=== PATIENT | female | born 1995 | race Caucasian/White ===

== ENCOUNTER → 2017-10-22 11:33 | Outpatient (CLI) | payer BC, SELFPAY ==
[2017-10-22 12:52] LABS: Absolute Lymphocyte Count 1.21 X10^3/ul (0.83-4.51); Absolute Neutrophil Count 4.8 X10^3/uL (2.0-7.7); Basophil# 0.02 X10^3/uL; Basophil% 0.3 % (0-1); Eosinophil# 0.05 X10^3/uL; Eosinophils% 0.8 % (0-5); Hemoglobin 12.7 g/dl (12.0-15.0); Lymphocyte # 1.21 X10^3/ul (4.0); Lymphocyte % 18.6 % (19-41); Mean Corp Hgb Conc 34.3 g/gl (32-36); Mean Corpuscular Volume 90.2 fL (81-99); Mean Platelet Vol. 11.2 fl (6.2-12.0); Monocyte# 0.43 X10^3/uL; Monocyte% 6.6 % (0-10); Neutrophil # 4.78 X10^3/uL (2.7-7.7); Neutrophil % 73.5 % (47-70); Platelet Count 170 K/mm3 (150-450); RBC Distribution Width CV 12.5 % (11.6-14.6); RBC Distribution Width SD 40.9 fl (35.1-43.9); White Blood Count 6.5 K/mm3 (4.4-11.0)
[2017-10-22 12:57] LABS: POSITIVE COUNT NO; POSITIVE DIFFERENTIAL NO; POSITIVE MORPHOLOGY NO
[2017-10-22 14:11] LABS: HIV - WCH Non-Reactive (Nonreactive)
[2017-10-22 18:45] LABS: Chlamydia Trachomatis by PCR Negative (Negative); Neisserai gonorrhoeae by PCR Negative (Negative); Probe Check PASS; Sample Adequacy Control PASS; Specimen Processing Control PASS
[2017-10-23 09:42] LABS: HEPATITIS B SURFACE AG Negative (Negative)
[2017-10-26 03:47] LABS: Rapid Plasmin Reagin (RPR) NONREACTIVE (NONREACTIVE)
== END ==
PROVIDERS: Visit Provider Obstetrics & Gynecology
DX: Z34.90 Encounter for supervision of normal pregnancy, unspecified, unspecified trimester (principal); Z3A.00 Weeks of gestation of pregnancy not specified
CPT/HCPCS: 85025; 86592; 86703; 86762; 86850; 86900; 87086; 87088; 87340; 87491; 87591

== ENCOUNTER → 2018-01-09 13:55 | Outpatient (CLI) | payer BC, SELFPAY ==
--- NOTE | 2018-01-09 13:57 | US_ITS ---
STUDY: SECOND AND THIRD TRIMESTER OBSTETRICAL ULTRASOUND REASON FOR EXAM: Female, 22 years old. Routine survey. LMP: August 29, 2017 TECHNIQUE: Transabdominal PRIOR ULTRASOUND: None. FINDINGS: There is a single intrauterine fetus. The fetus is in a cephalic presentation. There is demonstrated cardiac activity with a heart rate of 155 bpm. There is a normal amniotic fluid volume. The largest amniotic fluid pocket measures 3.6 cm x 5.5 cm. The amniotic fluid index (BORIS) is within normal limits. The placenta is posterior in location and is not low lying. There are Grade 0 placental changes. The cervix measures 3.2 cm in length. The bilateral adnexal regions are normal. BIOMETRY: BPD: 4.7 cm: 20 weeks, 2 days HC: 17.1 cm: 19 weeks, 6 days AC: 13.6 cm: 19 weeks, 1 days FL: 3.04 cm: 19 weeks, 3 days CI: 79% FL/BPD: 65% FL/HC: FL/AC: 22% HC/AC: 1.26 age by current US: 19 weeks, 5 days. KIRK by current US: May 31, 2018. Estimated weight: 284 grams, +/- 42 grams, 63 %. Age by LMP: 19 weeks, 0 days. KIRK by LMP: June 05, 2018 ANATOMY: Gender: Male Cranium: Normal lateral ventricles. Normal choroid plexus. Normal cerebellum. Normal cisterna magna. Normal face, nose and lips. Chest: Normal 4-chamber heart. Echogenic focus in the left ventricle suggestive of a possible prominent coronary tendon. Abdomen/Pelvis: Normal diaphragm. Normal stomach. Normal abdominal wall. Normal cord insertion. Normal 3 vessel cord. Minimally dilated lateral renal pelvis. Normal bladder. Spine: Normal cervical spine. Normal thoracic spine. Normal lumbar spine. Normal sacrum. Extremities: Normal bilateral upper extremities. There is suggestion of a possible sandal gap of the left foot. US/OB Anatomy Scan IMPRESSION: Single live intrauterine gestation with mean gestational age of 19 weeks and 5 days. Soft findings of the foot and heart as described. Trisomy 21 should be ruled out. Electronically Signed: Yosi Norman MD at 11:24 EDT Tel [phone], Service support ,
== END ==
PROVIDERS: Visit Provider Nurse Practitioner Women's Health
DX: Z34.92 Encounter for supervision of normal pregnancy, unspecified, second trimester (principal)
CPT/HCPCS: 76805

== ENCOUNTER → 2018-02-12 18:19 | Outpatient (CLI) | payer BC, SELFPAY | PROVIDERS: Referring Provider Obstetrics & Gynecology; Visit Provider Obstetrics & Gynecology | DX: R30.0 Dysuria (principal) | CPT/HCPCS: 87086; 87088 ==

== ENCOUNTER → 2018-03-12 12:09 | Outpatient (CLI) | payer BC, SELFPAY ==
[2018-03-12 13:34] LABS: Absolute Lymphocyte Count 1.31 X10^3/ul (0.83-4.51); Absolute Neutrophil Count 6.5 X10^3/uL (2.0-7.7); Basophil# 0.01 X10^3/uL; Basophil% 0.1 % (0-1); Eosinophil# 0.07 X10^3/uL; Eosinophils% 0.8 % (0-5); Hematocrit 29.8 % (37-47); Hemoglobin 9.7 g/dl (12.0-15.0); Lymphocyte # 1.31 X10^3/ul (4.0); Lymphocyte % 15.5 % (19-41); Mean Corp Hgb Conc 32.6 g/gl (32-36); Mean Corpuscular Hgb 29.7 pg (27.0-32.0); Mean Corpuscular Volume 91.1 fL (81-99); Mean Platelet Vol. 10.8 fl (6.2-12.0); Monocyte# 0.53 X10^3/uL; Monocyte% 6.3 % (0-10); Neutrophil # 6.52 X10^3/uL (2.7-7.7); Neutrophil % 77.1 % (47-70); POSITIVE COUNT NO; POSITIVE DIFFERENTIAL NO; POSITIVE MORPHOLOGY NO; Platelet Count 201 K/mm3 (150-450); RBC Distribution Width CV 12.3 % (11.6-14.6); Red Blood Count 3.27 M/mm3 (4.2-5.4); White Blood Count 8.5 K/mm3 (4.4-11.0)
[2018-03-12 13:52] LABS: Glucose Challenge Gest 1H 50g 120 mg/dL (70-140)
== END ==
PROVIDERS: Referring Provider Obstetrics & Gynecology; Visit Provider Obstetrics & Gynecology
DX: Z34.90 Encounter for supervision of normal pregnancy, unspecified, unspecified trimester (principal)
CPT/HCPCS: 36415; 82950; 85025

== ENCOUNTER 2018-04-21 22:50 | Outpatient (CLI) | payer BC, SELFPAY ==
[2018-04-08 10:16] VITALS: BMI 21.4
[2018-04-22] VITALS: BMI 22.4
[2018-04-22 00:28] LABS: Hematocrit 33.9 % (37-47); Hemoglobin 11.6 g/dl (12.0-15.0); Mean Corp Hgb Conc 34.2 g/gl (32-36); Mean Corpuscular Hgb 31.2 pg (27.0-32.0); Mean Corpuscular Volume 91.1 fL (81-99); Mean Platelet Vol. 11.1 fl (6.2-12.0); Platelet Count 188 K/mm3 (150-450); RBC Distribution Width CV 14.3 % (11.6-14.6); RBC Distribution Width SD 46.7 fl (35.1-43.9); Red Blood Count 3.72 M/mm3 (4.2-5.4); White Blood Count 13.6 K/mm3 (4.4-11.0)
[2018-04-22 00:31] LABS: Scan Indicated on CBC? Y/N NO
[2018-04-22] MEDS: Ondansetron 4 MG/2 ML Vial IV ×2 (00:37→04:48)
[2018-04-22 00:59] LABS: Fetal Fibronectin Negative
[2018-04-22] MEDS: Lactated Ringers 1,000 ML 999 ML IV ×2 (01:29)
[2018-04-22] MEDS: Lactated Ringers 1,000 ML 200 ML IV (02:56)
[2018-04-22] MEDS: Betamethasone/Betamethasone 30 MG/5 ML Vial 12 MG IM (02:58)
[2018-04-22 03:20] LABS: Red Blood Cells-Urine 0 SEEN /hpf (0-5); Squamous Epithelial Cells - UA 0 SEEN /hpf (5-10); White Blood Cells 0 SEEN /hpf (0-5)
[2018-04-22 03:21] LABS: Color, Urine Yellow (Yellow); Glucose, Dipstick Normal (Normal); Leukocyte Esterase-Dipstick Negative /ul (Negative); Nitrite-Dipstick Negative (Negative); Occult Blood-Urine Negative /ul (Negative); Protein-Dipstick Negative (Negative); Urine Bilirubin Dipstick Negative (Negative); Urine Clarity Clear (Clear); Urine Urobilinogen Normal (Normal); Urine pH 6.5 (5.0 - 8.0)
[2018-04-22 03:27] LABS: Bacteria RARE /hpf (None Seen); Mucous, Urine RARE /hpf (<or=2+)
[2018-04-22 03:28] LABS: Ketone-Dipstick 150 mg/dl (Negative)
--- NOTE | 2018-04-22 04:17 | OB.TRI.HP_ITS ---
- Problem List (1) Threatened labor Status: Acute History of Present Illness Date of Service: 04/22/18 Was patient seen by the physician?: Yes Reason For Visit: R/O LABOR Date of Service: 04/22/18 History of Present Illness: 23 yo @ 33 weeks presents with ctx every few minutes increasing since 4 pm this afternoon. she denies any vb or lof and admits good fm. she has also had some diarrhea and vomiting. she denies any sick contacts and no fevers. Allergies penicillin G Allergy (Mild, Verified 04/22/18 00:42) Other unknown reaction nitrous oxide Allergy (Verified 04/22/18 00:42) Other Hallucinations and vomiting acetaminophen [From Tylenol] Adverse Reaction (Severe, Verified 04/22/18 00:42) Vomiting - Pertinent Past Medical History Medical History: Past Medical History (Last Reviewed 04/08/18 @ 10:16 by Suni Acevedo) [place] teeth extracted Laboratory Studies: Laboratory Tests 04/22/18 04/21/18 04/21/18 Range/Units 02:35 00:00 00:00 WBC 13.6 H (4.4-11.0) K/mm3 RBC 3.72 L (4.2-5.4) M/mm3 Hgb 11.6 L (12.0-15.0) g/dl Hct 33.9 L (37-47) % MCV 91.1 (81-99) fL MCH 31.2 (27.0-32.0) pg MCHC 34.2 (32-36) g/gl RDW 14.3 (11.6-14.6) % RDW Differential 46.7 H (35.1-43.9) fl Plt Count 188 (150-450) K/mm3 MPV 11.1 (6.2-12.0) fl Urine Color Yellow (Yellow) Urine Clarity Clear (Clear) Urine pH 6.5 (5.0 - 8.0) Ur Specific [place] 1.010 (1.002-1.030) Urine Protein Negative (Negative) mg/dl Urine Glucose (UA) Normal (Normal) mg/dl Urine Ketones 150 H (Negative) mg/dl Urine Occult Blood Negative (Negative) /ul Urine Nitrite Negative (Negative) Urine Bilirubin Negative (Negative) mg/dL Urine Urobilinogen Normal (Normal) mg/dl Ur Leukocyte Esterase Negative (Negative) /ul Urine RBC 0 SEEN (0-5) /hpf Urine WBC 0 SEEN (0-5) /hpf Ur Squamous Epith Cells 0 SEEN (5-10) /hpf Urine Bacteria RARE (None Seen) /hpf Urine Mucus RARE (<or=2+) /hpf Fibronectin Negative Review of Systems Constitutional: Denies: Fever, Malaise Eyes: Denies: Blurred vision, Vision Change HEENT: Denies: Head Aches, Visual Changes Cardiovascular: Denies: Chest Pain, Palpitations Respiratory: Denies: Cough, Shortness of Breath, Wheezing Gastrointestinal: Denies: Abdominal Pain, Diarrhea, Nausea, Vomiting Genitourinary: Denies: Dysuria, Hematuria Gynecological: Denies: Vaginal bleeding, Vaginal discharge Musculoskeletal: Denies: Joint Pain, Muscle pain Skin: Denies: Lesions, Rash Neurological: Denies: Blurred vision, Focal weakness, Headaches Psychiatric: Denies: Anxiety, Depression Endocrine: Denies: Heat/ Cold Intolerance Hematologic/ Lymphatic: Denies: Easy Bruising, Easy Bleeding Physical Exam General: Alert, Cooperative, No apparent distress HEENT: Atraumatic, Normocephalic. Negative for: Thyromegaly, Lymphadenopathy Cardiovascular: Regular rate Lungs: Normal air movement Abdomen: Soft, Non Tender, Gravid Neurological: Deep Tendon Reflexes 2+/4 and Symmetrical, Neuro grossly intact. 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 Negative for: Vulvar lesions Estimated gestational size: Appropriate for gestational size Presentation: Cephalic Cervix Dilation (cm): 1.5 Station: -1 Effacement (%): 70 NST - FHR Rate Baby A Baseline: 130 Variability:: Moderate Accelerations:: 15 x 15 Decelerations:: None NST Reactive:: Yes FHR Category:: Category I Uterine Activity:: q 2-5 Impression/Plan 23 yo @ 33 weeks with threatened PTL FFN negative and no cervical change but regular contractions for several hours- given celestone prophylactically. extended monitoring and IVFs and anti emetics given and ctx decreased. stable for discharge
[2018-04-22] MEDS: proMETHazine 25 MG/ML Syringe 12.5 MG IV (04:49)
[2018-04-22 08:10] VITALS: RESP 18
--- OUTSIDE RECORDS SUMMARY | 2018-07-24 14:12 | XMS RPT_ITS ---
:1995 Author Organization OHIP Support Name Relationship Address Phone DOYHE Unavailable [address] + [place] [address] SHIREEN MANTILLA Unavailable [address] + [place] [address] DOYHE Unavailable [address] + [place] [address] SHIREEN MANTILLA Unavailable [address] + [place] [address] DOYHE Unavailable [address] + [place] [address] SHIREEN MANTILLA Unavailable [address] + [place] [address] DOYHE Unavailable [address] + [place] [address] SHIREEN MANTILLA Unavailable [address] + [place] [address] DOYHE Unavailable [address] + [place] [address] SHIREEN MANTILLA Unavailable [address] + [place] [address] DOYHE Unavailable [address] + [place] [address] SHIREEN MANTILLA Unavailable [address] + [place] [address] FRANCINE MANTILLA Unavailable [address] + [place] [address] DOYHE Unavailable [address] + [place] [address] SHIREEN MANTILLA Unavailable [address] + [place] [address] DOYHE Unavailable [address] + [place] [address] SHIREEN MANTILLA Unavailable [address] + [place] [address] DOYHE Unavailable [address] + [place] [address] SHIREEN MANTILLA Unavailable [address] + [place] [address] DOYHE Unavailable [address] + [place] [address] SHIREEN MANTILLA Unavailable [address] + [place] [address] DOYHE Unavailable [address] + [place] [address] SHIREEN MANTILLA Unavailable [address] + [place] [address] DOYHE Unavailable [address] + [place] [address] SHIREEN MANTILLA Unavailable [address] + [place] [address] FRANCINE MANTILLA Unavailable [address] + [place] [address] DOYHE Unavailable [address] + [place] [address] SHIREEN MANTILLA Unavailable [address] + [place] [address] DOYHE Unavailable [address] + [place] [address] SHIREEN MANTILLA Unavailable [address] + [place] [address] DOYHE Unavailable [address] + [place] [address] SHIREEN MANTILLA Unavailable [address] + [place] [address] DOYHE Unavailable [address] + [place] [address] SHIREEN MANTILLA Unavailable [address] + [place] [address] FRANCINE MANTILLA Unavailable [address] + [place] [address] DOYHE Unavailable [address] + [place] [address] SHIREEN MANTILLA Unavailable [address] + [place] [address] DOYHE Unavailable [address] + [place] [address] SHIREEN MANTILLA Unavailable [address] + [place] [address] FRANCINE MANTILLA Unavailable [address] + [place] [address] DOYHE Unavailable [address] + [place] [address] SHIREEN MANTILLA Unavailable [address] + [place] [address] MAVERICK FISH Unavailable [address] + [place] [address] MAVERICK FISH Unavailable [address] + [place] [address] DOYHE Unavailable [address] + [place] [address] SHIREEN MANTILLA Unavailable [address] + [place] [address] SHIREEN MANTILLA Unavailable [address] + [place] [address] WOOBGYN Unavailable BENEKOS/WEEMAN/CASTELAN + [address] [address] SHIREEN MANTILLA Unavailable [address] + [place] [address] WOOBGYN Unavailable BENEKOS/WEEMAN/CASTELAN + [address] [address] SHIREEN MANTILLA Unavailable [address] + [place] [address] WOOBGYN Unavailable BENEKOS/WEEMAN/CASTELAN + [address] [address] WOOBGYN Unavailable BENEKOS/WEEMAN/CASTELAN + [address] [address] Care Team Providers Name Role Phone JOHNY MCNEAL Attending Unavailable MARCANTHONYTRICIA Referring Unavailable NO PRIMARY CARE, Primary Care Unavailable JENNY PEREZ Attending Unavailable MARCANTHONY, TRICIA E Referring Unavailable NO PRIMARY CARE, Primary Care Unavailable JENNY PEREZ Attending Unavailable MARCANTHONY, TRICIA E Referring Unavailable NO PRIMARY CARE, Primary Care Unavailable NIURKA HUSAIN Attending Unavailable MARCANTHONY, TRICIA E Referring Unavailable NO PRIMARY CARE, Primary Care Unavailable Marcanthony, Tricia Attending Unavailable Primay Care Physicia, No Primary Care Unavailable Marcanthony, Tricia Attending Unavailable Primay Care Physicia, No Primary Care Unavailable Marcanthony, Tricia Consulting Unavailable Marcanthony, Tricia Attending Unavailable Marcanthony, Tricia Referring Unavailable Primay Care Physicia, No Primary Care Unavailable Marcanthony, Tricia Attending Unavailable Primay Care Physicia, No Referring Unavailable Marcanthony, Tricia Attending Unavailable Marcanthony, Tricia Referring Unavailable Primay Care Physicia, No Primary Care Unavailable Marcanthony, Tricia Consulting Unavailable MikelCarmelina Attending Unavailable Primay Care Physicia, No Referring Unavailable Marcanthony, Tricia Attending Unavailable Marcanthony, Tricia Attending Unavailable MarcanthonyTricia Referring Unavailable Primay Care Physicia, No Primary Care Unavailable Marcanthony, Tricia Attending Unavailable Primay Care Physicia, No Referring Unavailable Marcanthony, Tricia Attending Unavailable Marcanthony, Tricia Referring Unavailable Primay Care Physicia, No Primary Care Unavailable Marcanthony, Tricia Attending Unavailable Primay Care Physicia, No Referring Unavailable Marcanthony, Tricia Admitting Unavailable Marcanthony, Tricia Attending Unavailable Marcanthony, Tricia Referring Unavailable Primay Care Physicia, No Primary Care Unavailable Marcanthony, Tricia Admitting Unavailable Marcanthony, Tricia Attending Unavailable Marcanthony, Tricia Referring Unavailable Primay Care Physicia, No Primary Care Unavailable Marcanthony, Tricia Consulting Unavailable Marcanthony, Tricia Admitting Unavailable Gallaway, Carmelina Attending Unavailable Marcanthony, Tricia Referring Unavailable Primay Care Physicia, No Primary Care Unavailable Marcanthony, Tricia Consulting Unavailable Marcanthony, Tricia Attending Unavailable Primay Care Physicia, No Referring Unavailable Mikel, Carmelina Attending Unavailable Primay Care Physicia, No Referring Unavailable Primay Care Physicia, No Primary Care Unavailable Mikel, Carmelina Attending Unavailable Gallaway, Carmelina Referring Unavailable Primay Care Physicia, No Primary Care Unavailable Marcanthony, Tricia Attending Unavailable Marcanthony, Tricia Attending Unavailable Primay Care Physicia, No Referring Unavailable Primay Care Physicia, No Primary Care Unavailable Marcanthony, Tricia Attending Unavailable Marcanthony, Tricia Attending Unavailable Primay Care Physicia, No Referring Unavailable Marcanthony, Tricia Attending Unavailable Marcanthony, Tricia Referring Unavailable Marcanthony, Tricia Attending Unavailable Primay Care Physicia, No Referring Unavailable Marcanthony, Tricia Attending Unavailable Marcanthony, Tricia Referring Unavailable Mikel, Carmelina Attending Unavailable Primay Care Physicia, No Referring Unavailable Marcanthony, Tricia Attending Unavailable Primay Care Physicia, No Referring Unavailable PROBLEMS PROBLEMS DATE TYPE CONDITION / CODE ATTENDING STATUS SOURCE 05/20/2018 Unknown O35.8XX0 - Marcanthony, Active [facility] Maternal care for [facility] other (suspected) Hospital abnormality Repository and damage, not applicable or unspecified / O35.8XX0(ICD-10) 05/20/2018 Unknown O21.9 - Vomiting Marcanthony, Active Florentin of , [facility] unspecified / Hospital O21.9(ICD-10) Repository 05/20/2018 Unknown O28.3 - Abnormal Marcanthony, Active [facility] ultrasonic finding [facility] on Hospital screening of Repository mother / O28.3(ICD-10) 05/20/2018 Unknown Z34.03 - Encounter Marcanthony, Active [facility] for supervision of [facility] normal first Hospital , third Repository trimester / Z34.03(ICD-10) 05/20/2018 Unknown Z3A.37 - 37 weeks Marcanthony, Active [facility] gestation of [facility] / Hospital Z3A.37(ICD-10) Repository 05/14/2018 Unknown Z34.90 - Encounter Marcanthony, Active Florentin for supervision of [facility] normal , Hospital unspecified, Repository unspecified trimester / Z34.90(ICD-10) 04/23/2018 Unknown O47.03 - False Marcmalikony, Active [facility] labor before 37 [facility] completed weeks of Hospital gestation, third Repository trimester / O47.03(ICD-10) 04/23/2018 Unknown O99.013 - Anemia Marcanthony, Active [facility] complicating [facility] , third Hospital trimester / Repository O99.013(ICD-10) 04/23/2018 Unknown Z3A.33 - 33 weeks Marcanthony, Active Florentin gestation of [facility] / Hospital Z3A.33(ICD-10) Repository 04/08/2018 Unknown Z3A.31 - 31 weeks Marcanthony, Active Florentin gestation of [facility] / Hospital Z3A.31(ICD-10) Repository 03/27/2018 Unknown Z34.02 - Encounter Carmelina Morin Active [facility] for supervision of [facility] Hospital , second Repository trimester / Z34.02(ICD-10) 03/27/2018 Unknown Z3A.30 - 30 weeks Carmelina Morin Active [facility] gestation of [facility] / Hospital Z3A.30(ICD-10) Repository 03/12/2018 Unknown Z3A.27 - 27 weeks Marcanthony, Active [facility] gestation of [facility] / Hospital Z3A.27(ICD-10) Repository 02/14/2018 Unknown R30.0 - Dysuria / Marcanthony, Active [facility] R30.0(ICD-10) [facility] Repository 01/28/2018 Unknown Z34.01 - Encounter Marcmaliksamara, Active Florentin for supervision of [facility] normal [facility] , first Repository trimester / Z34.01(ICD-10) 01/28/2018 Unknown Z3A.19 - 19 weeks Marcanthony, Active Florentin gestation of [facility] / Hospital Z3A.19(ICD-10) Repository 12/18/2017 Unknown Z3A.15 - 15 weeks Carmelina Morin Active [facility] gestation of [facility] / Hospital Z3A.15(ICD-10) Repository PROCEDURES PROCEDURES No Procedure Records FoundRESULTS RESULTS DISCHARGE INSTRUCTION Observed: 05/22/2018 Status: F Source: [place] 7:56 AM [facility] [place] [facility] Medical Records Department [address] [place] [address] Instructions for Home/Discharge Instructions 05/22/18 0755 MR#: [id number] Acct: [id number] Name: FRANCINE MANTILLA Rep #: [id number] : 1995 23 From: Carmelina BARKER PCP: Care Physician, No Primary Status: ADM IN Additional Instructions: If you experience any of the following, contact your healthcare provider. * Bleeding that soaks a pad every hour for 2 hours * Fever 100.4 or higher * Unrelieved incision or abdominal pain * Swelling, redness, discharge or bleeding from your incision or episiotomy site * Your incision begins to separate * Problems urinating (including inability to urinate or burning while urinating). * Visual changes * Severe headache * Flu-like symptoms * Pain or redness in one of both of your breasts * Pain, warmth, tenderness or swelling in your legs, especially the calf area * Frequent nausea and vomiting * Symptoms of depression or anxiety If you experience any of the following, call 911 or go to the nearest Emergency Room. * Chest pain * Problems breathing * Seizure activity * Partial or complete paralysis of a body part, slurred speech, weakness or drooping of the face, or a sudden inability to walk or hold your balance Allergies/Adverse Reactions: Allergies penicillin G Allergy (Mild, Verified 05/20/18 08:08) Other unknown reaction nitrous oxide Allergy (Verified 05/20/18 08:08) Other Hallucinations and vomiting acetaminophen [From Tylenol] Adverse Reaction (Severe, Verified 05/20/18 08:08) Vomiting Medications to take at Discharge vitamin,calcium,wbrhljhb-fhqu-vtbpc acid tablet 1 tab PO QDAY 10/22/17 Ascorbic Acid [Vitamin C] 500 mg PO DAILY@0800 04/23/18 Docusate Sodium [Colace] 100 mg PO DAILY 05/20/18 ferrous sulfate 325 mg (65 mg iron) tablet 325 mg PO DAILY tab 05/20/18 Primary Care Physician: Care Physician,No Primary [Primary Care Provider] - Test Results: Test results from this visit will be discussed in further detail at your follow-up appointment, if applicable. 05/22/18 0756 <Electronically signed by Carmelina BARKER> Date Carmelina Morin SCHEDULE ANNOUNCER-C CC: No Primary Care Physician Signed OPERATIVE REPORT Observed: 05/21/2018 Status: F Source: [place] 2:04 AM [facility] [place] [facility] Medical Records Department [address] [place] [address] Operative Report 05/21/18 0140 MR#: [id number] Acct: [id number] Name: FRANCINE MANTILLA Rep #: [id number] : 1995 23 From: Tricia Euceda MD PCP: Care Physician, No Primary Status: ADM IN Y Location: [id number] - Problem List (1) Active labor at term Status: Acute (2) Status: Acute Qualifiers: Comment: genetic, carrier, and ntd screening declined. anatomy scan reviewed. (3) Nausea and vomiting during Status: Acute Comment: phenergan, if needs more recommend reglan (4) Supervision of normal Status: Acute Qualifiers: Comment: PRR KIRK 06/05/18 Boy Shireen (5) Echogenic intracardiac focus of fetus on ultrasound Status: Acute Comment: repeat US with MFM 27-28 wk (6) Pyelectasis of fetus on ultrasound Status: Acute Comment: repeat US with MFM 04/15/ Vaginal Delivery Maternal Presentation: Active Labor 23-year-old at 37 weeks Amniotic Membrane Rupture Type: Artificial Amniotic Fluid Description: Clear Final KIRK: 06/05/18 Gestational age: 37 Weeks and 6 Days Date of Procedure: 05/21/18 Pre-Operative Diagnosis: In active labor Post-Operative Diagnosis: same Surgery/ Procedure Performed: Spontaneous Vaginal Delivery Type of Anesthesia: Epidural Description of Procedure: Patient began pushing and delivered the head in the CHANTEL presentation spontaneously as the physician was coming in the room. The head was delivered atraumatically. The anterior and posterior shoulders delivered without complication delivered by the physician followed by the rest of the infant and the infant was placed on the maternal abdomen. Delayed cord clamping was employed for approximately 60 seconds. Cord was clamped and cut and gentle traction was applied to the cord and the placenta delivered spontaneously immediately following it was noted to be intact with three-vessel cord. The perineum and vagina were inspected and a second-degree perineal laceration was noted and repaired in the usual fashion with 3-0 Vicryl repeat. EBL was 300 cc. Patient and tolerated delivery well. Placental Delivery Description: Spontaneous Placenta Disposition: [facility] Cord Vessel Description: 3 Vessels Cord Entanglement: None Estimated Blood Loss: 300 A gender: Male Episiotomy Description: None Laceration: Perineal Extension/lac, 2nd degree Medications given after delivery: IV Pitocin Complications: None 05/21/18 0204 <Electronically signed by Tricia Euceda MD> Date Tricia Euceda MD CC: No Primary Care Physician; Tricia Euceda MD Signed HISTORY AND PHYSICAL Observed: 05/21/2018 Status: F Source: [place] EXAM 1:40 AM [facility] [place] [facility] Medical Records Department [address] [place] [id number] History and Physical 05/21/18 0137 MR#: [id number] Acct: [id number] Name: FRANCINE MANTILLA Rep #: [id number] : 1995 23 From: Tricia Euceda MD PCP: Care Physician, No Primary Status: ADM IN Location: [id number] - Problem List (1) Active labor at term Status: Acute (2) Status: Acute Qualifiers: Comment: genetic, carrier, and ntd screening declined. anatomy scan reviewed. (3) Nausea and vomiting during Status: Acute Comment: phenergan, if needs more recommend reglan (4) Supervision of normal Status: Acute Qualifiers: Comment: PRR KIRK 06/05/18 Boy Shireen (5) Echogenic intracardiac focus of fetus on ultrasound Status: Acute Comment: repeat US with MFM 27-28 wk (6) Pyelectasis of fetus on ultrasound Status: Acute Comment: repeat US with M History Date of Admission: 05/21/18 Final KIRK: 06/05/18 Gestational age: 37 Weeks and 6 Days History of this : This is a 23 year-old, at 37 weeks gestational age resents in active labor. Patient presented at 5 cm dilation with regular contractions and a small amount of vaginal bleeding. She denies any loss of fluid and admits good movement. Patient has had a comp gated by some soft markers on ultrasound but otherwise normal testing. Surgical History: Surgical History (Last Reviewed 05/20/18 @ 08:09 by Merry Olvera) [place] teeth extracted K08.499 Allergies penicillin G Allergy (Mild, Verified 05/20/18 08:08) Other unknown reaction nitrous oxide Allergy (Verified 05/20/18 08:08) Other Hallucinations and vomiting acetaminophen [From Tylenol] Adverse Reaction (Severe, Verified 05/20/18 08:08) Vomiting Home Medications: Home Medications vitamin,calcium,ivrpakie-elne-trqwg acid tablet 1 tab PO QDAY 10/22/17 Ascorbic Acid [Vitamin C] 500 mg PO DAILY@0800 04/23/18 Docusate Sodium [Colace] 100 mg PO DAILY 05/20/18 ferrous sulfate 325 mg (65 mg iron) tablet 325 mg PO DAILY tab 05/20/18 Smoking Status: Never smoker Alcohol: None Number of Fetus(es): 1 Heart Tracin moderate variability reactive no decelerations category I tracing\ [place]: regular History Past Pregnancies: Past Pregnancies Delivery Name GA/Weeks Outcome Route Audie Salcedo LenAnesthesiDelivery Provider FOB Date t [facility] a Location Labs: Mom's Labs AND Results WBC 9.8 RBC 3.82 L Hgb 11.3 L Course Did the patient receive Yes care? Labs Blood Type: A Current Obstetrical History Gestational Diabetes No Incompetent Cervix No Infertility No IUGR No Macrosomia No Hypertension/Pre-eclampsia No Placenta Previa/Abruption No PTL/PROM Yes: 33.5 Uterine anomaly No Oligohydramnios No Polyhydramnios No Multiple gestation No Past Medical History Asthma No Diabetes No Hypertension No Heart disease No Mitral valve prolapse No Neurologic/Seizure disorder/ No Migraines Kidney disease No Liver disease No Varicosities No Clotting disorders/Hx of DVT No Thyroid Dysfunction No Other medical diseases No Psychiatric disorders No Major trauma No Abnormal PAP smear No Sleep apnea No Mammogram in the last 2 years No Social History Marital Status: Alleged father Shireen Smoking Status Never smoker How long have you used no substances (years)? What date/time did you last no use any of the above? Expected Delivery Method: Spontaneous Vaginal Review of Systems Constitutional: Denies: Fever, Malaise Eyes: Denies: Blurred vision, Vision Change HEENT: Denies: Head Aches, Visual Changes Cardiovascular: Denies: Chest Pain, Palpitations Respiratory: Denies: Cough, Shortness of Breath, Wheezing Gastrointestinal: Denies: Abdominal Pain, Diarrhea, Nausea, Vomiting Genitourinary: Denies: Dysuria, Hematuria Musculoskeletal: Denies: Joint Pain, Muscle pain Skin: Denies: Lesions, Rash Neurological: Denies: Blurred vision, Focal weakness, Headaches Psychiatric: Denies: Anxiety, Depression Endocrine: Denies: Heat/ Cold Intolerance Hematologic/ Lymphatic: Denies: Easy Bruising, Easy Bleeding Physical Exam General: Alert, Cooperative, No apparent distress HEENT: Atraumatic, Normocephalic. Negative for: Thyromegaly, Lymphadenopathy Cardiovascular: Regular rate Lungs: Normal air movement Abdomen: Soft, Non Tender, Gravid Neurological: Deep Tendon Reflexes 2+/4 and Symmetrical, Neuro grossly intact. Negative for: Clonus 911 EMERGENCY SERVICES DISPATCHER: Normal external genitalia. Negative for: Vulvar lesions Estimated gestational size: Appropriate for gestational size Presentation: Cephalic Cervix Dilation (cm): 5 Station: 0 Effacement (%): 80 Assessment/Plan All Active Problems (Last Reviewed 05/20/18 @ 08:09 by Merry Olvera) Active labor at term (Acute) (Acute) Nausea and vomiting during (Acute) Supervision of normal (Acute) Echogenic intracardiac focus of fetus on ultrasound (Acute) Pyelectasis of fetus on ultrasound (Acute) Anemia affecting (Resolved) Threatened labor (Resolved) This is a 23 year-old, at 37 weeks gestational age presents IAL Patient presents IAL, plan expectant management for , pitocin/AROM PRN if needed. Pain management: plans epidural. GBS negative. Management of any complications: none I have reviewed the [facility] and made any clinically relevant updates. 05/21/18 0140 <Electronically signed by Tricia Euceda MD> Date Tricia Euceda MD [facility] Signature: Date (if applicable) CC: No Primary Care Physician; Tricia Euceda MD Signed CBC-COMPLETE BLOOD CNT Collected: 05/20/2018 Status: F Source: [place] NO DIFF 5:55 PM [facility] [place] TYPE CODE TESTS RESULT OUT OF RANGE REFERENCE UNITS LAB L100.1000 4.4-11.0 K/mm3 Normal WBC 9.8 LAB L100.1200 4.2-5.4 M/mm3 Low RBC 3.82 LAB L100.1300 12.0-15.0 g/dl Low HGB 11.3 LAB L100.1400 37-47 % Low HCT 34.2 LAB L100.1500 81-99 fL Normal MCV 89.5 LAB L100.1600 27.0-32.0 pg Normal MCH 29.6 LAB L100.1700 32-36 g/gl Normal MCHC 33.0 LAB L100.1810 11.6-14.6 % High RDW CV 14.7 LAB L100.1820 35.1-43.9 fl High RDW SD 47.8 LAB L100.1900 150-450 K/mm3 Normal PLT 155 LAB L100.2000 6.2-12.0 fl High MPV 12.4 Performed By: #### L100.0500 #### [facility] [address] [place], [address] TYPE AND SCREEN Collected: 05/20/2018 Status: F Source: [place] 5:55 PM [facility] [place] Order Comment: Reason for Type AND Screen/Red Cells: ROUTINE TYPE CODE TESTS RESULT OUT OF RANGE REFERENCE UNITS LAB B10.0800 A Normal BLOOD TYPE GEL POSITIVE LAB B100.4000 Normal Antibody NEGATIVE Screen Performed By: #### B101.7450 #### [facility] [address] [place], [address] TURRET LATHE OPERATOR OFFICE VISIT Observed: 05/20/2018 Status: F Source: [place] REPORT 8:27 [facility] REPOSITORY [facility] 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 Is patient in pain?: No Allergies penicillin G Allergy (Mild, Verified 05/20/18 08:08) Other nitrous oxide Allergy (Verified 05/20/18 08:08) Other acetaminophen [From Tylenol] Adverse Reaction (Severe, Verified 05/20/18 08:08) Vomiting Medications vitamin,calcium,xietejnd-dfmn-dcimm acid tablet 1 tab PO QDAY 10/22/17 [History Confirmed 05/20/18] Ascorbic Acid [Vitamin C] 500 mg PO DAILY@0800 04/23/18 [History Confirmed 05/20/18] ferrous sulfate 325 mg (65 mg iron) tablet 325 mg PO DAILY tab 05/20/18 [History Confirmed 05/20/18] Last Menstral Period: 08/06/17 Zika: Zika virus screening: Negative : No PFSH PFSH Surgical History [place] teeth extracted (Acute) Family History Grandfather Cancer Social History Smoking Status: Never smoker alcohol intake: never substance use type: does not use what type of physical activity do you participate in: running, walking frequency: 3-4 times per week seatbelt use: always do you feel safe at home: Yes additional social history: 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 OB Visit KIRK Calculator Estimated Delivery Date 06/05/18 Based on LMP (certain) 08/29/17 Current WG 37w 5d Number 1 Expected Delivery Route/Plan Specific Issue/Plans flu vaccine: declines tdap vaccine: getting at her office rhogam: na LARC form signed: declined labor support person: shireen pain management: epidural cut cord/dad catch: no : yes PP control planned: OCP progesterone discussed possible routes of delivery and associated risks: [] special requests: [] Initial Weight: Not Recorded Date Weight BP Urine PrFHR FuHt Pres MoCTX DilationFetal StVisit NoProviderComments E ot v te [place] G Effac lucose ed Visit Notes Visit Date: 05/20/18 membranes swept no vb lof good fm n roegualr ctx Tricia Euceda MD on 05/20/18 Visit Date: 05/14/18 no vb lof good fm no regular ctx gbs done. Tricia Euceda MD on 05/14/18 Visit Date: 05/06/18 NO reg CTX, LOF, Vb. Carmelina Morin NP-C on 05/06/18 Visit Date: 04/23/18 no vb lof good fm no regular ctx since bmz- was in for PTL the other day Tricia Euceda MD on 04/23/18 Visit Date: 04/08/18 no vb lof good fm no regular ctx. co pelvic pressure. Tricia Euceda MD on 04/08/18 Visit Date: 03/27/18 No VB, LOF. Doing well Carmelina Morin NP-C on 03/27/18 Visit Date: 03/12/18 no vb lof good fm noregular ctx co pelvic pressure, just had mfm scan last week Tricia Euceda MD on 03/12/18 Visit Date: 02/12/18 no vb co increased discharge yesterday but normal today, some latasha zhao but nothing regular. check ua and culture today. labor precautions reviewed Tricia Euceda MD on 02/12/18 ACOG First Trimester First Trimester: Desire for , Alcohol, Tobacco Cessation, Illicit/Recreational Drug/Substance Use, Intimate Partner Violence, Barriers to care, Unstable Housing, Communication Barriers, Environmental/Work Hazards, Anticipated Course of Care, Toxoplasmosis Precations, Use of Any medications, Sexual activity, Exercise, Dental Care, Sauna/Hot tub use, Seat Belt use, Childbirth classes/Hospital facilities, , Travel, Indications for US and Screening for Aneuploidy Diagnostics Diagnostics Labs Hct 33.9 % (37-47) L 04/21/18 Hgb 11.6 g/dl (12.0-15.0) L 04/21/18 Glucose 1 Hr 50 gm 120 mg/dL (70-140) 03/12/18 Details: HIV: Urine Culture: Sequential Screen: NIPT Screen: Results [email or web address] Office Urine Glucose Negative Last Edit by Merry Olvera on 05/20/18 08:10 Office Urine Protein Negative Last Edit by Merry Olvera on 05/20/18 08:10 Assessment AND Plan Problems 1. Nausea/vomiting in O21.9 phenergan, if needs more recommend reglan 2. 37 weeks gestation of Z3A.37 genetic, carrier, and ntd screening declined. anatomy scan reviewed. 3. Echogenic intracardiac focus of fetus on ultrasound O28.3 repeat US with MFM 27-28 wk 4. Pyelectasis of fetus on ultrasound O35.8XX0 repeat US with MFM 5. Encounter for supervision of normal first in third trimester Z34.03 PRR KIRK 06/05/18 Boy Shireen Jacobsen ACOG trimester education reviewed and updated. see problem list details for updated plan management information and see below for orders placed at this visit. [place] appropriate handout given. movement and labor precautions reviewed. Orders Orders: Coding Level of Care Code OB Routine Diagnoses Nausea/vomiting in O21.9 37 weeks gestation of Z3A.37 Weeks of gestation: 37 weeks Echogenic intracardiac focus of fetus on ultrasound O28.3 Pyelectasis of fetus on ultrasound O35.8XX0 Encounter for supervision of normal first in third trimester Z34.03 Normal : normal first Trimester: third trimester 05/20/18 0827 <Electronically signed by Tricia Euceda MD> Date Tricia Euceda MD [facility] Signature: Date (if applicable) CC: TURRET LATHE OPERATOR OFFICE VISIT Observed: 05/16/2018 Status: F Source: [place]I REPORT 5:01 AM [facility] 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 Allergies penicillin G Allergy (Mild, Verified 05/14/18 12:15) Other nitrous oxide Allergy (Verified 05/14/18 12:15) Other acetaminophen [From Tylenol] Adverse Reaction (Severe, Verified 05/14/18 12:15) Vomiting Medications vitamin,calcium,andndwfh-gibr-tayyq acid tablet 1 tab PO QDAY 10/22/17 [History Confirmed 05/14/18] Ferrous Gluconate 325 mg PO DAILY@0800 04/22/18 [History Confirmed 05/14/18] Ascorbic Acid [Vitamin C] 500 mg PO DAILY@0800 04/23/18 [History Confirmed 05/14/18] Last Menstral Period: 08/06/17 Zika: Zika virus screening: Negative : No PFSH PFSH Medical History [place] teeth extracted (Acute) Family History Grandfather Cancer Social History Smoking Status: Never smoker alcohol intake: never substance use type: does not use what type of physical activity do you participate in: running, walking frequency: 3-4 times per week seatbelt use: always do you feel safe at home: Yes 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 OB Visit KIRK Calculator Estimated Delivery Date 06/05/18 Based on LMP (certain) 08/29/17 Current WG 37w 1d Number 1 Expected Delivery Route/Plan Specific Issue/Plans flu vaccine: declines tdap vaccine: getting at her office rhogam: na LARC form signed: declined labor support person: shireen pain management: epidural cut cord/dad catch: no : yes PP control planned: OCP progesterone discussed possible routes of delivery and associated risks: [] special requests: [] Initial Weight: Not Recorded Date Weight BP Urine PrFHR FuHt Pres MoCTX DilationFetal StVisit NoProviderComments E ot v te [place] G Effac lucose ed Visit Notes Visit Date: 05/14/18 no vb lof good fm no regular ctx gbs done. Tricia Euceda MD on 05/14/18 Visit Date: 05/06/18 NO reg CTX, LOF, Vb. MJ Zelaya on 05/06/18 Visit Date: 04/23/18 no vb lof good fm no regular ctx since bmz- was in for PTL the other day Tricia Euceda MD on 04/23/18 Visit Date: 04/08/18 no vb lof good fm no regular ctx. co pelvic pressure. Tricia Euceda MD on 04/08/18 Visit Date: 03/27/18 No VB, LOF. Doing well MJ Zelaya on 03/27/18 Visit Date: 03/12/18 no vb lof good fm noregular ctx co pelvic pressure, just had mfm scan last week Tricia Euceda MD on 03/12/18 Visit Date: 02/12/18 no vb co increased discharge yesterday but normal today, some latasha zhao but nothing regular. check ua and culture today. labor precautions reviewed Tricia Euceda MD on 02/12/18 ACOG First Trimester First Trimester: Desire for , Alcohol, Tobacco Cessation, Illicit/Recreational Drug/Substance Use, Intimate Partner Violence, Barriers to care, Unstable Housing, Communication Barriers, Environmental/Work Hazards, Anticipated Course of Care, Toxoplasmosis Precations, Use of Any medications, Sexual activity, Exercise, Dental Care, Sauna/Hot tub use, Seat Belt use, Childbirth classes/Hospital facilities, , Travel, Indications for US and Screening for Aneuploidy Diagnostics Diagnostics Labs Hct 33.9 % (37-47) L 04/21/18 Hgb 11.6 g/dl (12.0-15.0) L 04/21/18 Glucose 1 Hr 50 gm 120 mg/dL (70-140) 03/12/18 Details: HIV: Urine Culture: Sequential Screen: NIPT Screen: Results [id number] Office Urine Glucose Negative Last Edit by Radha Espinoza on 05/14/18 12:21 Office Urine Protein Negative Last Edit by Radha Espinoza on 05/14/18 12:21 Assessment AND Plan Problems 1. Anemia affecting in third trimester O99.013 2. Nausea/vomiting in O21.9 phenergan, if needs more recommend reglan 3. 36 weeks gestation of Z3A.36 genetic, carrier, and ntd screening declined. anatomy scan reviewed. 4. Echogenic intracardiac focus of fetus on ultrasound O28.3 repeat US with MFM 27-28 wk 5. Pyelectasis of fetus on ultrasound O35.8XX0 repeat US with MFM 6. Encounter for supervision of normal first in third trimester Z34.03 PRR KIRK 06/05/18 Boy Shireen Plan movement and labor precautions reviewed. ACOG trimester education reviewed and updated. see problem list details for updated plan management information and see below for orders placed at this visit. [place] appropriate handout given. Orders Orders: Coding Level of Care Code OB Routine Diagnoses Anemia affecting in third trimester O99.013 Trimester: third trimester Nausea/vomiting in O21.9 36 weeks gestation of Z3A.36 Weeks of gestation: 36 weeks Echogenic intracardiac focus of fetus on ultrasound O28.3 Pyelectasis of fetus on ultrasound O35.8XX0 Encounter for supervision of normal first in third trimester Z34.03 Normal : normal first Trimester: third trimester 05/16/18 0501 <Electronically signed by Tricia Euceda MD> Date Tricia Euceda MD Cosigner Signature: Date (if applicable) CC: Observed: 05/14/2018 Status: F Source: OKOBOJI CULTURE, GROUP B 2:13 PM [facility] NITIN Culture Group B Beta Streptococcus is not isolated. Performed By: #### M100.1800 #### [facility] [address] [place], [address] TURRET LATHE OPERATOR OFFICE VISIT Observed: 05/06/2018 Status: F Source: OKOBOJI REPORT 8:32 AM [facility] [address] [place] [address] OFFICE VISIT Date of Service: 05/06/18 MR#: [id number] Acct: [id number] Name: FRANCINE MANTILLA Rep #: [id number] : 1995 Provider: IZABEL Morin Age/Sex: 23/F Location: [facility] [place] Status: Signed Intake Vital Signs05/06/18 Body Mass Index (BMI) 22.9 05/06/18 Height 5 ft 6 in 05/06/18 Weight: 135 lb 4 oz 05/06/18 Body Mass Index (BMI) 21.8 05/06/18 Blood Pressure 122/80 H Intake Visit Reasons: est ob 36w Chief Complaint: Est OB Accompanied by: Spouse Is patient in pain?: No Allergies penicillin G Allergy (Mild, Verified 05/06/18 08:15) Other nitrous oxide Allergy (Verified 05/06/18 08:15) Other acetaminophen [From Tylenol] Adverse Reaction (Severe, Verified 05/06/18 08:15) Vomiting Medications vitamin,calcium,iytikuzc-xeiu-ussbv acid tablet 1 tab PO QDAY 10/22/17 [History Confirmed 05/06/18] Ferrous Gluconate 325 mg PO DAILY@0800 04/22/18 [History Confirmed 05/06/18] Ascorbic Acid [Vitamin C] 500 mg PO DAILY@0800 04/23/18 [History Confirmed 05/06/18] Last Menstral Period: 08/06/17 Zika: Zika virus screening: Negative : No PFSH PFSH Medical History [place] teeth extracted (Acute) Family History Grandfather Cancer Social History Smoking Status: Never smoker alcohol intake: never substance use type: does not use what type of physical activity do you participate in: running, walking frequency: 3-4 times per week seatbelt use: always do you feel safe at home: Yes 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 OB Visit KIRK Calculator Estimated Delivery Date 06/05/18 Based on LMP (certain) 08/29/17 Current WG 35w 5d Number 1 Expected Delivery Route/Plan Specific Issue/Plans flu vaccine: declines tdap vaccine: getting at her office rhogam: na LARC form signed: declined labor support person: shireen pain management: epidural cut cord/dad catch: no : yes PP control planned: OCP progesterone discussed possible routes of delivery and associated risks: [] special requests: [] Initial Weight: Not Recorded Date Weight BP Urine PrFHR FuHt Pres MoCTX DilationFetal StVisit NoProviderComments E ot v te [place] G Effac lucose ed Visit Notes Visit Date: 05/06/18 NO reg CTX, LOF, Vb. MJ Zelaya on 05/06/18 Visit Date: 04/23/18 no vb lof good fm no regular ctx since bmz- was in for PTL the other day Tricia Euceda MD on 04/23/18 Visit Date: 04/08/18 no vb lof good fm no regular ctx. co pelvic pressure. Tricia Euceda MD on 04/08/18 Visit Date: 03/27/18 No VB, LOF. Doing well Carmelina Morin NP-Cesia on 03/27/18 Visit Date: 03/12/18 no vb lof good fm noregular ctx co pelvic pressure, just had mfm scan last week Tricia Euceda MD on 03/12/18 Visit Date: 02/12/18 no vb co increased discharge yesterday but normal today, some latasha zhao but nothing regular. check ua and culture today. labor precautions reviewed Tricia Euceda MD on 02/12/18 ACOG First Trimester First Trimester: Desire for , Alcohol, Tobacco Cessation, Illicit/Recreational Drug/Substance Use, Intimate Partner Violence, Barriers to care, Unstable Housing, Communication Barriers, Environmental/Work Hazards, Anticipated Course of Care, Toxoplasmosis Precations, Use of Any medications, Sexual activity, Exercise, Dental Care, Sauna/Hot tub use, Seat Belt use, Childbirth classes/Hospital facilities, , Travel, Indications for US and Screening for Aneuploidy Diagnostics Diagnostics Labs Hct 33.9 % (37-47) L 04/21/18 Hgb 11.6 g/dl (12.0-15.0) L 04/21/18 Obstetrics Ultrasound 01/09/18 Glucose 1 Hr 50 gm 120 mg/dL (70-140) 03/12/18 Details: HIV: Urine Culture: Sequential Screen: NIPT Screen: Results [id number] Office Urine Glucose Negative Last Edit by Merly Kent on 05/06/18 08:17 Office Urine Protein Negative Last Edit by Merly Kent on 05/06/18 08:17 Assessment AND Plan Problems 1. Encounter for supervision of normal first in third trimester Z34.03 PRR KIRK 06/05/18 Boy Shireen 2. 35 weeks gestation of Z3A.35 genetic, carrier, and ntd screening declined. anatomy scan reviewed. 3. Threatened premature labor in third trimester O47.03 4. Anemia affecting in third trimester O99.013 5. Nausea and vomiting during O21.9 phenergan, if needs more recommend reglan 6. Echogenic intracardiac focus of fetus on ultrasound O28.3 repeat US with MFM 27-28 wk 7. Pyelectasis of fetus on ultrasound O35.8XX0 repeat US with MFM Plan Orders placed: growth US M 05/13/18 Reviewed of labor precautions, movement/kick counts ACOG trimester education reviewed and updated See problem list details for updated plan of care Gestational age appropriate handout given RTO: 1 week Orders Orders: Coding Level of Care Code OB Routine Diagnoses Encounter for supervision of normal first in third trimester Z34.03 Normal : normal first Trimester: third trimester 35 weeks gestation of Z3A.35 Weeks of gestation: 35 weeks Threatened premature labor in third trimester O47.03 Trimester: third trimester Anemia affecting in third trimester O99.013 Trimester: third trimester Nausea and vomiting during O21.9 Echogenic intracardiac focus of fetus on ultrasound O28.3 Pyelectasis of fetus on ultrasound O35.8XX0 05/06/18 0832 <Electronically signed by Carmelina BARKER> Date Carmelina 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 Signature: Date (if applicable) CC: TURRET LATHE OPERATOR OFFICE VISIT Observed: 04/23/2018 Status: F Source: [place] REPORT 1:46 PM [facility] [address] [place] [address] OFFICE VISIT Date of Service: 04/23/18 MR#: [id number] Acct: [id number] Name: FRANCINE MANTILLA Rep #: [id number] : 1995 Provider: Tricia Euceda MD Age/Sex: 23/F Location: [facility] [place] Status: Signed Intake Vital Signs04/23/18 Body Mass Index (BMI) 22.9 04/23/18 Height 5 ft 6 in 04/23/18 Weight: 140 lb 04/23/18 Body Mass Index (BMI) 22.6 04/23/18 Blood Pressure 116/70 Intake Visit Reasons: est ob 34w 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 Is patient in pain?: No Allergies penicillin G Allergy (Mild, Verified 04/23/18 13:24) Other nitrous oxide Allergy (Verified 04/23/18 13:24) Other acetaminophen [From Tylenol] Adverse Reaction (Severe, Verified 04/23/18 13:24) Vomiting Medications vitamin,calcium,tttjenkj-cmyq-mphdm acid tablet 1 tab PO QDAY 10/22/17 [History Confirmed 04/23/18] Ferrous Gluconate 325 mg PO DAILY@0800 04/22/18 [History Confirmed 04/23/18] Ascorbic Acid [Vitamin C] 500 mg PO DAILY@0800 04/23/18 [History Confirmed 04/23/18] Last Menstral Period: 08/06/17 Zika: Zika virus screening: Negative : No PFSH PFSH Medical History [place] teeth extracted (Acute) Family History Grandfather Cancer Social History Smoking Status: Never smoker alcohol intake: never substance use type: does not use what type of physical activity do you participate in: running, walking frequency: 3-4 times per week seatbelt use: always do you feel safe at home: Yes 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 OB Visit KIRK Calculator Estimated Delivery Date 06/05/18 Based on LMP (certain) 08/29/17 Current WG 33w 6d Number 1 Expected Delivery Route/Plan Specific Issue/Plans flu vaccine: declines tdap vaccine: getting at her office rhogam: na LARC form signed: declined labor support person: shireen pain management: [] cut cord/dad catch: [] : [] PP control planned: [] discussed possible routes of delivery and associated risks: [] special requests: [] Initial Weight: Not Recorded Date Weight BP Urine PrFHR FuHt Pres MoCTX DilationFetal StVisit NoProviderComments E ot v te [place] G Effac lucose ed Visit Notes Visit Date: 04/23/18 no vb lof good fm no regular ctx since bmz- was in for PTL the other day Tricia Euceda MD on 04/23/18 Visit Date: 04/08/18 no vb lof good fm no regular ctx. co pelvic pressure. Tricia Euceda MD on 04/08/18 Visit Date: 03/27/18 No VB, LOF. Doing well MJ Zelaya on 03/27/18 Visit Date: 03/12/18 no vb lof good fm noregular ctx co pelvic pressure, just had mfm scan last week Tricia Euceda MD on 03/12/18 Visit Date: 02/12/18 no vb co increased discharge yesterday but normal today, some latasha zhao but nothing regular. check ua and culture today. labor precautions reviewed Tricia Euceda MD on 02/12/18 ACOG First Trimester First Trimester: Desire for , Alcohol, Tobacco Cessation, Illicit/Recreational Drug/Substance Use, Intimate Partner Violence, Barriers to care, Unstable Housing, Communication Barriers, Environmental/Work Hazards, Anticipated Course of Care, Toxoplasmosis Precations, Use of Any medications, Sexual activity, Exercise, Dental Care, Sauna/Hot tub use, Seat Belt use, Childbirth classes/Hospital facilities, , Travel, Indications for US and Screening for Aneuploidy Diagnostics Diagnostics Labs Blood Type A POSITIVE 10/22/17 Antibody Screen NEGATIVE 10/22/17 Hct 33.9 % (37-47) L 04/21/18 Hgb 11.6 g/dl (12.0-15.0) L 04/21/18 Obstetrics Ultrasound 01/09/18 Rubella IgG Antibody 349.0 IU/mL 10/22/17 RPR NONREACTIVE (NONREACTIVE) 10/22/17 Hep Bs Antigen Negative (Negative) 10/22/17 Chlam trachomat DNA PCR Negative (Negative) 10/22/17 N.gonorrhoeae DNA (PCR) Negative (Negative) 10/22/17 Glucose 1 Hr 50 gm 120 mg/dL (70-140) 03/12/18 Details: HIV: Urine Culture: Sequential Screen: NIPT Screen: Results [id number] Office Urine Glucose Negative Last Edit by Merry Olvera on 04/23/18 13:30 Office Urine Protein Negative Last Edit by Merry Olvera on 04/23/18 13:30 Assessment AND Plan Problems 1. Threatened premature labor in third trimester O47.03 2. Pyelectasis of fetus on ultrasound O35.8XX0 repeat US with MFM 04/15 3. Anemia affecting in third trimester O99.013 4. Nausea/vomiting in O21.9 phenergan, if needs more recommend reglan 5. 33 weeks gestation of Z3A.33 genetic, carrier, and ntd screening declined. anatomy scan reviewed. 6. Echogenic intracardiac focus of fetus on ultrasound O28.3 repeat US with MFM 27-28 wk 7. Encounter for supervision of normal first in third trimester Z34.03 PRR KIRK 06/05/18 Boy Shireen Delmar ACOG trimester education reviewed and updated. see problem list details for updated plan management information and see below for orders placed at this visit. [place] appropriate handout given. Orders Orders: Coding Level of Care Code OB Routine Diagnoses Threatened premature labor in third trimester O47.03 Trimester: third trimester Pyelectasis of fetus on ultrasound O35.8XX0 Anemia affecting in third trimester O99.013 Trimester: third trimester Nausea/vomiting in O21.9 33 weeks gestation of Z3A.33 Weeks of gestation: 33 weeks Echogenic intracardiac focus of fetus on ultrasound O28.3 Encounter for supervision of normal first in third trimester Z34.03 Normal : normal first Trimester: third trimester 04/23/18 1346 <Electronically signed by Tricia Euceda MD> Date Tricia Euceda MD Cosigner Signature: Date (if applicable) CC: URINALYSIS, COMPLETE Collected: 04/22/2018 Status: C Source: [place] 2:35 AM [facility] Order Comment: Has pt arrived? Y How was Urine Obtained? CLEAN CATCH TYPE CODE TESTS RESULT OUT OF RANGE REFERENCE UNITS LAB L400.3000 Yellow COLOR Normal Yellow LAB L400.3050 Clear Normal CLARITY Clear LAB L400.3200 Normal mg/dl Normal GLUCOSE, UR Normal LAB L400.3300 Negative mg/dL Normal BILIRUBIN URINE Negative LAB L400.3400 Negative mg/dl High KETONE UR 150 Result Comment: CRITICAL VALUE VERIFIED. CALLED TO TERRY HICKMAN 04/22/18327 Mallory Burgos. RESULTS READ BACK BY SAME . CRITICAL VALUE *H AMENDED REPORT 04/22/18327 KETONE UR previously reported as: 150 H mg/dl CRITICAL VALUE *H LAB L400.3465 1.002-1.030 Normal SP.GR. DIPSTX 1.010 LAB L400.3550 5.0 - 8.0 pH Normal UR 6.5 LAB L400.3600 Negative mg/dl Normal PROT DIPSTX Negative LAB L400.3700 Normal mg/dl Normal UROBILI Normal LAB L400.3750 Negative Normal NITRITE UR Negative LAB L400.3780 Negative /ul Normal OCCULT Negative BLOOD-UR LAB L400.3800 Negative /ul Normal LEUK ESTERASE Negative LAB L400.4050 0-5 /hpf 0 Normal WBC SEEN LAB L400.4100 0-5 /hpf 0 Normal RBC-UA SEEN LAB L400.4150 5-10 /hpf 0 Normal SQUAM EPI SEEN LAB L400.4300 None Seen /hpf Normal BACTERIA RARE LAB L400.4350 <or=2+ /hpf Normal MUCUS, URINE RARE Performed By: #### L400.0001, M100.0650 #### [facility] [address] [place], [address] Observed: 04/22/2018 Status: F Source: [place] CULTURE, URINE 2:35 AM [facility] Urine Culture ORGANISM 1: Mixed Gram Positive Organisms [place] Count 11,000-25,000 MIX CULTURE Mixed contaminants. Submit a new specimen if indicated. Performed By: #### L400.0001, M100.0650 #### [facility] [address] [place] [place], [address] CBC-COMPLETE BLOOD CNT Collected: 04/21/2018 Status: F Source: [place] NO DIFF 12:00 AM [facility] TYPE CODE TESTS RESULT OUT OF RANGE REFERENCE UNITS LAB L100.1000 4.4-11.0 K/mm3 High WBC 13.6 LAB L100.1200 4.2-5.4 M/mm3 Low RBC 3.72 LAB L100.1300 12.0-15.0 g/dl Low HGB 11.6 LAB L100.1400 37-47 % Low HCT 33.9 LAB L100.1500 81-99 fL Normal MCV 91.1 LAB L100.1600 27.0-32.0 pg Normal MCH 31.2 LAB L100.1700 32-36 g/gl Normal MCHC 34.2 LAB L100.1810 11.6-14.6 % Normal RDW CV 14.3 LAB L100.1820 35.1-43.9 fl High RDW SD 46.7 LAB L100.1900 150-450 K/mm3 Normal PLT 188 LAB L100.2000 6.2-12.0 fl Normal MPV 11.1 Performed By: #### L100.0500, L205.0000 #### [facility] [address] [place], [address] FIBRONECTIN Collected: 04/21/2018 Status: F Source: [place] 12:00 AM [facility] TYPE CODE TESTS RESULT OUT OF RANGE REFERENCE UNITS LAB L205.0100 Normal fFN Negative Performed By: #### L100.0500, L205.0000 #### [facility] [address] [place], [address] TURRET LATHE OPERATOR OFFICE VISIT Observed: 04/08/2018 Status: F Source: [place] REPORT 10:41 AM [facility] 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: No Is patient in pain?: No Allergies acetaminophen [From Tylenol] Allergy (Severe, Verified 04/08/18 10:15) allergy penicillin G Allergy (Mild, Verified 04/08/18 10:15) Other Medications doxylamine succinate 25 mg tablet 25 mg PO QHS PRN 10/22/17 [History Confirmed 04/08/18] vitamin,calcium,zlmvfpzd-wlin-tlzwl acid tablet 1 tab PO QDAY 10/22/17 [History Confirmed 04/08/18] promethazine 12.5 mg tablet 12.5 mg PO Q6H PRN #120 tab 10/22/17 [Rx Confirmed 04/08/18] pyridoxine (vitamin B6) 25 mg tablet 25 mg PO ONCE 10/22/17 [History Confirmed 04/08/18] Last Menstral Period: 08/06/17 Zika: Zika virus screening: Negative : No PFSH PFSH Medical History [place] teeth extracted (Acute) Family History Grandfather Cancer Social History Smoking Status: Never smoker alcohol intake: never substance use type: does not use what type of physical activity do you participate in: running, walking frequency: 3-4 times per week seatbelt use: always do you feel safe at home: Yes 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 OB Visit KIRK Calculator Estimated Delivery Date 06/05/18 Based on LMP (certain) 08/29/17 Current WG 31w 5d Number 1 Expected Delivery Route/Plan Specific Issue/Plans flu vaccine: declines tdap vaccine: getting at her office rhogam: na LARC form signed: declined labor support person: shireen pain management: [] cut cord/dad catch: [] : [] PP control planned: [] discussed possible routes of delivery and associated risks: [] special requests: [] Initial Weight: Not Recorded Date Weight BP Urine PrFHR FuHt Pres MoCTX DilationFetal StVisit NoProviderComments E ot v te [place] G Effac lucose ed Visit Notes Visit Date: 04/08/18 no vb lof good fm no regular ctx. co pelvic pressure. Tricia Euceda MD on 04/08/18 Visit Date: 03/27/18 No VB, LOF. Doing well Carmelina Morin NP-Cesia on 03/27/18 Visit Date: 03/12/18 no vb lof good fm noregular ctx co pelvic pressure, just had mfm scan last week Tricia Euceda MD on 03/12/18 Visit Date: 02/12/18 no vb co increased discharge yesterday but normal today, some latasha zhao but nothing regular. check ua and culture today. labor precautions reviewed Tricia Euceda MD on 02/12/18 ACOG First Trimester First Trimester: Desire for , Alcohol, Tobacco Cessation, Illicit/Recreational Drug/Substance Use, Intimate Partner Violence, Barriers to care, Unstable Housing, Communication Barriers, Environmental/Work Hazards, Anticipated Course of Care, Toxoplasmosis Precations, Use of Any medications, Sexual activity, Exercise, Dental Care, Sauna/Hot tub use, Seat Belt use, Childbirth classes/Hospital facilities, , Travel, Indications for US and Screening for Aneuploidy Diagnostics Diagnostics Labs Blood Type A POSITIVE 10/22/17 Antibody Screen NEGATIVE 10/22/17 Hct 29.8 % (37-47) L 03/12/18 Hgb 9.7 g/dl (12.0-15.0) L 03/12/18 Obstetrics Ultrasound 01/09/18 Rubella IgG Antibody 349.0 IU/mL 10/22/17 RPR NONREACTIVE (NONREACTIVE) 10/22/17 Hep Bs Antigen Negative (Negative) 10/22/17 Chlam trachomat DNA PCR Negative (Negative) 10/22/17 N.gonorrhoeae DNA (PCR) Negative (Negative) 10/22/17 Glucose 1 Hr 50 gm 120 mg/dL (70-140) 03/12/18 Details: HIV: Urine Culture: Sequential Screen: NIPT Screen: Results [id number] Office Urine Glucose Negative Last Edit by Suni Acevedo on 04/08/18 10:19 Office Urine Protein Negative Last Edit by Suni Acevedo on 04/08/18 10:19 Assessment AND Plan Problems 1. Nausea/vomiting in O21.9 phenergan, if needs more recommend reglan 2. 31 weeks gestation of Z3A.31 genetic, carrier, and ntd screening declined. anatomy scan reviewed. 3. Echogenic intracardiac focus of fetus on ultrasound O28.3 repeat US with MFM 27-28 wk 4. Pyelectasis of fetus on ultrasound O35.8XX0 repeat US with MFM 04/15 5. Encounter for supervision of normal first in third trimester Z34.03 PRR KIRK 06/05/18 Boy Shireen 6. Anemia affecting in third trimester O99.013 Plan movement and labor precautions reviewed. ACOG trimester education reviewed and updated. see problem list details for updated plan management information and see below for orders placed at this visit. [place] appropriate handout given. Orders Orders: Coding Level of Care Code OB Routine Diagnoses Nausea/vomiting in O21.9 31 weeks gestation of Z3A.31 Weeks of gestation: 31 weeks Echogenic intracardiac focus of fetus on ultrasound O28.3 Pyelectasis of fetus on ultrasound O35.8XX0 Encounter for supervision of normal first in third trimester Z34.03 Normal : normal first Trimester: third trimester Anemia affecting in third trimester O99.013 Trimester: third trimester 04/08/18 1041 <Electronically signed by Tricia Euceda MD> Date Tricia Euceda MD Cosigner Signature: Date (if applicable) CC: TURRET LATHE OPERATOR OFFICE VISIT Observed: 03/27/2018 Status: F Source: [place] REPORT 2:18 PM [facility] [address] [place] [address] OFFICE VISIT Date of Service: 03/27/18 MR#: [id number] Acct: [id number] Name: FRANCINE MANTILLA Rep #: [id number] : 1995 Provider: IZABEL Morin Age/Sex: 23/F Location: [facility] [place] Status: Signed Intake Vital Signs03/27/18 Height 5 ft 6 in 03/27/18 Weight: 133 lb 03/27/18 Body Mass Index (BMI) 21.4 03/27/18 Blood Pressure 110/62 Intake Visit Reasons: est ob 30w Allergies acetaminophen [From Tylenol] Allergy (Severe, Verified 03/12/18 11:42) allergy penicillin G Allergy (Mild, Verified 03/12/18 11:42) Other Medications doxylamine succinate 25 mg tablet 25 mg PO QHS PRN 10/22/17 [History Confirmed 03/12/18] vitamin,calcium,bnxolyvz-vtvc-wndrv acid tablet 1 tab PO QDAY 10/22/17 [History Confirmed 03/12/18] promethazine 12.5 mg tablet 12.5 mg PO Q6H PRN #120 tab 10/22/17 [Rx Confirmed 03/12/18] pyridoxine (vitamin B6) 25 mg tablet 25 mg PO ONCE 10/22/17 [History Confirmed 03/12/18] Last Menstral Period: 08/06/17 PFSH PFSH Medical History [place] teeth extracted (Acute) Family History Grandfather Cancer Social History Smoking Status: Never smoker alcohol intake: never substance use type: does not use what type of physical activity do you participate in: running, walking frequency: 3-4 times per week seatbelt use: always do you feel safe at home: Yes 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 OB Visit KIRK Calculator Estimated Delivery Date 06/05/18 Based on LMP (certain) 08/29/17 Current WG 30w 0d Number 1 Expected Delivery Route/Plan Specific Issue/Plans flu vaccine: declines tdap vaccine: will at a separate rhogam: na LARC form signed: [] labor support person: [] pain management: [] cut cord/dad catch: [] : [] PP control planned: [] discussed possible routes of delivery and associated risks: [] special requests: [] Initial Weight: Not Recorded Date Weight BP Urine PrFHR FuHt Pres MoCTX DilationFetal StVisit NoProviderComments E ot v te [place] G Effac lucose ed Visit Notes Visit Date: 03/27/18 No VB, LOF. Doing well MJ Zelaya on 03/27/18 Visit Date: 03/12/18 no vb lof good fm noregular ctx co pelvic pressure, just had mfm scan last week Tricia Euceda MD on 03/12/18 Visit Date: 02/12/18 no vb co increased discharge yesterday but normal today, some latasha zhao but nothing regular. check ua and culture today. labor precautions reviewed Tricia Euceda MD on 02/12/18 ACOG First Trimester First Trimester: Desire for , Alcohol, Tobacco Cessation, Illicit/Recreational Drug/Substance Use, Intimate Partner Violence, Barriers to care, Unstable Housing, Communication Barriers, Environmental/Work Hazards, Anticipated Course of Care, Toxoplasmosis Precations, Use of Any medications, Sexual activity, Exercise, Dental Care, Sauna/Hot tub use, Seat Belt use, Childbirth classes/Hospital facilities, , Travel, Indications for US and Screening for Aneuploidy Diagnostics Diagnostics Labs Blood Type A POSITIVE 10/22/17 Antibody Screen NEGATIVE 10/22/17 Hct 29.8 % (37-47) L 03/12/18 Hgb 9.7 g/dl (12.0-15.0) L 03/12/18 Obstetrics Ultrasound 01/09/18 Rubella IgG Antibody 349.0 IU/mL 10/22/17 RPR NONREACTIVE (NONREACTIVE) 10/22/17 Hep Bs Antigen Negative (Negative) 10/22/17 Chlam trachomat DNA PCR Negative (Negative) 10/22/17 N.gonorrhoeae DNA (PCR) Negative (Negative) 10/22/17 Glucose 1 Hr 50 gm 120 mg/dL (70-140) 03/12/18 Details: HIV: Urine Culture: Sequential Screen: NIPT Screen: Results [id number] Office Urine Glucose Negative Last Edit by Merry Olvera on 03/27/18 14:03 Office Urine Protein Negative Last Edit by Merry Olvera on 03/27/18 14:03 Assessment AND Plan Problems 1. Encounter for supervision of normal first in second trimester Z34.02 PRR KIRK 06/05/18 Boy Shireen 2. Echogenic intracardiac focus of fetus on ultrasound O28.3 repeat US with [facility] 27-28 wk 3. 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 anatomy scan reviewed. 4. Anemia affecting in third trimester O99.013 5. Nausea and vomiting during O21.9 phenergan, if needs more recommend reglan 6. Pyelectasis of fetus on ultrasound O35.8XX0 repeat US with [facility] 27-28 wk Plan Orders placed: plans tdap at employers Has follow up us planned with [facility] Reviewed of labor precautions, movement/kick counts ACOG trimester education reviewed and updated See problem list details for updated plan of care Gestational age appropriate handout given RTO: 2 weeks Orders Orders: Coding Level of Care Code OB Routine Diagnoses Encounter for supervision of normal first in second trimester Z34.02 Normal : normal first Trimester: second trimester Echogenic intracardiac focus of fetus on ultrasound O28.3 30 weeks gestation of Z3A.30 Weeks of gestation: 30 weeks Anemia affecting in third trimester O99.013 Trimester: third trimester Nausea and vomiting during O21.9 Pyelectasis of fetus on ultrasound O35.8XX0 03/27/18 1418 <Electronically signed by Carmelina BARKER> Date Carmelina 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 Signature: Date (if applicable) CC: CBC W/DIFF, AUTOMATED Collected: 03/12/2018 Status: F Source: [place] 12:38 PM [facility] TYPE CODE TESTS RESULT OUT OF RANGE REFERENCE UNITS LAB L100.1000 4.4-11.0 K/mm3 Normal WBC 8.5 LAB L100.1200 4.2-5.4 M/mm3 Low RBC 3.27 LAB L100.1300 12.0-15.0 g/dl Low HGB 9.7 LAB L100.1400 37-47 % Low HCT 29.8 LAB L100.1500 81-99 fL Normal MCV 91.1 LAB L100.1600 27.0-32.0 pg Normal MCH 29.7 LAB L100.1700 32-36 g/gl Normal MCHC 32.6 LAB L100.1810 11.6-14.6 % Normal RDW CV 12.3 LAB L100.1820 35.1-43.9 fl Normal RDW SD 41.0 LAB L100.1900 150-450 K/mm3 Normal PLT 201 LAB L100.2000 6.2-12.0 fl Normal MPV 10.8 LAB L100.2100 47-70 % High NEUT% 77.1 LAB L100.2200 19-41 % Low LY% 15.5 LAB L100.2300 0-10 % Normal MONO% 6.3 LAB L100.2400 0-5 % Normal EO% 0.8 LAB L100.2500 0-1 % Normal BASO% 0.1 LAB L100.2550 0.0-0.9 % Normal IM GRAN % 0.200 Result Comment: IG% - Immature Granulocytes (promyelocytes, myelocytes and metamyelocytes) > 1% indicates that a LEFT SHIFT is Present. LAB L100.2620 2.0-7.7 X10 3/uL Normal Absolute Neut 6.5 LAB L100.2720 0.83-4.51 X10 3/ul Normal Absolute Lymph 1.31 Performed By: #### L100.0100 #### [facility] [place], [address] GLUCOSE CHALLENGE GEST Collected: 03/12/2018 Status: F Source: [place] 1H 50G 12:38 PM [facility] Order Comment: Comments: Draw at 12:39pm Comments: Draw at 12:39pm TYPE CODE TESTS RESULT OUT OF RANGE REFERENCE UNITS LAB L501.0250 70-140 mg/dL Normal GLU GEST 120 50g 1H Performed By: #### L501.0250 #### [place] [facility] [address] [place], [address] TURRET LATHE OPERATOR OFFICE VISIT Observed: 03/12/2018 Status: F Source: [place] REPORT 11:52 AM [facility] [address] [place] [address] OFFICE VISIT Date of Service: 03/12/18 MR#: [id number] Acct: [id number] Name: FRANCINE MANTILLA Rep #: [id number] : 1995 Provider: Tricia Euceda MD Age/Sex: 23/F Location: [facility] [place] Status: Signed Intake Vital Signs03/12/18 Height 5 ft 6 in 03/12/18 Weight: 130 lb 03/12/18 Body Mass Index (BMI) 20.9 03/12/18 Blood Pressure 132/66 H Intake Visit Reasons: 28 WEEK OB Cartography Technician Required: No Is patient in pain?: No Allergies acetaminophen [From Tylenol] Allergy (Severe, Verified 03/12/18 11:42) allergy penicillin G Allergy (Mild, Verified 03/12/18 11:42) Other Medications doxylamine succinate 25 mg tablet 25 mg PO QHS PRN 10/22/17 [History Confirmed 03/12/18] vitamin,calcium,pgwvmwle-jpqa-vbjtj acid tablet 1 tab PO QDAY 10/22/17 [History Confirmed 03/12/18] promethazine 12.5 mg tablet 12.5 mg PO Q6H PRN #120 tab 10/22/17 [Rx Confirmed 03/12/18] pyridoxine (vitamin B6) 25 mg tablet 25 mg PO ONCE 10/22/17 [History Confirmed 03/12/18] Last Menstral Period: 08/06/17 Zika: Zika virus screening: Negative : No PFSH PFSH Medical History [place] teeth extracted (Acute) Family History Grandfather Cancer Social History Smoking Status: Never smoker alcohol intake: never substance use type: does not use what type of physical activity do you participate in: running, walking frequency: 3-4 times per week seatbelt use: always do you feel safe at home: Yes 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 OB Visit KIRK Calculator Estimated Delivery Date 06/05/18 Based on LMP (certain) 08/29/17 Current WG 27w 6d Number 1 Expected Delivery Route/Plan Specific Issue/Plans flu vaccine: declines tdap vaccine: will at a separate rhogam: na LARC form signed: [] labor support person: [] pain management: [] cut cord/dad catch: [] : [] PP control planned: [] discussed possible routes of delivery and associated risks: [] special requests: [] Initial Weight: Not Recorded Date Weight BP Urine PrFHR FuHt Pres MoCTX DilationFetal StVisit NoProviderComments E ot v te [place] G Effac lucose ed Visit Notes Visit Date: 03/12/18 no vb lof good fm noregular ctx co pelvic pressure, just had mfm scan last week Tricia Euceda MD on 03/12/18 Visit Date: 02/12/18 no vb co increased discharge yesterday but normal today, some latasha zhao but nothing regular. check ua and culture today. labor precautions reviewed Tricia Euceda MD on 02/12/18 ACOG First Trimester First Trimester: Desire for , Alcohol, Tobacco Cessation, Illicit/Recreational Drug/Substance Use, Intimate Partner Violence, Barriers to care, Unstable Housing, Communication Barriers, Environmental/Work Hazards, Anticipated Course of Care, Toxoplasmosis Precations, Use of Any medications, Sexual activity, Exercise, Dental Care, Sauna/Hot tub use, Seat Belt use, Childbirth classes/Hospital facilities, , Travel, Indications for US and Screening for Aneuploidy Diagnostics Diagnostics Labs Blood Type A POSITIVE 10/22/17 Antibody Screen NEGATIVE 10/22/17 Hct 37.0 % (37-47) 10/22/17 Hgb 12.7 g/dl (12.0-15.0) 10/22/17 Obstetrics Ultrasound 01/09/18 Rubella IgG Antibody 349.0 IU/mL 10/22/17 RPR NONREACTIVE (NONREACTIVE) 10/22/17 Hep Bs Antigen Negative (Negative) 10/22/17 Chlam trachomat DNA PCR Negative (Negative) 10/22/17 N.gonorrhoeae DNA (PCR) Negative (Negative) 10/22/17 Details: HIV: Urine Culture: Sequential Screen: NIPT Screen: Results [id number] Office Urine Glucose Negative Last Edit by Radha Espinoza on 03/12/18 11:46 Office Urine Protein Negative Last Edit by Radha Espinoza on 03/12/18 11:46 Assessment AND Plan Problems 1. Nausea/vomiting in O21.9 phenergan, if needs more recommend reglan 2. 27 weeks gestation of Z3A.27 genetic, carrier, and ntd screening declined. anatomy scan reviewed. 3. Echogenic intracardiac focus of fetus on ultrasound O28.3 repeat US with MFM 27-28 wk 4. Pyelectasis of fetus on ultrasound O35.8XX0 repeat US with MFM 27-28 wk 5. Encounter for supervision of normal first in second trimester Z34.02 PRR KIRK 06/05/18 Shireen Plan ACOG trimester education reviewed and updated. see problem list details for updated plan management information and see below for orders placed at this visit. [place] appropriate handout given. Orders Orders: Coding Level of Care Code OB Routine Diagnoses Nausea/vomiting in O21.9 27 weeks gestation of Z3A.27 Weeks of gestation: 27 weeks Echogenic intracardiac focus of fetus on ultrasound O28.3 Pyelectasis of fetus on ultrasound O35.8XX0 Encounter for supervision of normal first in second trimester Z34.02 Normal : normal first Trimester: second trimester 03/12/18 1152 <Electronically signed by Tricia Euceda MD> Date Tricia Euceda MD [facility] Signature: Date (if applicable) CC: PROGRESS NOTE Observed: 03/11/2018 Status: COMPLETED Source: [place] 8:00 AM [facility] REPOSITORY Follow-up consult Subjective: Francine Mantilla is being seen today for UTD 2-3. She is at 27w5d gestation. Patient reports no complaints. Movement: normal. HPI Review of Systems Review of Systems Objective: LMP 08/06/2017 Physical Exam FHT: Positive Presentation: Cephalic Uterine Size: S=D Assessment: Diagnosis: UTD 2-3 and intracardiac echogenic focus. Estimated second trimester risk of Down syndrome with these ultrasound findings would be approximately 1 in 112. She declined additional genetic screening or testing. Plan: 1. Continued obstetrical care with her primary rug sizer is recommended. 2. Follow up q4 weeks to evaluate biometric parameters and anatomy. [facility]. 3. surveillance as follows: as clinically indicated. 4. Delivery is appropriate at your local institution. 5. Mode and timing of delivery are based on the usual obstetrical indications. 6. Anticipate normal nursery. 7. consultation with pediatric urology (including renal US and VCUG) 2-3 days after and amoxicillin prophylaxis 10mg/kg daily after . 8. Other follow up as clinically indicated. The total patient time of the visit was 10 minutes, of which greater than 50% of the time was spent counseling and coordinating care. TURRET LATHE OPERATOR OFFICE VISIT Observed: 02/18/2018 Status: F Source: [place] REPORT 9:47 PM [facility] [address] [place] [address] OFFICE VISIT Date of Service: 02/12/18 MR#: [id number] Acct: [id number] Name: FRANCINE MANTILLA Rep #: [id number] : 1995 Provider: Tricia Euceda MD Age/Sex: 23/F Location: [facility] [place] Status: Signed Intake Vital Signs02/12/18 Height 5 ft 6 in 02/12/18 Weight: 126 lb 8 oz 02/12/18 Body Mass Index (BMI) 20.4 02/12/18 Blood Pressure 89/60 L Intake Visit Reasons: 24 WEEK OB 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 Is patient in pain?: No Allergies acetaminophen [From Tylenol] Allergy (Severe, Verified 02/12/18 11:29) allergy penicillin G Allergy (Mild, Verified 02/12/18 11:29) Other Medications doxylamine succinate 25 mg tablet 25 mg PO QHS PRN 10/22/17 [History Confirmed 02/12/18] vitamin,calcium,tnltrryd-iewf-tiazz acid tablet 1 tab PO QDAY 10/22/17 [History Confirmed 02/12/18] promethazine 12.5 mg tablet 12.5 mg PO Q6H PRN #120 tab 10/22/17 [Rx Confirmed 02/12/18] pyridoxine (vitamin B6) 25 mg tablet 25 mg PO ONCE 10/22/17 [History Confirmed 02/12/18] Last Menstral Period: 08/06/17 Zika: Zika virus screening: Negative : No PFSH PFSH Medical History [place] teeth extracted (Acute) Family History Grandfather Cancer Social History Smoking Status: Never smoker alcohol intake: never substance use type: does not use what type of physical activity do you participate in: running, walking frequency: 3-4 times per week seatbelt use: always do you feel safe at home: Yes 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 Patient declines flu vaccine OB Visit KIRK Calculator Estimated Delivery Date 06/05/18 Based on LMP (certain) 08/29/17 Current WG 24w 5d Number 1 Initial Weight: Not Recorded Date Weight BP Urine PrFHR FuHt Pres MoCTX DilationFetal StVisit NoProviderComments E ot v te [place] G Effac lucose ed Visit Notes Visit Date: 02/12/18 no vb co increased discharge yesterday but normal today, some latasha zhao but nothing regular. check ua and culture today. labor precautions reviewed Tricia Euceda MD on 02/12/18 ACOG First Trimester First Trimester: Desire for , Alcohol, Tobacco Cessation, Illicit/Recreational Drug/Substance Use, Intimate Partner Violence, Barriers to care, Unstable Housing, Communication Barriers, Environmental/Work Hazards, Anticipated Course of Care, Toxoplasmosis Precations, Use of Any medications, Sexual activity, Exercise, Dental Care, Sauna/Hot tub use, Seat Belt use, Childbirth classes/Hospital facilities, , Travel, Indications for US and Screening for Aneuploidy Diagnostics Diagnostics Labs Blood Type A POSITIVE 10/22/17 Antibody Screen NEGATIVE 10/22/17 Hct 37.0 % (37-47) 10/22/17 Hgb 12.7 g/dl (12.0-15.0) 10/22/17 Obstetrics Ultrasound 01/09/18 Rubella IgG Antibody 349.0 IU/mL 10/22/17 RPR NONREACTIVE (NONREACTIVE) 10/22/17 Hep Bs Antigen Negative (Negative) 10/22/17 Chlam trachomat DNA PCR Negative (Negative) 10/22/17 N.gonorrhoeae DNA (PCR) Negative (Negative) 10/22/17 Details: HIV: Urine Culture: Sequential Screen: NIPT Screen: Results [id number] Office Urine Glucose Negative Last Edit by Merry Olvera on 02/12/18 11:36 Office Urine Protein Negative Last Edit by Merry Olvera on 02/12/18 11:36 Assessment AND Plan Problems 1. Nausea/vomiting in O21.9 phenergan, if needs more recommend reglan 2. Echogenic intracardiac focus of fetus on ultrasound O28.3 repeat US with MFM 27-28 wk 3. Encounter for supervision of normal first in first trimester Z34.01 PRR KIRK 06/05/18 Shireen 4. Pyelectasis of fetus on ultrasound O35.8XX0 repeat US with [facility] 27-28 wk 5. 23 weeks gestation of Z3A.23 genetic, carrier, and ntd screening declined. anatomy scan reviewed. Plan ACOG trimester education reviewed and updated. see problem list details for updated plan management information and see below for orders placed at this visit. [place] appropriate handout given. Orders Orders: Coding Level of Care Code OB Routine Diagnoses Nausea/vomiting in O21.9 Echogenic intracardiac focus of fetus on ultrasound O28.3 Encounter for supervision of normal first in first trimester Z34.01 Normal : normal first Trimester: first trimester Pyelectasis of fetus on ultrasound O35.8XX0 23 weeks gestation of Z3A.23 Weeks of gestation: 23 weeks 02/18/18 2147 <Electronically signed by Tricia Euceda MD> Date Tricia Euceda MD Cosigner Signature: Date (if applicable) CC: Observed: 02/12/2018 Status: F Source: [place] CULTURE, URINE 6:20 PM [facility] Urine Culture Below infection level. ORGANISM 1: Mixed Gram Positive Organisms [place] Count 1000-10,000 Performed By: #### M100.0650 #### [facility] [address] [place], [address] PROGRESS NOTE Observed: 01/17/2018 Status: COMPLETED Source: [place] 12:45 PM [facility] REPOSITORY Reason for Referral Francine and her , Shireen, were seen by myself and SHARI King on 01/17/2018 at [facility] to discuss the previous ultrasound findings of an intracardiac echogenic foci, urinary tract dilation, and questionable sandal gap. History At the time of the visit Francine was 22 y.o. and approximately 20 weeks 1 day by prior established dating. This is the couple's first . Prior screening for aneuploidy was not performed. Ultrasound Findings The ultrasound was consistent with prior established dating. The prior ultrasound finding(s) of intracardiac echogenic focus and unilateral urinary tract dilation (right renal pelvis 4.2 mm) was observed. A sandal gap foot was not appreciated. The remainder of the anatomy was within normal limits. Please refer to the ultrasound report for full details. Genetic Counseling Summary It was explained that an intracardiac echogenic focus (ICEF) is a common ultrasound finding that usually represents normal variation. However, it is considered to be a weak marker for Down syndrome, and to a lesser extent other chromosome problems. When an ICEF occurs as an isolated finding the relative increased risk is predicted to be on the order of 1.1. It was explained that since an ICEF is not a structural or functional heart defect, it does not require any particular medical follow-up after . We discussed urinary tract dilation (UTD), previously described as pyelectasis, is a common ultrasound finding, occuring in 1-2% of all pregnancies. It is often defined as a renal pelvic measurement of > 4mm before 28 weeks gestation and > 7mm after 28 weeks gestation. As an isolated finding, this is considered to be a weak marker for certain chromosome problems, although the relative risk if isolated remains 1. While UTD most frequently occurs as the result of normal variation, in some cases it may represent an obstruction in the flow of urine and be associated with an increased risk for a urinary tract abnormality. Therefore, ultrasound to monitor progression is recommended, and in some cases, follow-up and referral to the Treatment Program for coordination of care may be indicated. ([facility], [place] 2004) suggests that when both pyelectasis and ICEF are present, the likelihood of Down syndrome is approximately 8.42 times a woman's baseline risk. At a maternal age of 23 at delivery, the estimated second trimester risk of Down syndrome with these ultrasound findings would be approximately 1 in 112. Follow up testing options discussed included: Amniocentesis Maternal serum cell-free DNA screening Following our discussion Francine declined amniocentesis, and remained undecided regarding maternal serum cell free DNA screening. (She does have an order from her OB should she decide to pursue). Family and Medical History Both Francine and Shireen reported family history of early onset breast cancer. Shireen's MGM was diagnosed in her mid-30's and Ashwini's maternal aunt was diagnosed under age 50. We discussed the potential familial implications of this family history, the option of hereditary cancer consultations and possible genetic testing for relevant family members, and the importance of increased surveillance. Francine reported maternal cousins with various isolated congenital findings including clubfeet, oral cleft, and cerebral palsy. Another maternal cousin had sudden, unilateral hearing loss in her 20's. The large extended family history was otherwise negative for other individuals with similar findings. Carrier screening for cystic fibrosis and hemoglobinopathies should also be considered, if not yet completed. Carrier screening for Fragile X syndrome and spinal muscular atrophy (SMA) as recommended by ACOG and/or ACMG is also available. More comprehensive carrier screening panels for many more genetic conditions (including those listed above) are available through several companies. At this time, this testing is not specifically recommended by the professional societies. Follow-up 1. Repeat evaluation of the kidneys and growth at 27- 28 weeks gestation. 2. Recommend referral to Treatment with persistent renal pelvis dilation. 3. Additional follow-up as clinically indicated. The total patient time of the visit was 40 minutes, of which greater than 50% of the time was spent counseling and coordinating care. Johny Mcneal DO TURRET LATHE OPERATOR OFFICE VISIT Observed: 01/15/2018 Status: F Source: [place] REPORT 11:53 AM [facility] [address] [place] [address] OFFICE VISIT Date of Service: 01/15/18 MR#: [id number] Acct: [id number] Name: FRANCINE MANTILLA Rep #: [id number] : 1995 Provider: Tricia Euceda MD Age/Sex: 22/F Location: [facility] [place] Status: Signed Intake Vital Signs01/15/18 Height 5 ft 6 in 01/15/18 Weight: 118 lb 4 oz 01/15/18 Body Mass Index (BMI) 19.1 01/15/18 Blood Pressure 92/68 Intake Visit Reasons: 20 WEEK OB 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 Is patient in pain?: No Allergies acetaminophen [From Tylenol] Allergy (Severe, Verified 01/15/18 11:36) allergy penicillin G Allergy (Mild, Verified 01/15/18 11:36) Other Medications doxylamine succinate 25 mg tablet 25 mg PO QHS PRN 10/22/17 [History Confirmed 01/15/18] vitamin,calcium,bcbldevj-vgib-iflwf acid tablet 1 tab PO QDAY 10/22/17 [History Confirmed 01/15/18] promethazine 12.5 mg tablet 12.5 mg PO Q6H PRN #120 tab 10/22/17 [Rx Confirmed 01/15/18] pyridoxine (vitamin B6) 25 mg tablet 25 mg PO ONCE 10/22/17 [History Confirmed 01/15/18] Last Menstral Period: 08/06/17 Zika: Zika virus screening: Negative : No PFSH PFSH Surgical History [place] teeth extracted (Acute) Family History Grandfather Cancer Social History Smoking Status: Never smoker alcohol intake: never substance use type: does not use what type of physical activity do you participate in: running, walking frequency: 3-4 times per week seatbelt use: always do you feel safe at home: Yes additional social history: Shireen- Patient works in a [employer] Pregancy History 1 Elective abortions Hx Para Spontaneous abortions HPI 20 WEEK OB: Details: FRANCINE MANTILLA is a 22 year old who presents for routine OB visit. OB Visit KIRK Calculator Estimated Delivery Date 06/05/18 Based on Ultrasound Date 10/22/17 Current WG 19w 6d Number 1 Expected Delivery Route/Plan Specific Issue/Plans flu vaccine: [] minichart given: [] tdap vaccine: [] rhogam: [] LARC form signed: [] labor support person: [] pain management: [] cut cord/dad catch: [] : [] PP control planned: [] special requests: [] Initial Weight: 112 lb Date Weight BP Urine PrFHR FuHt Pres MoCTX DilationFetal StVisit NoProviderComments E ot v te [place] G Effac lucose ed Visit Notes Visit Date: 01/15/18 abnormalitiies on us recommend MFM consult for genetic counseling Tricia Euceda MD on 01/15/18 Visit Date: 12/18/17 Nausea improved. Has felt FM. No VB, LOF. Some heartburn relieved with papaya tablets. MJ Zelaya on 12/18/17 Visit Date: 11/20/17 nausea improved no vb cramping Tricia Euceda MD on 11/20/17 ACOG First Trimester First Trimester: Desire for , Alcohol, Tobacco Cessation, Illicit/Recreational Drug/Substance Use, Intimate Partner Violence, Barriers to care, Unstable Housing, Communication Barriers, Environmental/Work Hazards, Anticipated Course of Care, Toxoplasmosis Precations, Use of Any medications, Sexual activity, Exercise, Dental Care, Sauna/Hot tub use, Seat Belt use, Childbirth classes/Hospital facilities, , Travel, Indications for US and Screening for Aneuploidy Diagnostics Diagnostics Labs Blood Type A POSITIVE 10/22/17 Antibody Screen NEGATIVE 10/22/17 Hct 37.0 % (37-47) 10/22/17 Hgb 12.7 g/dl (12.0-15.0) 10/22/17 Obstetrics Ultrasound 01/09/18 Rubella IgG Antibody 349.0 IU/mL 10/22/17 RPR NONREACTIVE (NONREACTIVE) 10/22/17 Hep Bs Antigen Negative (Negative) 10/22/17 Chlam trachomat DNA PCR Negative (Negative) 10/22/17 N.gonorrhoeae DNA (PCR) Negative (Negative) 10/22/17 Details: HIV: Urine Culture: Sequential Screen: NIPT Screen: Results [id number] Office Urine Glucose Negative Last Edit by Merry Olvera on 01/15/18 11:40 Office Urine Protein Negative Last Edit by Merry Olvera on 01/15/18 11:40 Assessment AND Plan Problems 1. Encounter for supervision of normal first in first trimester Z34.01 PRR KIRK 06/05/18 Shireen 2. Nausea/vomiting in O21.9 phenergan, if needs more recommend reglan 3. 19 weeks gestation of Z3A.19 Plan ACOG trimester education reviewed and updated. see problem list details for updated plan management information and see below for orders placed at this visit. GA appropriate handout given. Orders Orders: Coding Level of Care Code OB Routine Diagnoses Encounter for supervision of normal first in first trimester Z34.01 Normal : normal first Trimester: first trimester Nausea/vomiting in O21.9 19 weeks gestation of Z3A.19 Weeks of gestation: 19 weeks 01/15/18 1153 <Electronically signed by Tricia Euceda MD> Date [facility] MD [facility] Signature: Date (if applicable) CC: OB ANATOMY SCAN Observed: 01/09/2018 Status: F Source: [place] 1:57 PM [facility] [place] Imaging Services [address] [place] [address] OB Anatomy Scan MR#: [id number] Acct: [id number] Name: FRANCINE MANTILLA Rep #: [id number] : 1995 F 22 From: Yosi Norman MD PCP: Care Physician, No Primary Status: REG CLI Study: OB Anatomy Scan Date of Exam: 01/09/18 Exam# [id number] Ordering Dr: Carmelina Morin SCHEDULE ANNOUNCERJina STUDY: SECOND AND THIRD TRIMESTER OBSTETRICAL ULTRASOUND REASON FOR EXAM: Female, 22 years old. Routine survey. LMP: August 29, 2017 TECHNIQUE: Transabdominal PRIOR ULTRASOUND: None. FINDINGS: There is a single intrauterine fetus. The fetus is in a cephalic presentation. There is demonstrated cardiac activity with a heart rate of 155 bpm. There is a normal amniotic fluid volume. The largest amniotic fluid pocket measures 3.6 cm x 5.5 cm. The amniotic fluid index (BORIS) is within normal limits. The placenta is posterior in location and is not low lying. There are Grade 0 placental changes. The cervix measures 3.2 cm in length. The bilateral adnexal regions are normal. BIOMETRY: BPD: 4.7 cm: 20 weeks, 2 days HC: 17.1 cm: 19 weeks, 6 days AC: 13.6 cm: 19 weeks, 1 days FL: 3.04 cm: 19 weeks, 3 days CI: 79% FL/BPD: 65% FL/HC: FL/AC: 22% HC/AC: 1.26 age by current US: 19 weeks, 5 days. KIRK by current US: May 31, 2018. Estimated weight: 284 grams, +/- 42 grams, 63 %. Age by LMP: 19 weeks, 0 days. KIRK by LMP: June 05, 2018 ANATOMY: Gender: Male Cranium: Normal lateral ventricles. Normal choroid plexus. Normal cerebellum. Normal cisterna magna. Normal face, nose and lips. Chest: Normal 4-chamber heart. Echogenic focus in the left ventricle suggestive of a possible prominent coronary tendon. Abdomen/Pelvis: Normal diaphragm. Normal stomach. Normal abdominal wall. Normal cord insertion. Normal 3 vessel cord. Minimally dilated lateral renal pelvis. Normal bladder. Spine: Normal cervical spine. Normal thoracic spine. Normal lumbar spine. Normal sacrum. Extremities: Normal bilateral upper extremities. There is suggestion of a possible sandal gap of the left foot. US/OB Anatomy Scan IMPRESSION: Single live intrauterine gestation with mean gestational age of 19 weeks and 5 days. Soft findings of the foot and heart as described. Trisomy 21 should be ruled out. Electronically Signed: Yosi Norman MD at 11:24 EDT Tel [phone], Service support , CC: IZABEL Morin; No Primary Care Physician Feed Mill Supervisor: Signed TURRET LATHE OPERATOR OFFICE VISIT Observed: 12/18/2017 Status: F Source: [place] REPORT 3:42 PM [facility] [address] [place] [address] OFFICE VISIT Date of Service: 12/18/17 MR#: [id number] Acct: [id number] Name: FRANCINE MANTILLA Rep #: [id number] : 1995 Provider: IZABEL Morin Age/Sex: 22/F Location: [facility] [place] Status: Signed Intake Vital Signs12/18/17 Height 5 ft 6 in 12/18/17 Weight: 114 lb 6 oz 12/18/17 Body Mass Index (BMI) 18.4 12/18/17 Blood Pressure 102/66 Intake Visit Reasons: est ob 16 weeks Cartography Technician Required: No Is patient in pain?: No Allergies acetaminophen [From Tylenol] Allergy (Severe, Verified 12/18/17 15:19) allergy penicillin G Allergy (Mild, Verified 12/18/17 15:19) Other Medications doxylamine succinate 25 mg tablet 25 mg PO QHS PRN 10/22/17 [History Confirmed 12/18/17] vitamin,calcium,imzkckca-vqja-khrbv acid tablet 1 tab PO QDAY 10/22/17 [History Confirmed 12/18/17] promethazine 12.5 mg tablet 12.5 mg PO Q6H PRN #120 tab 10/22/17 [Rx Confirmed 12/18/17] pyridoxine (vitamin B6) 25 mg tablet 25 mg PO ONCE 10/22/17 [History Confirmed 12/18/17] Last Menstral Period: 08/06/17 Zika: Zika virus screening: Negative : No PFSH PFSH Surgical History [place] teeth extracted (Acute) Family History Grandfather Cancer Social History Smoking Status: Never smoker alcohol intake: never substance use type: does not use what type of physical activity do you participate in: running, walking frequency: 3-4 times per week seatbelt use: always do you feel safe at home: Yes 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 OB Visit KIRK Calculator Estimated Delivery Date 06/05/18 Based on Ultrasound Date 10/22/17 Current WG 15w 6d Number 1 Expected Delivery Route/Plan Specific Issue/Plans flu vaccine: [] minichart given: [] tdap vaccine: [] rhogam: [] LARC form signed: [] labor support person: [] pain management: [] cut cord/dad catch: [] : [] PP control planned: [] special requests: [] Initial Weight: 112 lb Date Weight BP Urine PrFHR FuHt Pres MoCTX DilationFetal StVisit NoProviderComments E ot v te [place] G Effac lucose ed Visit Notes Visit Date: 12/18/17 Nausea improved. Has felt FM. No VB, LOF. Some heartburn relieved with papaya tablets. Carmelina Morin NP-C on 12/18/17 Visit Date: 11/20/17 nausea improved no vb cramping Tricia Euceda MD on 11/20/17 ACOG First Trimester First Trimester: Desire for , Alcohol, Tobacco Cessation, Illicit/Recreational Drug/Substance Use, Intimate Partner Violence, Barriers to care, Unstable Housing, Communication Barriers, Environmental/Work Hazards, Anticipated Course of Care, Toxoplasmosis Precations, Use of Any medications, Sexual activity, Exercise, Dental Care, Sauna/Hot tub use, Seat Belt use, Childbirth classes/Hospital facilities, , Travel, Indications for US and Screening for Aneuploidy Diagnostics Diagnostics Labs Blood Type A POSITIVE 10/22/17 Antibody Screen NEGATIVE 10/22/17 Hct 37.0 % (37-47) 10/22/17 Hgb 12.7 g/dl (12.0-15.0) 10/22/17 Rubella IgG Antibody 349.0 IU/mL 10/22/17 RPR NONREACTIVE (NONREACTIVE) 10/22/17 Hep Bs Antigen Negative (Negative) 10/22/17 Chlam trachomat DNA PCR Negative (Negative) 10/22/17 N.gonorrhoeae DNA (PCR) Negative (Negative) 10/22/17 Details: HIV: Urine Culture: Sequential Screen: NIPT Screen: Results [id number] Office Urine Glucose Negative Last Edit by Radha Espinoza on 12/18/17 15:26 Office Urine Protein Negative Last Edit by Radha Espinoza on 12/18/17 15:26 Assessment AND Plan Problems 1. Encounter for supervision of normal first in first trimester Z34.01 PRR KIRK 06/05/18 Shireen 2. 15 weeks gestation of Z3A.15 Plan Orders placed: anatomy US 19-20 wk gest Reviewed of labor precautions, movement/kick counts ACOG trimester education reviewed and updated See problem list details for updated plan of care Gestational age appropriate handout given RTO: 4 weeks Orders Orders: Coding Level of Care Code OB Routine Diagnoses Encounter for supervision of normal first in first trimester Z34.01 Normal : normal first Trimester: first trimester 15 weeks gestation of Z3A.15 12/18/17 1542 <Electronically signed by Carmelina BARKER> Date Carmelina 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 Signature: Date (if applicable) CC: TURRET LATHE OPERATOR OFFICE VISIT Observed: 11/20/2017 Status: F Source: [place] REPORT 4:18 PM [facility] [address] [place] [address] OFFICE VISIT Date of Service: 11/20/17 MR#: [id number] Acct: [id number] Name: FRANCINE MANTILLA Rep #: [id number] : 1995 Provider: Tricia Euceda MD Age/Sex: 22/F Location: [facility] [place] Status: Signed Intake Vital Signs11/20/17 Height 5 ft 6 in 11/20/17 Weight: 112 lb 4 oz 11/20/17 Body Mass Index (BMI) 18.1 11/20/17 Blood Pressure 102/65 Intake Visit Reasons: 12 weeks Cartography Technician Required: No Accompanied by: Is patient in pain?: No Allergies acetaminophen [From Tylenol] Allergy (Severe, Verified 11/20/17 15:54) allergy penicillin G Allergy (Mild, Verified 11/20/17 15:54) Other Medications doxylamine succinate 25 mg tablet 25 mg PO QHS PRN 10/22/17 [History Confirmed 11/20/17] vitamin,calcium,tmfgvdvo-wozu-lxyig acid tablet 1 tab PO QDAY 10/22/17 [History Confirmed 11/20/17] promethazine 12.5 mg tablet 12.5 mg PO Q6H PRN #120 tab 10/22/17 [Rx Confirmed 11/20/17] pyridoxine (vitamin B6) 25 mg tablet 25 mg PO ONCE 10/22/17 [History Confirmed 11/20/17] Last Menstral Period: 08/06/17 Zika: Zika virus screening: Negative : No PFSH PFSH Surgical History [place] teeth extracted (Acute) Family History Grandfather Cancer Social History Smoking Status: Never smoker alcohol intake: never substance use type: does not use what type of physical activity do you participate in: running, walking frequency: 3-4 times per week seatbelt use: always do you feel safe at home: Yes additional social history: Shireen- Patient works in a [employer] Pregancy History 1 Elective abortions Hx Para Spontaneous abortions HPI 12 weeks: Details: FRANCINE MANTILLA is a 22 year old who presents for routine OB visit. OB Visit KIRK Calculator Estimated Delivery Date 06/05/18 Based on Ultrasound Date 10/22/17 Current WG 11w 6d Number 1 Expected Delivery Route/Plan Specific Issue/Plans flu vaccine: [] minichart given: [] tdap vaccine: [] rhogam: [] LARC form signed: [] labor support person: [] pain management: [] cut cord/dad catch: [] : [] PP control planned: [] special requests: [] Initial Weight: 112 lb Date Weight BP Urine PrFHR FuHt Pres MoCTX DilationFetal StVisit NoProviderComments E ot v te [place] G Effac lucose ed Visit Notes Visit Date: 11/20/17 nausea improved no vb cramping Triica Euceda MD on 11/20/17 ACOG First Trimester First Trimester: Desire for , Alcohol, Tobacco Cessation, Illicit/Recreational Drug/Substance Use, Intimate Partner Violence, Barriers to care, Unstable Housing, Communication Barriers, Environmental/Work Hazards, Anticipated Course of Care, Toxoplasmosis Precations, Use of Any medications, Sexual activity, Exercise, Dental Care, Sauna/Hot tub use, Seat Belt use, Childbirth classes/Hospital facilities, , Travel, Indications for US and Screening for Aneuploidy Diagnostics Diagnostics Labs Blood Type A POSITIVE 10/22/17 Antibody Screen NEGATIVE 10/22/17 Hct 37.0 % (37-47) 10/22/17 Hgb 12.7 g/dl (12.0-15.0) 10/22/17 Rubella IgG Antibody 349.0 IU/mL 10/22/17 RPR NONREACTIVE (NONREACTIVE) 10/22/17 Hep Bs Antigen Negative (Negative) 10/22/17 Chlam trachomat DNA PCR Negative (Negative) 10/22/17 N.gonorrhoeae DNA (PCR) Negative (Negative) 10/22/17 Details: HIV: Urine Culture: Sequential Screen: NIPT Screen: Results [id number] Office Urine Glucose Negative Last Edit by Radha Espinoza on 11/20/17 15:58 Office Urine Protein Negative Last Edit by Radha Espinoza on 11/20/17 15:58 Assessment AND Plan Problems 1. Nausea/vomiting in O21.9 phenergan, if needs more recommend reglan 2. Encounter for supervision of normal first in first trimester Z34.01 PRR KIRK 06/05/18 Shireen Plan Orders placed: none ACOG trimester education reviewed and updated. see problem list details for updated plan management information. GA appropriate handout given. Orders Orders: Coding Level of Care Code OB Routine Diagnoses Nausea/vomiting in O21.9 Encounter for supervision of normal first in first trimester Z34.01 Normal : normal first Trimester: first trimester 11/20/17 1618 <Electronically signed by Tricia Euceda MD> Date Tricia Euceda MD Cosigner Signature: Date (if applicable) CC: CT/NG [facility] BY PCR Collected: 10/22/2017 Status: F Source: [place] 3:48 PM [facility] TYPE CODE TESTS RESULT OUT OF RANGE REFERENCE UNITS LAB L8200.2100 Negative Normal Chlam Negative Trac PCR LAB L8200.2200 Negative Normal NG by Negative PCR Performed By: #### L8200.1999, M100.0650 #### [facility] [address] [place], [address] Observed: 10/22/2017 Status: F Source: [place] CULTURE, URINE 3:48 PM [facility] Urine Culture ORGANISM 1: Mixed Gram Positive Organisms [place] Count 1000-10,000 MIX CULTURE Mixed contaminants. Submit a new specimen if indicated. Performed By: #### L8200.1999, M100.0650 #### [facility] [address] [place], [address] CBC W/DIFF, AUTOMATED Collected: 10/22/2017 Status: F Source: [place] 11:34 AM [facility] [place] TYPE CODE TESTS RESULT OUT OF RANGE REFERENCE UNITS LAB L100.1000 4.4-11.0 K/mm3 Normal WBC 6.5 LAB L100.1200 4.2-5.4 M/mm3 Low RBC 4.10 LAB L100.1300 12.0-15.0 g/dl Normal HGB 12.7 LAB L100.1400 37-47 % Normal HCT 37.0 LAB L100.1500 81-99 fL Normal MCV 90.2 LAB L100.1600 27.0-32.0 pg Normal MCH 31.0 LAB L100.1700 32-36 g/gl Normal MCHC 34.3 LAB L100.1810 11.6-14.6 % Normal RDW CV 12.5 LAB L100.1820 35.1-43.9 fl Normal RDW SD 40.9 LAB L100.1900 150-450 K/mm3 Normal PLT 170 LAB L100.2000 6.2-12.0 fl Normal MPV 11.2 LAB L100.2100 47-70 % High NEUT% 73.5 LAB L100.2200 19-41 % Low LY% 18.6 LAB L100.2300 0-10 % Normal MONO% 6.6 LAB L100.2400 0-5 % Normal EO% 0.8 LAB L100.2500 0-1 % Normal BASO% 0.3 LAB L100.2550 0.0-0.9 % Normal IM GRAN % 0.200 Result Comment: IG% - Immature Granulocytes (promyelocytes, myelocytes and metamyelocytes) > 1% indicates that a LEFT SHIFT is Present. LAB L100.2620 2.0-7.7 X10 3/uL Normal Absolute Neut 4.8 LAB L100.2720 0.83-4.51 X10 3/ul Normal Absolute Lymph 1.21 Performed By: #### L100.0100, B101.7450 #### [facility] [address] [facility] [address] #### L3100.0390 #### [facility] (refer to report for specific site) refer to report for address and phone number TYPE AND SCREEN Collected: 10/22/2017 Status: F Source: [place] 11:34 AM [facility] [place] Order Comment: Reason for Type AND Screen/Red Cells: TYPE CODE TESTS RESULT OUT OF RANGE REFERENCE UNITS LAB B10.0800 A Normal BLOOD TYPE GEL POSITIVE LAB B100.4000 Normal Antibody NEGATIVE Screen Performed By: #### L100.0100, B101.7450 #### [facility] [address] #### L3100.0390 #### [facility] (refer to report for specific site) refer to report for address and phone number HEPATITIS B SURFACE Collected: 10/22/2017 Status: F Source: [place] AG 11:34 AM [facility] [place] [facility] TYPE CODE TESTS RESULT OUT OF RANGE REFERENCE UNITS LAB L3100.0400 Negative Normal HB Negative SURF AG Result Comment: Performed at: - [facility] [id number] Professor Of Biology: Adam García PhD, Phone: [phone] Performed By: #### L100.0100, B101.7450 #### [facility] [address] [place] [address], [address] #### L3100.0390 #### [facility] (refer to report for specific site) refer to report for address and phone number RUBELLA IGG Collected: 10/22/2017 Status: F Source: [place] 11:34 AM [facility] [place] [facility] TYPE CODE TESTS RESULT OUT OF RANGE REFERENCE UNITS LAB L509.4000 IU/mL Normal Rubella IgG 349.0 Result Comment: Antibody results Interpretation of Immune Status < 5 IU/ml Presumed Non-immune 5 - < 10 IU/ml Equivocal > or = 10 IU/ml Presumed Immune Performed By: #### L509.4000, L3890.6005, L700.5000 #### [facility] [address] [place], [address] HIV - [facility] Collected: 10/22/2017 Status: F Source: [place] 11:34 AM [facility] [place] [facility] TYPE CODE TESTS RESULT OUT OF RANGE REFERENCE UNITS LAB L3890.6005 Nonreactive Normal HIV - [facility] Non-Reactive Performed By: #### L509.4000, L3890.6005, L700.5000 #### [facility] [address] [place], [place], [address] RAPID PLASMIN REAGIN Collected: 10/22/2017 Status: F Source: FLORENTIN (RPR) 11:34 AM [facility] TYPE CODE TESTS RESULT OUT OF REFERENCE UNITS RANGE LAB L700.5000 NONREACTIVE NONREACTIVE Normal RPR Performed By: #### L509.4000, L3890.6005, L700.5000 #### [facility] [address] [place], [place], [address] TURRET LATHE OPERATOR OFFICE VISIT Observed: 10/22/2017 Status: F Source: FLORENTIN REPORT 11:19 AM [facility] [address] [place] [address] OFFICE VISIT Date of Service: 10/22/17 MR#: [id number] Acct: [id number] Name: FRANCINE MANTILLA Rep #: [id number] : 1995 Provider: Tricia Euceda MD Age/Sex: 22/F Location: [facility] Status: Signed Intake Vital Signs10/22/17 Height 5 ft 6 in 10/22/17 Weight: 110 lb 8 oz 10/22/17 Body Mass Index (BMI) 17.8 10/22/17 Blood Pressure 108/70 Intake Visit Reasons: NOB - LMP UNKNOWN Chief Complaint: NEW OB Cartography Technician Required: No Is patient in pain?: No Allergies acetaminophen [From Tylenol] Allergy (Severe, Verified 10/22/17 10:41) allergy penicillin G Allergy (Mild, Verified 10/22/17 10:42) Other Medications doxylamine succinate 25 mg tablet 25 mg PO QHS PRN 10/22/17 [History Confirmed 10/22/17] vitamin,calcium,bjngusjk-idao-uoamw acid tablet 1 tab PO QDAY 10/22/17 [History Confirmed 10/22/17] promethazine 12.5 mg tablet 12.5 mg PO Q6H PRN #120 tab 10/22/17 [Rx Confirmed 10/22/17] pyridoxine (vitamin B6) 25 mg tablet 25 mg PO ONCE 10/22/17 [History Confirmed 10/22/17] Last Menstral Period: 08/06/17 Zika: Zika virus screening: Negative : No PFSH PFSH Surgical History [place] teeth extracted (Acute) Family History Grandfather Cancer Social History Smoking Status: Never smoker alcohol intake: never substance use type: does not use what type of physical activity do you participate in: running, walking frequency: 3-4 times per week seatbelt use: always do you feel safe at home: Yes 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 OB Visit KIRK Calculator Estimated Delivery Date 06/05/18 Based on Ultrasound Date 10/22/17 Current WG 7w 5d Number 1 Expected Delivery Route/Plan Specific Issue/Plans flu vaccine: [] minichart given: [] tdap vaccine: [] rhogam: [] LARC form signed: [] labor support person: [] pain management: [] cut cord/dad catch: [] : [] PP control planned: [] special requests: [] Menstrual History Last Menstral Period: 08/06/17 Reported LMP: definite Normal amount/duration: Yes On hormonal BC at conception: No Antepartum Record Genetic Screening: Congenital Heart Defect: Other, Neural Tube Defect: Other, Hemoglobinopathy Or Carrier: Other, Cystic Fibrosis: Other, Chromosome Abnormality: Other, Boyd-Sachs: Other, Hemophilia: Other, Intellectual Disability/Autism: Other, Recurrent Loss/Stillbirth: Other, Other Structural Defect: Patient (club foot), Other Genetic Disease: Other, Maternal Metabolic Disorder: Other Infection History: Live with someone with TB or Exposed to TB: No, Patient or Partner has history of Genital Herpes: No, Rash or Viral illness since last mentrual period: No, Prior GBS-Infected child: No, History of STD: No, HIV Infection: No, History of Hepatitis: No, Recent travel outside of [place]: No, Concern for Hep exposure: No, Varicella immune: Yes Medical History Medical History: Negative: Diabetes, Hypertension, Heart disease, Auto-immune disorder, Kidney disease/UTI, Neurologic/epilepsy, Psychiatric, Depression/ depression, Hepatitis/liver disease, Varicosities/phlebitis, Thyroid dysfunction, Trauma/domestic violence, History of blood transfusions, D (Rh) Sensitized, Pulmonary (e.g.,TB,Asthma), Seasonal allergies, Drug/latex allergies/reactions, Breast, Piano Mover surgery, Operations/hospitalizations, Anesthetic complications, History of abnormal pap, Uterine anomaly/viri, Infertility, Anti-retroviral treatment, Relevant family history, Other ACOG First Trimester First Trimester: Desire for , Alcohol, Tobacco Cessation, Illicit/Recreational Drug/Substance Use, Intimate Partner Violence, Barriers to care, Unstable Housing, Communication Barriers, Environmental/Work Hazards, Anticipated Course of Care, Nurtrition and weight gain, Toxoplasmosis Precations, Use of Any medications, Sexual activity, Exercise, Dental Care, Sauna/Hot tub use, Seat Belt use, Childbirth classes/Hospital facilities, , Travel, Indications for [place] and Screening for Aneuploidy ROS Const Denies fever(s), Reports system reviewed and no additional complaints, except as docu, Reports fatigue Eyes Reports system reviewed and no additional complaints, except as docu ENT Reports system reviewed and no additional complaints, except as docu Card Denies chest pain, Denies shortness of breath Resp Reports system reviewed and no additional complaints, except as docu, Denies shortness of breath, Denies cough GI Reports nausea, Denies abdominal pain Reports system reviewed and no additional complaints, except as docu Musc Reports system reviewed and no additional complaints, except as docu Skin/Breast Reports system reviewed and no additional complaints, except as docu Neuro Yes system reviewed and no additional complaints, except as docu Psych Reports system reviewed and no additional complaints, except as docu Endo Reports fatigue, Reports system reviewed and no additional complaints, except as docu Exam Const General: healthy appearing, comfortable, no acute distress Orientation: alert [facility] Head: normal to inspection, atraumatic, normocephalic Ears: external ears normal, hearing grossly normal bilaterally Nose: nares normal, external nose normal Mouth: oral mucosae normal Teeth and gingiva: dentition normal Eyes General: appearance normal, both eyes and all related structures Neck Neck: no lymphadenopathy, supple, normal visual inspection Thyroid: thyroid normal Resp Effort AND Inspection: normal respiratory effort GI Inspection: normal to inspection Palpation: soft, no hepatosplenomegaly General: bladder normal to palpation External Female Exam: normal external appearance, normal appearance of the urethra Urethra: normal appearance of the urethra Speculum Exam - Vagina: normal appearance of the vagina, normal vaginal discharge Speculum Exam - Cervix: normal appearance of the cervix Bimanual Exam- Vagina AND Uterus: bladder normal to palpation, normal bimanual exam, uterus non-tender, other Bimanual Exam- Adnexa, other: adnexae non-tender Skin General: no rashes or lesions noted Neuro Motor: muscle tone normal throughout, no movement abnormalities noted Extrem General: normal to inspection, full ROM Assessment AND Plan Problems 1. Encounter for supervision of normal first in first trimester Z34.01 KIRK 06/05/18 Shireen 2. Nausea and vomiting during O21.9 phenergan, if needs more recommend reglan Plan Patient oriented to practice and discussed care expectations and screenings. [facility] book offered to patient. labs and 19-20 week anatomy ultrasound ordered. see problem list details for plan information. Genetic screening offered to patient and patient chose: discussed and considering nt Orders Orders: Medications New: Discontinued: 1 mg-20 mcg (24)/75 mg (4) (norethindrone-e1 tab PO QDAY NS Merry M Olvera .estradiol-iron) Discontinued Reason: Order Complet ed Supplemental Info [facility] book given and patient encouraged to read about nutrition, exercise, weight gain, and food avoidance in . Coding Level of Care Code OB Routine Diagnoses Encounter for supervision of normal first in first trimester Z34.01 Normal : normal first Trimester: first trimester Nausea and vomiting during O21.9 10/22/17 1119 <Electronically signed by Tricia Euceda MD> Date Tricia Euceda MD Cosigner Signature: Date (if applicable) CC: ALLERGIES ALLERGIES DATE TYPE / CODE NAME / CODE REACTION SEVERITY SOURCE 05/20/2018 Drug nitrous Other Unknown [place]ahan Allergy/416 oxide/Q990025206(RX Community 061825([facility] ED [facility]) Repository 05/20/2018 Drug acetaminophen/F0060 Vomiting SV Florentin Allergy/416 75929(RXNORM) Community 216790([facility] ED CT) Repository 05/20/2018 Drug penicillin Other MS Callahan Allergy/416 G/S815527078(RXNORM Community 336696([facility] ED CT) Repository 01/17/2018 Drug PENICILLINS Family history [facility] Class/02326 of allergy. Hospital 1003(SNOMED Pt. Has never Repository CT) had medication. 01/17/2018 DRUG ACETAMINOPHEN Low [facility] INGREDI/419 Hospital 943439([facility] Repository ED CT) ENCOUNTERS ENCOUNTERS ADMIT/DISCHARGE ACCOUNT ADMITTING ENCOUNTER LOCATION SOURCE NUMBER CLASS 05/20/2018/05/22/19 [id number] Ok, Inpatient Callahanjunior Lerma 19 Tricia Encounter [facility] ing:WPRoom: Repository FP003Xva: 1 05/20/2018 [id number] Sarah Euceda BMSBuilding:Chantelle Clarke [facility] Repository 05/20/2018 [id number] Ok Ambulatory BMSBuilding:Chantelle Clarke [facility] Repository 05/20/2018/05/20/19 [id number] Ambulatory BMSBuilding:B Florentin [address] MS[address] Hospital Repository 05/14/2018 [id number] Ambulatory [facility] Hospitalild Hospital ing:LABSPEC Repository 05/14/2018/05/14/19 [id number] Ambulatory BMSBuilding:B Callahan 19 [facility] Repository 05/13/2018 [id number] Ambulatory Building:[facility] Repository 05/06/2018/05/06/20 [id number] Ambulatory BMSBuilding:B Callahan [address] [facility] Hospital Repository 05/01/2018 [id number] Ambulatory BMSBuilding:B Florentin MS.CF[facility] Repository 04/23/2018/04/23/20 [id number] Ambulatory BMSBuilding:B Florentin 18 [facility] Repository 04/23/2018/04/23/20 [id number] Ambulatory [address] Hospitalild Hospital ing:WPOUTRoom Repository : OBT02 04/22/2018 [id number] Ambulatory BMSBuilding:B Callahan MS.CF.[facility] Hospital Repository 04/21/2018/04/22/20 [id number] Ambulatory [address] HospitalBuild Hospital ing:WPOUTRoom Repository : WP013 04/15/2018 [id number] Ambulatory Building:[facility] Repository 04/08/2018/04/08/20 [id number] Ambulatory BMSBuilding:B Callahan 18 [facility] Repository 03/27/2018/03/27/20 [id number] Ambulatory BMSBuilding:B Florentin 18 [facility] Repository 03/12/2018 [id number] Ambulatory [facility] Hospitalild Hospital ing:LAB Repository 03/12/2018/03/12/20 [id number] Ambulatory BMSBuilding:B Florentin 18 [facility] Repository 03/11/2018/03/11/20 [id number] Ambulatory Building:[address] Repository 02/12/2018 [id number] [facility] ing:LABSPEC Repository 02/12/2018/02/13/20 [id number] Ambulatory BMSBuilding:B Callahan 18 [facility] Repository 01/17/2018/01/18/20 [id number] Ambulatory Building:[facility] 18 [facility] Repository 01/15/2018/01/16/20 [id number] Ambulatory BMSBuilding:B Callahan 18 [facility] Repository 01/15/2018 [id number] Ambulatory BMSBuilding:B Florentin [facility] Repository 01/15/2018 [id number] Ambulatory BMSBuilding:B Florentin [facility] Repository 01/09/2018 [id number] Ambulatory [facility] Hospital ing:US Repository 12/18/2017/12/19/19 [id number] Ambulatory BMSBuilding:B Callahan 18 [facility] Repository 11/20/2017/11/21/19 [id number] Ambulatory BMSBuilding:B Florentin 18 [facility] Repository 10/22/2017 [id number] [facility] ing:POLAB3 Repository 10/22/2017/10/23/19 [id number] Ambulatory BMSBuilding:B Florentin 18 [facility] Repository PAYERS PAYERS ENCOUNTER GUARANTOR PAYER SUBSCRIBER SOURCE 05/20/2018 FRANCINE L Primary SHIREEN Florentin [id number] Insurance:[facility] y Number: [facility] [id number] [place]ository [place] [address]Nyn: mil Date:6686-80-08IZ [facility] 041934IVPLNNT, [place] ([place]) [address]RV: 05/20/2018 Secondary NOT GIVENUNK Callahan Insurance:SELF PAY [facility] Number: Effective Repository Date:2018-05-20 05/20/2018 FRANCINE L Primary SHIREEN Callahan [id number] Insurance:[facility] y Number: [facility] [id number] Repository [place] [address]Jra: mil Date:7775-03-51AF [address]ABMVRMWSANTIAGO [place]ORGES () [address]FU: 05/20/2018 Secondary NOT GIVENUNK Florentin Insurance:SELF PAY [facility]: Effective Repository Date:2018-05-20 05/20/2018 FRANCINE L Primary SHIREEN Florentin [id number] Insurance:ANTHEMPwmchealth FABIOLATTERNAMRATA [facility] y Number: [facility], [id number] [place]ository [place] [address]Itc: mil Date:0003-25-74MI [address]ZXEZIRYSANTIAGO GEORGES () [address]FW: 05/20/2018 Secondary NOT GIVENUNK Callahan Insurance:SELF PAY [facility] Number: Effective Repository Date:2018-05-20 05/20/2018 FRANCINE L Primary SHIREEN Callahan [id number] [facility]IGUELTTSAVI [facility] y Number: [facility], [id number] [place]ository [place] [address]Ldv: mil Date:3073-05-38PZ [address]PRFWBMFSANTIAGO GEORGES () [address]MG: 05/20/2018 Secondary NOT GIVENUNK Florentin Insurance:SELF PAY [facility] Number: Effective Repository Date:2018-05-20 05/14/2018 FRANCINE L Primary SHIREEN Callahan [id number] Insurance:ANTHEMPolic ALENLATTERNAMRATA [facility] y Number: [facility], [id number] [place]ository [place] [address]Xff: mil Date:0078-21-48MU [address]VOQYVVJ, [place] () [address]GO: 05/14/2018 Secondary NOT GIVENUNK Florentin Insurance:SELF PAY [facility] Number: Effective Repository Date:2018-05-14 05/14/2018 FRANCINE L Primary SHIREEN Florentin [id number] Insurance:ANTHEMPolic ALENLATTERNAMRATA [facility] y Number: [facility] [id number] Repository [place] [address]Ict: mil Date:9091-72-77XD [address] S[address] () [address]DL: 05/14/2018 Secondary NOT GIVENUNK Florentin Insurance:SELF PAY [facility] Number: Effective Repository Date:2018-05-14 05/13/2018 FRANCINE Primary SHIREEN [facility] SCHLATTERDOB: Insurance:ANTHEMPolic SCHLATTERDOB: [facility] y Number: [id number] Repository [facility] [id number], mil Date: [facility] [address]Rch: [phone] () 05/13/2018 Secondary SHIREEN [facility] Insurance:ANTHEMPolic SCHLATTERDOB: Hospital y Number: [id number] Repository [id number] [place] mil Date: [place] [address] 05/06/2018 FRANCINE L Primary SHIREEN Callahan [id number] Insurance:ANTHEMPolic [facility]UNK [facility] Number: [facility], [id number] [place] [address]Ezo: mil Date:9963-77-92TK [address] () [address]ZN: 05/06/2018 Secondary NOT GIVENUNK Florentin Insurance:SELF PAY [facility] Number: Effective Repository Date:2018-04-23 05/01/2018 FRANCINE L Primary SHIREEN Florentin [id number] Insurance:ANTHEMPolic SCHLATTERUNK [facility] ALAKANUK y Number: [facility], [id number] [place]ository [place] [address]Kdv: mil Date:5165-52-37KW [address]FNRZNQVSANTIAGO GEORGES () [address]CA: 05/01/2018 Secondary NOT GIVENUNK Florentin Insurance:SELF PAY [facility] Number: Effective Repository Date:2018-05-01 04/23/2018 FRANCINE L Primary SHIREEN Florentin [id number] Insurance:ANTHEMPbecky HACKETT [facility] y Number: [facility], [id number] [place]ository [place] [address]Uze: mil Date:6826-92-92EE [address]YRWCYAOSANTIAGO GEORGES () [address]XV: 04/23/2018 Secondary NOT GIVENUNK Florentin Insurance:SELF PAY [facility] Hospital Number: Effective Repository Date:2018-04-23 04/23/2018 FRANCINE L Primary SHIREEN Callahan [id number] Insurance:ANTHEMPbecky HICKSTTSAVI [facility] y Number: [facility], [id number] [place]ository [place] [address]Vzp: mil Date:9569-59-64IY [address] () [address]JB: 04/23/2018 Secondary NOT GIVENUNK Florentin Insurance:SELF PAY [facility] Number: Effective Repository Date:2018-04-23 04/22/2018 FRANCINE L Primary SHIREEN Callahan [id number] Insurance:ANTHEMPbecky HACKETT [facility] y Number: [facility], [id number] [place]ository [place] [address]Kdn: mil Date:3445-50-80RD [address] () [address]IU: 04/22/2018 Secondary NOT GIVENUNK Florentin Insurance:SELF PAY [facility] Number: Effective Repository Date:2018-04-22 04/21/2018 FRANCINE L Primary SHIREEN Florentin [id number] Insurance:ANTHEMPbecky HACKETT [facility] y Number: [facility], [id number] [place]ository [place] [address]Dvk: mil Date:4859-00-48BV [address]ZHDOWALSANTIAGO GEORGES () [address]KI: 04/21/2018 Secondary NOT GIVENUNK Florentin Insurance:SELF PAY [facility] Number: Effective Repository Date:2018-04-21 04/15/2018 FRANCINE [facility] SCHLATTERDOB: Insurance:ANTHEMPolic SCHLATTERDOB: [facility] y Number: [id number] [facility] [id number] [facility], mil Date: [facility] [address]Meh: [phone] () 04/08/2018 FRANCINE L Primary SHIREEN Lerma [id number] Insurance:ANTHEMPolic SCHLATTERUNK [facility] y Number: [facility], [id number] [facility] [address]Qhn: mil Date:7122-02-28TW [address] () [address]KF: 04/08/2018 Secondary NOT GIVENUNK Florentin Insurance:SELF PAY [facility] Number: Effective Repository Date:2018-04-08 03/27/2018 FRANCINE L Primary SHIREEN Lerma [id number] Insurance:ANTHEMPolic SCHLATTERUNK [facility] y Number: [facility], [id number] [facility] [address]Rmz: mil Date:7855-01-54KI [address] () [address]BU: 03/27/2018 Secondary NOT GIVENUNK Florentin Insurance:SELF PAY [facility] Number: Effective Repository Date:2018-03-27 03/12/2018 FRANCINE L Primary SHIREEN Lerma [id number] Insurance:ANTHEMPolic SCHLATTERUNK [facility] y Number: [facility], [id number] [facility] [address]Uuk: mil Date:1394-38-31KZ [address]FFZUOWJ, [place] () [address]BH: 03/12/2018 Secondary NOT GIVENUNK Florentin Insurance:SELF PAY [facility] Number: Effective Repository Date:2018-03-12 03/12/2018 FRANCINE L Primary SHIREEN Florentin [id number] Insurance:ANTHEMPolic SCHLATTERUNK [facility] [place]LA[place] y Number: [facility], [id number] [facility] [address]Kpr: mil Date:7335-93-49XO [address]EDKOMSI, [place] () [address]MM: 03/12/2018 Secondary NOT GIVENUNK Florentin Insurance:SELF PAY [facility] Number: Effective Repository Date:2018-01-23 03/11/2018 FRANCINE Primary SHIREEN [facility] SCHLATTERDOB: Insurance:ANTHEMPolic SCHLATTERDOB: [facility] y Number: [id number] Repository [facility] [id number] [facility], mil Date: [facility] [address]Ykx: [phone] () 03/11/2018 Secondary SHIREEN [facility] Insurance:ANTHEMPolic SCHLATTERDOB: Hospital y Number: [id number] Repository [id number] [facility] mil Date: [place] [address] 02/12/2018 FRANCINE L Primary SHIREEN Florentin [id number] Insurance:ANTHEMPolic SCHLATTERUNK [facility] ALAKANUK y Number: [facility], [id number] [place] [address]Fds: mil Date:1424-09-78LW [address]WWHWPCH, [place] () [address]MW: 02/12/2018 Secondary NOT GIVENUNK Callahan Insurance:SELF PAY [facility] Number: Effective Repository Date:2018-02-12 02/12/2018 FRANCINE L Primary SHIREEN Florentin [id number] Insurance:ANTHEMPolic SCHLATTERUNK [facility] ALAKANUK y Number: [facility], [id number] [place] [address]Wlz: mil Date:5462-05-31EL [address] [place] [address] () [address]LY: 02/12/2018 Secondary NOT GIVENUNK Florentin Insurance:SELF PAY [facility] Number: Effective Repository Date:2018-02-12 01/17/2018 FRANCINE Primary SHIREEN [facility] SCHLATTERDOB: Insurance:ANTHEMPolic SCHLATTERDOB: [facility] y Number: [id number] Repository [facility] [id number] [facility], mil Date: [facility] [address]Fcm: [phone] () 01/17/2018 Secondary SHIREEN [facility] Insurance:ANTHEMPolic SCHLATTERDOB: Hospital y Number: [id number] Repository [id number] [facility] mil Date: [place] [address] 01/15/2018 FRANCINE L Primary SHIREEN Callahan [id number] Insurance:ANTHEMPolic SCHLATTERUNK [facility] Number: [facility], [id number] [place]ository [place] [address]Kdy: mil Date:4590-45-81LR [address] [place] [address] () [address]FN: 01/15/2018 Secondary NOT GIVENUNK Callahan Insurance:SELF PAY [facility] Number: Effective Repository Date:2018-01-15 01/15/2018 [facility] Callahan [id number] Insurance:[employer] RamsierDOB: [employer]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 [place]: [id number], [place] [id number] Repository [address]Uie: 330) Date:2966-07-16AH [phone] () [place] [address]XU: 01/15/2018 Secondary NOT GIVENUNK Florentin Insurance:SELF PAY [facility] Number: Effective Repository Date:2017-12-18 01/15/2018 [facility] Primary [facility] Lerma [id number] [facility] RamsierDOB: Community [facility]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 [place] Number: [id number] Creek, [place] [id number] Repository [address]Efc: (330) Date:3761-40-76VB [phone] () [place], [place] [address]NN: 01/15/2018 Secondary NOT GIVENUNK Florentin Insurance:SELF PAY [facility] Number: Effective Repository Date:2018-01-15 01/09/2018 FRANCINE L Primary SHIREEN Florentin [id number] Insurance:ANTHEMPolic SCHLATTERNAMRATA [facility] y Number: [facility], [id number] [place] [address]Jdu: mil Date:8854-57-76CD [address] () [address]ZB: 01/09/2018 Secondary NOT GIVENUNK Florentin Insurance:SELF PAY [facility] Number: Effective Repository Date:2017-12-18 12/18/2017 FRANCINE Primary SHIREEN Callahan [id number] Insurance:ANTHEMPwmchealth FABIOLATTERNAMRATA [facility] y Number: [facility], [id number] [address]Yfj: mil Date:6778-63-15[address]GUUUYPHSANTIAGO GEORGES () [address]TR: 12/18/2017 Secondary NOT GIVENUNK Callahan Insurance:SELF PAY [facility] Number: Effective Repository Date:2017-12-18 11/20/2017 FRANCINE Primary SHIREEN Florentin [id number] Insurance:ANTHE[employer]olic FABIOLATTERNAMRATA [facility] y Number: [facility], [id number] [address]Veq: mil Date:8747-28-01[address]HDVQPWU, [place] () [address]BZ: 11/20/2017 Secondary NOT GIVENUNK Florentin Insurance:SELF PAY [facility] Number: Effective Repository Date:2017-11-20 10/22/2017 FRANCINE Primary SHIREEN [id number] Insurance:[employer] ROXANN [facility] y Number: [facility], [id number] Repository [place] [address]Pha: mil Date:3047-44-26[address]OVWPP, [place] () [address]CG: 10/22/2017 Secondary NOT GIVENUNK Florentin Insurance:SELF PAY [facility] Number: Effective Repository Date:2017-10-22 10/22/2017 FRANCINE Primary FRANCINE [id number] Insurance:ANTHEMPolic ALENLATTMATTHEWB: [facility] y Number: [id number] [facility], [id number]ository [place] [address]Eqm: mil Date:2516-74-45[address]TYMJDRT, [place] () [address]AY: 10/22/2017 Secondary NOT GIVENUNK Florentin Insurance:SELF PAY [facility] Number: Effective Repository Date:2017-10-22
== END 2018-04-22 08:10 | disposition home or self-care (01) ==
LOC: WPOUT 23:16 → WP 23:16
PROVIDERS: Visit Provider Obstetrics & Gynecology
DX: O60.03 Preterm labor without delivery, third trimester (principal); Z3A.33 33 weeks gestation of pregnancy
CPT/HCPCS: 96361 ×8; 96374; 96375; 96376; 36415; 59025; 59050; 81001; 82731; 85027; 87086; 87088; 96372; 99218; J7120; G0378; J0702; J2405

== ENCOUNTER 2018-04-23 06:03 | Outpatient (CLI) | payer BC, SELFPAY ==
[2018-04-22] VITALS: BMI 22.4
[2018-04-23 06:08] VITALS: BMI 22.9
[2018-04-23] MEDS: Betamethasone/Betamethasone 30 MG/5 ML Vial 12 MG IM (06:36)
--- NOTE | 2018-05-01 07:36 | OB.TRI.NOTE ---
- Problem List (1) Threatened labor Status: Acute Qualifiers: History of Present Illness Reason For Visit: SHOT History of Present Illness: celestone shot Allergies penicillin G Allergy (Mild, Verified 04/23/18 13:24) Other unknown reaction nitrous oxide Allergy (Verified 04/23/18 13:24) Other Hallucinations and vomiting acetaminophen [From Tylenol] Adverse Reaction (Severe, Verified 04/23/18 13:24) Vomiting - Pertinent Past Medical History Medical History: Past Medical History (Last Reviewed 04/23/18 @ 13:28 by Merry Olvera) Telephone teeth extracted Impression/Plan second dose celestone
--- OUTSIDE RECORDS SUMMARY | 2018-07-25 11:19 | XMS RPT_ITS ---
:1995 Author Organization OHIP Support Name Relationship Address Phone DOYHE Unavailable [address] + [place] [address] SHIREEN MANTILLA Unavailable [address] + [place] [address] DOYHE Unavailable [address] + [place] [address] SHIREEN MANTILLA Unavailable [address] + [place] [address] DOYHE Unavailable [address] + [place] [address] SHIREEN MANTILLA Unavailable [address] + [place] [address] DOYHE Unavailable [address] + [place] [address] SHIREEN MANTILLA Unavailable [address] + [place] [address] DOYHE Unavailable [address] + [place] [address] SHIREEN MANTILLA Unavailable [address] + [place] [address] DOYHE Unavailable [address] + [place] [address] SHIREEN MANTILLA Unavailable [address] + [place] [address] FRANCINE MANTILLA Unavailable [address] + [place] [address] DOYHE Unavailable [address] + [place] [address] SHIREEN MANTILLA Unavailable [address] + [place] [address] DOYHE Unavailable [address] + [place] [address] SHIREEN MANTILLA Unavailable [address] + [place] [address] DOYHE Unavailable [address] + [place] [address] SHIREEN MANTILLA Unavailable [address] + [place] [address] DOYHE Unavailable [address] + [place] [address] SHIREEN MANTILLA Unavailable [address] + [place] [address] DOYHE Unavailable [address] + [place] [address] SHIREEN MANTILLA Unavailable [address] + [place] [address] DOYHE Unavailable [address] + [place] [address] SHIREEN MANTILLA Unavailable [address] + [place] [address] FRANCINE MANTILLA Unavailable [address] + [place] [address] DOYHE Unavailable [address] + [place] [address] SHIREEN MANTILLA Unavailable [address] + [place] [address] DOYHE Unavailable [address] + [place] [address] SHIREEN MANTILLA Unavailable [address] + [place] [address] DOYHE Unavailable [address] + [place] [address] SHIREEN MANTILLA Unavailable [address] + [place] [address] DOYHE Unavailable [address] + [place] [address] SHIREEN MANTILLA Unavailable [address] + [place] [address] FRANCINE MANTILLA Unavailable [address] + [place] [address] DOYHE Unavailable [address] + [place] [address] SHIREEN MANTILLA Unavailable [address] + [place] [address] DOYHE Unavailable [address] + [place] [address] SHIREEN MANTILLA Unavailable [address] + [place] [address] FRANCINE MANTILLA Unavailable [address] + [place] [address] DOYHE Unavailable [address] + [place] [address] SHIREEN MANTILLA Unavailable [address] + [place] [address] MAVERICK FISH Unavailable [address] + [place] [address] MAVERICK FISH Unavailable [address] + [place] [address] DOYHE Unavailable [address] + [place] [address] SHIREEN MANTILLA Unavailable [address] + [place] [address] SHIREEN MANTILLA Unavailable [address] + [place] [address] WOOBGYN Unavailable BENEKOS/WEEMAN/CASTELAN + [address] [address] SHIREEN MANTILLA Unavailable [address] + [place] [address] WOOBGYN Unavailable BENEKOS/WEEMAN/CASTELAN + [address] [address] SHIREEN MANTILLA Unavailable [address] + [place] [address] WOOBGYN Unavailable BENEKOS/WEEMAN/CASTELAN + [address] [address] WOOBGYN Unavailable BENEKOS/WEEMAN/CASTELAN + [address] [address] Care Team Providers Name Role Phone JOHNY [...] Tricia Consulting Unavailable Marcanthony, Tricia Admitting Unavailable Tabernash, Carmelina Attending Unavailable Marcanthony, Tricia Referring Unavailable Primay Care Physicia, No Primary Care Unavailable Marcanthony, Tricia Consulting Unavailable Marcanthony, Tricia Attending Unavailable Primay Care Physicia, No Referring Unavailable Mikel, Carmelina Attending Unavailable Primay Care Physicia, No Referring Unavailable Primay Care Physicia, No Primary Care Unavailable Mikel, Carmelina Attending Unavailable Tabernash, Carmelina Referring Unavailable Primay Care Physicia, No [...] SOURCE 05/20/2018 Unknown O35.8XX0 - Marcanthony, Active Dolphin Maternal care for [facility] other (suspected) Hospital abnormality Repository and damage, not applicable or unspecified / O35.8XX0(ICD-10) 05/20/2018 Unknown O21.9 - Vomiting Marcanthony, Active Florentin of , [facility] unspecified / Hospital O21.9(ICD-10) Repository 05/20/2018 Unknown O28.3 - Abnormal Marcanthony, Active Dolphin ultrasonic finding [facility] on Hospital screening of Repository mother / O28.3(ICD-10) 05/20/2018 Unknown Z34.03 - Encounter Marcanthony, Active Dolphin for supervision of [facility] normal first Hospital , third Repository trimester / Z34.03(ICD-10) 05/20/2018 Unknown Z3A.37 - 37 weeks Marcanthony, Active Dolphin gestation of [facility] / Hospital Z3A.37(ICD-10) Repository 05/14/2018 Unknown Z34.90 - Encounter Marcanthony, Active Florentin for supervision of [facility] normal , Hospital unspecified, Repository unspecified trimester / Z34.90(ICD-10) 04/23/2018 Unknown O47.03 - False Marcmalikony, Active Dolphin labor before 37 [facility] completed weeks of Hospital gestation, third Repository trimester / O47.03(ICD-10) 04/23/2018 Unknown O99.013 - Anemia Marcanthony, Active Dolphin complicating [facility] , third Hospital trimester / Repository O99.013(ICD-10) 04/23/2018 Unknown Z3A.33 - 33 weeks Marcanthony, Active Florentin gestation of [facility] / Hospital Z3A.33(ICD-10) Repository 04/08/2018 Unknown Z3A.31 - 31 weeks Marcanthony, Active Florentin gestation of [facility] / Hospital Z3A.31(ICD-10) Repository 03/27/2018 Unknown Z34.02 - Encounter Carmelina Morin Active Dolphin for supervision of [facility] Hospital , second Repository trimester / Z34.02(ICD-10) 03/27/2018 Unknown Z3A.30 - 30 weeks Carmelina Morin Active Dolphin gestation of [facility] / Hospital Z3A.30(ICD-10) Repository 03/12/2018 Unknown Z3A.27 - 27 weeks Marcanthony, Active Dolphin gestation of [facility] / Hospital Z3A.27(ICD-10) Repository 02/14/2018 Unknown R30.0 - Dysuria / Marcanthony, Active Dolphin R30.0(ICD-10) [facility] Repository 01/28/2018 Unknown Z34.01 - Encounter Marcmaliksamara, Active Florentin for supervision of [facility] normal [facility] , first Repository trimester / Z34.01(ICD-10) 01/28/2018 Unknown Z3A.19 - 19 weeks Marcanthony, Active Florentin gestation of [facility] / Hospital Z3A.19(ICD-10) Repository 12/18/2017 Unknown Z3A.15 - 15 weeks Carmelina Morin Active Dolphin gestation of [facility] / Hospital Z3A.15(ICD-10) Repository PROCEDURES PROCEDURES No Procedure Records FoundRESULTS RESULTS DISCHARGE INSTRUCTION Observed: 05/22/2018 Status: F Source: [place] 7:[address] [facility] REPOSITORY 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 REPOSITORY [facility] Medical Records Department [address] [place] [address] Operative Report 05/21/18 0140 MR#: [id number] Acct: [id number] Name: FRANCINE MANTILLA Rep #: [id number] : 1995 23 From: Tricia Euceda MD PCP: Care Physician, No Primary Status: ADM IN Y Location: [id number] - Problem List (1) Active labor at [...] AND PHYSICAL Observed: 05/21/2018 Status: F Source: [place]AST[place] EXAM 1:[address] [facility] REPOSITORY [facility] Medical Records Department [address] [place] [address] History and Physical 05/21/18 0137 MR#: [id number] Acct: [id number] Name: FRANCINE MANTILLA Rep #: [id number] : 1995 23 From: Tricia Euceda MD PCP: Care Physician, No Primary Status: ADM IN Location: [id number] - Problem List (1) Active labor at [...] Reviewed 05/20/18 @ 08:09 by Merry Olvera) [place] teeth extracted K08.499 Allergies penicillin G Allergy (Mild, Verified 05/20/18 08:08) Other unknown reaction nitrous oxide Allergy (Verified 05/20/18 08:08) Other Hallucinations and vomiting acetaminophen [From Tylenol] Adverse Reaction (Severe, Verified 05/20/18 08:08) Vomiting Home Medications: Home Medications vitamin,calcium,sabramqn-lmoa-dcobk acid tablet 1 tab PO QDAY 10/22/17 Ascorbic Acid [Vitamin C] 500 mg PO DAILY@0800 04/23/18 Docusate Sodium [Colace] 100 mg PO DAILY 05/20/18 ferrous sulfate 325 mg (65 mg iron) tablet 325 mg PO DAILY tab 05/20/18 Smoking Status: Never smoker Alcohol: None Number of Fetus(es): 1 Heart Tracin moderate variability reactive no decelerations category I tracing\ [place]: regular History Past Pregnancies: Past Pregnancies Delivery Name GA/Weeks Outcome Route Audie Salcedo LenAnesthesiDelivery Provider FOB Date t [facility] a Location Labs: Mom's Labs AND Results [...] Symmetrical, Neuro grossly intact. 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 Negative for: Vulvar lesions [...] any complications: none I have reviewed the [facility] and made any clinically relevant updates. 05/21/18 0140 <Electronically signed by Tricia Euceda MD> Date Tricia Euceda MD [facility] Signature: Date (if applicable) CC: No Primary Care Physician; Tricia Euceda MD Signed CBC-COMPLETE BLOOD CNT Collected: 05/20/2018 Status: F Source: [place] NO DIFF 5:[address] [facility] REPOSITORY TYPE CODE TESTS RESULT OUT OF [...] MPV 12.4 Performed By: #### L100.0500 #### [facility] [address] [place], [address] TYPE AND SCREEN Collected: 05/20/2018 Status: F Source: [place] 5:[address] [facility] REPOSITORY Order Comment: Reason for Type AND Screen/Red Cells: ROUTINE TYPE CODE TESTS RESULT OUT OF RANGE REFERENCE UNITS LAB B10.0800 A Normal BLOOD TYPE GEL POSITIVE LAB B100.4000 Normal Antibody NEGATIVE Screen Performed By: #### B101.7450 #### [facility] [address] [place], [address] COMMUNICATIONS LEAD OFFICE VISIT Observed: 05/20/2018 Status: F Source: [place] REPORT 8:27 [facility] REPOSITORY [facility] [address] [place] [address] OFFICE VISIT Date of Service: 05/20/18 MR#: [id number] Acct: [id number] Name: FRANCINE MANTILLA Rep #: [id number] : 1995 Provider: Tricia Euceda MD Age/Sex: 23/F [place] [facility] [place]: Signed Intake Vital Signs05/20/18 Body Mass Index (BMI) 22.5 05/20/18 Height 5 ft 6 in 05/20/18 Weight: 140 lb 6 oz 05/20/18 Body Mass Index (BMI) 22.6 05/20/18 Blood Pressure 122/84 H Intake Visit Reasons: est ob 38w Chief Complaint: est ob Spreader Box Operator Required: No Is patient in pain?: No Allergies penicillin G Allergy (Mild, Verified 05/20/18 08:08) Other nitrous oxide Allergy (Verified 05/20/18 08:08) Other acetaminophen [From Tylenol] Adverse Reaction (Severe, Verified 05/20/18 08:08) Vomiting Medications vitamin,calcium,ybfncjpl-irbb-yrxbw acid tablet 1 tab PO QDAY 10/22/17 [History Confirmed 05/20/18] Ascorbic Acid [Vitamin C] 500 mg PO DAILY@0800 04/23/18 [History Confirmed 05/20/18] ferrous sulfate 325 mg (65 mg iron) tablet 325 mg PO DAILY tab 05/20/18 [History Confirmed 05/20/18] Last Menstral Period: 08/06/17 Zika: Zika virus screening: Negative : No PFSH PFSH Surgical History [place] teeth extracted (Acute) Family History Grandfather Cancer [...] Office Urine Protein Negative Last Edit by Meryr Olvera on 05/20/18 08:10 Assessment AND Plan [...] Tricia Euceda MD> Date Tricia Euceda MD [facility] Signature: Date (if applicable) CC: COMMUNICATIONS LEAD OFFICE VISIT Observed: 05/16/2018 Status: F Source: EASTERN REPORT 5:[address] [facility] REPOSITORY [facility] Emergency Department [address] [place] [address] OFFICE VISIT Date of Service: 05/14/18 MR#: [id number] Acct: [id number] Name: FRANCINE MANTILLA Rep #: [id number] : 1995 Provider: Tricia Euceda MD Age/Sex: 23/F [place] [facility] [place]: Signed Intake Vital Signs05/14/18 Height 5 ft 6 in 05/14/18 Weight: 139 lb 8 oz 05/14/18 Body Mass Index (BMI) 22.5 05/14/18 Blood Pressure 116/86 H 05/14/18 Body Mass Index (BMI) 22.9 Intake Visit Reasons: est ob 37w Spreader Box Operator Required: No Allergies penicillin G Allergy (Mild, Verified 05/14/18 12:15) Other nitrous oxide Allergy (Verified 05/14/18 12:15) Other acetaminophen [From Tylenol] Adverse Reaction (Severe, Verified 05/14/18 12:15) Vomiting Medications vitamin,calcium,vucghbyc-dvfk-egaad acid tablet 1 tab PO QDAY 10/22/17 [History Confirmed 05/14/18] Ferrous Gluconate 325 mg PO DAILY@0800 04/22/18 [History Confirmed 05/14/18] Ascorbic Acid [Vitamin C] 500 mg PO DAILY@0800 04/23/18 [History Confirmed 05/14/18] Last Menstral Period: 08/06/17 Zika: Zika virus screening: Negative : No PFSH PFSH Medical History [place] teeth extracted (Acute) Family History Grandfather Cancer [...] applicable) CC: Observed: 05/14/2018 Status: F Source: [place] CULTURE, GROUP B 2:[address] [facility] STREPTOC[facility]CCUS REPOSITORY NITIN Culture Group B Beta Streptococcus is not isolated. Performed By: #### M100.1800 #### [facility] [address] [facility] [place], [address] COMMUNICATIONS LEAD OFFICE VISIT Observed: 05/06/2018 Status: F Source: EASTERN REPORT 8:[address] [facility] REPOSITORY [facility] [address] [place] [address] OFFICE VISIT Date of Service: 05/06/18 MR#: [id number] Acct: [id number] Name: FRANCINE MANTILLA Rep #: [id number] : 1995 Provider: IZABEL Morin Age/Sex: 23/F [place] [facility] [place]: Signed Intake Vital Signs05/06/18 Body Mass [...] Reaction (Severe, Verified 05/06/18 08:15) Vomiting Medications vitamin,calcium,fadyeter-jdjf-tnebt acid tablet 1 tab PO QDAY 10/22/17 [History Confirmed 05/06/18] Ferrous Gluconate 325 mg PO DAILY@0800 04/22/18 [History Confirmed 05/06/18] Ascorbic Acid [Vitamin C] 500 mg PO DAILY@0800 04/23/18 [History Confirmed 05/06/18] Last Menstral Period: 08/06/17 Zika: Zika virus screening: Negative : No PFSH PFSH Medical History [place] teeth extracted (Acute) Family History Grandfather Cancer [...] 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 Signature: Date (if applicable) CC: COMMUNICATIONS LEAD OFFICE VISIT Observed: 04/23/2018 Status: F Source: [place] REPORT 1:[address] [facility] REPOSITORY [facility] [address] [place] [address] OFFICE VISIT Date of Service: 04/23/18 MR#: [id number] Acct: [id number] Name: FRANCINE MANTILLA Rep #: [id number] : 1995 Provider: Tricia Euceda MD Age/Sex: 23/F [place] [facility] [place]: Signed Intake Vital Signs04/23/18 Body Mass Index (BMI) 22.9 04/23/18 Height 5 ft 6 in 04/23/18 Weight: 140 lb 04/23/18 Body Mass Index (BMI) 22.6 04/23/18 Blood Pressure 116/70 Intake Visit Reasons: est ob 34w Chief Complaint: est ob Spreader Box Operator Required: No Is patient in pain?: No Allergies penicillin G Allergy (Mild, Verified 04/23/18 13:24) Other nitrous oxide Allergy (Verified 04/23/18 13:24) Other acetaminophen [From Tylenol] Adverse Reaction (Severe, Verified 04/23/18 13:24) Vomiting Medications vitamin,calcium,rmbfwhtj-reoa-nrona acid tablet 1 tab PO QDAY 10/22/17 [History Confirmed 04/23/18] Ferrous Gluconate 325 mg PO DAILY@0800 04/22/18 [History Confirmed 04/23/18] Ascorbic Acid [Vitamin C] 500 mg PO DAILY@0800 04/23/18 [History Confirmed 04/23/18] Last Menstral Period: 08/06/17 Zika: Zika virus screening: Negative : No PFSH PFSH Medical History [place] teeth extracted (Acute) Family History Grandfather Cancer [...] 04/22/2018 Status: C Source: [place] 2:[address] [facility] REPOSITORY Order Comment: Has pt arrived? Y [...] RARE Performed By: #### L400.0001, M100.0650 #### [facility] [address] [place], [address] Observed: 04/22/2018 Status: F Source: [place] CULTURE, URINE 2:[address] [facility] REPOSITORY Urine Culture ORGANISM 1: Mixed Gram Positive Organisms [place] Count 11,000-25,000 MIX CULTURE Mixed contaminants. Submit a new specimen if indicated. Performed By: #### L400.0001, M100.0650 #### [facility] [address] [place], [address] CBC-COMPLETE BLOOD CNT Collected: 04/21/2018 Status: F Source: [place] NO DIFF 12:[address] [facility] REPOSITORY TYPE CODE TESTS RESULT OUT OF [...] 11.1 Performed By: #### L100.0500, L205.0000 #### [facility] [address] [place], [address] FIBRONECTIN Collected: 04/21/2018 Status: F Source: [place] 12:[address] [facility] REPOSITORY TYPE CODE TESTS RESULT OUT OF RANGE REFERENCE UNITS LAB L205.0100 Normal fFN Negative Performed By: #### L100.0500, L205.0000 #### [facility] [address] [place], [address] COMMUNICATIONS LEAD OFFICE VISIT Observed: 04/08/2018 Status: F Source: [place] REPORT 10:[address] [facility] REPOSITORY [facility] Emergency Department [address] [place] [address] OFFICE VISIT Date of Service: 04/08/18 MR#: [id number] Acct: [id number] Name: FRANCINE MANTILLA Rep #: [id number] : 1995 Provider: Tricia Euceda MD Age/Sex: 23/F [place] [facility] Status: Signed Intake Vital Signs04/08/18 Body Mass Index (BMI) 21.4 04/08/18 Height 5 ft 6 in 04/08/18 Weight: 135 lb 4 oz 04/08/18 Body Mass Index (BMI) 21.8 04/08/18 Blood Pressure 122/68 H H Intake Visit Reasons: est ob 32w Spreader Box Operator Required: No Is patient in pain?: No Allergies acetaminophen [From Tylenol] Allergy (Severe, Verified 04/08/18 10:15) allergy penicillin G Allergy (Mild, Verified 04/08/18 10:15) Other Medications doxylamine succinate 25 mg tablet 25 mg PO QHS PRN 10/22/17 [History Confirmed 04/08/18] vitamin,calcium,qfnwarbd-fdbe-lksfi acid tablet 1 tab PO QDAY 10/22/17 [History Confirmed 04/08/18] promethazine 12.5 mg tablet 12.5 mg PO Q6H PRN #120 tab 10/22/17 [Rx Confirmed 04/08/18] pyridoxine (vitamin B6) 25 mg tablet 25 mg PO ONCE 10/22/17 [History Confirmed 04/08/18] Last Menstral Period: 08/06/17 Zika: Zika virus screening: Negative : No PFSH PFSH Medical History [place] teeth extracted (Acute) Family History Grandfather Cancer [...] MD Cosigner Signature: Date (if applicable) CC: COMMUNICATIONS LEAD OFFICE VISIT Observed: 03/27/2018 Status: F Source: [place] REPORT 2:[address] [facility] REPOSITORY [facility] [address] [place] [address] OFFICE VISIT Date of Service: 03/27/18 MR#: [id number] Acct: [id number] Name: FRANCINE MANTILLA Rep #: [id number] : 1995 Provider: IZABEL Morin Age/Sex: 23/F [place] [facility] [place]: Signed Intake Vital Signs03/27/18 Height 5 ft 6 in 03/27/18 Weight: 133 lb 03/27/18 Body Mass Index (BMI) 21.4 03/27/18 Blood Pressure 110/62 Intake Visit Reasons: est ob 30w Allergies acetaminophen [From Tylenol] Allergy (Severe, Verified 03/12/18 11:42) allergy penicillin G Allergy (Mild, Verified 03/12/18 11:42) Other Medications doxylamine succinate 25 mg tablet 25 mg PO QHS PRN 10/22/17 [History Confirmed 03/12/18] vitamin,calcium,jixjehaf-njsk-tvigc acid tablet 1 tab PO QDAY 10/22/17 [History Confirmed 03/12/18] promethazine 12.5 mg tablet 12.5 mg PO Q6H PRN #120 tab 10/22/17 [Rx Confirmed 03/12/18] pyridoxine (vitamin B6) 25 mg tablet 25 mg PO ONCE 10/22/17 [History Confirmed 03/12/18] Last Menstral Period: 08/06/17 PFSH PFSH Medical History [place] teeth extracted (Acute) Family History Grandfather Cancer [...] fetus on ultrasound O28.3 repeat US with [facility] 27-28 wk 3. 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 anatomy scan reviewed. 4. Anemia affecting in third trimester O99.013 5. Nausea and vomiting during O21.9 phenergan, if needs more recommend reglan 6. Pyelectasis of fetus on ultrasound O35.8XX0 repeat US with [facility] 27-28 wk Plan Orders placed: plans tdap at employers Has follow up us planned with [facility] Reviewed of labor precautions, movement/kick counts ACOG [...] 03/12/2018 Status: F Source: [place] 12:[address] [facility] REPOSITORY TYPE CODE TESTS RESULT OUT OF [...] Lymph 1.31 Performed By: #### L100.0100 #### [facility] [place], [address] GLUCOSE CHALLENGE GEST Collected: 03/12/2018 Status: F Source: [place] 1H 50G 12:[address] [facility] REPOSITORY Order Comment: Comments: Draw at 12:39pm Comments: Draw at 12:39pm TYPE CODE TESTS RESULT OUT OF RANGE REFERENCE UNITS LAB L501.0250 70-140 mg/dL Normal GLU GEST 120 50g 1H Performed By: #### L501.0250 #### [place] [facility] [address] [place], [address] COMMUNICATIONS LEAD OFFICE VISIT Observed: 03/12/2018 Status: F Source: [place] REPORT 11:[address] [facility] REPOSITORY [facility] Emergency Department [address] [place] [address] OFFICE VISIT Date of Service: 03/12/18 MR#: [id number] Acct: [id number] Name: FRANCINE MANTILLA Rep #: [id number] : 1995 Provider: Tricia Euceda MD Age/Sex: 23/F [place] [facility] [place]: Signed Intake Vital Signs03/12/18 Height 5 ft 6 in 03/12/18 Weight: 130 lb 03/12/18 Body Mass Index (BMI) 20.9 03/12/18 Blood Pressure 132/66 H Intake Visit Reasons: 28 WEEK OB Spreader Box Operator Required: No Is patient in pain?: No Allergies acetaminophen [From Tylenol] Allergy (Severe, Verified 03/12/18 11:42) allergy penicillin G Allergy (Mild, Verified 03/12/18 11:42) Other Medications doxylamine succinate 25 mg tablet 25 mg PO QHS PRN 10/22/17 [History Confirmed 03/12/18] vitamin,calcium,snqgjbmc-anip-wdzrv acid tablet 1 tab PO QDAY 10/22/17 [History Confirmed 03/12/18] promethazine 12.5 mg tablet 12.5 mg PO Q6H PRN #120 tab 10/22/17 [Rx Confirmed 03/12/18] pyridoxine (vitamin B6) 25 mg tablet 25 mg PO ONCE 10/22/17 [History Confirmed 03/12/18] Last Menstral Period: 08/06/17 Zika: Zika virus screening: Negative : No PFSH PFSH Medical History [place] teeth extracted (Acute) Family History Grandfather Cancer [...] Tricia Euceda MD> Date Tricia Euceda MD [facility] Signature: Date (if applicable) CC: PROGRESS NOTE Observed: 03/11/2018 Status: COMPLETED Source: [place] 8:00 AM [facility] REPOSITORY Follow-up consult Subjective: Francine Mantilla [...] 1. 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 2. Follow up q4 weeks [...] time was spent counseling and coordinating care. COMMUNICATIONS LEAD OFFICE VISIT Observed: 02/18/2018 Status: F Source: [place] REPORT 9:[address] [facility] RE[facility] [address] [place] [address] OFFICE VISIT Date of Service: 02/12/18 MR#: [id number] Acct: [id number] Name: FRANCINE MANTILLA Rep #: [id number] : 1995 Provider: Tricia Euceda MD Age/Sex: 23/F [place] [facility] [place]: Signed Intake Vital Signs02/12/18 Height 5 ft 6 in 02/12/18 Weight: 126 lb 8 oz 02/12/18 Body Mass Index (BMI) 20.4 02/12/18 Blood Pressure 89/60 L Intake Visit Reasons: 24 WEEK OB Chief Complaint: est ob Spreader Box Operator Required: No Is patient in pain?: No Allergies acetaminophen [From Tylenol] Allergy (Severe, Verified 02/12/18 11:29) allergy penicillin G Allergy (Mild, Verified 02/12/18 11:29) Other Medications doxylamine succinate 25 mg tablet 25 mg PO QHS PRN 10/22/17 [History Confirmed 02/12/18] vitamin,calcium,kwhchiub-umzq-vspzw acid tablet 1 tab PO QDAY 10/22/17 [History Confirmed 02/12/18] promethazine 12.5 mg tablet 12.5 mg PO Q6H PRN #120 tab 10/22/17 [Rx Confirmed 02/12/18] pyridoxine (vitamin B6) 25 mg tablet 25 mg PO ONCE 10/22/17 [History Confirmed 02/12/18] Last Menstral Period: 08/06/17 Zika: Zika virus screening: Negative : No PFSH PFSH Medical History [place] teeth extracted (Acute) Family History Grandfather Cancer [...] applicable) CC: Observed: 02/12/2018 Status: F Source: [place] CULTURE, URINE 6:[address] [facility] REPOSITORY Urine Culture Below infection level. ORGANISM 1: Mixed Gram Positive Organisms [place] Count 1000-10,000 Performed By: #### M100.0650 #### [facility] [address] [place], [address] PROGRESS NOTE Observed: 01/17/2018 Status: COMPLETED Source: [place] 12:45 PM [facility] REPOSITORY Reason for Referral Francine and her , Shireen, were seen by myself and SHARI King on 01/17/2018 at [facility] to discuss the previous ultrasound [...] for coordination of care may be indicated. ([facility], [place] 2004) suggests that when both pyelectasis and [...] counseling and coordinating care. Johny Mcneal DO COMMUNICATIONS LEAD OFFICE VISIT Observed: 01/15/2018 Status: F Source: [place] REPORT 11:53 AM [facility] [address] [place] [address] OFFICE VISIT Date of Service: 01/15/18 MR#: [id number] Acct: [id number] Name: FRANCINE MANTILLA Rep #: [id number] : 1995 Provider: Tricia Euceda MD Age/Sex: 22/F [place] [facility] [place]: Signed Intake Vital Signs01/15/18 Height 5 ft 6 in 01/15/18 Weight: 118 lb 4 oz 01/15/18 Body Mass Index (BMI) 19.1 01/15/18 Blood Pressure 92/68 Intake Visit Reasons: 20 WEEK OB Chief Complaint: est ob Spreader Box Operator Required: No Is patient in pain?: No Allergies acetaminophen [From Tylenol] Allergy (Severe, Verified 01/15/18 11:36) allergy penicillin G Allergy (Mild, Verified 01/15/18 11:36) Other Medications doxylamine succinate 25 mg tablet 25 mg PO QHS PRN 10/22/17 [History Confirmed 01/15/18] vitamin,calcium,dyrzioge-khif-gnbxz acid tablet 1 tab PO QDAY 10/22/17 [History Confirmed 01/15/18] promethazine 12.5 mg tablet 12.5 mg PO Q6H PRN #120 tab 10/22/17 [Rx Confirmed 01/15/18] pyridoxine (vitamin B6) 25 mg tablet 25 mg PO ONCE 10/22/17 [History Confirmed 01/15/18] Last Menstral Period: 08/06/17 Zika: Zika virus screening: Negative : No PFSH PFSH Surgical History [place] teeth extracted (Acute) Family History Grandfather Cancer Social History Smoking Status: Never smoker alcohol intake: never substance use type: does not use what type of physical activity do you participate in: running, walking frequency: 3-4 times per week seatbelt use: always do you feel safe at home: Yes additional social history: Shireen- Patient works in a [employer] Pregancy History 1 Elective abortions Hx [...] Tricia Euceda MD> Date Tricia [facility]uceda MD [facility] Signature: Date (if applicable) CC: OB ANATOMY SCAN Observed: 01/09/2018 Status: F Source: [place] 1:[address] [facility] REPOSITORY 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 [place] [address] OFFICE VISIT Date of Service: 12/18/17 MR#: [id number] Acct: [id number] Name: FRANCINE MANTILLA Rep #: [id number] : 1995 Provider: IZABEL Morin Age/Sex: 22/F [place] [facility] [place]: Signed Intake Vital Signs12/18/17 Height 5 ft 6 in 12/18/17 Weight: 114 lb 6 oz 12/18/17 Body Mass Index (BMI) 18.4 12/18/17 Blood Pressure 102/66 Intake Visit Reasons: est ob 16 weeks Spreader Box Operator Required: No Is patient in pain?: No Allergies acetaminophen [From Tylenol] Allergy (Severe, Verified 12/18/17 15:19) allergy penicillin G Allergy (Mild, Verified 12/18/17 15:19) Other Medications doxylamine succinate 25 mg tablet 25 mg PO QHS PRN 10/22/17 [History Confirmed 12/18/17] vitamin,calcium,drqwngqj-akzm-yzmtm acid tablet 1 tab PO QDAY 10/22/17 [History Confirmed 12/18/17] promethazine 12.5 mg tablet 12.5 mg PO Q6H PRN #120 tab 10/22/17 [Rx Confirmed 12/18/17] pyridoxine (vitamin B6) 25 mg tablet 25 mg PO ONCE 10/22/17 [History Confirmed 12/18/17] Last Menstral Period: 08/06/17 Zika: Zika virus screening: Negative : No PFSH PFSH Surgical History [place] teeth extracted (Acute) Family History Grandfather Cancer [...] 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 Signature: Date (if applicable) CC: COMMUNICATIONS LEAD OFFICE VISIT Observed: 11/20/2017 Status: F Source: [place] REPORT 4:18 PM [facility] [address] [place] [address] OFFICE VISIT Date of Service: 11/20/17 MR#: [id number] Acct: [id number] Name: FRANCINE MANTILLA Rep #: [id number] : 1995 Provider: Tricia Euceda MD Age/Sex: 22/F [place] [facility] [place]: Signed Intake Vital Signs11/20/17 Height 5 ft 6 in 11/20/17 Weight: 112 lb 4 oz 11/20/17 Body Mass Index (BMI) 18.1 11/20/17 Blood Pressure 102/65 Intake Visit Reasons: 12 weeks Spreader Box Operator Required: No Accompanied by: Is patient in pain?: No Allergies acetaminophen [From Tylenol] Allergy (Severe, Verified 11/20/17 15:54) allergy penicillin G Allergy (Mild, Verified 11/20/17 15:54) Other Medications doxylamine succinate 25 mg tablet 25 mg PO QHS PRN 10/22/17 [History Confirmed 11/20/17] vitamin,calcium,tqciiunn-srqy-qqmeq acid tablet 1 tab PO QDAY 10/22/17 [History Confirmed 11/20/17] promethazine 12.5 mg tablet 12.5 mg PO Q6H PRN #120 tab 10/22/17 [Rx Confirmed 11/20/17] pyridoxine (vitamin B6) 25 mg tablet 25 mg PO ONCE 10/22/17 [History Confirmed 11/20/17] Last Menstral Period: 08/06/17 Zika: Zika virus screening: Negative : No PFSH PFSH Surgical History [place] teeth extracted (Acute) Family History Grandfather Cancer Social History Smoking Status: Never smoker alcohol intake: never substance use type: does not use what type of physical activity do you participate in: running, walking frequency: 3-4 times per week seatbelt use: always do you feel safe at home: Yes additional social history: Shireen- Patient works in a [employer] Practice Pregancy History 1 Elective abortions Hx [...] 10/22/2017 Status: F Source: [place] 3:[address] [facility] REPOSITORY TYPE CODE TESTS RESULT OUT OF RANGE REFERENCE UNITS LAB L8200.2100 Negative Normal Chlam Negative Trac PCR LAB L8200.2200 Negative Normal NG by Negative PCR Performed By: #### L8200.1999, M100.0650 #### [facility] [address] [place], [address] Observed: 10/22/2017 Status: F Source: [place] CULTURE, URINE 3:[address] [facility] REPOSITORY Urine Culture ORGANISM 1: Mixed Gram Positive Organisms [place] Count 1000-10,000 MIX CULTURE Mixed contaminants. Submit a new specimen if indicated. Performed By: #### L8200.1999, M100.0650 #### [facility] [address] [place], [address] CBC W/DIFF, AUTOMATED Collected: 10/22/2017 Status: F Source: [place] 11:[address] [facility] REPOSITORY TYPE CODE TESTS RESULT OUT OF [...] 1.21 Performed By: #### L100.0100, B101.7450 #### [facility] [address] [facility] [address] #### L3100.0390 #### [facility] (refer to report for specific site) refer to report for address and phone number TYPE AND SCREEN Collected: 10/22/2017 Status: F Source: [place] 11:[address] [facility] REPOSITORY Order Comment: Reason for Type AND Screen/Red Cells: TYPE CODE TESTS RESULT OUT OF RANGE REFERENCE UNITS LAB B10.0800 A Normal BLOOD TYPE GEL POSITIVE LAB B100.4000 Normal Antibody NEGATIVE Screen Performed By: #### L100.0100, B101.7450 #### [facility] [address] #### L3100.0390 #### [facility] (refer to report for specific site) refer to report for address and phone number HEPATITIS B SURFACE Collected: 10/22/2017 Status: F Source: [place] AG 11:[address] [facility] REPOSITORY TYPE CODE TESTS RESULT OUT OF RANGE REFERENCE UNITS LAB L3100.0400 Negative Normal HB Negative SURF AG Result Comment: Performed at: - [facility] [id number] Skirt Clipper: Adam García PhD, Phone: [phone] Performed By: #### L100.0100, B101.7450 #### [facility] [address] [place] [address], [address] #### L3100.0390 #### [facility] (refer to report for specific site) refer to report for address and phone number RUBELLA IGG Collected: 10/22/2017 Status: F Source: [place] 11:[address] [facility] REPOSITORY TYPE CODE TESTS RESULT OUT OF RANGE REFERENCE UNITS LAB L509.4000 IU/mL Normal Rubella IgG 349.0 Result Comment: Antibody results Interpretation of Immune Status < 5 IU/ml Presumed Non-immune 5 - < 10 IU/ml Equivocal > or = 10 IU/ml Presumed Immune Performed By: #### L509.4000, L3890.6005, L700.5000 #### [facility] [address] [place], [address] HIV - [facility] Collected: 10/22/2017 Status: F Source: [place] 11:[address] [facility] REPOSITORY TYPE CODE TESTS RESULT OUT OF RANGE REFERENCE UNITS LAB L3890.6005 Nonreactive Normal HIV - [facility] Non-Reactive Performed By: #### L509.4000, L3890.6005, L700.5000 #### [facility] [address] [place], [place], [address] RAPID PLASMIN REAGIN Collected: 10/22/2017 Status: F Source: [place] (RPR) 11:34 AM [facility] TYPE CODE TESTS RESULT OUT OF REFERENCE UNITS RANGE LAB L700.5000 NONREACTIVE NONREACTIVE Normal RPR Performed By: #### L509.4000, L3890.6005, L700.5000 #### [facility] [address] [place], [place], [address] COMMUNICATIONS LEAD OFFICE VISIT Observed: 10/22/2017 Status: F Source: [place] REPORT 11:[address] [facility] REPOSITORY [facility] [address] [place] [address] OFFICE VISIT Date of Service: 10/22/17 MR#: [id number] Acct: [id number] Name: FRANCINE MANTILLA Rep #: [id number] : 1995 Provider: Tricia Euceda MD Age/Sex: 22/F [place] [facility] [place]: Signed Intake Vital Signs10/22/17 Height 5 ft 6 in 10/22/17 Weight: 110 lb 8 oz 10/22/17 Body Mass Index (BMI) 17.8 10/22/17 Blood Pressure 108/70 Intake Visit Reasons: NOB - LMP UNKNOWN Chief Complaint: NEW OB Spreader Box Operator Required: No Is patient in pain?: No Allergies acetaminophen [From Tylenol] Allergy (Severe, Verified 10/22/17 10:41) allergy penicillin G Allergy (Mild, Verified 10/22/17 10:42) Other Medications doxylamine succinate 25 mg tablet 25 mg PO QHS PRN 10/22/17 [History Confirmed 10/22/17] vitamin,calcium,pitqpwwp-mukj-yewoy acid tablet 1 tab PO QDAY 10/22/17 [History Confirmed 10/22/17] promethazine 12.5 mg tablet 12.5 mg PO Q6H PRN #120 tab 10/22/17 [Rx Confirmed 10/22/17] pyridoxine (vitamin B6) 25 mg tablet 25 mg PO ONCE 10/22/17 [History Confirmed 10/22/17] Last Menstral Period: 08/06/17 Zika: Zika virus screening: Negative : No PFSH PFSH Surgical History [place] teeth extracted (Acute) Family History Grandfather Cancer [...] Pulmonary (e.g.,TB,Asthma), Seasonal allergies, Drug/latex allergies/reactions, Breast, Broom Man surgery, Operations/hospitalizations, Anesthetic complications, History of abnormal [...] appearing, comfortable, no acute distress Orientation: alert [facility] Head: normal to inspection, atraumatic, normocephalic Ears: [...] practice and discussed care expectations and screenings. [facility] book offered to patient. labs and 19-20 week anatomy ultrasound ordered. see problem list details for plan information. Genetic screening offered to patient and patient chose: discussed and considering nt Orders Orders: Medications New: Discontinued: 1 mg-20 mcg (24)/75 mg (4) (norethindrone-e1 tab PO QDAY NS Merry M Olvera .estradiol-iron) Discontinued Reason: Order Complet ed Supplemental Info [facility] book given and patient encouraged to read [...] SEVERITY SOURCE 05/20/2018 Drug nitrous Other Unknown [place] Allergy/416 oxide/P557201479(RX Community 012994([facility] ED CT) Repository 05/20/2018 Drug acetaminophen/F0060 Vomiting SV [place] Allergy/416 38747(RXNORM) Community 934047([facility] ED CT) Repository 05/20/2018 Drug penicillin Other [place] Allergy/416 G/I781188192(RXNORM Community 818756[facility] Repository 01/17/2018 Drug PENICILLINS Family history [facility] Class/25652 of allergy. Hospital 1003(SNOMED Pt. Has never Repository CT) had medication. 01/17/2018 DRUG ACETAMINOPHEN Low [facility] INGREDI/419 Hospital 300209([facility] Repository ED CT) ENCOUNTERS ENCOUNTERS ADMIT/DISCHARGE ACCOUNT ADMITTING ENCOUNTER LOCATION SOURCE NUMBER CLASS 05/20/2018/05/22/19 [id number] Ok, Inpatient Dolphinjunior [place] 19 Tricia Encounter [facility] ing:WPRoom: Repository DQ743Pja: 1 05/20/2018 [id number] Sarah Euceda BMSBuilding:Chantelle Clarke MS.CF.[facility] Repository 05/20/2018 [id number] Ok Ambulatory BMSBuilding:Chantelle Clarke MS.CF.[facility] Repository 05/20/2018/05/20/19 [id number] Ambulatory BMSBuilding:B [place] 19 MS.[facility] Hospital Repository 05/14/2018 [id number] [facility] Repository 05/14/2018/05/14/19 [id number] Ambulatory BMSBuilding:B [place] 19 MS.[facility] Repository 05/13/2018 [id number] Ambulatory Building:[facility] Repository 05/06/2018/05/06/20 [id number] Ambulatory BMSBuilding:B [place] 18 MS.[facility] Hospital Repository 05/01/2018 [id number] Ambulatory BMSBuilding:B [place] MS.CF.[facility] Repository 04/23/2018/04/23/20 [id number] Ambulatory BMSBuilding:B [place] 18 MS.[facility] Repository 04/23/2018/04/23/20 [id number] Ambulatory [address] Hospitalild Hospital ing:WPOUTRoom Repository : OBT02 04/22/2018 [id number] Ambulatory BMSBuilding:B [place] MS.CF.[facility] Hospital Repository 04/21/2018/04/22/20 [id number] Ambulatory [address] HospitalBuild Hospital ing:WPOUTRoom Repository : WP013 04/15/2018 [id number] Ambulatory Building:[facility] Repository 04/08/2018/04/08/20 [id number] Ambulatory BMSBuilding:B [place] 18 MS.[facility] Repository 03/27/2018/03/27/20 [id number] Ambulatory BMSBuilding:B [place] 18 MS.[facility] Repository 03/12/2018 [id number] [facility] ing:LAB Repository 03/12/2018/03/12/20 [id number] Ambulatory BMSBuilding:B [place] 18 MS.[facility] Repository 03/11/2018/03/11/20 [id number] Ambulatory Building:[address] Repository 02/12/2018 [id number] [facility] ing[facility] Repository 02/12/2018/02/13/20 [id number] Ambulatory BMSBuilding:B [place] 18 MS.[facility] Repository 01/17/2018/01/18/20 [id number] Ambulatory Building:[facility] 18 [facility] Repository 01/15/2018/01/16/20 [id number] Ambulatory BMSBuilding:B [place] 18 MS.[facility] Repository 01/15/2018 [id number] Ambulatory BMSBuilding:B [place] MS.[facility] Repository 01/15/2018 [id number] Ambulatory BMSBuilding:B [place] MS.[facility] Repository 01/09/2018 [id number] Ambulatory General acute hospital Hospital ing:US Repository 12/18/2017/12/19/19 [id number] Ambulatory BMSBuilding:B [place] 18 MS.[facility] Repository 11/20/2017/11/21/19 [id number] Ambulatory BMSBuilding:B [place] 18 MS.[facility] Repository 10/22/2017 [id number] [facility] ing:POLAB3 Repository 10/22/2017/10/23/19 [id number] Ambulatory BMSBuilding:B [place] 18 MS.[facility] Repository PAYERS PAYERS ENCOUNTER GUARANTOR PAYER SUBSCRIBER SOURCE 05/20/2018 FRANCINE L Primary SHIREEN [place] [id number] Insurance:[facility] y Number: [facility] [id number] [place]ository [place] [address]Czd: mil Date:7586-26-27PL [facility] 353408RNXFHZR, [place] (CD) [address]QN: 05/20/2018 Secondary NOT GIVENUNK [place] Insurance:SELF PAY [facility] Number: Effective Repository Date:2018-05-20 05/20/2018 FRANCINE L Primary SHIREEN [place] [id number] Insurance:[facility] y Number: [facility] [id number] [place]ository [place] [address]Ckg: mil Date:2079-35-77QQ [address]ALWDYCFSANTIAGO GEORGES () [address]IG: 05/20/2018 Secondary NOT GIVENUNK [place] Insurance:SELF PAY [facility] Number: Effective Repository Date:2018-05-20 05/20/2018 FRANCINE L Primary SHIREEN [place] [id number] Insurance:[employer]MP[employer]alth FABIOLATTERNAMRATA [facility] y Number: [facility], [id number] [place]ository [place] [address]Uai: mil Date:3650-75-38VX [address]ACJJZWYSANTIAGO GEORGES () [address]TV: 05/20/2018 Secondary NOT GIVENUNK [place] Insurance:SELF PAY [facility] Number: Effective Repository Date:2018-05-20 05/20/2018 FRANCINE L Primary SHIREEN [place] [id number] Insurance[facility]IGUELTTSAVI [facility] y Number: [facility], [id number] [place]ository [place] [address]Pwf: mil Date:2915-33-90JT [address]JHVPOCISANTIAGO GEORGES () [address]BH: 05/20/2018 Secondary NOT GIVENUNK [place] Insurance:SELF PAY [facility] Number: Effective Repository Date:2018-05-20 05/14/2018 FRANCINE L Primary SHIREEN [place] [id number] Insurance:ANTHEMPolic ALENLATTERNAMRATA [facility] y Number: [facility], [id number] [place]ository [place] [address]Pzd: mil Date:3932-74-61WE [address]XRWVNJP, [place] () [address]TW: 05/14/2018 Secondary NOT GIVENUNK [place] Insurance:SELF PAY [facility] Number: Effective Repository Date:2018-05-14 05/14/2018 FRANCINE L Primary SHIREEN [place] [id number] Insurance:ANTHEMPolic ALENLATTERNAMRATA [facility] y Number: [facility] [id number] Repository [place] [address]Meo: mil Date:8033-87-73LW [address] S[address] () [address]SV: 05/14/2018 Secondary NOT GIVENUNK [place] Insurance:SELF PAY [facility] Number: Effective Repository Date:2018-05-14 05/13/2018 FRANCINE Primary SHIREEN [facility] SCHLATTERDOB: Insurance:ANTHEMPolic SCHLATTERDOB: [facility] y Number: [id number] Repository [facility] [id number] [facility], mil Date: [facility] [address]Mvd: [id number] () 05/13/2018 Secondary SHIREEN [facility] Insurance:ANTHEMPolic SCHLATTERDOB: Hospital y Number: [id number] Repository [id number] [place] mil Date: [place] [address] 05/06/2018 FRANCINE L Primary SHIREEN [place] [id number] Insurance:ANTHEMPolic [facility]LATTERUNK [facility] y Number: [facility], [id number] [place]ository [place] [address]Isd: mil Date:4299-86-94FP [address] () [address]IP: 05/06/2018 Secondary NOT GIVENUNK [place] Insurance:SELF PAY [facility] Number: Effective Repository Date:2018-04-23 05/01/2018 FRANCINE L Primary SHIREEN [place] [id number] Insurance:ANTHEMPolic SCHLATTERUNK [facility] HUGHES y Number: [facility], [id number] [place]ository [place] [address]Rzo: mil Date:2661-69-37HM [address]GTUCEEYSANTIAGO GEORGES () [address]KS: 05/01/2018 Secondary NOT GIVENUNK [place] Insurance:SELF PAY [facility] Number: Effective Repository Date:2018-05-01 04/23/2018 FRANCINE L Primary SHIREEN [place] [id number] Insurance:ANTHEMPbecky HACKETT [facility] y Number: [facility], [id number] Repository [place] [address]Bco: mil Date:7643-46-59ZR [address]MAFVIEUSANTIAGO GEORGES () [address]MJ: 04/23/2018 Secondary NOT GIVENUNK [place] Insurance:SELF PAY [facility] Number: Effective Repository Date:2018-04-23 04/23/2018 FRANCINE L Primary SHIREEN [place] [id number] Insurance:ANTHEMPbecky HICKSTTSAVI [facility] y Number: [facility], [id number] Repository [place] [address]Ozm: mil Date:4056-42-84PR [address] S[address] () [address]LM: 04/23/2018 Secondary NOT GIVENUNK [place] Insurance:SELF PAY [facility] Number: Effective Repository Date:2018-04-23 04/22/2018 FRANCINE L Primary SHIREEN [place] [id number] Insurance:ANTHEMPbecky HACKETT [facility] y Number: [facility], [id number] Repository [place] [address]Ogq: mil Date:0336-52-46YQ [address] S[address] () [address]BW: 04/22/2018 Secondary NOT GIVENUNK [place] Insurance:SELF PAY [facility] Number: Effective Repository Date:2018-04-22 04/21/2018 FRANCINE L Primary SHIREEN [place] [id number] Insurance:ANTHEMPbecky HACKETT [facility] y Number: [facility], [id number] Repository [place] [address]Olq: mil Date:0437-94-61HM [address]SKQSKLBSANTIAGO GEORGES () [address]JW: 04/21/2018 Secondary NOT GIVENUNK [place] Insurance:SELF PAY [facility] Number: Effective Repository Date:2018-04-21 04/15/2018 FRANCINE [facility] SCHLATTERDOB: Insurance:ANTHEMPolic SCHLATTERDOB: [facility] y Number: [id number] [facility] [id number] [facility], mil Date: [facility] [address]Vqw: [id number] () 04/08/2018 FRANCINE L Primary SHIREEN [place] [id number] Insurance:ANTHEMPolic SCHLATTERUNK [facility] y Number: [facility], [id number] [facility] [address]Jes: mil Date:3324-83-15NE [address] () [address]AD: 04/08/2018 Secondary NOT GIVENUNK Florentin Insurance:SELF PAY [facility]: Effective Repository Date:2018-04-08 03/27/2018 FRANCINE L Primary SHIREEN Lerma [id number] Insurance:ANTHEMPolic SCHLATTERUNK [facility] y Number: [facility], [id number] [facility] [address]Jaj: mil Date:9394-78-38ZQ [address] () [address]WA: 03/27/2018 Secondary NOT GIVENUNK Florentin Insurance:SELF PAY [facility] Number: Effective Repository Date:2018-03-27 03/12/2018 FRANCINE L Primary SHIREEN Lerma [id number] Insurance:ANTHEMPolic SCHLATTERUNK [facility] y Number: [facility], [id number] [facility] [address]Utw: mil Date:3183-59-15XA [address]KXT[address]CY, [place] () [address]XG: 03/12/2018 Secondary NOT GIVENUNK Florentin Insurance:SELF PAY [facility] Number: Effective Repository Date:2018-03-12 03/12/2018 FRANCINE L Primary SHIREEN Florentin [id number] Insurance:ANTHEMPolic SCHLATTERUNK [facility] AMADOR HUGHES y Number: [facility], [id number] [facility] [address]Ejw: mil Date:8622-20-13NA [address]FBUDI, [place] () [address]GN: 03/12/2018 Secondary NOT GIVENUNK Florentin Insurance:SELF PAY [facility] Number: Effective Repository Date:2018-01-23 03/11/2018 FRANCINE Primary SHIREEN [place] [facility] SCHLATTERDOB: Insurance:ANTHEMPolic SCHLATTERDOB: [facility] y Number: [id number] Repository [facility] [id number] [facility], mil Date: [facility] [address]Bie: [address] () 03/11/2018 Secondary SHIREEN [place] [facility] Insurance:ANTHEMPolic SCHLATTERDOB: Hospital y Number: [id number] Repository [id number] [facility] mil Date: [place] [address] 02/12/2018 FRANCINE L Primary SHIREEN Florentin [id number] Insurance:ANTHEMPolic SCHLATTERUNK [facility] HUGHES y Number: [facility], [id number] [place]ository [place] [address]Uux: mil Date:7088-96-76SV [address]RMVBKCO, [place] () [address]SP: 02/12/2018 Secondary NOT GIVENUNK [place] Insurance:SELF PAY [facility] Number: Effective Repository Date:2018-02-12 02/12/2018 FRANCINE L Primary SHIREEN Florentin [id number] Insurance:ANTHEMPolic SCHLATTERUNK [facility] HUGHES y Number: [facility], [id number] [place]ository [place] [address]Cow: mil Date:9774-64-51DY [address] [place] [address] () [address]FE: 02/12/2018 Secondary NOT GIVENUNK Florentin Insurance:SELF PAY [facility] Number: Effective Repository Date:2018-02-12 01/17/2018 FRANCINE Primary SHIREEN [place] [facility] SCHLATTERDOB: Insurance:ANTHEMPolic SCHLATTERDOB: [facility] y Number: [id number] Repository [facility] [id number] [facility], mil Date: [facility] [address]Qcz: [id number] () 01/17/2018 Secondary SHIREEN [place] [facility] Insurance:ANTHEMPolic SCHLATTERDOB: Hospital y Number: [id number] Repository [id number] [facility] [place] Date: [place] [address] 01/15/2018 FRANCINE L Primary SHIREEN [place] [id number] Insurance:ANTHEMPolic [facility]UNK [facility] Number: [facility], [id number] [place]ository [place] [address]Gmy: mil Date:2800-26-10EL [address] [place] [address] () [address]LR: 01/15/2018 Secondary NOT GIVENUNK [place] Insurance:SELF PAY [facility] Number: Effective Repository Date:2018-01-15 01/15/2018 [facility] [id number] Insurance:MENN M[employer] RamsierDOB: Community [place] safety 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 [place]: [id number], [place] [id number] Repository [address]Ulc: 330) Date:5195-36-29JS [phone] () [place] [address]UM: 01/15/2018 Secondary NOT GIVENUNK Florentin Insurance:SELF PAY [facility] Number: Effective Repository Date:2017-12-18 01/15/2018 [facility] Primary [facility] Lerma [id number] Insurance:[facility] RamsierDOB: Community [facility] safety technician [place] Number: [id number], [place] [id number] Repository [address]Fks: (330) Date:9502-91-61TG [phone] () [place], [place] [address]TR: 01/15/2018 Secondary NOT GIVENUNK Florentin Insurance:SELF PAY [facility] Number: Effective Repository Date:2018-01-15 01/09/2018 FRANCINE L Primary SHIREEN Florentin [id number] Insurance:ANTHEMPolic SCHLATTERNAMRATA [facility] y Number: [facility], [id number] [place] [address]Uov: mil Date:1306-62-03GH [address] () [address]NF: 01/09/2018 Secondary NOT GIVENUNK Florentin Insurance:SELF PAY [facility] Number: Effective Repository Date:2017-12-18 12/18/2017 FRANCINE Primary SHIREEN [place] [id number] Insurance:ANTHEMPwmchealth FABIOLATTERNAMRATA [facility] y Number: [facility], [id number] [place]ository [place] [address]Ldx: mil Date:5425-41-50EU [address]SGAGADHSANTIAGO [place] () [address]HF: 12/18/2017 Secondary NOT GIVENUNK [place] Insurance:SELF PAY [facility] Number: Effective Repository Date:2017-12-18 11/20/2017 FRANCINE Primary SHIREEN Florentin [id number] Insurance:ANTHEMPolic FABIOLATTERNAMRATA [facility] y Number: [facility], [id number] [place]ository [place] [address]Wij: mil Date:8289-19-96IK [address]LLCKUAK, [place] () [address]EX: 11/20/2017 Secondary NOT GIVENUNK Florentin Insurance:SELF PAY [facility] Number: Effective Repository Date:2017-11-20 10/22/2017 FRANCINE Primary SHIREEN [id number] [facility] ROXANN [facility] y Number: [facility], [id number] [place]ository [place] [address]Jkq: mil Date:4461-91-58AE [address]WTXGWHB, [place] () [address]FH: 10/22/2017 Secondary NOT GIVENUNK Florentin Insurance:SELF PAY [facility] Number: Effective Repository Date:2017-10-22 10/22/2017 FRANCINE Primary FRANCINE [id number] Insurance:ANTHEMPolic ALENLATTMATTHEWB: [facility] y Number: [id number] [facility], [id number] [place]ository [place] [address]Fsu: mil Date:9946-35-83II [address]RWXJBTJ, [place] () [address]UI: 10/22/2017 Secondary NOT GIVENUNK Florentin Insurance:SELF PAY [facility] Number: Effective Repository Date:2017-10-22
== END 2018-04-23 06:39 | disposition home or self-care (01) ==
LOC: WPOUT 06:05 → WP 06:07
PROVIDERS: Referring Provider Obstetrics & Gynecology; Visit Provider Obstetrics & Gynecology
DX: O60.00 Preterm labor without delivery, unspecified trimester (principal); Z3A.00 Weeks of gestation of pregnancy not specified
CPT/HCPCS: 96372; 99218; G0378; J0702

== ENCOUNTER → 2018-05-14 13:32 | Outpatient (CLI) | payer BC, SELFPAY ==
[2018-05-14 12:14] VITALS: BMI 22.5
== END ==
PROVIDERS: Referring Provider Obstetrics & Gynecology; Visit Provider Obstetrics & Gynecology
DX: Z34.90 Encounter for supervision of normal pregnancy, unspecified, unspecified trimester (principal)
CPT/HCPCS: 87081

== ENCOUNTER 2018-05-20 16:30 | Inpatient (IN) | payer BC, SELFPAY ==
[2018-05-20 08:09] VITALS: BMI 22.5
[2018-05-20 17:08] VITALS: BMI 23.3
[2018-05-20 18:11] LABS: Hematocrit 34.2 % (37-47); Hemoglobin 11.3 g/dl (12.0-15.0); Mean Corpuscular Hgb 29.6 pg (27.0-32.0); Mean Corpuscular Volume 89.5 fL (81-99); Mean Platelet Vol. 12.4 fl (6.2-12.0); Platelet Count 155 K/mm3 (150-450); RBC Distribution Width CV 14.7 % (11.6-14.6); RBC Distribution Width SD 47.8 fl (35.1-43.9); Red Blood Count 3.82 M/mm3 (4.2-5.4); White Blood Count 9.8 K/mm3 (4.4-11.0)
[2018-05-20 18:13] LABS: Scan Indicated on CBC? Y/N NO
[2018-05-20] MEDS: Lactated Ringers 1,000 ML 50 ML IV ×2 (18:27→18:49)
[2018-05-20] MEDS: fentaNYL-bupivacaine (epidural) 100 ML BAG EPIDURAL ×2 (19:10→23:19)
[2018-05-21] MEDS: Lactated Ringers 1,000 ML 50 ML IV (01:24)
--- NOTE | 2018-05-21 01:37 | PCM.HP.OB ---
- Problem List (1) Active labor at term Status: Acute (2) Status: Acute Qualifiers: Comment: genetic, carrier, and ntd screening declined. anatomy scan reviewed. (3) Nausea and vomiting during Status: Acute Comment: phenergan, if needs more recommend reglan (4) Supervision of normal Status: Acute Qualifiers: Comment: PRR KIRK 06/05/18 Boy Francisco Javier (5) Echogenic intracardiac focus of fetus on ultrasound Status: Acute Comment: repeat US with MFM 27-28 wk (6) Pyelectasis of fetus on ultrasound Status: Acute Comment: repeat US with MFM History Date of Admission: 05/21/18 Final KIRK: 06/05/18 Gestational age: 37 Weeks and 6 Days History of this : This is a 23 year-old, at 37 weeks gestational age resents in active labor. Patient presented at 5 cm dilation with regular contractions and a small amount of vaginal bleeding. She denies any loss of fluid and admits good movement. Patient has had a comp gated by some soft markers on ultrasound but otherwise normal testing. Surgical History: Surgical History (Last Reviewed 05/20/18 @ 08:09 by Merry Olvera) [place] teeth extracted K08.499 Allergies penicillin G Allergy (Mild, Verified 05/20/18 08:08) Other unknown reaction nitrous oxide Allergy (Verified 05/20/18 08:08) Other Hallucinations and vomiting acetaminophen [From Tylenol] Adverse Reaction (Severe, Verified 05/20/18 08:08) Vomiting Home Medications: Home Medications vitamin,calcium,bbitbjdy-gpjb-ovduq acid tablet 1 tab PO QDAY 10/22/17 Ascorbic Acid [Vitamin C] 500 mg PO DAILY@0800 04/23/18 Docusate Sodium [Colace] 100 mg PO DAILY 05/20/18 ferrous sulfate 325 mg (65 mg iron) tablet 325 mg PO DAILY tab 05/20/18 Smoking Status: Never smoker Alcohol: None Number of Fetus(es): 1 Heart Tracin moderate variability reactive no decelerations category I tracing\ Intercourse: regular History Past Pregnancies: Past Pregnancies Delivery Date Name GA/Weeks Outcome Route Weight Gender Labor Length Anesthesia Delivery Location Provider FOB Labs: Mom[facility] Labs & Results 05/20/18 05/20/18 17:55 17:55 WBC 9.8 RBC 3.82 L Hgb 11.3 L Hct 34.2 L MCV 89.5 MCH 29.6 MCHC 33.0 RDW 14.7 H RDW Differential 47.8 H Plt Count 155 MPV 12.4 H Blood Type A POSITIVE Antibody Screen NEGATIVE Course Did the patient receive Yes care? Labs Blood Type: A RH: POSITIVE RPR/VDRL/Syphilis Nonreactive Rubella status Immune HbSAg Negative Date Done: 10/22/17 Chlamydia Negative Gonorrhea Negative HIV/AIDS Non-Reactive Group B Strep: Negative Current Obstetrical History Gestational Diabetes No Incompetent Cervix No Infertility No IUGR No Macrosomia No Hypertension/Pre-eclampsia No Placenta Previa/Abruption No PTL/PROM Yes: 33.5 Uterine anomaly No Oligohydramnios No Polyhydramnios No Multiple gestation No Past Medical History Asthma No Diabetes No Hypertension No Heart disease No Mitral valve prolapse No Neurologic/Seizure disorder/ No Migraines Kidney disease No Liver disease No Varicosities No Clotting disorders/Hx of DVT No Thyroid Dysfunction No Other medical diseases No Psychiatric disorders No Major trauma No Abnormal PAP smear No Sleep apnea No Mammogram in the last 2 years No Social History Marital Status: Alleged father Francisco Javier Smoking Status Never smoker How long have you used no substances (years)? What date/time did you last no use any of the above? Expected Infant Delivery Method: Spontaneous Vaginal Review of Systems Constitutional: Denies: Fever, Malaise Eyes: Denies: Blurred vision, Vision Change HEENT: Denies: Head Aches, Visual Changes Cardiovascular: Denies: Chest Pain, Palpitations Respiratory: Denies: Cough, Shortness of Breath, Wheezing Gastrointestinal: Denies: Abdominal Pain, Diarrhea, Nausea, Vomiting Genitourinary: Denies: Dysuria, Hematuria Musculoskeletal: Denies: Joint Pain, Muscle pain Skin: Denies: Lesions, Rash Neurological: Denies: Blurred vision, Focal weakness, Headaches Psychiatric: Denies: Anxiety, Depression Endocrine: Denies: Heat/ Cold Intolerance Hematologic/ Lymphatic: Denies: Easy Bruising, Easy Bleeding Physical Exam General: Alert, Cooperative, No apparent distress HEENT: Atraumatic, Normocephalic. Negative for: Thyromegaly, Lymphadenopathy Cardiovascular: Regular rate Lungs: Normal air movement Abdomen: Soft, Non Tender, Gravid Neurological: Deep Tendon Reflexes 2+/4 and Symmetrical, Neuro grossly intact. 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 Negative for: Vulvar lesions Estimated gestational size: Appropriate for gestational size Presentation: Cephalic Cervix Dilation (cm): 5 Station: 0 Effacement (%): 80 Assessment/Plan All Active Problems (Last Reviewed 05/20/18 @ 08:09 by Merry Olvera) Active labor at term (Acute) (Acute) Nausea and vomiting during (Acute) Supervision of normal (Acute) Echogenic intracardiac focus of fetus on ultrasound (Acute) Pyelectasis of fetus on ultrasound (Acute) Anemia affecting (Resolved) Threatened labor (Resolved) This is a 23 year-old, at 37 weeks gestational age presents IAL Patient presents IAL, plan expectant management for , pitocin/AROM PRN if needed. Pain management: plans epidural. GBS negative. Management of any complications: none I have reviewed the [facility] and made any clinically relevant updates.
--- NOTE | 2018-05-21 01:40 | HP.PCM_ITS ---
- Problem List (1) Active labor at term Status: Acute (2) Status: Acute Qualifiers: Comment: genetic, carrier, and ntd screening declined. anatomy scan reviewed. (3) Nausea and vomiting during Status: Acute Comment: phenergan, if needs more recommend reglan (4) Supervision of normal Status: Acute Qualifiers: Comment: PRR KIRK 06/05/18 Boy Francisco Javier (5) Echogenic intracardiac focus of fetus on ultrasound Status: Acute Comment: repeat US with MFM 27-28 wk (6) Pyelectasis of fetus on ultrasound Status: Acute Comment: repeat US with MFM History Date of Admission: 05/21/18 Final KIRK: 06/05/18 Gestational age: 37 Weeks and 6 Days History of this : This is a 23 year-old, at 37 weeks gestational age resents in active labor. Patient presented at 5 cm dilation with regular contractions and a small amount of vaginal bleeding. She denies any loss of fluid and admits good movement. Patient has had a comp gated by some soft markers on ultrasound but otherwise normal testing. Surgical History: Surgical History (Last Reviewed 05/20/18 @ 08:09 by Merry Olvera) [place] teeth extracted K08.499 Allergies penicillin G Allergy (Mild, Verified 05/20/18 08:08) Other unknown reaction nitrous oxide Allergy (Verified 05/20/18 08:08) Other Hallucinations and vomiting acetaminophen [From Tylenol] Adverse Reaction (Severe, Verified 05/20/18 08:08) Vomiting Home Medications: Home Medications vitamin,calcium,sduanwjl-nijg-smhpp acid tablet 1 tab PO QDAY 10/22/17 Ascorbic Acid [Vitamin C] 500 mg PO DAILY@0800 04/23/18 Docusate Sodium [Colace] 100 mg PO DAILY 05/20/18 ferrous sulfate 325 mg (65 mg iron) tablet 325 mg PO DAILY tab 05/20/18 Smoking Status: Never smoker Alcohol: None Number of Fetus(es): 1 Heart Tracin moderate variability reactive no decelerations category I tracing\ [place]: regular History Past Pregnancies: Past Pregnancies Delivery Date Name GA/Weeks Outcome Route Weight Gender Labor Length Anesthesia Delivery Location Provider FOB Labs: Mom's Labs & Results 05/20/18 05/20/18 17:55 17:55 WBC 9.8 RBC 3.82 L Hgb 11.3 L Hct 34.2 L MCV 89.5 MCH 29.6 MCHC 33.0 RDW 14.7 H RDW Differential 47.8 H Plt Count 155 MPV 12.4 H Blood Type A POSITIVE Antibody Screen NEGATIVE Course Did the patient receive Yes care? Labs Blood Type: A RH: POSITIVE RPR/VDRL/Syphilis Nonreactive Rubella status Immune HbSAg Negative Date Done: 10/22/17 Chlamydia Negative Gonorrhea Negative HIV/AIDS Non-Reactive Group B Strep: Negative Current Obstetrical History Gestational Diabetes No Incompetent Cervix No Infertility No IUGR No Macrosomia No Hypertension/Pre-eclampsia No Placenta Previa/Abruption No PTL/PROM Yes: 33.5 Uterine anomaly No Oligohydramnios No Polyhydramnios No Multiple gestation No Past Medical History Asthma No Diabetes No Hypertension No Heart disease No Mitral valve prolapse No Neurologic/Seizure disorder/ No Migraines Kidney disease No Liver disease No Varicosities No Clotting disorders/Hx of DVT No Thyroid Dysfunction No Other medical diseases No Psychiatric disorders No Major trauma No Abnormal PAP smear No Sleep apnea No Mammogram in the last 2 years No Social History Marital Status: Alleged father Francisco Javier Smoking Status Never smoker How long have you used no substances (years)? What date/time did you last no use any of the above? Expected Infant Delivery Method: Spontaneous Vaginal Review of Systems Constitutional: Denies: Fever, Malaise Eyes: Denies: Blurred vision, Vision Change HEENT: Denies: Head Aches, Visual Changes Cardiovascular: Denies: Chest Pain, Palpitations Respiratory: Denies: Cough, Shortness of Breath, Wheezing Gastrointestinal: Denies: Abdominal Pain, Diarrhea, Nausea, Vomiting Genitourinary: Denies: Dysuria, Hematuria Musculoskeletal: Denies: Joint Pain, Muscle pain Skin: Denies: Lesions, Rash Neurological: Denies: Blurred vision, Focal weakness, Headaches Psychiatric: Denies: Anxiety, Depression Endocrine: Denies: Heat/ Cold Intolerance Hematologic/ Lymphatic: Denies: Easy Bruising, Easy Bleeding Physical Exam General: Alert, Cooperative, No apparent distress HEENT: Atraumatic, Normocephalic. Negative for: Thyromegaly, Lymphadenopathy Cardiovascular: Regular rate Lungs: Normal air movement Abdomen: Soft, Non Tender, Gravid Neurological: Deep Tendon Reflexes 2+/4 and Symmetrical, Neuro grossly intact. 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 Negative for: Vulvar lesions Estimated gestational size: Appropriate for gestational size Presentation: Cephalic Cervix Dilation (cm): 5 Station: 0 Effacement (%): 80 Assessment/Plan All Active Problems (Last Reviewed 05/20/18 @ 08:09 by Merry Ovlera) Active labor at term (Acute) (Acute) Nausea and vomiting during (Acute) Supervision of normal (Acute) Echogenic intracardiac focus of fetus on ultrasound (Acute) Pyelectasis of fetus on ultrasound (Acute) Anemia affecting (Resolved) Threatened labor (Resolved) This is a 23 year-old, at 37 weeks gestational age presents IAL Patient presents IAL, plan expectant management for , pitocin/AROM PRN if needed. Pain management: plans epidural. GBS negative. Management of any complications: none I have reviewed the [facility] and made any clinically relevant updates.
--- NOTE | 2018-05-21 01:40 | PCM.OB.VAG ---
- Problem List (1) Active labor at term Status: Acute (2) Status: Acute Qualifiers: Comment: genetic, carrier, and ntd screening declined. anatomy scan reviewed. (3) Nausea and vomiting during Status: Acute Comment: phenergan, if needs more recommend reglan (4) Supervision of normal Status: Acute Qualifiers: Comment: PRR KIRK 06/05/18 Boy Francisco Javier (5) Echogenic intracardiac focus of fetus on ultrasound Status: Acute Comment: repeat US with MFM 27-28 wk (6) Pyelectasis of fetus on ultrasound Status: Acute Comment: repeat US with MFM 04/15/resolved Vaginal Delivery Maternal Presentation: Active Labor 23-year-old at 37 weeks Amniotic Membrane Rupture Type: Artificial Amniotic Fluid Description: Clear Final KIRK: 06/05/18 Gestational age: 37 Weeks and 6 Days Date of Procedure: 05/21/18 Pre-Operative Diagnosis: In active labor Post-Operative Diagnosis: same Surgery/ Procedure Performed: Spontaneous Vaginal Delivery Type of Anesthesia: Epidural Description of Procedure: Patient began pushing and delivered the head in the CHANTEL presentation spontaneously as the physician was coming in the room. The head was delivered atraumatically. The anterior and posterior shoulders delivered without complication delivered by the physician followed by the rest of the and the infant was placed on the maternal abdomen. Delayed cord clamping was employed for approximately 60 seconds. Cord was clamped and cut and gentle traction was applied to the cord and the placenta delivered spontaneously immediately following it was noted to be intact with three-vessel cord. The perineum and vagina were inspected and a second-degree perineal laceration was noted and repaired in the usual fashion with 3-0 Vicryl repeat. EBL was 300 cc. Patient and tolerated delivery well. Placental Delivery Description: Spontaneous Placenta Disposition: [facility] Cord Vessel Description: 3 Vessels Cord Entanglement: None Estimated Blood Loss: 300 Infant A gender: Male Episiotomy Description: None Laceration: Perineal Extension/lac, 2nd degree Medications given after delivery: IV Pitocin Complications: None
[2018-05-21] MEDS: Oxytocin 30 units/NS 500 ml 30 UNITS/500 ML IV.SOLN 334 UNITS IV (01:52)
[2018-05-21] MEDS: Oxytocin 30 units/NS 500 ml 30 UNITS/500 ML IV.SOLN 167 UNITS IV (02:25)
[2018-05-21] MEDS: Naproxen 250 MG Tablet PO ×3 (04:53→23:50)
[2018-05-21] MEDS: 0.9% Saline Lock 10 ML Syringe IV (04:54)
[2018-05-21 04:57] VITALS: BP 124/78; PULSE 93; RESP 16; TEMP 37.6; O2SAT 96
[2018-05-21 09:02] VITALS: BP 115/61; PULSE 86; RESP 18; TEMP 37.2
[2018-05-21] MEDS: Senna/Docusate Sodium 1 Tablet PO (09:09)
[2018-05-21] MEDS: Prenatal Vits Tablet 1 TABLET PO (09:09)
[2018-05-21 12:44] VITALS: BP 127/81; PULSE 75; RESP 18; TEMP 36.7; O2SAT 96
[2018-05-21 15:25] VITALS: BP 121/76; PULSE 76; RESP 14; TEMP 36.7; O2SAT 96
[2018-05-21] MEDS: Dibucaine 30 GM Tube 1 APPLIC TOPICAL (17:01)
[2018-05-21 19:47] VITALS: BP 101/60; PULSE 76; RESP 16; TEMP 36.9; O2SAT 98
[2018-05-21 23:52] VITALS: BP 118/73; PULSE 62; RESP 15; TEMP 36.7; O2SAT 97
[2018-05-22 05:00] VITALS: BP 120/65; PULSE 66; RESP 15; TEMP 36.7; O2SAT 98
--- NOTE | 2018-05-22 07:51 | PCM.PN.OB ---
Patient Problems: Active and Suspected Problems (Last Reviewed 05/20/18 @ 08:09 by Merry Olvera) Active labor at term (Acute) Subjective: Doing well. Some difficulties with . No CP, SOB. - Physical Exam General: Alert, Oriented x3 Abdomen: Soft, Non Tender, - - FF below U Vital Signs Temp Pulse Resp BP Pulse Ox 98.0 F 66 15 120/65 98 05/22/18 05:00 05/22/18 05:00 05/22/18 05:00 05/22/18 05:00 05/22/18 05:00 Oxygen Delivery Method Room Air Weight: 144 lb 9.972 oz Body Mass Index (BMI) 23.3 Intake and Output for Last 24 Hours 05/20/18 05/21/18 05/22/18 23:59 23:59 23:59 Intake Total 2155 / 2155 Output Total 50 / 50 1100 / 1100 Balance -50 / -50 1055 / 1055 Medical Necessity - Tobacco Use Smoking Status: Never smoker Assessment/Plan All Active Problems (Last Reviewed 05/20/18 @ 08:09 by Merry Olvera) Active labor at term (Acute) (Acute) Nausea and vomiting during (Acute) Supervision of normal (Acute) Echogenic intracardiac focus of fetus on ultrasound (Acute) Pyelectasis of fetus on ultrasound (Acute) Anemia affecting (Resolved) Threatened labor (Resolved) PPD #1 Routine care. Plans progesterone only OCP, [facility] to [facility]. Start at 4 wk pp. Will consult today. Home today.
--- NOTE | 2018-05-22 07:55 | PCM.DCVAG ---
Additional Instructions: If you experience any of the following, contact your healthcare provider. Bleeding that soaks a pad every hour for 2 hours Fever 100.4 or higher Unrelieved incision or abdominal pain Swelling, redness, discharge or bleeding from your incision or episiotomy site Your incision begins to separate Problems urinating (including inability to urinate or burning while urinating). Visual changes Severe headache Flu-like symptoms Pain or redness in one of both of your breasts Pain, warmth, tenderness or swelling in your legs, especially the calf area Frequent nausea and vomiting Symptoms of depression or anxiety If you experience any of the following, call 911 or go to the nearest Emergency Room. Chest pain Problems breathing Seizure activity Partial or complete paralysis of a body part, slurred speech, weakness or drooping of the face, or a sudden inability to walk or hold your balance Allergies/Adverse Reactions: Allergies penicillin G Allergy (Mild, Verified 05/20/18 08:08) Other unknown reaction nitrous oxide Allergy (Verified 05/20/18 08:08) Other Hallucinations and vomiting acetaminophen [From Tylenol] Adverse Reaction (Severe, Verified 05/20/18 08:08) Vomiting Medications to take at Discharge vitamin,calcium,bfgyfpxb-otkt-ksuzg acid tablet 1 tab PO QDAY 10/22/17 Ascorbic Acid [Vitamin C] 500 mg PO DAILY@0800 04/23/18 Docusate Sodium [Colace] 100 mg PO DAILY 05/20/18 ferrous sulfate 325 mg (65 mg iron) tablet 325 mg PO DAILY tab 05/20/18 Primary Care Physician: Care Physician,No Primary [Primary Care Provider] - Test Results: Test results from this visit will be discussed in further detail at your follow-up appointment, if applicable.
--- NOTE | 2018-05-22 07:56 | DCINST_ITS ---
Additional Instructions: If you experience any of the following, contact your healthcare provider. * Bleeding that soaks a pad every hour for 2 hours * Fever 100.4 or higher * Unrelieved incision or abdominal pain * Swelling, redness, discharge or bleeding from your incision or episiotomy site * Your incision begins to separate * Problems urinating (including inability to urinate or burning while urinating). * Visual changes * Severe headache * Flu-like symptoms * Pain or redness in one of both of your breasts * Pain, warmth, tenderness or swelling in your legs, especially the calf area * Frequent nausea and vomiting * Symptoms of depression or anxiety If you experience any of the following, call 911 or go to the nearest Emergency Room. * Chest pain * Problems breathing * Seizure activity * Partial or complete paralysis of a body part, slurred speech, weakness or drooping of the face, or a sudden inability to walk or hold your balance Allergies/Adverse Reactions: Allergies penicillin G Allergy (Mild, Verified 05/20/18 08:08) Other unknown reaction nitrous oxide Allergy (Verified 05/20/18 08:08) Other Hallucinations and vomiting acetaminophen [From Tylenol] Adverse Reaction (Severe, Verified 05/20/18 08:08) Vomiting Medications to take at Discharge vitamin,calcium,wllpnuea-oczx-nzsae acid tablet 1 tab PO QDAY 10/22/17 Ascorbic Acid [Vitamin C] 500 mg PO DAILY@0800 04/23/18 Docusate Sodium [Colace] 100 mg PO DAILY 05/20/18 ferrous sulfate 325 mg (65 mg iron) tablet 325 mg PO DAILY tab 05/20/18 Primary Care Physician: Care Physician,No Primary [Primary Care Provider] - Test Results: Test results from this visit will be discussed in further detail at your follow- up appointment, if applicable.
[2018-05-22] MEDS: Prenatal Vits Tablet 1 TABLET PO (09:53)
[2018-05-22 10:00] VITALS: BP 102/64; PULSE 82; RESP 16; TEMP 36.8
[2018-05-22] MEDS: Naproxen 250 MG Tablet PO (11:23)
[2018-05-22 14:30] VITALS: BP 120/70; PULSE 82; RESP 18; TEMP 37.3
== END 2018-05-22 17:45 | disposition home or self-care (01) | DRG 807 ==
PROVIDERS: Admitting Provider Obstetrics & Gynecology; Referring Provider Obstetrics & Gynecology; Visit Provider Obstetrics & Gynecology
DX: O70.1 Second degree perineal laceration during delivery (principal); Z3A.37 37 weeks gestation of pregnancy; Z37.0 Single live birth
CPT/HCPCS: 59025; 59050; 85027; 86850; 86900; 99218; J7120; A4216; G0378

== ENCOUNTER → 2018-07-02 18:18 | Outpatient (CLI) | payer BC, SELFPAY ==
[2018-07-02 16:20] VITALS: BMI 23.3
[2018-07-05 08:39] LABS: HPV Reflexed? NOT INDICATED
== END ==
PROVIDERS: Referring Provider Obstetrics & Gynecology; Visit Provider Obstetrics & Gynecology
DX: Z12.4 Encounter for screening for malignant neoplasm of cervix (principal)
CPT/HCPCS: 87624; 88175; G0145

== ENCOUNTER → 2020-04-05 16:52 | Outpatient (CLI) | payer BC, SELFPAY ==
[2019-11-26 12:40] VITALS: BMI 23.3
[2020-04-05 18:12] LABS: T4 Free Direct 0.82 ng/dL (0.76-1.46); Thyroid Stim Hormone (TSH) 3.25 uIU/mL (0.358-3.74)
== END ==
PROVIDERS: Referring Provider Obstetrics & Gynecology; Visit Provider Obstetrics & Gynecology
DX: F41.9 Anxiety disorder, unspecified (principal)
CPT/HCPCS: 36415; 84439; 84443

== ENCOUNTER → 2020-06-14 | Outpatient (CLI) | payer BC, SELFPAY ==
[2020-06-14 10:48] VITALS: BMI 19.1
== END | disposition home or self-care (01) ==
LOC: LABSPEC 12:47
PROVIDERS: PCP Family Medicine; Visit Provider Nurse Practitioner Women's Health
DX: N76.0 Acute vaginitis (principal)
CPT/HCPCS: 87070; 87205

== ENCOUNTER → 2020-08-10 11:45 | Outpatient (CLI) | payer BC, SELFPAY ==
[2020-06-14 10:48] VITALS: BMI 19.1
[2020-08-10 15:23] LABS: Hematocrit 41.8 % (37-47); Hemoglobin 13.5 g/dL (12.0-15.0); Mean Corp Hgb Conc 32.3 g/dL (32-36); Mean Corpuscular Hgb 31.7 pg (27.0-32.0); Mean Corpuscular Volume 98.1 fL (81-99); Mean Platelet Vol. 11.5 fl (6.2-12.0); Platelet Count 215 K/mm3 (150-450); RBC Distribution Width CV 12.9 % (11.6-14.6); RBC Distribution Width SD 45.9 fl (35.1-43.9); Red Blood Count 4.26 M/mm3 (4.2-5.4)
[2020-08-10 15:48] LABS: Anion Gap 4 (5-15); BUN 15 mg/dL (7-18); BUN/Creat Ratio 21.6 RATIO (10-20); Calcium,Total 9.5 mg/dL (8.5-10.1); Chloride 104 mmol/L (98-107); Creatinine, Serum 0.69 mg/dL (0.55-1.02); EST Glomerular Filtration Rate 108 mL/min (>60); Est Glom Filt Rate - Afr Amer 131 mL/min (>60); Ferritin 31 ng/mL (8-252); Glucose 69 mg/dL (74-106); Iron 86 ug/dL (50-170); Potassium 4.4 mmol/L (3.5-5.1); Sodium Level 138 mmol/L (136-145); Thyroid Stim Hormone (TSH) 2.75 uIU/mL (0.358-3.74)
[2020-08-10 16:20] LABS: Vitamin B12 570 pg/mL (211-911); Vitamin D,25 Hydroxy 63.4 ng/mL
== END ==
PROVIDERS: PCP Family Medicine; Visit Provider Family Medicine
DX: D64.9 Anemia, unspecified (principal); R53.83 Other fatigue
CPT/HCPCS: 36415; 80048; 82306; 82607; 82728; 83540; 84443; 85027; 86769

== ENCOUNTER → 2020-09-27 15:30 | Outpatient (CLI) | payer BC, SELFPAY ==
[2020-09-27 14:29] VITALS: BMI 19.5
[2020-09-27 16:14] LABS: Absolute Lymphocyte Count 1.76 X10^3/uL (0.83-4.51); Absolute Neutrophil Count 6.1 X10^3/uL (2.0-7.7); Basophil# 0.04 X10^3/uL; Basophil% 0.5 % (0-1); Eosinophil# 0.08 X10^3/uL; Eosinophils% 0.9 % (0-5); Hematocrit 35.6 % (37-47); Hemoglobin 12.1 g/dL (12.0-15.0); Lymphocyte # 1.76 X10^3/ul (0.83-4.51); Lymphocyte % 20.6 % (19-41); Mean Corpuscular Hgb 31.3 pg (27.0-32.0); Monocyte# 0.56 X10^3/uL; Monocyte% 6.5 % (0-10); NRBC Flagged by Analyzer 0 % (0-5); Neutrophil # 6.09 X10^3/uL (2.7-7.7); Neutrophil % 71.1 % (47-70); Platelet Count 219 K/mm3 (150-450); RBC Distribution Width SD 40.8 fl (35.1-43.9); Red Blood Count 3.87 M/mm3 (4.2-5.4); White Blood Count 8.6 K/mm3 (4.4-11.0)
[2020-09-27 18:42] LABS: Amphetamine Urine VISTA NEGATIVE (<1000 ng/mL); Barbiturate Urine VISTA NEGATIVE (< 200 ng/mL); Benzodiazepine Urine VISTA NEGATIVE (< 200 ng/mL); Cocaine Urine VISTA NEGATIVE (< 300 ng/mL); Ecstacy Urine VISTA NEGATIVE (< 500 ng/mL); Methadone Urine VISTA NEGATIVE (< 300 ng/mL); PCP Urine VISTA NEGATIVE (< 25 ng/mL); THC Urine VISTA NEGATIVE (< 50 ng/mL); Vista UDS pH Range 5
[2020-09-28 09:07] LABS: HIV - WCH Non-Reactive (Nonreactive); Hepatitis B Surface Antigen Non-Reactive (Nonreactive); Hepatitis C Antibody Non-Reactive (Nonreactive); Rubella IgG Reactive (Nonreactive); Syphilis Antibodies Non-reactive
[2020-10-01 03:07] LABS: Chlamydia By Nucleic Acid AMP Negative (Negative)
[2020-10-01 08:21] LABS: Gonococcus By Nucleic Acid AMP Negative (Negative)
== END ==
PROVIDERS: PCP Family Medicine; Referring Provider Obstetrics & Gynecology; Visit Provider Obstetrics & Gynecology
DX: O09.90 Supervision of high risk pregnancy, unspecified, unspecified trimester (principal); Z3A.00 Weeks of gestation of pregnancy not specified
CPT/HCPCS: 36415; 80307; 85025; 86703; 86762; 86780; 86803; 86850; 86900; 86901; 87086; 87088; 87340; 87491; 87591

== ENCOUNTER → 2021-02-10 09:57 | Outpatient (CLI) | payer BC, SELFPAY ==
[2021-02-10 10:12] LABS: Absolute Lymphocyte Count 1.39 X10^3/uL (0.83-4.51); Absolute Neutrophil Count 5.7 X10^3/uL (2.0-7.7); Basophil# 0.02 X10^3/uL; Basophil% 0.3 % (0-1); Eosinophil# 0.05 X10^3/uL; Eosinophils% 0.7 % (0-5); Hemoglobin 11.7 g/dL (12.0-15.0); Lymphocyte # 1.39 X10^3/ul (0.83-4.51); Lymphocyte % 18.2 % (19-41); Mean Corp Hgb Conc 33.4 g/dL (32-36); Mean Corpuscular Hgb 31.6 pg (27.0-32.0); Mean Corpuscular Volume 94.6 fL (81-99); Mean Platelet Vol. 10.7 fl (6.2-12.0); Monocyte# 0.37 X10^3/uL; Monocyte% 4.8 % (0-10); NRBC Flagged by Analyzer 0 % (0-5); Neutrophil # 5.73 X10^3/uL (2.7-7.7); Neutrophil % 75.1 % (47-70); Platelet Count 188 K/mm3 (150-450); RBC Distribution Width CV 12.4 % (11.6-14.6); RBC Distribution Width SD 43.3 fl (35.1-43.9); White Blood Count 7.6 K/mm3 (4.4-11.0)
[2021-02-10 10:47] LABS: Glucose Challenge Gest 1H 50g 124 mg/dL (70-140)
== END ==
PROVIDERS: PCP Family Medicine; Referring Provider Obstetrics & Gynecology; Visit Provider Obstetrics & Gynecology
DX: O09.90 Supervision of high risk pregnancy, unspecified, unspecified trimester (principal); Z3A.00 Weeks of gestation of pregnancy not specified
CPT/HCPCS: 36415; 82950; 85025

== ENCOUNTER → 2021-03-25 13:47 | Outpatient (CLI) | payer BC, SELFPAY ==
[2021-03-25 14:59] LABS: Hematocrit 34.6 % (37-47); Hemoglobin 11.7 g/dL (12.0-15.0); Mean Corp Hgb Conc 33.8 g/dL (32-36); Mean Corpuscular Hgb 31.5 pg (27.0-32.0); Mean Corpuscular Volume 93.3 fL (81-99); Mean Platelet Vol. 11.4 fl (6.2-12.0); Platelet Count 196 K/mm3 (150-450); RBC Distribution Width CV 12.6 % (11.6-14.6); RBC Distribution Width SD 43.1 fl (35.1-43.9); Red Blood Count 3.71 M/mm3 (4.2-5.4); White Blood Count 8.7 K/mm3 (4.4-11.0)
== END ==
PROVIDERS: PCP Family Medicine; Referring Provider Obstetrics & Gynecology; Visit Provider Obstetrics & Gynecology
DX: I49.8 Other specified cardiac arrhythmias (principal)
CPT/HCPCS: 36415; 85027

== ENCOUNTER → 2021-04-01 | Outpatient (CLI) | payer BC, SELFPAY | END | disposition home or self-care (01) | LOC: LABSPEC 13:04 | PROVIDERS: PCP Family Medicine; Visit Provider Obstetrics & Gynecology | DX: Z34.93 Encounter for supervision of normal pregnancy, unspecified, third trimester (principal); Z3A.35 35 weeks gestation of pregnancy | CPT/HCPCS: 87081 ==

== ENCOUNTER → 2021-04-04 10:02 | Outpatient (CLI) | payer BC, SELFPAY ==
--- NOTE | 2021-04-04 10:04 | US_ITS ---
STUDY: SECOND AND THIRD TRIMESTER OBSTETRICAL ULTRASOUND - LIMITED REASON FOR EXAM: Female, 26 years old uterine date size discrepancy LMP: 07/24/2020. PRIOR ULTRASOUND: None. TECHNIQUE: Transabdominal TECHNICAL QUALITY: Adequate. FINDINGS: There is a single intrauterine fetus. The fetus is in a cephalic presentation. There is demonstrated cardiac activity with a heart rate of 172 bpm. There is a normal amniotic fluid volume. The largest amniotic fluid pocket measures 4.1 cm x 2.2 cm. The amniotic fluid index (BORIS) is 13.3 cm. The placenta is fundal in location. There are Grade 1 placental changes. The cervix measures 2.6 cm in length. BIOMETRY: BPD: 9.1 cm: 37 weeks, 0 days HC: 33.15 cm: 37 weeks, 6 days AC: 30.77 cm: 34 weeks, 6 days FL: 6.91 cm: 35 weeks, 4 days Age by LMP: 36 weeks, 2 days. KIRK by LMP: 04/30/2021. age by prior US: 35 weeks, 5 days. KIRK by prior US: 05/04/2021. age by current US: 36 weeks, 3 days. KIRK by current US: 04/29/2021. Estimated weight: 2684 grams, +/- 392 grams, 30 percentile. US/OB Limited With Biometrics IMPRESSION: Single live intrauterine gestation with a mean gestational age of 35 weeks and 5 days. The measurements obtained today following thin the normal expected range. Electronically Signed: Yosi Norman MD at 15:04 EST , Service support ,
== END ==
PROVIDERS: PCP Family Medicine; Visit Provider Obstetrics & Gynecology
DX: O26.843 Uterine size-date discrepancy, third trimester (principal)
CPT/HCPCS: 76816

== ENCOUNTER → 2021-04-05 | Outpatient (CLI) | payer BC, SELFPAY ==
[2021-04-05 15:16] LABS: ROM Internal Control Test YES-OK TO RESULT pt. (Internal QC); ROM Patient Test Negative (Negative)
== END | disposition home or self-care (01) ==
PROVIDERS: PCP Family Medicine; Visit Provider Obstetrics & Gynecology
DX: O26.899 Other specified pregnancy related conditions, unspecified trimester (principal); N89.8 Other specified noninflammatory disorders of vagina; Z3A.00 Weeks of gestation of pregnancy not specified
CPT/HCPCS: 84112

== ENCOUNTER 2021-04-13 02:30 | Inpatient (IN) | payer BC, SELFPAY ==
[2021-04-12 23:05] VITALS: BMI 22.1
[2021-04-12 23:11] VITALS: BP 120/85; PULSE 87; TEMP 36.6
[2021-04-12 23:23] VITALS: PULSE 80; O2SAT 96
[2021-04-13] VITALS (43 sets, daily range): BP systolic 103–150; BP diastolic 56–87; PULSE 59–146; RESP 15–18; TEMP 36.3–37; O2SAT 77–100
[2021-04-13] MEDS: Lactated Ringers 1,000 ML 50 ML IV (02:45)
[2021-04-13 03:14] LABS: Absolute Lymphocyte Count 1.84 X10^3/uL (0.83-4.51); Absolute Neutrophil Count 4.8 X10^3/uL (2.0-7.7); Basophil# 0.02 X10^3/uL; Basophil% 0.3 % (0-1); Eosinophil# 0.03 X10^3/uL; Eosinophils% 0.4 % (0-5); Hematocrit 36.9 % (37-47); Hemoglobin 12.3 g/dL (12.0-15.0); Lymphocyte # 1.84 X10^3/ul (0.83-4.51); Lymphocyte % 25.8 % (19-41); Mean Corp Hgb Conc 33.3 g/dL (32-36); Mean Corpuscular Hgb 31.1 pg (27.0-32.0); Mean Corpuscular Volume 93.4 fL (81-99); Mean Platelet Vol. 11.7 fl (6.2-12.0); Monocyte# 0.44 X10^3/uL; Monocyte% 6.2 % (0-10); NRBC Flagged by Analyzer 0 % (0-5); Neutrophil # 4.76 X10^3/uL (2.7-7.7); Neutrophil % 66.9 % (47-70); Platelet Count 162 K/mm3 (150-450); RBC Distribution Width CV 12.9 % (11.6-14.6); RBC Distribution Width SD 43.8 fl (35.1-43.9); Red Blood Count 3.95 M/mm3 (4.2-5.4); White Blood Count 7.1 K/mm3 (4.4-11.0)
--- NOTE | 2021-04-13 05:28 | PLAC_PTH ---
PATIENT: LADI MANTILLA LOC: WP U#:[id number] AGE/SX: 26/F ROOM: WP011 RE04/13/[address]: Dr. Trciia Euceda MD : 1995 BED: 1 DIS: 04/14/2021 SPEC #: [id number] RECD: 04/14/21 13:30 STATUS: ASA LANDINAnthony #: [id number] SANDIE: 04/13/21 05:[address]: Tricia Euceda DEPT: SURGICAL PATHOLOGY RECD BY: Theresa Luna ENTERED: 04/14/21 13:41 SP TYPE: PLACENTA OTHR DR: Dr. Fred Golden MD Tissues: Placenta, NOS Procedures: Surgery Specimen Level V HEADER OPERATION: Vaginal delivery PRE-OP DIAGNOSIS: COVID TISSUE SUBMITTED: Placenta MICROSCOPIC DIAGNOSIS Gibbons placenta (398 gm): Umbilical cord ? trivascular with no inflammation. Placental membranes ? acute decuiditis. Placental disc ? remote infarcts, intravillous congestion and mild Anh-Vj change. AM:faustino 04/18/2021 MICROSCOPIC DESCRIPTION Slides are reviewed. GROSS DESCRIPTION SPECIMEN: PLACENTA / CLINICAL INFORMATION: A. Weight: 2.715 kg B. Gestational Age: 37 weeks C. Sex: Male PLACENTAL WEIGHT (POST FIXATION): 398 gm PLACENTAL DIMENSIONS: 19 x 14 x 2.5 cm PLACENTAL SHAPE: Usual ovoid PLACENTAL WEIGHT FOR GESTATIONAL AGE: Within 10-99th percentile MEMBRANES - Present A. Insertion: Marginal B. Site of rupture from edge: 5 cm from edge of placental disc C. Color of membrane: Newby-veras D. Abnormalities: None UMBILICAL CORD - Present A. Color: Newby-veras B. Insertion: Near central C. Length: 35 cm D. Diameter: 1.2 cm E. Number of vessels: Three F. Abnormalities: None PLACENTAL DISC - Present A. Color of surface: Newby-veras B. surface abnormalities: None C. Maternal cotyledons: Intact with minimal tears D. Attached retro placental clot: No clot E. Cut surface: Dark red and spongy F. Lesions: Serial sections reveal a newby-white lesion measuring 1 x 1 x 0.8 cm in the mid portion and a 1 cm white lesion at the periphery of the placental disc. G. Separate clot: Absent SECTIONS SUBMITTED: 1. Umbilical cord ( end notched) 2. Umbilical cord, placental end 3. Membrane roll, lesions 4. Placental disc, and maternal surfaces 5. Placental disc, and maternal surfaces 6. Placental disc, and maternal surfaces AM:faustino 04/15/21 TC:2 CPT: 78679
[2021-04-13] MEDS: Oxytocin 30 units/NS 500 ml 30 UNITS/500 ML IV.SOLN 334 UNITS IV (05:32)
--- NOTE | 2021-04-13 05:50 | HP.PCM.OB_ITS ---
HPI - General General Date of Admission: 04/13/21 HPI Narrative LADI MANTILLA, is a 26 F who presents IAL with regular ctx no vb lof good fm. Maternal Data Information KIRK Calculator 2 Estimated Delivery Date Method Current WG Current Estimate 04/30/21 LMP (Certain) 37w 4d Other Estimates 05/06/21 Ultrasound #1 36w 5d PFSH PFSH Home Medications ferrous sulfate 325 mg (65 mg iron) tablet 325 mg PO DAILY 11/22/20 [History Last Taken Unknown] [id number] oil [ Gummy] tab PO DAILY 04/12/21 [History Last Taken 04/12/21] ascorbic acid (vitamin C) [Vitamin C] 1,000 cap PO DAILY 04/12/21 [History Last Taken 04/12/21] vitamin D3-folic acid 1,000 tab PO DAILY 04/12/21 [History Last Taken 04/12/21] Allergy/AdvReac Type Severity Reaction Status Date / Time penicillin G Allergy Mild Other Verified 04/11/21 08:10 nitrous oxide Allergy Other Verified 04/11/21 08:10 acetaminophen [From Tylenol] AdvReac Severe Vomiting Verified 04/11/21 08:10 Family History Grandfather Cancer Surgical History [place] teeth extracted Social History adopted: No household members: spouse and children number of children: 1 current occupation: [employer] Smoking Status: Never smoker alcohol intake: never substance use type: does not use what type of physical activity do you participate in: walking and running frequency: 3-4 times per week seatbelt use: always do you feel safe at home: Yes additional social history: Francisco Javier- History 1 Elective abortions Hx Para 1 Spontaneous abortions Hx # Term Pregnancies 1 Ectopic pregnancies Hx # Pregnancies Multiple births # of living children 1 Past Pregnancies Del. Date Name GA/Weeks Outcome Route Bth Weight Infant Gen Labor Lgth Anesthesia Del Locatn Provider FOB 05/20/18 Loyd 37 live - full term 7lbs 0oz Male 8 hours e pidural [facility] Francisco Javier Delivery Date: 05/20/18 34 wk PTL: fluids and stopped. steroids. Thinks related to noravirus. Pushed for 20 min. 2nd degree with abscess of suture Shyla Hurley Visit Details Expected Delivery Route/Plan \Labor Preferences- CB/BF classes: no labor support person: Francisco Javier labor intervention preferences: none pain management options preferred: epidural cut cord/dad catch: no; mom cut cord :yes PP control planned: discussed discussed possible routes of delivery and associated risks: [] special requests: [] Plans COVID: no COVID or vaccine flu vaccine: declines tdap vaccine: declines rhogam: na LARC form signed: yes movement and labor precautions reviewed. Problem list reviewed and updated with the most current plan of care details and appropriate orders placed. Relevant counseling for the gestational age provided. Continue routine care and follow up unless otherwise noted in visit notes/problem list details OB Flowsheet Initial Weight: Not Recorded Date -?-?-?-?-?-?-?-?-?-?-?-?- EGA Weight BP Urine Prot -?-?-?-?-?-?-?-?-?-?-?-?- Glucose FHR FuHt Pres Dilation -?-?-?-?-?-?-?-?-?-?-?-?- Effaced St Visit Note 09/27/20 -?-?-?-?-?-?-?-?-?-?-?-?- 9w 2d 115 lb 6 oz 104/70 -?-?-?-?-?-?-?-?-?-?-?-?- 160 -?--?-?-?-?-?-?-?-?-?-?-?- GP - CRL 16mm co nsistent with LMP. 10/25/20 -?-?-?-?-?-?-?-?-?-?-?-?- 13w 2d 111 lb 6 oz 112/72 Nega tive -?-?-?-?-?-?-?-?-?-?-?-?- Negative 168 -?-?-?-?-?-?-?-?-?-?-?-?- GP - no cramping or bleeding. Anatomy ordered. 11/22/20 -?-?-?-?-?-?-?-?-?-?-?-?- 17w 2d 117 lb 122/64 Negative -?-?-?-?-?-?-?-?-?-?-?-?- Negative 150 -?-?-?-?-?-?-?-?-?-?-?-?- SM- no vb crampi ng 12/20/20 -?-?-?-?-?-?-?-?-?-?-?-?- 21w 2d 122 lb 6 oz 112/64 Nega tive -?-?-?-?-?-?-?-?-?-?-?-?- Negative 148 -?-?-?-?-?-?-?-?-?-?-?-?- MH-nausea improv ed. Noting good FM. NO VB, LOF. Anatomy US WNLBoy 01/17/21 -?-?-?-?-?-?-?-?-?-?-?-?- 25w 2d 127 lb 6 oz 112/82 Nega tive -?-?-?-?-?-?-?-?-?-?-?-?- Negative 145 25 -?-?-?-?-?-?-?-?-?-?-?-?- GP - no LOF, VB, dFm, ctx. Denies complaints. GCT next visit. 02/10/21 -?-?-?-?-?-?-?-?-?-?-?-?- 28w 5d 131 lb 108/70 Negative -?-?-?-?-?-?-?-?-?-?-?-?- Negative 159 28 -?-?-?-?-?-?-?-?-?-?-?-?- MH-No VB, LOF. G ood FM. 28 wk labs. declines flu and tdap vaccine. 02/25/21 -?-?-?-?-?-?-?-?-?-?-?-?- 30w 6d 133 lb 2 oz 108/60 Nega tive -?-?-?-?-?-?-?-?-?-?-?-?- Negative 150 31 -?-?-?-?-?-?-?-?-?-?-?-?- SM- no vb lof good fm no reuglar ctx. 03/11/21 -?-?-?-?-?-?-?-?-?-?-?-?- 32w 6d 133 lb 102/60 Negative -?-?-?-?-?-?-?-?-?-?-?-?- Negative 158 32 Cephalic 0 -?-?-?-?-?-?-?-?-?-?-?-?- 0 -4 JV- no lof , vaginal bleeding, or dec. pt complaining of some cramping. PTL precautions discussed. 03/25/21 -?-?-?-?-?-?-?-?-?-?-?-?- 34w 6d 135 lb 6 oz 120/80 Nega tive -?-?-?-?-?-?-?-?-?-?-?-?- Negative 145 34 Cephalic -?-?-?-?-?-?-?-?-?-?-?-?- JV- pt complain s of some light headedness and heart fluttering. Knees popping out of place. ordering CBC dislocation is common for her. braces and careful steps encouraged. 04/01/21 -?-?-?-?-?-?-?-?-?-?-?-?- 35w 6d 135 lb 96/78 Negative -?-?-?-?-?-?-?-?-?-?-?-?- Negative 140 34 Cephalic 3 -?-?-?-?-?-?-?-?-?-?-?-?- 60 -1 SM- no vb lof good fm irregular ctx gbs collected 04/05/21 -?-?-?-?-?-?-?-?-?-?-?-?- 36w 3d 136 lb 8 oz 132/80 Nega tive -?-?-?-?-?-?-?-?-?-?-?-?- Negative 156 Cephalic 3 -?-?-?-?-?-?-?-?-?-?-?-?- 60 -1 JV- no vag inal bleeding, or dec fm. ROM plus sent, no fluid on exam. inclusion cyst present at hymen 04/08/21 -?-?-?-?-?-?-?-?-?-?-?-?- 36w 6d 138 lb 4 oz 114/80 Nega tive -?-?-?-?-?-?-?-?-?-?-?-?- Negative 145 36 Cephalic 2 -?-?-?-?-?-?-?-?-?-?-?-?- 80 -4 JV-cx fria ble and only a gentle exam was performed today. pt wants to return for a membrane sweep early next week. 04/11/21 -?-?-?-?-?-?-?-?-?-?-?-?- 37w 2d 137 lb 102/82 -?-?--?-?-?-?-?-?-?-?-?-?- 145 37 Cephalic 3 -?-?-?-?-?-?-?-?-?-?-?-?- 80 -1 SM- no vb lof good fm nor egular ctx membranes swept 04/13/21 -?-?-?-?-?-?-?-?-?-?-?--?- 37w 4d 136 lb 12.8 oz 120/8 5 120/66 127/67 124/78 133/76 150/82 131/69 120/85 129/80 122/87 105/59 -?-?-?-?-?-?-?-?-?-?-?-?- -?--?-?-?-?-?-?-?-?-?-?-?- Notes Visit Date: 04/13/21 No visit notes to display Visit Date: 04/11/21 No visit notes to display Visit Date: 04/08/21 No visit notes to display Visit Date: 04/05/21 No visit notes to display Visit Date: 04/01/21 Tricia Euceda Visit Date: 03/25/21 No visit notes to display Visit Date: 03/11/21 No visit notes to display Visit Date: 02/25/21 No visit notes to display Visit Date: 02/10/21 No visit notes to display Visit Date: 01/17/21 No visit notes to display Visit Date: 12/20/20 No visit notes to display Visit Date: 11/22/20 No visit notes to display Visit Date: 10/25/20 No visit notes to display Visit Date: 09/27/20 No visit notes to display NST FHR Rate Baby A Baseline: 130 Variability:: Moderate Accelerations:: 15 x 15 Decelerations:: None NST Reactive:: Yes FHR Category:: Category I Uterine Activity:: q3-5 ROS Constitutional Constitutional: Reports systems reviewed and no addt'l complaints, except as documented ENT HEENT: Reports systems reviewed and no addt'l complaints, except as documented Cardiovascular Cardiovascular: Reports systems reviewed and no addt'l complaints, except as documented Respiratory/Chest Respiratory/Chest: Reports systems reviewed and no addt'l complaints, except as documented Gastrointestinal Gastrointestinal: Reports systems reviewed and no addt'l complaints, except as documented and nausea; Denies abdominal pain Genitourinary Genitourinary: Reports systems reviewed and no addt'l complaints, except as documented, contractions Details: present and frequency (regular ) and movement Details: present Musculoskeletal Musculoskeletal: Reports systems reviewed and no addt'l complaints, except as documented Integumentary Integumentary: Reports as per HPI Neurologic Neurologic: Reports systems reviewed and no addt'l complaints, except as documented Endocrine Endocrinology: Reports systems reviewed and no addt'l complaints, except as documented Vital Signs Vital Signs Vital Signs: 04/12/21 23:11 04/12/21 23:23 04/13/21 01:41 Temperature 97.9 F Pulse Rate 87 80 76 Blood Pressure 120/85 H BP Systolic 120 BP Diastolic 85 Pulse Ox 96 97 04/13/21 02:29 04/13/21 02:41 04/13/21 03:07 Temperature 98.6 F Pulse Rate 80 76 Blood Pressure 120/66 BP Systolic 120 BP Diastolic 66 Pulse Ox 100 04/13/21 03:09 04/13/21 04:42 04/13/21 04:44 Temperature Pulse Rate 77 73 Blood Pressure 127/67 H BP Systolic 127 BP Diastolic 67 Pulse Ox 99 77 04/13/21 04:48 04/13/21 04:51 04/13/21 04:54 Temperature Pulse Rate 89 79 85 Blood Pressure 124/78 H BP Systolic 124 BP Diastolic 78 Pulse Ox 99 87 99 04/13/21 04:56 04/13/21 04:59 04/13/21 05:01 Temperature Pulse Rate 97 91 93 Blood Pressure 133/76 H 150/82 H BP Systolic 133 150 BP Diastolic 76 82 Pulse Ox 91 100 04/13/21 05:02 04/13/21 05:04 04/13/21 05:06 Temperature Pulse Rate 87 87 88 Blood Pressure 131/69 H BP Systolic 131 BP Diastolic 69 Pulse Ox 91 98 04/13/21 05:15 04/13/21 05:16 04/13/21 05:21 Temperature Pulse Rate 93 120 H Blood Pressure 120/85 H 129/80 H BP Systolic 120 129 BP Diastolic 85 80 Pulse Ox 98 93 04/13/21 05:26 04/13/21 05:27 04/13/21 05:36 Temperature Pulse Rate 115 H 116 H 67 Blood Pressure 122/87 H 105/59 L BP Systolic 122 105 BP Diastolic 87 59 Pulse Ox 89 04/13/21 05:48 Temperature Pulse Rate 146 H Blood Pressure BP Systolic BP Diastolic Pulse Ox 94 Weight Weight: 136 lb 12.8 oz Body Mass Index (BMI) 22.1 Physical Exam Const alert, oriented x3 and healthy appearing Constitutional Narrative: uncomfortable with contractions HEENT normocephalic and moist oral mucous membranes Head and Scalp: atraumatic Neck full ROM, no lymphadenopathy, supple and thyroid normal General: trachea midline Thyroid: thyroid normal Lymph Lymphatic: no lymphadenopathy noted Chest inspection of chest normal Resp normal respiratory effort Cardio regular rate GI normal to inspection, nondistended, normoactive bowel sounds, soft to palpation and non-tender Inspection: gravid external exam normal Bimanual Exam - Vag & Uterus: uterus non-tender Manual OB Exam: estimated gestational size appropriate, presentation cephalic, dilated, effaced and station Extremity normal to inspection General Extremity: Negative for edema Skin no rashes or lesions noted Neuro deep tendon reflexes 2+ bilaterally Motor Exam: strength 5/5 throughout and clonus absent Psych mental status grossly normal Labs Labs Labs: Blood Type A POSITIVE Antibody Screen NEGATIVE Hct 36.9 % (37-47) L Hgb 12.3 g/dL (12.0-15.0) Obstetrics US Syphilis Total Ab Non-reactive Rubella IgG Antibody Reactive (Nonreactive) Hep Bs Antigen Non-Reactive (Nonreactive) Neisseria gonorrhoeae DNA (VICKI) Negative (Negative) HIV 1&2 Antibody Non-Reactive (Nonreactive) C.trachomatis DNA (PCR) Negative (Negative) Glucose 1 Hr 50 gm 124 mg/dL (70-140) Rhogam given: No Assessment & Plan (1) : QUALIFIERS: Weeks of gestation: 37 weeks Qualified Code(s): Z3A.37 - 37 weeks gestation of COMMENT: GBS neg., Declines carrier, ntd, and NIPT screen; NL anatomy. trouble with vicrylrapide last , if needs repair use chromic. (2) Supervision of high risk , antepartum: COMMENT: PRR KIRK 04/30/21 boy PC: Loyd, Spouse:Francisco Javier (3) Anxiety: COMMENT: counseling. No meds.02/10 stable (4) Fundal height low for dates in third trimester: COMMENT: growth us ordered and nl (5) Lab test positive for detection of COVID-19 virus: COMMENT: confirmatory test ordered, precautions taken. (6) Active labor at term: PLAN: Patient presents IAL, plan expectant management for , pitocin/AROM PRN if needed. Pain management: plans epidural. GBS neg. Management of any complications: covid pos- precautions taken, confirmation test ordered I have reviewed the [facility] and made any clinically relevant updates.
--- NOTE | 2021-04-13 05:53 | EX.PCM.OBRPT ---
Assessment & Plan (1) Active labor at term: (2) Lab test positive for detection of COVID-19 virus: COMMENT: confirmatory test ordered, precautions taken. (3) Fundal height low for dates in third trimester: COMMENT: growth us ordered and nl (4) Anxiety: COMMENT: counseling. No meds.02/10 stable (5) Supervision of high risk , antepartum: COMMENT: PRR KIRK 04/30/21 boy PC: Loyd, Spouse:Francisco Javier (6) : QUALIFIERS: Weeks of gestation: 37 weeks Qualified Code(s): Z3A.37 - 37 weeks gestation of COMMENT: GBS neg., Declines carrier, ntd, and NIPT screen; NL anatomy. trouble with vicrylrapide last , if needs repair use chromic. (7) Vaginal delivery: COMMENT: IAL SM covid pos in labor, boy December Maternal Data Information KIRK Calculator Estimated Delivery Date Method Current WG Current Estimate 04/30/21 LMP (Certain) 37w 4d Other Estimates 05/06/21 Ultrasound #1 36w 5d Vaginal Delivery Maternal Presentation Maternal Presentation: Active Labor Operative Information Date of Procedure: 04/13/21 Pre-Operative Diagnosis: IAL Post-Operative Diagnosis: same Surgery / Procedure Performed: Spontaneous Vaginal Delivery Type of Anesthesia: Epidural Special Medications: none Estimated Blood Loss: 100 Fluids Replaced: crystalloid Findings Description of Procedure: Patient began pushing and delivered the head in the CHANTEL presentation. The head was delivered atraumatically . The anterior and posterior shoulders delivered without complication followed by the rest of the infant and the infant was placed on the maternal abdomen. Delayed cord clamping was employed for approximately 60 seconds. Cord was clamped and cut and gentle traction was applied to the cord and the placenta delivered spontaneously immediately following it was noted to be intact with three-vessel cord. The perineum and vagina were inspected and noted to have first degree laceration repaired in theusual fashion with 3-0 rapide. EBL was 100 cc. Patient and tolerated delivery well. Presentation: CHANTEL Amniotic Membrane Rupture Type: Artificial Amniotic Fluid Description: Clear Placental Delivery Description: Spontaneous Placenta Disposition: [facility] Cord Vessel Description: 3 Vessels Cord Entanglement: None Infant A Gender: Male Delayed Cord Clamping: Yes Post Vaginal Delivery Medications Given After Delivery: IV Pitocin Episiotomy Description: None Laceration: Perineal Extension/lac and 1st degree Complication Complications: None Procedures Urinary/Genital [id number]: [id number] Vaginal Delivery [facility]
--- NOTE | 2021-04-13 05:55 | PCM.DC ---
Discharge Instructions Diet Discharge Diet: No restrictions Activity Discharge Activity: Return to Normal Activity, May Not Drive (while taking narcotic pain medications.) and May Shower May resume sexual activity in: 4-6 weeks Dressing / Incision Call your doctor if your incision/area has: Continuous Slow Oozing, Sudden Increased Bleeding, Increased Pain/ Swelling, Increased Redness and Foul Smelling Discharge Follow Up Care Please Follow Up With: Tricia Euceda MD When: Call [phone] to make an appointment with your doctor in 6 weeks. If you had elevated blood pressure or 4th degree laceration, you will need to be seen in 2 weeks. Test Results: Test results from this visit will be discussed in further detail at your follow-up appointment, if applicable. Discharge Plan Admission Admit Date/Time: 04/13/21 02:30 Primary Reason for Your Visit: vaginal delivery Attending Provider: Tricia Euceda Primary Care Provider: Jorge Golden Discharge Orders/Prescriptions Prescriptions: No Action ferrous sulfate 325 mg (65 mg iron) tablet 325 mg PO DAILY RF: 0 Vitamin C 1,000 mg Capsule, Extended Release 1,000 cap PO DAILY RF: 0 Gummy 400 mcg-35 mg -25 mg-5 mg Tablet,Chewable PO DAILY RF: 0 vitamin D3-folic acid 500 unit- 1 mg Tablet 1,000 tab PO DAILY RF: 0 Referrals / Follow Up: Jorge Golden MD [Primary Care Provider] - Disposition Disposition (needs filled in before D/C Order can be placed): Home, Self Care
[2021-04-13] MEDS: fentaNYL-bupivacaine (epidural) 100 ML BAG EPIDURAL (07:10)
[2021-04-13] MEDS: Ibuprofen 600 MG Tablet PO (14:23)
[2021-04-13] MEDS: Dibucaine 30 GM Tube 1 APPLIC TOPICAL (16:50)
[2021-04-14 00:03] VITALS: BP 122/71; PULSE 62; RESP 18; TEMP 36.4
[2021-04-14] MEDS: Ibuprofen 600 MG Tablet PO (00:12)
[2021-04-14 03:15] VITALS: BP 112/73; PULSE 54; RESP 16; TEMP 36.3
[2021-04-14 03:16] VITALS: BP 112/73; PULSE 54
--- NOTE | 2021-04-14 07:48 | PCM.PN.OB ---
Subjective Subjective Patient doing well without complaints. Tolerating PO. Ambulating and voiding without difficulty. feeding well. Denies chest pain, shortness of breath, calf pain/swelling, fevers, chills, lightheadedness. Objective Data Objective Data Vital Signs: Vital Signs Temp Pulse Resp BP Pulse Ox 97.4 F L 54 L 16 112/73 97 04/14/21 03:15 04/14/21 03:16 04/14/21 03:15 04/14/21 03:16 04/13/21 16:41 Oxygen Delivery Method Room Air Weight: 136 lb 12.8 oz Body Mass Index (BMI) 22.1 Intake & Output: Intake and Output for Last 24 Hours 04/12/21 04/13/21 04/14/21 23:59 23:59 23:59 Intake Total 812.5 / 812.5 Output Total 1400 / 1400 Balance -587.5 / -587.5 Lab / Micro Data Result Diagrams: 04/13/21 02:50 Labs: Laboratory Results - last 24 hr 04/13/21 06:40: COVID-19 (VICKI) Detected Micro: Microbiology 04/13/21 02:50 Nasal Secretion SARS-CoV-2 Antigen (Rapid) - Final SARS-CoV-2 (COVID 19) ROS Constitutional Constitutional: Reports systems reviewed and no addt'l complaints, except as documented Cardiovascular Cardiovascular: Reports systems reviewed and no addt'l complaints, except as documented Respiratory/Chest Respiratory/Chest: Reports systems reviewed and no addt'l complaints, except as documented Gastrointestinal Gastrointestinal: Reports systems reviewed and no addt'l complaints, except as documented Physical Exam Const alert, oriented x3 and no apparent distress HEENT Head and Scalp: atraumatic Resp normal respiratory effort GI soft to palpation and non-tender Bimanual Exam - Vag & Uterus: uterus non-tender Uterus Palpation: uterus fundus firm (below Umbilicus) Assessment & Plan (1) Vaginal delivery: COMMENT: IAL SM covid pos in labor, boy December (2) Lab test positive for detection of COVID-19 virus: COMMENT: confirmatory test positive, precautions taken.
[2021-04-14 08:47] VITALS: BP 133/75; PULSE 54
[2021-04-14 08:51] VITALS: BP 133/75; PULSE 54; RESP 16; TEMP 36.4
[2021-04-14 13:35] LABS: Pathology Specimen OB SEE PATHOLOGY REPORT
== END 2021-04-14 11:35 | disposition home or self-care (01) | DRG 805 ==
LOC: WPOUT 02:34 → WP 02:34
PROVIDERS: Admitting Provider Obstetrics & Gynecology; PCP Family Medicine; Visit Provider Obstetrics & Gynecology
DX: O99.344 Other mental disorders complicating childbirth (principal); F41.9 Anxiety disorder, unspecified; O98.52 Other viral diseases complicating childbirth; U07.1 COVID-19; O70.0 First degree perineal laceration during delivery; Z3A.37 37 weeks gestation of pregnancy; Z37.0 Single live birth
CPT/HCPCS: 59025; 59050; 85025; 86850; 86900; 86901; 87426; 87635; 88307; 99218; J7120; U0005; G0378; U0003

== ENCOUNTER 2021-05-26 15:58 | Outpatient (CLI) | payer BC, SELFPAY ==
[2021-06-01 10:35] LABS: HPV Reflexed? NOT INDICATED
== END 2021-05-26 23:59 | disposition short-term general hospital (02) ==
LOC: LABSPEC 16:00
PROVIDERS: PCP Family Medicine; Referring Provider Obstetrics & Gynecology; Visit Provider Obstetrics & Gynecology
DX: Z12.4 Encounter for screening for malignant neoplasm of cervix (principal)
CPT/HCPCS: 88175; G0145

== ENCOUNTER → 2022-08-24 | Outpatient (CLI) | payer BC, SELFPAY ==
[2022-09-01 13:58] LABS: HPV Reflexed? NOT INDICATED
== END | disposition home or self-care (01) ==
PROVIDERS: PCP Family Medicine; Visit Provider Obstetrics & Gynecology
DX: N93.0 Postcoital and contact bleeding (principal)
CPT/HCPCS: 88175; G0145

== ENCOUNTER 2022-09-01 10:00 | Outpatient (RCR) | payer BC, SELFPAY ==
--- NOTE | 2022-08-02 13:32 | HP.PTEVAL_ITS ---
Patient's Visit Information LADI MANTILLA is a 27 year old F referred to Physical Therapy by Dr. Clif Celestin MD with a diagnosis of Left Knee Instability and Patellar Tracking. Date of Evaluation: 08/02/22 Physical Therapist: Michelle Alvarez DPT - Visit Plan Frequency: 2x /Week Duration: 4 Weeks Plan: Posterior Chain Strength/Stabilization- does have a good fitness routine- needs cueing for proper technique- decrease knee valgus and lateral patellar tracking. HEP Given IE: Prone Hip Extn, Clams, Bridge - Subjective Left knee has dislocated 3x over the last 20 years- once when she was 11- and the last one was in Jun- she can put it back in- its horrible but she can do it. The last time her son slid down her leg and it popped out. She saw Dr. Celestin did an MRI which she does not have the results back yet and sent her to PT. She does have a family history of patellar dislocations. She does not have pain it just feels unstable. She does workout- she lifts- does weights at home 3-4x a week- squats- mat exercises- does not go over 25#- it creaks and crunches when she does it. Sleep: no issues. She is very active. 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 She normally KT tapes- when she works out. She wears Nike's. PMHx: none Meds: none - Objective Posture: FH, RS- can correct with verbal cues but does not maintain. Gait: no deviation noted. SLS: mild pes planus with pelvic translation. Observation: mild lateral tilt of the patella- Quad set: more visible lateral contraction of quad. HR/TR: able. Palpation: not tender. ROM: 0-135 degrees. Strength: Core: fair minus, Hip: Flexion: 4+/5, Abd: 4-/5, Clams: 4-/5, Extn: 4/5, Add: 4+/5, IR: 4+/5, ER: 4-/5, Knee: Flexion: 4/5 Extn: 4/5, Ankle: 5/5. Flex: HS: mild, Gastroc: mild. Special Test: LLD: negative, Pelvic Alignment: negative - Balance/Special Test Scores Lower Extremity Functional Score: 72 - Goals Goal 1:: Patient will be I with HEP and progression Goal Time Frame: 4-6 Weeks Goal 2:: Patient will SLS without pelvic translation Goal Time Frame: 4-6 Weeks Goal 3:: Patient will report no feelings of instability Goal Time Frame: 4-6 Weeks Goal 4:: Patient will report 80% improvement Goal Time Frame: 4-6 Weeks Goal 5:: Patient will maintain proper posture t/o tx session to demo increased core s/s Goal Time Frame: 4-6 Weeks - Rehabilitation Potential Physical Therapy Diagnosis: Patient presents s/p Left patellar dislocation- she has decreased LE and core strength/stabilization, proprioception and muscular endurance leading to decreased ability to perform ADL's Rehabilitation Potential: Fair - Anticipated Interventions Patient/Client Instruction: Educate patient on: Benefits of Fitness Program Therapeutic Exercise to Include: Strength training, Endurance training, Balance training, Coordination, Agility training, Body mechanics, Postural training, Flexibilty training, Gait and locomotor training, Dynamic Lumbar Stabilization, Scapular Strength/Stabilization For the Purpose of:: To improve muscle performance and motor function Thank you for the opportunity to evaluate your patient. For Medicare and Medicare HMO plans, please review the plan of care and approve it. It will need to be FAXED BACK to us at [phone] for Medicare purposes. For Medicare only, by signing this I certify the plan of care. Please let me know if there are questions or concerns regarding this plan of care. Physician Signature: Date:
--- NOTE | 2022-09-01 10:43 | HP.PTDCSUM ---
It has been my pleasure to treat LADI MANTILLA referred by Dr. Clif Celestin MD, with the diagnosis of Left Knee Instability and Patellar Tracking for a total of 6 visit(s). Discharge Date: 09/01/22 Please see the following information for a summary of their discharge status. Subjective: I KNOW NOW WHAT I NEED TO FOCUS ON NOW TO IMPROVE. SHE REPORTS HER THIGH IS STRONER BUT HER KNEE STILL FEELS THE SAME. DENIES ANY NEW DISLOCATIONS. % Improvement: 100 Objective/Function: PATIENT WAS SEEN TODAY FOR RE-ASSESSMENT OF PROGRESS TOWARD THE SET PT GOALS AND THE NEED FOR FURTHER PHYSICAL THERAPY VS READINESS FOR DISCHARGE. UPON EXAM TODAY PATIENT DEMONSTRATES A LOT OF APPREHENSION ABOUT HAVING KNEES TOUCHED (ALIA) AND RIGHT ILIAC CREST IS SIGNIFICANTLY HIGHER THAN RIGHT. SHE STANDS WITH R LE STRAIGHT WITH MOST OF HER WEIGHT ON IT AND L KNEE BENT. DISCUSSED POSSIBLE BENEFITS OF L SHOE LIFT AND PATIENT REPORTS SHE HAS TRIED THIS IN THE PAST AND HAS CONSIDERED TRYING IT AGAIN. L LE STRENGTH IS 5/5 WITH MMT'ING TODAY EXCEPT L KNEE GRADED 4/5. SEE GOALS BELOW. ENCOURAGED PATIENT TO FOLLOW UP WITH SPECIALIST RECOMMENDED. NO SIGNIFICANT CHANGE IN LEFS SCORE. Goal 1:: Patient will be I with HEP and progression Goal Progress: Goal Met Goal 2:: Patient will SLS without pelvic translation Goal Progress: Goal Met Goal 3:: Patient will report no feelings of instability Goal Progress: Not Progressing Goal 4:: Patient will report 80% improvement Goal Progress: Goal Met Goal 5:: Patient will maintain proper posture t/o tx session to demo increased core s/s Goal Progress: Goal Met Plan: D/C TO INDEP HEP AND FOLLOW UP WITH SPECIALIST RECOMMENDED BY DR. CELESTIN. If there are questions or concerns regarding this patient's physical therapy, please feel free to call me at [phone]. Thank you for the referral of this patient. Sincerely, Keara Waller, PT, Cert MDT Balance/Gait/Functional tests - Balance/Special Test Scores Lower Extremity Functional Score: 71
== END 2022-09-01 10:53 | disposition home or self-care (01) ==
LOC: PT 10:00
PROVIDERS: PCP Family Medicine; Referring Provider Specialist; Visit Provider Specialist
DX: M22.02 Recurrent dislocation of patella, left knee (principal); M25.362 Other instability, left knee; M25.562 Pain in left knee
CPT/HCPCS: 97110; 97162; 97164

== ENCOUNTER → 2023-03-09 | Outpatient (CLI) | payer BC, SELFPAY ==
[2023-03-09 10:10] LABS: Absolute Lymphocyte Count 1.65 X10^3/uL (0.83-4.51); Absolute Neutrophil Count 2.3 X10^3/uL (2.0-7.7); Basophil# 0.03 X10^3/uL; Basophil% 0.7 % (0-1); Eosinophil# 0.12 X10^3/uL; Eosinophils% 2.7 % (0-5); Hematocrit 40.9 % (37-47); Lymphocyte # 1.65 X10^3/ul (0.83-4.51); Lymphocyte % 37.7 % (19-41); Mean Corp Hgb Conc 31.8 g/dL (32-36); Mean Corpuscular Hgb 30.4 pg (27.0-32.0); Mean Corpuscular Volume 95.8 fL (81-99); Mean Platelet Vol. 11.4 fl (6.2-12.0); Monocyte# 0.31 X10^3/uL; Monocyte% 7.1 % (0-10); NRBC Flagged by Analyzer 0 % (0-5); Neutrophil # 2.26 X10^3/uL (2.7-7.7); Neutrophil % 51.6 % (47-70); Platelet Count 197 K/mm3 (150-450); RBC Distribution Width CV 12.7 % (11.6-14.6); RBC Distribution Width SD 45.1 fl (35.1-43.9); Red Blood Count 4.27 M/mm3 (4.2-5.4); White Blood Count 4.4 K/mm3 (4.4-11.0)
[2023-03-09 10:38] LABS: Anion Gap 3 (5-15); BUN 18 mg/dL (7-18); BUN/Creat Ratio 24.2 RATIO (10-20); Calcium,Total 8.9 mg/dL (8.5-10.1); Chloride 109 mmol/L (98-107); Cholesterol 144 mg/dL (200); Creatinine, Serum 0.74 mg/dL (0.55-1.02); EST Glomerular Filtration Rate 98 mL/min (>60); Est Glom Filt Rate - Afr Amer 119 mL/min (>60); Glucose 90 mg/dL (74-106); High Density Lipoprotein 65 mg/dL; Potassium 3.7 mmol/L (3.5-5.1); Sodium Level 140 mmol/L (136-145); Triglycerides 62 mg/dL; Very Low Density Lipoprotein 12 mg/dL (5-40)
== END | disposition home or self-care (01) ==
LOC: MFPLAB 08:59
PROVIDERS: PCP Family Medicine; Visit Provider Family Medicine
DX: Z13.1 Encounter for screening for diabetes mellitus (principal); Z13.0 Encounter for screening for diseases of the blood and blood-forming organs and certain disorders involving the immune mechanism; Z13.220 Encounter for screening for lipoid disorders
CPT/HCPCS: 36415; 80048; 80061; 85025

== ENCOUNTER → 2024-07-18 | Outpatient (CLI) | payer BC, SELFPAY ==
[2024-07-18 11:52] LABS: Absolute Lymphocyte Count 1.09 X10^3/uL (0.83-4.51); Absolute Neutrophil Count 4.9 X10^3/uL (2.0-7.7); Basophil# 0.03 X10^3/uL; Basophil% 0.5 % (0-1); Eosinophil# 0.09 X10^3/uL; Eosinophils% 1.4 % (0-5); Hematocrit 36.8 % (37-47); Hemoglobin 12.4 g/dL (12.0-15.0); Lymphocyte # 1.09 X10^3/ul (0.83-4.51); Lymphocyte % 16.9 % (19-41); Mean Corp Hgb Conc 33.7 g/dL (32-36); Mean Corpuscular Hgb 31.8 pg (27.0-32.0); Mean Corpuscular Volume 94.4 fL (81-99); Mean Platelet Vol. 11.5 fl (6.2-12.0); Monocyte# 0.31 X10^3/uL; Monocyte% 4.8 % (0-10); NRBC Flagged by Analyzer 0 % (0-5); Neutrophil % 76.1 % (47-70); Platelet Count 188 K/mm3 (150-450); RBC Distribution Width CV 12.8 % (11.6-14.6); RBC Distribution Width SD 43.8 fl (35.1-43.9); White Blood Count 6.4 K/mm3 (4.4-11.0)
[2024-07-18 12:34] LABS: Hepatitis B Surface Antigen Nonreactive (Nonreactive); Hepatitis C Antibody Nonreactive (Nonreactive); Rubella IgG REAC (Nonreactive); Syphilis Antibodies Nonreactive (Nonreactive)
[2024-07-18 21:36] LABS: HIV No_Result (Nonreactive)
[2024-07-22 06:08] LABS: Chlamydia By Nucleic Acid AMP Negative (Negative); Gonococcus By Nucleic Acid AMP Negative (Negative)
== END | disposition home or self-care (01) ==
PROVIDERS: PCP Family Medicine; Referring Provider Obstetrics & Gynecology; Visit Provider Obstetrics & Gynecology
DX: Z34.90 Encounter for supervision of normal pregnancy, unspecified, unspecified trimester (principal)
CPT/HCPCS: 36415; 85025; 86703; 86762; 86780; 86803; 86850; 86900; 86901; 87086; 87088; 87340; 87491; 87591

== ENCOUNTER 2024-08-26 11:02 | Emergency (ER) | payer BC, SELFPAY ==
[2024-08-26 11:03] VITALS: BP 116/63; PULSE 84; RESP 16; TEMP 36.8; O2SAT 100; BMI 19.0
--- NOTE | 2024-08-26 11:09 | EDS_ITS ---
HPI History of Present Illness Chief Complaint: Nausea/Vomiting Informant: patient Onset/Context/Timing Onset: Weeks (6) Context: Gradual Onset Timing: Continuous Quality: Cramping Location: Abdominal Worsened by: Nothing Relieved by: Nothing Narrative Narrative: Patient presents with nausea and vomiting that has been constant for the past 6 weeks. Patient is approximately 15 weeks . Patient states she has been unable to keep anything down. Patient states she has been having some vomiting with blood streaks. Patient states nothing makes it better and nothing makes it worse. Patient denies any fevers or chills. Patient denies any abnormal vaginal bleeding or discharge. Patient is 3 para 2. [facility] Medical History Anxiety Vaginal delivery Home Medications ?Medication ?Instructions ?Recorded ?Last Taken ?Type [id number] 400 mcg-om3 35 mg-dha 25 tab PO DAILY PREGNAN CY 04/12/21 04/12/21 History mg-epa 5 mg-fish oil chewable tablet ondansetron 4 mg disintegrating 4 mg PO Q6H PRN nausea and 07/18/24 Unknown Rx tablet vomiting #30 tabs metoclopramide HCl 5 mg tablet 5 mg PO QAC #14 tabs Unknown Rx Allergy/AdvReac Type Severity Reaction Status Date / Time penicillin G Allergy Mild Other Verified 08/26/24 11:06 nitrous oxide Allergy Other Verified 08/26/24 11:06 acetaminophen (From Tylenol) AdvReac Severe Vomiting Verified 08/26/24 11:06 Family History Grandfather Cancer Paternal Surgical History H/O knee surgery [place] teeth extracted Social History adopted: No household members: spouse and children housing: house number of children: 2 current occupational status: unemployed current occupation: [employer] pets and animals: No history of recent travel: No sexually active: Yes Smoking Status: Never smoker alcohol intake: current alcohol intake frequency: holidays/special occasions only details: not while substance use type: does not use well-balanced diet: daily or most days caffeine: No eating out: rarely or never during the past year weight has: remained stable what type of physical activity do you participate in: walking and weight training frequency: 3-4 times per week duration: 45-60 minutes/day romero/taoist: Evangelical seatbelt use: always do you feel safe at home: Yes additional social history: 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 ROS ROS ED Constitutional Constitutional ED: Denies chills or fever(s) Eyes Eyes: Denies blurry vision or change in vision ENT ENT ED: Denies rhinorrhea or sore throat Cardiovascular Cardiovascular: Denies chest pain or palpitations Respiratory/Chest Respiratory/Chest: Denies cough or dyspnea Gastrointestinal Gastrointestinal: Reports nausea and vomiting Genitourinary Genitourinary ED: Denies dysuria or hematuria Musculoskeletal Musculoskeletal: Denies back pain or neck pain Integumentary Denies abscess or rash Neurologic Neurologic: Denies headache(s) or weakness Allergic/Immunologic Allergic/Immunologic ED: Denies mouth swelling or urticaria EXAM Physical Exam Const Vital Signs: 08/26/24 11:03 Temperature 98.2 F Temperature Source Oral Pulse Rate 84 Respiratory Rate 16 Blood Pressure 116/63 Blood Pressure Mean 80 Pulse Ox 100 Oxygen Delivery Method Room Air Positive well nourished and well developed General Appearance ED: well developed and NAD HEENT Reports moist mucous membranes Neck supple and no JVD Resp normal respiratory effort and clear to auscultation bilaterally Cardio regular rate and regular rhythm GI non-tender and non-distended Palpation: soft Extremity normal to inspection General Extremety ED: Negative for edema or tenderness General Extremity: Negative for edema Neuro oriented x3, CN's II-XII intact bilaterally and no sensory deficits noted Sensorium / Orientation: alert Motor Exam: strength 5/5 throughout Psych mental status grossly normal MDM MDM MDM Narrative Medical decision making narrative: Differential diagnosis includes hyperemesis gravidarum, viral illness, and dehydration. CBC will be obtained to assess for leukocytosis and anemia. Basic metabolic profile will be obtained to assess for electrolyte abnormality and renal function. History & Record Review Additional record(s) reviewed:: Prior outpatient record Lab Data Attestation: I reviewed the patient's lab results. Lab results narrative: CBC was reviewed and was within normal limits. Basic metabolic profile was reviewed and was within normal limits. Labs: Laboratory Results - last 24 hr 08/26/24 11:37 WBC 8.0 RBC 4.00 L Hgb 12.7 Hct 37.1 MCV 92.8 MCH 31.8 MCHC 34.2 RDW Std Deviation 42.7 RDW Coeff of Mel 12.5 Plt Count 192 MPV 10.8 Immature Gran % (Auto) 0.500 Neut % (Auto) 84.7 H Lymph % (Auto) 10.9 L [place] % (Auto) 3.1 Eos % (Auto) 0.5 Baso % (Auto) 0.3 Absolute Neuts (auto) 6.8 Absolute Lymphs (auto) 0.87 Nucleated RBC % 0 Sodium 136 Potassium 3.8 Chloride 102 Carbon Dioxide 23.2 Anion Gap 11 BUN 13 Creatinine 0.56 L Estim Creat Clear Calc 124.12 Est GFR (MDRD) Non-Af 126 BUN/Creatinine Ratio 22.7 H Glucose 98 Calcium 9.3 Treatment and Re-Evaluation :: Patient was given IV fluids and Zofran. Patient states that Zofran causes her to have headaches. Patient was ordered a dose of ibuprofen 400 mg for headache. Patient declined this at this time. Patient was feeling better on reevaluation. Patient was advised of her findings. Patient was instructed to start with sips of fluids and advance as tolerated. Patient was instructed to follow-up with her [facility] FILLER in 5 to 7 days. Patient was instructed to return if worse in any way. Patient understood and was agreeable with the plan. All questions were answered. Discharge Plan Triage Chief Complaint: Nausea/Vomiting ED Provider: Clarence Wolff Dx/Rx/DC Orders Clinical Impression: Dehydration, , Hyperemesis gravidarum Instructions: ED Hyperemesis Gravidarum, ED , ED Vomiting (Adult) Prescriptions: No Action ondansetron 4 mg tablet,disintegrating 4 mg PO Q6H PRN (Reason: nausea and vomiting) Qty: 30 4RF Gummy 400 mcg-35 mg -25 mg-5 mg Tablet,Chewable PO DAILY metoclopramide HCl 5 mg tablet 5 mg PO QAC Qty: 14 0RF Rx Instructions: administer 30 minutes before meals Primary Care Provider: Fred Golden Referrals: Fred Golden MD [Primary Care Provider] - 5-7 Days Tricia Euceda MD [Med Staff - Active Staff] - 3-5 Days Print Language: Upper Sorbian Disposition Disposition: Home, Self Care
[2024-08-26] MEDS: Ondansetron 4 MG/2 ML Vial IV (11:36)
[2024-08-26] MEDS: 0.9% Normal Saline (1000mL) 1,000 ML 1000 ML IV (11:36)
[2024-08-26 11:46] LABS: Absolute Lymphocyte Count 0.87 X10^3/uL (0.83-4.51); Absolute Neutrophil Count 6.8 X10^3/uL (2.0-7.7); Basophil# 0.02 X10^3/uL; Basophil% 0.3 % (0-1); Eosinophil# 0.04 X10^3/uL; Eosinophils% 0.5 % (0-5); Hematocrit 37.1 % (37-47); Hemoglobin 12.7 g/dL (12.0-15.0); Lymphocyte # 0.87 X10^3/ul (0.83-4.51); Lymphocyte % 10.9 % (19-41); Mean Corp Hgb Conc 34.2 g/dL (32-36); Mean Corpuscular Hgb 31.8 pg (27.0-32.0); Mean Corpuscular Volume 92.8 fL (81-99); Mean Platelet Vol. 10.8 fl (6.2-12.0); Monocyte# 0.25 X10^3/uL; Monocyte% 3.1 % (0-10); NRBC Flagged by Analyzer 0 % (0-5); Neutrophil # 6.75 X10^3/uL (2.7-7.7); Neutrophil % 84.7 % (47-70); Platelet Count 192 K/mm3 (150-450); RBC Distribution Width CV 12.5 % (11.6-14.6); RBC Distribution Width SD 42.7 fl (35.1-43.9)
[2024-08-26 12:17] LABS: Anion Gap 11 (5-15); BUN 13 mg/dL (4-19); BUN/Creat Ratio 22.7 RATIO (10-20); Calcium,Total 9.3 mg/dL (7.6-11.0); Carbon Dioxide 23.2 mmol/L (21.0-32.0); Chloride 102 mmol/L (98-108); Creatinine, Serum 0.56 mg/dL (0.70-1.20); EST Glomerular Filtration Rate 126 (>60); Estimated Creatinine Clearance 124.12 ml/min (50-250); Glucose 98 mg/dL (70-99); Potassium 3.8 mmol/L (3.3-5.1); Sodium Level 136 mmol/L (133-145)
[2024-08-26 12:48] VITALS: BP 110/77; PULSE 78; RESP 19; TEMP 36.8; O2SAT 97
== END 2024-08-26 13:05 | disposition home or self-care (01) ==
PROVIDERS: Emergency Provider Emergency Medicine; PCP Family Medicine; Visit Provider Emergency Medicine
DX: O21.1 Hyperemesis gravidarum with metabolic disturbance (principal); Z3A.15 15 weeks gestation of pregnancy; O99.282 Endocrine, nutritional and metabolic diseases complicating pregnancy, second trimester; E86.0 Dehydration
CPT/HCPCS: 80048; 85025; 96361; 96374; 99282; J2405

== ENCOUNTER 2024-09-02 11:38 | Outpatient (CLI) | payer BC, SELFPAY ==
[2024-09-02 11:44] VITALS: BP 102/55; PULSE 76; RESP 16; TEMP 36.1; O2SAT 100
[2024-09-02] MEDS: Dextrose 5%-Lactated Ringers 1,000 ML 999 ML IV (11:51)
[2024-09-02] MEDS: 0.9% NaCl Peripheral Flush Adult IV (11:51)
[2024-09-02 12:59] VITALS: BP 97/55; PULSE 82
== END 2024-09-02 23:59 | disposition home or self-care (01) ==
LOC: MEDOUTP 11:39
PROVIDERS: PCP Family Medicine; Referring Provider Obstetrics & Gynecology; Visit Provider Obstetrics & Gynecology
DX: E86.0 Dehydration (principal)
CPT/HCPCS: 96360; A4216

== ENCOUNTER 2024-09-11 10:29 | Outpatient (CLI) | payer BC, SELFPAY ==
[2024-09-11 10:44] VITALS: BP 100/62; PULSE 74; RESP 16; TEMP 36.3; O2SAT 95; BMI 19.2
[2024-09-11] MEDS: 0.9% NaCl Peripheral Flush Adult IV (10:52)
[2024-09-11] MEDS: Dextrose 5%-Lactated Ringers 1,000 ML 999 ML IV (10:52)
[2024-09-11 12:02] VITALS: BP 92/56; PULSE 75
== END 2024-09-11 23:59 | disposition home or self-care (01) ==
LOC: MEDOUTP 10:29
PROVIDERS: PCP Family Medicine; Referring Provider Obstetrics & Gynecology; Visit Provider Obstetrics & Gynecology
DX: E86.0 Dehydration (principal)
CPT/HCPCS: 96360; A4216

== ENCOUNTER → 2024-10-03 | Outpatient (CLI) | payer BC, SELFPAY ==
[2024-10-03 12:10] LABS: Absolute Lymphocyte Count 1.45 X10^3/uL (0.83-4.51); Absolute Neutrophil Count 6.3 X10^3/uL (2.0-7.7); Basophil# 0.02 X10^3/uL; Basophil% 0.2 % (0-1); Eosinophil# 0.08 X10^3/uL; Hematocrit 34.3 % (37-47); Hemoglobin 11.5 g/dL (12.0-15.0); Lymphocyte # 1.45 X10^3/ul (0.83-4.51); Lymphocyte % 17.6 % (19-41); Mean Corp Hgb Conc 33.5 g/dL (32-36); Mean Corpuscular Hgb 32.3 pg (27.0-32.0); Mean Corpuscular Volume 96.3 fL (81-99); Monocyte# 0.37 X10^3/uL; Monocyte% 4.5 % (0-10); NRBC Flagged by Analyzer 0 % (0-5); Neutrophil # 6.27 X10^3/uL (2.7-7.7); Platelet Count 203 K/mm3 (150-450); RBC Distribution Width CV 12.8 % (11.6-14.6); RBC Distribution Width SD 45.1 fl (35.1-43.9); Red Blood Count 3.56 M/mm3 (4.2-5.4); White Blood Count 8.3 K/mm3 (4.4-11.0)
[2024-10-03 13:26] LABS: HIV Nonreactive (Nonreactive)
== END | disposition home or self-care (01) ==
PROVIDERS: PCP Family Medicine; Referring Provider Obstetrics & Gynecology; Visit Provider Obstetrics & Gynecology
DX: R53.83 Other fatigue (principal)
CPT/HCPCS: 36415; 85025; 86703

== ENCOUNTER → 2024-12-02 | Outpatient (CLI) | payer BC, SELFPAY ==
[2024-12-02 16:41] LABS: Hematocrit 34.9 % (37-47); Hemoglobin 11.7 g/dL (12.0-15.0); Immature Granulocytes Count 0.040 X10^3/uL (0.0-0.0); Mean Corp Hgb Conc 33.5 g/dL (32-36); Mean Corpuscular Volume 96.7 fL (81-99); Mean Platelet Vol. 10.8 fl (6.2-12.0); NRBC Flagged by Analyzer 0 % (0-5); Platelet Count 211 K/mm3 (150-450); RBC Distribution Width CV 12.4 % (11.6-14.6); RBC Distribution Width SD 43.7 fl (35.1-43.9); Red Blood Count 3.61 M/mm3 (4.2-5.4); White Blood Count 6.7 K/mm3 (4.4-11.0)
[2024-12-02 17:42] LABS: Glucose Challenge Gest 1H 50g 96 mg/dL (70-140); HIV Nonreactive (Nonreactive); Syphilis Antibodies Nonreactive (Nonreactive)
--- OUTSIDE RECORDS SUMMARY | 2024-12-02 22:23 | XMS RPT_ITS | CCD ---
Author Organization [facility] CliniSyut Care Team Providers Care Global Product Manager Name Role Phone Tricia Euceda MD Unavailable [phone] Dr. Jorge Golden Primary Care Provider Dr. Jorge Golden Referring Provider MJ Morin NP Attending Provider Dr. Tricia Euceda Attending Provider CHANTEL COSBY, DR RUCKER Primary Care Physician SANIA SOUSA PA-C Attending Unavailluciano GOLDEN MD, DR RUCKER Primary Care Zan Golden MD, Dr. Rucker Primary Care Provider Chantel COSBY, Dr. Rucker Referring Provider Dr. Moon Reddy DO Attending Provider Dr. Moon Reddy DO Referring Provider Dr. Tricia Euceda MD Attending Provider Dr. Clarence Wolff DO Attending Provider [phone] Dr. Clarence Wolff DO Emergency Provider Dr. Tricia Euceda MD Referring Provider Chrissy Luacs CNM Attending Provider JENNY PEREZ Attending Unavailable CHAIM GOLDEN Primary Care UnavailTRICIA Pavon Referring UnavailChaim Bishop Primary Care Unavailable Tricia Euceda Attending Unavailable Chaim Golden Referring Unavailable Chrissy Lucas Attending Unavailable Chaim Golden Primary Care Unavailable Chaim Golden Referring Unavailable Carmelina Morin NP Attending Unavailable [place], [place]aim Referring Unavailable [place], [place] [facility] Unavailable [place], [place] [facility] Unavailable Tricia Euceda Attending Unavailable [place] Unavailable [place], [place] [facility] Unavailable Clarence Wolff Attending Unavailable [facility], [place] Primary Care Unavailable Vande Velde, Moon Attending Unavailabl e Vande Velde, Moon Referring Unavailabl e [place], [place] Primary [facility] Unavailable Marcanthony, Tricia Referring Unavailable Marcanthony, Tricia Attending Unavailable [place], [place] Primary [facility] Unavailable Marcanthony, Tricia Referring Unavailable Marcanthony, Tricia Attending Unavailable [place], [place] Primary [facility] Unavailable Marcanthony, Tricia Referring Unavailable Marcanthony, Tricia Attending Unavailable Vande Velde, Moon Attending Unavailabl e [place], [place] Primary [facility] Unavailable [place] Referring Unavailable Vande Velde, Moon Attending Unavailabl e [place], [facility] Referring Unavailable [facility] Primary Care Unavailable Chantel COSBY, Dr. Rucker Primary Care Provider Dr. Chaim Golden MD Referring Provider Dr. Moon Reddy DO Attending Provider Carmelina Giordano Attending Provider Allergies Allergy Classification Reported Allergen(s) Allergy Type Date of Onset Reaction(s) Facility (10 sources) Acetaminophen; Translations: [ACETAMINOPHEN] Drug Allergy 8 Vomiting [facility] (9 sources) Nitrous Oxide Drug Allergy 3 [facility] Comment on above: Hallucinations and v omiting (9 sources) Penicillin G Drug Allergy 3 [facility] Comment on above: unknown reaction- Fa paty hx (1 source) Penicillins; Translations: [PENICILLINS] Propensity to adverse reactions to drug (disorder) 8 [facility] (1 source) Acetaminophen Drug Allergy 5 [facility] (1 source) Nitrous Oxide Drug Allergy 5 [facility] (1 source) Penicillin Drug Allergy [facility] Medications Current Medications Medication Drug Class(es) Dates Sig (Normalized) Sig (Original) doxylamine succinate 25 mg oral tablet (4 sources) Start: 10-03-2024 take 1 tablet by mouth at bedtime as needed Doxylamine Succinate (Unisom (Doxylamine)) 25 mg tablet Active 25 mg PO AT BEDTIME as needed October 03, 2024 12:00am Ylt63-Cp-Nh2-Usu-Gf a-Fish Oil ( Gummy) 400 mcg-35 mg -25 mg-5 mg Tablet,Chewable (3 sources) Start: 04-12-2021 Atx99-Px-Hp6-Ich-W pa-Fish Oil ( Gummy) 400 mcg-35 mg -25 mg-5 mg Tablet,Chewable Active {tbl} PO DAILY April 12, 2021 1:00am Start: 04-12-2021 take 1 tablet by pamella th once daily Hzt13-Ma-Yv5-Oyt-Tal-Dqyn Oil ( Gummy) 400 mcg-35 mg -25 mg-5 mg Tablet,Chewable Active TABLET PO DAILY April 12, 2021 12:00am Start: 04-12-2021 take 1 tablet by pamella th once daily Hii54-Ss-Ue0-Iou-Zih-Pifs Oil ( Gummy) 400 mcg-35 mg -25 mg-5 mg Tablet,Chewable Active TABLET PO DAILY April 12, 2021 1:00am Sqk44-Zk-Md7-Xbl-Chj-Osnd Oi l 400 mcg-35 mg -25 mg-5 mg Tablet,Chewable (6 sources) Start: 04-12-2021 Dlq42-Qp-Fd2-B miramontes-Epa-Fish Oil 400 mcg-35 mg -25 mg-5 mg Tablet,Chewable Active 1 {tbl} PO DAILY April 12, 2021 1:00am Start: 04-12-2021 Nzb57-Eq-Wp9-X miramontes-Epa-Fish Oil 400 mcg-35 mg -25 mg-5 mg Tablet,Chewable Active 1 {tbl} PO DAILY April 12, 2021 1:00am vitamin b6 10 mg oral tablet (4 sources) Start: 10-03-2024 take 1 tablet by mouth once daily Pyridoxine (Vitamin B6) 10 mg tablet Active 10 mg PO daily October 03, 2024 12:00am Completed/Discontinued Medications Medication Drug Class(es) Dates Sig (Normalized) Sig (Original) antrinex (9 sources) Start: 05-31-2020 End: 08-24-2020 antrinex Discontinued PO 0 May 31, 2020 1:00am August 24, 2020 10:43am Start: 05-31-2020 End: 08-24-2020 antrinex Discontinued PO May 12:00am August 24, 2020 9:43am Start: 05-31-2020 End: 08-24-2020 antrinex Discontinued PO May 1:00am August 24, 2020 10:43am ascorbic acid 1000 mg extended release oral tablet (18 sources) Vitamin C Start: 04-12-2021 End: 06-24-2024 Ascorbic Acid (Vitamin C) (Vitamin C) 1,000 mg Capsule, Extended Release Discontinued 1000 NMA PO DAILY April 12, 2021 1:00am June 24, 2024 12:02pm Start: 04-12-2021 take 1 capsule by [facility] once daily Ascorbic Acid (Vitamin C) (Vitamin C) 1,000 mg Capsule, Extended Release Active 1000 CAP PO DAILY April 12, 2021 12:00am Start: 04-23-2018 End: 07-02-2018 take 1 tablet by mouth once daily Ascorbic Acid (Vitamin C) 500 MG tablet Discontinued 500 mg PO DAILY@0800 April 23, 2018 1:00am July 02, 2018 5:19pm supplement cholecalciferol 0.05 mg oral capsule (9 sources) Vitamin D Start: 05-31-2020 End: 08-24-2020 take 1 capsule by mouth once daily Cholecalciferol (Vitamin D3) 50 mcg (2,000 unit) capsule Discontinued 50 ug PO DAILY May 31, 2020 1:00am August 24, 2020 10:43am cholecalciferol 500 unt / folic acid 1 mg oral tablet (9 sources) Vitamin D Start: 04-12-2021 End: 06-24-2024 Vitamin D3-Folic Acid 500 unit- 1 mg Tablet Discontinued 1000 {tbl} PO DAILY April 12, 2021 1:00am June 24, 2024 12:02pm Desogestrel-Ethinyl Estradiol (18 sources) Progestin, Estrogen Start: 07-10-2019 End: 07-15-2019 take 0.15 tablet by mouth once daily Desogestrel-Ethinyl Estradiol (Apri) 0.15-0.03 mg tablet Discontinued 1 {tbl} PO daily July 10, 2019 1:00am July 15, 2019 2:37pm Start: 07-10-2019 End: 07-15-2019 take 0.15 tablet by mouth once daily Desogestrel-Ethinyl Estradiol (Apri) 0.15-0.03 mg tablet Discontinued 1 {tbl} PO daily July 10, 2019 1:00am July 15, 2019 2:37pm Start: 07-10-2019 End: 07-15-2019 take 0.15 tablet by mouth once daily Desogestrel-Ethinyl Estradiol (Apri) 0.15-0.03 mg tablet Discontinued 1 {tbl} PO daily July 10, 2019 1:00July 15, 2019 2:37pm Start: 07-10-2019 End: 07-15-2019 take 0.15 tablet by mouth once daily Desogestrel-Ethinyl Estradiol (Apri) 0.15-0.03 mg tablet Discontinued 1 {tbl} PO daily July 10, 2019 1:00am July 15, 2019 2:37pm Start: 07-10-2019 End: 07-15-2019 Desogestrel-Ethinyl Estradio l (Apri) 0.15-0.03 mg tablet Discontinued 1 TABLET PO daily July 10, 2019 12:00am July 15, 2019 1:37pm Start: 07-10-2019 End: 07-15-2019 Desogestrel-Ethinyl Estradio l (Apri) 0.15-0.03 mg tablet Discontinued 1 TABLET PO daily July 10, 2019 12:00am July 15, 2019 1:37pm Start: 07-10-2019 End: 07-15-2019 Desogestrel-Ethinyl Estradio l (Apri) 0.15-0.03 mg tablet Discontinued 1 TABLET PO daily July 10, 2019 1:00am July 15, 2019 2:37pm Start: 07-10-2019 End: 07-15-2019 Desogestrel-Ethinyl Estradio l (Apri) 0.15-0.03 mg tablet Discontinued 1 TABLET PO daily July 10, 2019 1:00am July 15, 2019 2:37pm docusate sodium 100 mg oral capsule (9 sources) Start: 05-20-2018 End: 07-02-2018 take 1 capsule by mouth once daily Docusate Sodium 100 MG capsule Discontinued 100 mg PO DAILY May 20, 2018 1:00am July 02, 2018 5:19pm constipation doxycycline monohydrate 100 mg oral capsule (18 sources) Tetracycline -class Drug Start: 05-31-2022 End: 06-07-2022 take 1 capsule by mouth twice daily Doxycycline Monohydrate 100 mg capsule Discontinued 100 mg PO TWICE A DAY 14 7 0 May 31, 2022 1:00am June 06, 2022 1:00am June 07, 2022 1:04am Start: 05-31-2020 End: 08-24-2020 take 1 capsule by mouth twice daily Doxycycline Monohydrate 100 mg capsule Discontinued 100 mg PO TWICE A DAY 20 May 31, 2020 1:00am August 24, 2020 10:43am drospirenone 4 mg oral tablet (9 sources) Progestin Start: 05-26-2021 End: 05-31-2022 take 1 tablet by mouth once daily Drospirenone (Contraceptive) 4 mg (28) tablet Discontinued 4 mg PO DAILY May 26, 2021 1:00am May 31, 2022 10:36am Drospirenone-Ethiny l Estradiol (9 sources) Progestin, Estrogen Start: 07-15-2019 End: 11-26-2019 take 3 tablets by mouth once daily Drospirenone-Ethinyl Estradiol (Gianvi (28)) 3-0.02 mg tablet Discontinued 1 {tbl} PO daily July 15, 2019 12:00am November 26, 2019 12:39pm Start: 07-15-2019 End: 11-26-2019 take 3 tablets by mouth once daily Drospirenone-Ethinyl Estradiol (Gianvi (28)) 3-0.02 mg tablet Discontinued 1 {tbl} PO daily July 15, 2019 12:00am November 26, 2019 12:39pm Start: 07-15-2019 End: 11-26-2019 Drospirenone-Ethinyl Estradi ol (Chase (28)) 3-0.02 mg tablet Discontinued 1 TABLET PO daily 84 July 14, 2019 11:00pm November 26, 2019 11:39am Start: 07-15-2019 End: 11-26-2019 Drospirenone-Ethinyl Estradi ol (Gianlogan (28)) 3-0.02 mg tablet Discontinued 1 TABLET PO daily 84 July 15, 2019 12:00am November 26, 2019 12:39pm Norethindrone-E.Estradiol-Ir on (20 sources) Estrogen Start: 11-26-2019 End: 05-31-2020 take 1 tablet by mouth once daily Norethindrone-E.Estradiol-Iron (Lo Loestrin Fe) 1 mg-10 mcg (24)/10 mcg (2) tablet Discontinued 1 {tbl} PO DAILY 140 8 November 26, 2019 12:00am May 31, 2020 2:58pm Start: 11-26-2019 End: 05-31-2020 take 1 tablet by mouth once daily Norethindrone-E.Estradiol-Iron (Lo Loest rin Fe) 1 mg-10 mcg (24)/10 mcg (2) tablet Discontinued 1 {tbl} PO DAILY 140 November 26, 2019 12:00am May 31, 2020 2:58pm Start: 11-26-2019 End: 05-31-2020 take 1 tablet by mouth once daily Norethindrone-E.Estradiol-Iron (Lo Loest rin Fe) 1 mg-10 mcg (24)/10 mcg (2) tablet Discontinued 1 TABLET PO DAILY 140 November 25, 2019 11:00pm May 31, 2020 1:58pm Start: 11-26-2019 End: 05-31-2020 take 1 tablet by mouth once daily Norethindrone-E.Estradiol-Iron (Lo Loest rin Fe) 1 mg-10 mcg (24)/10 mcg (2) tablet Discontinued 1 TABLET PO DAILY 140 November 26, 2019 12:00am May 31, 2020 2:58pm Start: 04-23-2019 End: 07-10-2019 Norethindrone-E.Estradiol-Ir on (Junel Fe 24) 1 mg-20 mcg (24)/75 mg (4) tablet Discontinued 1 {tbl} PO DAILY 84 3 April 23, 2019 1:00am July 10, 2019 12:43pm Start: 04-23-2019 End: 07-10-2019 Norethindrone-E.Estradiol-Ir on (Octoberl Fe 24) 1 mg-20 mcg (24)/75 mg (4) tablet Discontinued 1 {tbl} PO DAILY 84 April 23, 2019 1:00am July 10, 2019 12:43pm Start: 04-23-2019 End: 07-10-2019 take 1 tablet by mouth once daily Norethindrone-E.Estradiol-Iron (Octoberl Fe 24) 1 mg-20 mcg (24)/75 mg (4) tablet Discontinued 1 TABLET PO DAILY 84 April 23, 2019 12:00am July 10, 2019 11:43am Start: 04-23-2019 End: 07-10-2019 take 1 tablet by mouth once daily Norethindrone-E.Estradiol-Iron (Octoberl Fe 24) 1 mg-20 mcg (24)/75 mg (4) tablet Discontinued 1 TABLET PO DAILY April 23, 2019 1:00am July 10, 2019 12:43pm Start: 08-13-2017 End: 10-22-2017 Norethindrone-E.Estradiol-Ir on (Octoberl Fe 24) 1 mg-20 mcg (24)/75 mg (4) tablet Discontinued 1 {tbl} PO daily 84 4 August 13, 2017 3:45pm October 22, 2017 10:41am Start: 08-13-2017 End: 10-22-2017 Norethindrone-E.Estradiol-Ir on (Octoberl Fe 24) 1 mg-20 mcg (24)/75 mg (4) tablet Discontinued 1 {tbl} PO daily 84 August 13, 2017 3:45pm October 22, 2017 10:41am Start: 08-13-2017 End: 10-22-2017 take 1 tablet by mouth once daily Norethindrone-E.Estradiol-Iron (Octoberl Fe 24) 1 mg-20 mcg (24)/75 mg (4) tablet Discontinued 1 TABLET PO daily 84 August 13, 2017 2:45pm October 22, 2017 9:41am Start: 08-13-2017 End: 10-22-2017 take 1 tablet by mouth once daily Norethindrone-E.Estradiol-Iron (Junel Fe 24) 1 mg-20 mcg (24)/75 mg (4) tablet Discontinued 1 TABLET PO daily August 13, 2017 3:45pm October 22, 2017 10:41am Start: 05-17-2017 End: 08-13-2017 Norethindrone-E.Estradiol-Ir on 1 mg-20 mcg (24)/75 mg (4) tablet Discontinued 1 {tbl} PO daily 84 May 17, 2017 12:36pm August 13, 2017 3:46pm Start: 05-17-2017 End: 08-13-2017 Norethindrone-E.Estradiol-Ir on 1 mg-20 mcg (24)/75 mg (4) tablet Discontinued 1 {tbl} PO daily May 17, 2017 12:36pm August 13, 2017 3:46pm Start: 05-17-2017 End: 08-13-2017 take 1 tablet by mouth once daily Norethindrone-E.Estradiol-Iron Discontin ued 1 TABLET PO daily May 17, 2017 11:36am August 13, 2017 2:46pm Start: 05-17-2017 End: 08-13-2017 take 1 tablet by mouth once daily Norethindrone-E.Estradiol-Iron Discontin ued 1 TABLET PO daily May 17, 2017 12:36pm August 13, 2017 3:46pm Start: 05-17-2017 End: 05-17-2017 Norethindrone-E.Estradiol-Ir on 1 mg-20 mcg (24)/75 mg (4) tablet Discontinued 1 {tbl} PO daily 03 05May 17, 2017 1:00am May 17, 2017 12:37pm Start: 05-17-2017 End: 05-17-2017 Norethindrone-E.Estradiol-Ir on 1 mg-20 mcg (24)/75 mg (4) tablet Discontinued 1 {tbl} PO daily May 17, 2017 1:00am May 17, 2017 12:37pm Start: 05-17-2017 End: 05-17-2017 take 1 tablet by mouth once daily Norethindrone-E.Estradiol-Iron Discontin ued 1 TABLET PO daily May 17, 2017 12:00am May 17, 2017 11:37am Start: 05-17-2017 End: 05-17-2017 take 1 tablet by mouth once daily Norethindrone-E.Estradiol-Iron Discontin ued 1 TABLET PO daily May 17, 2017 1:00am May 17, 2017 12:37pm ethinyl estradiol 0.02 mg / levonorgestrel 0.1 mg oral tablet (9 sources) Progestin, Estrogen, Progestin-containing Intrauterine Device Start: 04-21-2019 End: 04-23-2019 take 1 tablet by mouth once daily Levonorgestrel-Ethinyl Estrad (Aviane) 0.1-20 mg-mcg tablet Discontinued 1 {tbl} PO daily 84 April 21, 2019 1:00am April 23, 2019 2:33pm take only active pills, discard inactive and start new pack immediately Norgestimate-Ethi nyl Estradiol (10 sources) Progestin, Estrogen Start: 05-17-2017 End: 05-17-2017 Norgestimate-Ethinyl Estradiol (Estarylla) 0.25-35 mg-mcg tablet Discontinued 1 {tbl} PO daily May 17, 2017 1:00am May 17, 2017 12:34pm Start: 05-17-2017 End: 05-17-2017 take 1 tablet by mouth once daily Norgestimate-Ethinyl Estradiol (Estarylla) 0.25-35 mg-mcg tablet Discontinued 1 TABLET PO daily May 17, 2017 12:00am May 17, 2017 11:34am Start: 05-17-2017 End: 05-17-2017 take 1 tablet by mouth once daily Norgestimate-Ethinyl Estradiol (Estarylla) 0.25-35 mg-mcg tablet Discontinued 1 TABLET PO daily May 17, 2017 1:00am May 17, 2017 12:34pm Start: 01-26-2017 take 1 tablet by pamella once daily SPRINTEC 28 0.25-35 MG-MCG TABS One tablet by mouth daily NORGESTIMATE-ETH ESTRADIOL [id number] Tricia Euceda MD evening primrose oil 500 mg oral capsule (9 sources) Start: 05-31-2020 End: 08-24-2020 take 1 capsule by mouth three times daily Evening [place] Oil 500 mg capsule Discontinued 500 mg PO THREE TIMES A DAY May 31, 2020 1:00am August 24, 2020 10:43am give with meal/snack ferrous gluconate 324 mg oral tablet (9 sources) Start: 04-22-2018 End: 05-20-2018 Ferrous Gluconate 324 MG tablet Discontinued 325 mg PO DAILY@799April 22, 2018 1:00am May 20, 2018 9:08am anemia Start: 04-22-2018 End: 05-20-2018 take 325 mg by mouth once daily Ferrous Gluconate Discontinued 325 MG PO DAILY@799April 22, 2018 12:00am May 20, 2018 8:08am ferrous sulfate 325 mg oral tablet (18 sources) Start: 11-22-2020 End: 05-26-2021 take 1 tablet by mouth once daily Ferrous Sulfate 325 mg (65 mg iron) tablet Discontinued 325 mg PO DAILY November 22, 2020 12:00am May 26, 2021 12:26pm Start: 05-20-2018 End: 07-02-2018 take 1 tablet by mouth once daily Ferrous Sulfate 325 mg (65 mg iron) tablet Discontinued 325 mg PO DAILY May 20, 2018 1:00am July 02, 2018 5:19pm fluconazole 150 mg oral tablet (9 sources) Azole Antifungal Start: 01-22-2020 End: 05-31-2020 take 1 tablet by mouth once Fluconazole (Diflucan) 150 mg tablet Discontinued 150 mg PO ONCE 1 0 January 22, 2020 12:00am May 31, 2020 2:58pm as a single dose Lactobacillus Combination No.8 (Adult Probiotic) 3 billion cell capsule (9 sources) Start: 08-24-2020 End: 09-21-2020 take 3 capsules by mouth once daily Lactobacillus Combination No.8 (Adult Probiotic) 3 billion cell capsule Discontinued 3000 NMA PO DAILY August 24, 2020 12:00am September 21, 2020 12:44pm administer with a meal Start: 08-24-2020 End: 09-21-2020 take 3 capsules by mouth once daily Lactobacillus Combination No.8 (Adult Probiotic) 3 billion cell capsule Discontinued 3000 MMU CELLS PO DAILY August 23, 2020 11:00pm September 21, 2020 11:44am administer with a meal Start: 08-24-2020 End: 09-21-2020 take 3 capsules by mouth once daily Lactobacillus Combination No.8 (Adult Probiotic) 3 billion cell capsule Discontinued 3000 MMU CELLS PO DAILY August 24, 2020 12:00am September 21, 2020 12:44pm administer with a meal magnesium gluconate 550 mg oral tablet (9 sources) Start: 05-31-2020 End: 08-24-2020 take 1 tablet by mouth once daily Magnesium 30 mg tablet Discontinued 30 mg PO DAILY May 31, 2020 1:00am August 24, 2020 10:45am metoclopramide 5 mg oral tablet (6 sources) Dopamine-2 Receptor Antagonist Start: 07-31-2024 End: 10-03-2024 take 1 tablet by mouth 30 minutes before mealtime Metoclopramide Hcl 5 mg tablet Discontinued 5 mg PO before meals 14 July 31, 2024 12:00am October 03, 2024 9:28am administer 30 minutes before meals mintran (9 sources) Start: 05-31-2020 End: 08-24-2020 mintran Discontinued PO 0 May 31, 2020 1:00am August 24, 2020 10:45am Start: 05-31-2020 End: 08-24-2020 mintran Discontinued PO Abhishek 2020 12:00am August 24, 2020 9:45am Start: 05-31-2020 End: 08-24-2020 mintran Discontinued PO Abhishek kayt 2020 1:00am August 24, 2020 10:45am norethindrone 0.35 mg oral tablet (9 sources) Start: 05-22-2018 End: 08-14-2018 take 1 tablet by mouth once daily Norethindrone (Contraceptive) (Zuleika) 0.35 mg tablet Discontinued 0.35 mg PO daily 84 May 22, 2018 1:00am August 14, 2018 4:01pm start day 1 of menstrual cycle ondansetron 4 mg disintegrating oral tablet (7 sources) Serotonin-3 Receptor Antagonist Start: 07-18-2024 End: 10-03-2024 take 1 tablet by mouth every six hours as needed for nausea and vomiting Ondansetron 4 mg tablet,disintegratin g Discontinued 4 mg PO EVERY 6 HOURS as needed for nausea and vomiting 30 July 18, 2024 12:00am October 03, 2024 9:28am Prenat.Vits,Korey,Min- Iron-Folic ( Vitamin) tablet (9 sources) Start: 10-22-2017 End: 05-31-2020 Prenat.Vits,Korey,Min- Iron-Folic ( Vitamin) tablet Discontinued 1 {tbl} PO daily October 22, 2017 12:00am May 31, 2020 2:58pm Start: 10-22-2017 End: 05-31-2020 Prenat.Vits,Korey,Azd-Hegr-Heg ic ( Vitamin) tablet Discontinued 1 {tbl} PO daily October 22, 2017 12:00am May 31, 2020 2:58pm Start: 10-22-2017 End: 05-31-2020 take 1 tablet by mouth once daily Prenat.Vits,Korey,Olk-Onjm-Nwmxb ( Vitamin) tablet Discontinued 1 TABLET PO daily October 21, 2017 11:00pm May 31, 2020 1:58pm Start: 10-22-2017 End: 05-31-2020 take 1 tablet by mouth once daily Prenat.Vits,Korey,Uhz-Wvtf-Xjbxd ( Vitamin) tablet Discontinued 1 TABLET PO daily October 22, 2017 12:00am May 31, 2020 2:58pm prochlorperazine 10 mg oral tablet (6 sources) Phenothiazine Start: 08-26-2024 End: 10-03-2024 take 1 tablet by mouth every eight hours as needed for nausea and vomiting Prochlorperazine Maleate (Compazine) 10 mg tablet Discontinued 10 mg PO Q8H as needed for nausea and vomiting 90 3 August 26, 2024 12:00am October 03, 2024 9:27am seasonal allergy supplement (9 sources) Start: 05-31-2020 End: 09-21-2020 seasonal allergy supplement Discontinued PO 0 May 31, 2020 1:00am September 21, 2020 12:44pm Start: 05-31-2020 End: 09-21-2020 seasonal allergy supplement Discontinued PO May 31, 2020 12:00am September 21, 2020 11:44am Start: 05-31-2020 End: 09-21-2020 seasonal allergy supplement Discontinued PO May 31, 2020 1:00am September 21, 2020 12:44pm sertraline 50 mg oral tablet (9 sources) Serotonin Reuptake Inhibitor Start: 04-06-2020 End: 05-31-2020 take 1 tablet by mouth once daily Sertraline (Zoloft) 50 mg tablet Discontinued 50 mg PO DAILY 05 05April 06, 2020 1:00am May 31, 2020 2:58pm Problems Active Problems Problem Classification Problem Date Documented Date Episodic/Chronic Anxiety disorders (9 sources) Anxiety; Translations: [Anxiety disorder, unspecified] 04-14-2021 Chronic Comment on above: counseling. No meds. 02/10 stable Cardiac dysrhythmias (9 sources) Fluttering heart; Translations: [Other specified cardiac arrhythmias] 04-01-2021 Chronic Early or threatened labor (9 sources) Threatened premature labor - not delivered ; Translations: [False labor before 37 completed weeks of gestation, unspecified trimester] 05-21-2018 Episodic Fluid and electrolyte disorders (7 sources) Dehydration; Translations: [Dehydration] Onset: 09-16-2024 09-03-2024 Episodic Inflammatory diseases of female pelvic organs (10 sources) Inflammation of cervix; Translations: [Inflammatory disease of cervix uteri] 08-24-2022 Episodic Comment on above: melissa Babcock IC X 2 wk. Call with recurrence Joint disorders and dislocations; trauma-related (1 source) Dislocation of patellofemoral joint; Translations: [Unspecified dislocation of left patella, subsequent encounter] Episodic Malaise and fatigue (1 source) Other fatigue; Translations: [Other fatigue] Onset: 10-09-2024 Episodic Other complications of (9 sources) Anemia of ; Translations: [Anemia complicating , unspecified trimester] 05-21-2018 Chronic Other complications of (9 sources) Fundal height low for dates; Translations: [Uterine size-date discrepancy, third trimester] 04-14-2021 Episodic Comment on above: growth us ordered an d nl Other complications of (9 sources) High risk ; Translations: [Supervision of high risk , unspecified, unspecified trimester] 04-14-2021 Episodic Comment on above: PRR KIRK 1 boy PC: Loyd, Spouse:Francisco Javier Other complications of (2 sources) Nausea and vomiting; Translations: [Vomiting of , unspecified] 02-25-2021 Episodic Other complications of (8 sources) Vomiting of , unspecified; Translations: [Nausea and vomiting during ] Onset: 08-29-2024 02-25-2021 Episodic Comment on above: zofran; failed B6 an d unisom; 8/16 improved Other complications of (6 sources) Hyperemesis gravidarum; Translations: [Mild hyperemesis gravidarum] 09-03-2024 Episodic Other female genital disorders (9 sources) History of premature labor; Translations: [Personal history of pre-term labor] 11-22-2020 Episodic Comment on above: PTL first at 34 wk, stop with fluids. Full term delivery Other female genital disorders (15 sources) Ectropion of cervix; Translations: [Erosion and ectropion of cervix uteri] 08-24-2022 Episodic Comment on above: silver nitrate treat ed, if fails recommend vaginal estrogen Other female genital disorders (13 sources) Retroverted uterus; Translations: [Malposition of uterus] 06-24-2024 Episodic Other nutritional; endocrine; and metabolic disorders (13 sources) Underweight; Translations: [Underweight] 06-24-2024 Episodic Comment on above: BMI 17.8 Other and delivery including normal (20 sources) Vaginal delivery; Translations: [Encounter for full-term uncomplicated delivery] Onset: 10-29-2024 05-31-2022 Episodic Comment on above: IAL SM covid pos in labor, boy December , KIRK 02/21/25, PC LoydEmmett, Francisco Javier declined NIPT & Rose ier testing GBS neg., Declines c arrier, ntd, and NIPT screen; NL anatomy. trouble with vicrylrapide last , if needs repair use chromic. PRR , KIRK , surprise PC LoydEmmett, Francisco Javier declined NIPT & Rose ier testing, normal anatomy Other screening for suspected conditions (not mental disorders or infectious disease) (1 source) No current problems or disability 01-27-2017 Residual codes; unclassified (1 source) 23 weeks gestation of ; Translations: [23 weeks gestation of ] Onset: 10-29-2024 Episodic Residual codes; unclassified (1 source) 19 weeks gestation of ; Translations: [19 weeks gestation of ] Onset: 10-03-2024 Episodic Past or Other Problems Problem Classification Problem Date Documented Da te Episodic/Chronic Other female genital disorders (2 sources) Erosion and ectropion of cervix uteri; Translations: [Erosion and ectropion of cervix] Onset: 07-18-2024 08-24-2022 Episodic Other female genital disorders (1 source) Malposition of uterus; Translations: [Malposition of uterus] Onset: 07-18-2024 Episodic Other nutritional; endocrine; and metabolic disorders (1 source) Underweight; Translations: [Underweight] Onset: 07-18-2024 Episodic Other nutritional; endocrine; and metabolic disorders (1 source) Body mass index (BMI) 19.9 or less, adult; Translations: [Body mass index [BMI] 19.9 or less, adult] Onset: 07-18-2024 Episodic Unclassified (2 sources) Normal labor; Translations: [Active labor at term] 04-14-2021 Results Test Name Value Interpretation Reference Range Facility Laboratory - Chemistry and C hemistry - challengeOrdered By: Moon Rosales on 10-29-2024 Glucose Ql (U) Negative [facility] Laboratory - UrinalysisOrder ed By: Moon Rosales on 10-29-2024 Protein Ql (U) Negative [facility] Engineering Mgr Office Visit Reporton 10-29-2024 Engineering Mgr Office Visit Report [facility] [address], [place] [address] OFFICE VISIT Date of Service: 10/29/24 MR#: [id number] Acct: [id number] Name: FRANCINE MANTILLA RAJIV Rep #: [id number] : 1995 Provider: Dr. Moon Singh DO Age/Sex: 29/F Location[place] [facility] [place] Status: Signed Intake Vital Signs 09/05/24 09:48 10/03/24 09:19 10/29/24 11:30 10/29/24 11:31 Height 5 ft 6 in 5 ft 6 in 5 ft 6 in 5 ft 6 in Weight: 128 lb 4 oz BMI 20.7 BP 101/67 Intake Visit Reasons: 24 wk ob [employer] Worker Required: No Is patient in pain?: No Allergies penicillin G Allergy (Mild, Verified 10/29/24 11:30) Other nitrous oxide Allergy (Verified 10/29/24 11:30) Other acetaminophen (From Tylenol) Adverse Reaction (Severe, Verified 10/29/24 11:30) Vomiting Medications ???Medication ???Instructions ???Recorded ???Confirmed ???Type [id number] 400 mcg-om3 35 mg-dha 25 1 tab PO DAILY 04/12/21 10/29/24 History mg-epa 5 mg-fish oil chewable tablet doxylamine succinate 25 mg tablet 25 mg PO QHS PRN 10/03/24 5 History (Unisom (doxylamine)) pyridoxine (vitamin B6) 10 mg 10 mg PO QDAY 10/03/24 10/29/24 Hi story tablet Last Menstrual Period: 05/17/24 Zika: Zika virus screening: Negative : No PFSH PFSH Medical History Anxiety Vaginal delivery Surgical History H/O knee surgery Kinderhook teeth extracted Family History Grandfather Cancer Paternal Social History adopted: No household members: spouse and children housing: house number of children: 2 current occupational status: unemployed current occupation: [employer] pets and animals: No history of recent travel: No sexually active: Yes Smoking Status: Never smoker alcohol intake: current alcohol intake frequency: holidays/special occasions only details: not while substance use type: does not use well-balanced diet: daily or most days caffeine: No eating out: rarely or never during the past year weight has: remained stable what type of physical activity do you participate in: walking and weight training frequency: 3-4 times per week duration: 45-60 minutes/day romero/sabianist: Congregation seatbelt use: always do you feel safe at home: Yes 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 Date Name GA/Weeks Outcome Route Bth Weight Infant Gen Labor Lgth Anesthesia Del Locatn Provider FOB 05/20/18 Loyd 37 live - full term 7lbs 0oz Male 8 hours epidural [facility] BELA Mcintyre 04/13/21December 37 live - full term 6#4oz Male epidural [facility] Dr. Ok Mcintyre Delivery Date: 05/20/18 Last Updated by: Shyla Hurley MD 34 wk PTL: fluids and stopped. steroids. Thinks related to noravirus. Pushed for 20 min. 2nd degree with abscess of suture Delivery Date: 04/13/21 Last Updated by: Radha Espinoza COVID + at , IAL HPI 24 wk ob Details: FRANCINE MANTILLA is a 29 year old who presents for routine OB visit. OB Visit KIRK Calculator Estimated Delivery Date Method Current WG Current Estimate 02/21/25 LMP (Certain) 23w 4d Other Estimates 02/20/25 Ultrasound #1 23w 5d Expected Delivery Route/Plan Labor Preferences- CB/BF classes: [] labor support person: [] labor intervention preferences: [] pain management options preferred: [] cut cord/dad catch: [] : [] PP control planned: [] discussed possible routes of delivery and associated risks: [] special requests: [] Specific Issue/Plans Covid status: [] Flu vaccine: [] Tdap vaccine: [] Rhogam: [] LARC form signed: [] Problem list reviewed and updated with the most current plan of care details and appropriate orders placed. Relevant counseling for the gestational age provided. Continue routine care and follow up unless otherwise noted in visit notes/problem list details Initial Weight: 116 lb Date -???-???-???-???-?? ?-???-???-???-???-? ??-???-???- EGA Weight BP Urine Prot -???-???-???-???-?? ?-???-???-???-???-? ??-???-???- Glucose FHR FuHt Pres Dilation -???-???-???-???-?? ?-???-???-???-???-? ??-???-???- Effaced St Visit Note 07/18/24 -???-???-???-???-?? ?-???-???-???-???-? ??-???-???- 8w 6d 116 lb 8 oz (+8 oz) 107/69 -???-???-???-???-?? ?-???-???-???-???-? ??-???-???- 178 -???-???-???-???-?? ?-? (more content not included)... Normal [facility] Absolute lymphocyte countOrd ered By: Tricia Ok on 10-03-2024 Lymphocytes Auto (Unsp spec) [#/Vol] 1.45 10*3/uL 0.83-4.51 [facility] Absolute neutrophil countOrd ered By: Tricia Euceda on 10-03-2024 Neutrophils (Bld) [#/Vol] 6.3 10*3/uL 2.0-7.7 [facility] Automated lymphocyte count a s percentage of total leukocytesOrdered By: Tricia Euceda on 10-03-2024 Lymphocytes/100 WBC Auto (Unsp spec) 17.6 % Low 19-41 [facility] Basophil percentageOrdered B y: Tricia Euceda on 10-03-2024 Basophils/100 WBC (Bld) 0.2 % 0-1 [facility] CBC W/Diff, Automatedon 09-06 Absolute Lymph 1.45 X10 3/uL Normal 0.83-4.51 [facility] Comment on above: Performed By: #### L 3890.6006, L100.0100 ####[facility] [address] [place], [place], [id number] Absolute Neut 6.3 X10 3/uL Normal 2.0-7.7 [facility] Comment on above: Performed By: #### L 3890.6006, L100.0100 ####[facility] [address] [place], [address] Basophils/100 WBC (Bld) 0.2 % Normal 0-1 [facility] Comment on above: Performed By: #### L 3890.6006, L100.0100 ####[facility] [address] [place], [address] Eosinophils/100 WBC (Bld) 1.0 % Normal 0-5 [facility] Comment on above: Performed By: #### L 3890.6006, L100.0100 ####[facility] [address] [place], [address] Erythrocyte distribution width (RBC) [Ratio] 12.8 % Normal 11.6-14.6 [facility] Comment on above: Performed By: #### L 3890.6006, L100.0100 ####[facility] [address] [place], [address] Hematocrit (Bld) [Volume fraction] 34.3 % Low 37-47 [facility] Comment on above: Performed By: #### L 3890.6006, L100.0100 ####[facility] [address] [place], [address] Hemoglobin (Bld) [Mass/Vol] 11.5 g/dL Low 12.0-15.0 [facility] Comment on above: Performed By: #### L 3890.6006, L100.0100 ####[facility] [address] [place], [address] IG% 0.700 Normal 0.0-0.9 [facility] Comment on above: Result Comment: IG% - Immature Granulocytes (promyelocytes, myelocytes and metamyelocytes) > 1% indicates that a LEFT SHIFT is Present. Performed By: #### L 3890.6006, L100.0100 ####[facility] [address] [place], [address] Lymphocytes/100 WBC (Bld) 17.6 % Low 19-41 [facility] Comment on above: Performed By: #### L 3890.6006, L100.0100 ####[facility] [address] [place], [address] MCH (RBC) [Entitic mass] 32.3 pg High 27.0-32.0 [facility] Comment on above: Performed By: #### L 3890.6006, L100.0100 ####[facility] [address] [place], [address] MCHC (RBC) [Mass/Vol] 33.5 g/dL Normal 32-36 [facility] Comment on above: Performed By: #### L 3890.6006, L100.0100 ####[facility] [address] [place], [address] MCV (RBC) [Entitic vol] 96.3 fL Normal 81-99 [facility] Comment on above: Performed By: #### L 3890.6006, L100.0100 ####[facility] [address] [place], [address] Monocytes/100 WBC (Bld) 4.5 % Normal 0-10 [facility] Comment on above: Performed By: #### L 3890.6006, L100.0100 ####[facility] [address] [place], [address] Neutrophils/100 WBC (Bld) 76.0 % High 47-70 [facility] Comment on above: Performed By: #### L 3890.6006, L100.0100 ####[facility] [address] [place], [address] Nucleated RBC (Bld) [#/Vol] 0 10*3/uL Normal 0-5 [facility] Comment on above: Performed By: #### L 3890.6006, L100.0100 ####[facility] [address] [place], [address] Platelet mean volume (Bld) [Entitic vol] 11.0 fL Normal 6.2-12.0 [facility] Comment on above: Performed By: #### L 3890.6006, L100.0100 ####[facility] [address] [place], [address] Platelets (Bld) [#/Vol] 203 10*3/uL Normal 150-450 [facility] Comment on above: Performed By: #### L 3890.6006, L100.0100 ####[facility] [address] [place], [address] RBC (Bld) [#/Vol] 3.56 10*6/uL Low 4.2-5.4 [facility] Comment on above: Performed By: #### L 3890.6006, L100.0100 ####[facility] [address] [place], [address] RDW SD 45.1 fl High 35.1-43.9 [facility] Comment on above: Performed By: #### L 3890.6006, L100.0100 ####[facility] [address] [place], [address] WBC (Bld) [#/Vol] 8.3 10*3/uL Normal 4.4-11.0 [facility] Comment on above: Performed By: #### L 3890.6006, L100.0100 ####[facility] [address] [place], [address] Eosinophil percentageOrdered By: Tricia Euceda on 10-03-2024 Eosinophils/100 WBC (Bld) 1.0 % 0-5 [facility] Erythrocyte distribution wid th ratioOrdered By: Tricia Euceda on 10-03-2024 Erythrocyte distribution width (RBC) [Ratio] 12.8 % 11.6-14.6 [facility] Erythrocyte distribution wid th standard deviationOrdered By: Tricia Euceda on 10-03-2024 Erythrocyte distribution width (RBC) [Ratio] 45.1 fl High 35.1-43.9 [facility] HIVon 10-03-2024 HIV Non-Reactive Normal Nonreactive [facility] Comment on above: Result Comment: Non- Reactive Reactive Repeatedly reactive samples must be confirmed according to CDC recommended confirmatory algorithms. The subresults for either HIVAG or AHIV can be used as an aid in the selection of the confirmation algorithm for reactive samples. Send out specimens with Reactive results to [facility] for confirmation. Order the HIV antibody detection and differentiation: lc#[id number] Performed By: #### L 3890.6006, L100.0100 ####[facility] [address] [place], [place], [id number] Hematocrit Auto (Bld) [Volum e fraction]Ordered By: Tricia Euceda on 10-03-2024 Hematocrit (Bld) [Volume fraction] 34.3 % Low 37-47 [facility] Hemoglobin measurementOrdere d By: Tricia Euceda on 10-03-2024 Hemoglobin (Bld) [Mass/Vol] 11.5 g/dL Low 12.0-15.0 [facility] Immature granulocytes/100 WB C Auto (Bld)Ordered By: Tricia uEceda on 10-03-2024 Immature granulocytes/100 WBC (Bld) 0.700 % 0.0-0.9 [facility] Comment on above: IG% - Immature Granu locytes (promyelocytes, myelocytes and metamyelocytes) > 1% indicates that a LEFT SHIFT is Present. Laboratory - Chemistry and C hemistry - challengeOrdered By: Tricia Euceda on 10-03-2024 Glucose Ql (U) Negative [facility] Laboratory - UrinalysisOrder ed By: Tricia Euceda on 10-03-2024 Protein Ql (U) Negative [facility] MCV (mean corpuscular volume ) determinationOrdered By: Tricia Euceda on 10-03-2024 MCV (RBC) [Entitic vol] 96.3 fL 81-99 [facility] Mean corpuscular hemoglobin (MCH) determinationOrdered By: Tricia Euceda on 10-03-2024 MCH (RBC) [Entitic mass] 32.3 pg High 27.0-32.0 [facility] Mean corpuscular hemoglobin concentration (MCHC) determinationOrdered By: Tricia Euceda on 10-03-2024 MCHC (RBC) [Mass/Vol] 33.5 g/dL 32-36 [facility] Mean platelet volume determi nationOrdered By: Tricia Euceda on 10-03-2024 Platelet mean volume (Bld) [Entitic vol] 11.0 fL 6.2-12.0 [facility] Monocyte percentageOrdered B y: Tricia Euceda on 10-03-2024 Monocytes/100 WBC (Bld) 4.5 % 0-10 [facility] Neutrophil percentageOrdered By: Tricia Euceda on 10-03-2024 Neutrophils/100 WBC (Bld) 76.0 % High 47-70 [facility] No Panel InformationOrdered By: Tricia Euceda on 10-03-2024 HIV (1&2) Antibody Non-Reactive Nonreactive [facility] Comment on above: Non-ReactiveReactive Repeatedly reactive samples must be confirmed according to CDC recommended confirmatory algorithms. The subresults for either HIVAG or AHIV can be used as an aid in the selection of the confirmation algorithm for reactive samples.Send out specimens with Reactive results to [facility] for confirmation.Order the HIV antibody detection and differentiation: #[id number] Nucleated red blood cell per centageOrdered By: Tricia Euceda on 10-03-2024 Nucleated RBC/100 WBC (Bld) [Ratio] 0 % 0-5 [facility] Engineering Mgr Office Visit Reporton 10-03-2024 Engineering Mgr Office Visit Report [facility]'[address], [address] [place] [address] OFFICE VISIT Date of Service: 10/03/24 MR#: [id number] Acct: [id number] Name: FRANCINE MANTILLA Rep #: [id number] : 1995 Provider: Dr. Tricia hunter MD Age/Sex: 29/F Location: [facility] [place] Status: Signed Intake Vital Signs 08/06/24 09:13 09/11/24 10:44 10/03/24 09:15 10/03/24 09:19 Height 5 ft 6 in 5 ft 6 in 5 ft 6 in 5 ft 6 in Weight: 125 lb 2 oz BMI 20.2 BP 105/70 Intake Visit Reasons: 20 wk ob [employer] Worker Required: No Is patient in pain?: No Feel stressed/tense/nerv ous/anxious/difficu lty sleeping: not at all Allergies penicillin G Allergy (Mild, Verified 10/03/24 09:15) Other nitrous oxide Allergy (Verified 10/03/24 09:15) Other acetaminophen (From Tylenol) Adverse Reaction (Severe, Verified 10/03/24 09:15) Vomiting Medications ???Medication ???Instructions ???Recorded ???Confirmed ???Type [id number] 400 mcg-om3 35 mg-dha 25 1 tab PO DAILY 04/12/21 10/03/24 History mg-epa 5 mg-fish oil chewable tablet doxylamine succinate 25 mg tablet 25 mg PO QHS PRN 10/03/24 5 History (Unisom (doxylamine)) pyridoxine (vitamin B6) 10 mg 10 mg PO QDAY 10/03/24 10/03/24 Hi story tablet Last Menstrual Period: 05/17/24 Zika: Zika virus screening: Negative : No PFSH PFSH Medical History Anxiety Vaginal delivery Surgical History H/O knee surgery Kinderhook teeth extracted Family History Grandfather Cancer Paternal Social History adopted: No household members: spouse and children housing: house number of children: 2 current occupational status: unemployed current occupation: [employer] pets and animals: No history of recent travel: No sexually active: Yes Smoking Status: Never smoker alcohol intake: current alcohol intake frequency: holidays/special occasions only details: not while substance use type: does not use well-balanced diet: daily or most days caffeine: No eating out: rarely or never during the past year weight has: remained stable what type of physical activity do you participate in: walking and weight training frequency: 3-4 times per week duration: 45-60 minutes/day romero/sabianist: [employer] seatbelt use: always do you feel safe at home: Yes 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 Date Name GA/Weeks Outcome Route Bth Weight Gen Labor Lgth Anesthesia Del Locatn Provider EKTA 05/20/18 Loyd 37 live - full term 7lbs 0oz Male 8 hours epidural [facility] BELA Mcintyre 04/13/21December live - full term 6#4oz Male epidural [facility] Dr. Ok Mcintyre Delivery Date: 05/20/18 Last Updated by: Shyla Hurley MD 34 wk PTL: fluids and stopped. steroids. Thinks related to noravirus. Pushed for 20 min. 2nd degree with abscess of suture Delivery Date: 04/13/21 Last Updated by: Radha Espinoza COVID + at , IAL HPI 20 wk ob Details: FRANCINE MANTILLA is a 29 year old who presents for routine OB visit. OB Visit KIRK Calculator Estimated Delivery Date Method Current WG Current Estimate 02/21/25 LMP (Certain) 19w 6d Other Estimates 02/20/25 Ultrasound #1 20w 0d Expected Delivery Route/Plan Labor Preferences- CB/BF classes: [] labor support person: [] labor intervention preferences: [] pain management options preferred: [] cut cord/dad catch: [] : [] PP control planned: [] discussed possible routes of delivery and associated risks: [] special requests: [] Specific Issue/Plans Covid status: [] Flu vaccine: [] Tdap vaccine: [] Rhogam: [] LARC form signed: [] Problem list reviewed and updated with the most current plan of care details and appropriate orders placed. Relevant counseling for the gestational age provided. Continue routine care and follow up unless otherwise noted in visit notes/problem list details Initial Weight: Not Recorded Date -???-???-???-???-?? ?-???-???-???-???-? ??-???-???- EGA Weight BP Urine Prot -???-???-???-???-?? ?-???-???-???-???-? ??-???-???- Glucose FHR FuHt Pres Dilation -???-???-???-???-?? ?-???-???-???-???-? ??-???-???- Effaced St Visit Note 07/18/24 -???-???-???-???-?? ?-???-???-???-???-? ??-???-???- 8w 6d 116 lb 8 oz 107/69 -???-???-???-???-?? ?-??? (more content not included)... Normal [facility] Platelet countOrdered By: Douglas Euceda on 10-03-2024 Platelets (Bld) [#/Vol] 203 10*3/uL 150-450 [facility] RBC Auto (Bld) [#/Vol]Ordere d By: Tricia Euceda on 10-03-2024 RBC (Bld) [#/Vol] 3.56 10*6/uL Low 4.2-5.4 [facility] White blood cell (WBC) count Ordered By: Tricia Euceda on 10-03-2024 WBC (Bld) [#/Vol] 8.3 10*3/uL 4.4-11.0 [facility] Laboratory - Chemistry and C hemistry - challengeOrdered By: Chrissy Lucas on 09-05-2024 Glucose Ql (U) Negative [facility] - UrinalysisOrder ed By: Chrissy Lucas on 09-05-2024 Protein Ql (U) Negative [facility] Engineering Mgr Office Visit Reporton 09-05-2024 Engineering Mgr Office Visit Report [place] [facility] [address] [place] [address], [address] [place] [address] OFFICE VISIT Date of Service: 09/05/24 MR#: [id number] Acct: [id number] Name: FRANCINE MANTILLA Rep #: [id number] : 1995 Provider: MONSE Pacheco ams Age/Sex: 29/F Location: [facility] [place] Status: Signed Intake Vital Signs 07/18/24 08:49 09/02/24 11:44 09/05/24 09:48 Height 5 ft 6 in 5 ft 6 in 5 ft 6 in Weight: 119 lb 2 oz BMI 19.2 BP 101/64 Intake Visit Reasons: 16 wk ob Chief Complaint: 16wk OB [employer] Worker Required: No Is patient in pain?: No Allergies penicillin G Allergy (Mild, Verified 09/05/24 09:46) Other nitrous oxide Allergy (Verified 09/05/24 09:46) Other acetaminophen (From Tylenol) Adverse Reaction (Severe, Verified 09/05/24 09:46) Vomiting Medications ???Medication ???Instructions ???Recorded ???Confirmed ???Type [id number] 400 mcg-om3 35 mg-dha 25 1 tab PO DAILY 04/12/21 09/05/24 History mg-epa 5 mg-fish oil chewable tablet ondansetron 4 mg disintegrating 4 mg PO Q6H PRN nausea and 5 09/05/24 Rx tablet vomiting #30 tabs metoclopramide HCl 5 mg tablet 5 mg PO QAC #14 tabs 07/31/24 05/07/01 Rx prochlorperazine maleate 10 mg 10 mg PO Q8H PRN nausea and 09/05/24 Rx tablet (Compazine) vomiting #90 tabs Last Menstrual Period: 05/17/24 : No PFSH PFSH Medical History Anxiety Vaginal delivery Surgical History H/O knee surgery Kinderhook teeth extracted Family History Grandfather Cancer Paternal Social History adopted: No household members: spouse and children housing: house number of children: 2 current occupational status: unemployed current occupation: [employer] pets and animals: No history of recent travel: No sexually active: Yes Smoking Status: Never smoker alcohol intake: current alcohol intake frequency: holidays/special occasions only details: not while substance use type: does not use well-balanced diet: daily or most days caffeine: No eating out: rarely or never during the past year weight has: remained stable what type of physical activity do you participate in: walking and weight training frequency: 3-4 times per week duration: 45-60 minutes/day romero/sabianist: [employer] seatbelt use: always do you feel safe at home: Yes 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 Date Name GA/Weeks Outcome Route Bth [facility]/20/18 Loyd 37 live - full term 7lbs 0oz Male 8 hours epidural [facility] BELA Mcintyre 04/13/21December 37 live - full term 6#4oz Male epidural [facility] Dr. Ok Mcintyre Delivery Date: 05/20/18 Last Updated by: Shyla Hurley MD 34 wk PTL: fluids and stopped. steroids. Thinks related to noravirus. Pushed for 20 min. 2nd degree with abscess of suture Delivery Date: 04/13/21 Last Updated by: Radha Espinoza COVID + at , IAL HPI 16 wk ob Details: FRANCINE MANTILLA is a 29 year old who presents for routine OB visit. OB Visit KIRK Calculator Estimated Delivery Date Method Current WG Current Estimate 02/21/25 LMP (Certain) 15w 6d Other Estimates 02/20/25 Ultrasound #1 16w 0d Expected Delivery Route/Plan Labor Preferences- CB/BF classes: [] labor support person: [] labor intervention preferences: [] pain management options preferred: [] cut cord/dad catch: [] : [] PP control planned: [] discussed possible routes of delivery and associated risks: [] special requests: [] Specific Issue/Plans Covid status: [] Flu vaccine: [] Tdap vaccine: [] Rhogam: [] LARC form signed: [] Problem list reviewed and updated with the most current plan of care details and appropriate orders placed. Relevant counseling for the gestational age provided. Continue routine care and follow up unless otherwise noted in visit notes/problem list details Initial Weight: Not Recorded Date -???-???-???-???-?? ?-???-???-???-???-? ??-???-???- EGA Weight BP Urine Prot -???-???-???-???-?? ?-???-???-???-???-? ??-???-???- Glucose FHR FuHt Pres Dilation -???-???-???-???-?? ?-???-???-???-???-? ??-???-???- Effaced St Visit Note 07/18/24 -???-???-???-???-?? ?-???-???-???-???-? ??-???-???- 8w 6d 116 lb 8 oz 107/69 -???-???-???-???-?? ?-???-?? (more content not included)... Normal [facility] Absolute lymphocyte countOrd ered By: Clarence Wolff on 08-26-2024 Lymphocytes Auto (Unsp spec) [#/Vol] 0.87 10*3/uL 0.83-4.51 [facility] Absolute neutrophil countOrd ered By: Clarence Wolff on 08-26-2024 Neutrophils (Bld) [#/Vol] 6.8 10*3/uL 2.0-7.7 [facility] Anion gap in Serum or Plasma Ordered By: Clarence Wolff on 08-26-2024 Anion gap [Moles/Vol] 11 mmol/L 5-15 [facility] Automated lymphocyte count a s percentage of total leukocytesOrdered By: Clarence Wolff on 08-26-2024 Lymphocytes/100 WBC Auto (Unsp spec) 10.9 % Low 19-41 [facility] BUN/creatinine ratioOrdered By: Clarence Wolff on 08-26-2024 Urea nitrogen/Creatinine [Mass ratio] 22.7 mg/mg High 10-20 [facility] Basic Metabolic Profile (BMP )on 08-26-2024 BUN/CRE 22.7 RATIO High 10-20 [facility] Comment on above: Performed By: #### L 100.0100, L500.2500 #### [facility] [address] [place], [address] Calcium [Mass/Vol] 9.3 mg/dL Normal 7.6-11.0 [facility] Comment on above: Performed By: #### L 100.0100, L500.2500 #### [facility] [address] [place], [address] Chloride [Moles/Vol] 102 mmol/L Normal 98-108 [facility] Comment on above: Performed By: #### L 100.0100, L500.2500 #### [facility] [address] [place], [address] CO2 [Moles/Vol] 23.2 mmol/L Normal 21.0-32.0 [facility] Comment on above: Performed By: #### L 100.0100, L500.2500 #### [facility] [address] [place], [address] Creatinine [Mass/Vol] 0.56 mg/dL Low 0.70-1.20 [facility] Comment on above: Performed By: #### L 100.0100, L500.2500 #### [facility] [address] [place], [address] ECRCL 124.12 ml/min Normal 50-250 [facility] Comment on above: Performed By: #### L 100.0100, L500.2500 #### [facility] [address] [place], [address] GAP 11 Normal 5-15 [facility] Comment on above: Performed By: #### L 100.0100, L500.2500 #### [facility] [address] [place], [address] GFR/1.73 sq M.predicted among non-blacks MDRD (S/P/Bld) [Vol rate/Area] 126 mL/min/{1.73_m2} Normal >60 [facility] Comment on above: Result Comment: mL/m in/1.73m2 CKD-EPI Creatinine Equation (2020) Performed By: #### L 100.0100, L500.2500 #### [facility] [address] [place], [address] Glucose [Mass/Vol] 98 mg/dL Normal 70-99 [facility] Comment on above: Performed By: #### L 100.0100, L500.2500 #### [facility] [address] [place], [address] Potassium [Moles/Vol] 3.8 mmol/L Normal 3.3-5.1 [facility] Comment on above: Performed By: #### L 100.0100, L500.2500 #### [facility] [address] [place], [address] Sodium [Moles/Vol] 136 mmol/L Normal 133-145 [facility] Comment on above: Performed By: #### L 100.0100, L500.2500 #### [facility] [address] [place], [address] Urea nitrogen [Mass/Vol] 13 mg/dL Normal 4-19 [facility] Comment on above: Performed By: #### L 100.0100, L500.2500 #### [facility] [address] [place], [address] Basophil percentageOrdered B y: Clarence Wolff on 08-26-2024 Basophils/100 WBC (Bld) 0.3 % 0-1 [facility] CBC W/Diff, Automatedon 08-06 Absolute Lymph 0.87 X10 3/uL Normal 0.83-4.51 [facility] Comment on above: Performed By: #### L 100.0100, L500.2500 #### [facility] [address] [place], [address] Absolute Neut 6.8 X10 3/uL Normal 2.0-7.7 [facility] Comment on above: Performed By: #### L 100.0100, L500.2500 #### [facility] [address] [place], [address] Basophils/100 WBC (Bld) 0.3 % Normal 0-1 [facility] Comment on above: Performed By: #### L 100.0100, L500.2500 #### [facility] [address] [place], [address] Eosinophils/100 WBC (Bld) 0.5 % Normal 0-5 [facility] Comment on above: Performed By: #### L 100.0100, L500.2500 #### [facility] [address] [place], [address] Erythrocyte distribution width (RBC) [Ratio] 12.5 % Normal 11.6-14.6 [facility] Comment on above: Performed By: #### L 100.0100, L500.2500 #### [facility] [address] [place], [address] Hematocrit (Bld) [Volume fraction] 37.1 % Normal 37-47 [facility] Comment on above: Performed By: #### L 100.0100, L500.2500 #### [facility] [address] [place], [address] Hemoglobin (Bld) [Mass/Vol] 12.7 g/dL Normal 12.0-15.0 [facility] Comment on above: Performed By: #### L 100.0100, L500.2500 #### [facility] [address] [place], [address] IG% 0.500 Normal 0.0-0.9 [facility] Comment on above: Result Comment: IG% - Immature Granulocytes (promyelocytes, myelocytes and metamyelocytes) > 1% indicates that a LEFT SHIFT is Present. Performed By: #### L 100.0100, L500.2500 #### [facility] [address] [place], [address] Lymphocytes/100 WBC (Bld) 10.9 % Low 19-41 [facility] Comment on above: Performed By: #### L 100.0100, L500.2500 #### [facility] [address] [place], [address] MCH (RBC) [Entitic mass] 31.8 pg Normal 27.0-32.0 [facility] Comment on above: Performed By: #### L 100.0100, L500.2500 #### [facility] [address] [place], [address] MCHC (RBC) [Mass/Vol] 34.2 g/dL Normal 32-36 [facility] Comment on above: Performed By: #### L 100.0100, L500.2500 #### [facility] [address] [place], [address] MCV (RBC) [Entitic vol] 92.8 fL Normal 81-99 [facility] Comment on above: Performed By: #### L 100.0100, L500.2500 #### [facility] [address] [place], [address] Monocytes/100 WBC (Bld) 3.1 % Normal 0-10 [facility] Comment on above: Performed By: #### L 100.0100, L500.2500 #### [facility] [address] [place], [address] Neutrophils/100 WBC (Bld) 84.7 % High 47-70 [facility] Comment on above: Performed By: #### L 100.0100, L500.2500 #### [facility] [address] [place], [address] Nucleated RBC (Bld) [#/Vol] 0 10*3/uL Normal 0-5 [facility] Comment on above: Performed By: #### L 100.0100, L500.2500 #### [facility] [address] [place], [address] Platelet mean volume (Bld) [Entitic vol] 10.8 fL Normal 6.2-12.0 [facility] Comment on above: Performed By: #### L 100.0100, L500.2500 #### [facility] [address] [place], [address] Platelets (Bld) [#/Vol] 192 10*3/uL Normal 150-450 [facility] Comment on above: Performed By: #### L 100.0100, L500.2500 #### [facility] [address] [place], [address] RBC (Bld) [#/Vol] 4.00 10*6/uL Low 4.2-5.4 [facility] Comment on above: Performed By: #### L 100.0100, L500.2500 #### [facility] [address] [place], [address] RDW SD 42.7 fl Normal 35.1-43.9 [facility] Comment on above: Performed By: #### L 100.0100, L500.2500 #### [facility] [address] [place], [address] WBC (Bld) [#/Vol] 8.0 10*3/uL Normal 4.4-11.0 [facility] Comment on above: Performed By: #### L 100.0100, L500.2500 #### [facility] [address] [place], [address] Carbon dioxide, total [Moles /volume] in Central venous bloodOrdered By: Clarence Wolff on 08-26-2024 CO2 [Moles/Vol] 23.2 mmol/L 21.0-32.0 [facility] Chloride assayOrdered By: Markus Wolff on 08-26-2024 Chloride [Moles/Vol] 102 mmol/L 98-108 [facility] Emergency Department Summary on 08-26-2024 Emergency Department Summary [facility] Medical Records Department [address] [place] [address] Emergency Department Summary 08/26/24 MR#: [id number] Acct: [id number] Name: FRANCINE MANTILLA Rep #: [id number] : 1995 29 From: Clarence Wolff DO PCP: Dr. Chaim Golden MD Status:DEP ER Location: ED HPI History of Present Illness Chief Complaint: Nausea/Vomiting Informant: patient Onset/Context/Tristan dougherty Onset: Weeks (6) Context: Gradual Onset Timing: Continuous Quality: Cramping Location: Abdominal Worsened by: Nothing Relieved by: Nothing Narrative Narrative: Patient presents with nausea and vomiting that has been constant for the past 6 weeks. Patient is approximately 15 weeks . Patient states she has been unable to keep anything down. Patient states she has been having some vomiting with blood streaks. Patient states nothing makes it better and nothing makes it worse. Patient denies any fevers or chills. Patient denies any abnormal vaginal bleeding or discharge. Patient is 3 para 2. [facility] Medical History Anxiety Vaginal delivery Home Medications ???Medication ???Instructions ???Recorded ???Last Taken ???Type JHQ84-JE 400 mcg-om3 35 mg-dha 25 tab PO DAILY 04/12/21 1 06/13/20 History mg-epa 5 mg-fish oil chewable tablet ondansetron 4 mg disintegrating 4 mg PO Q6H PRN nausea and 5 Unknown Rx tablet vomiting #30 tabs metoclopramide HCl 5 mg tablet 5 mg PO QAC #14 tabs 07/31/24 Unkn own Rx Allergy/AdvReac Type Severity Reaction Status Date / Time penicillin G Allergy Mild Other Verified 08/26/24 11:06 nitrous oxide Allergy Other Verified 08/26/24 11:06 acetaminophen (From Tylenol) AdvReac Severe Vomiting Verified 08/26/24 11:06 Family History Grandfather Cancer Paternal Surgical History H/O knee surgery [place] teeth extracted Social History adopted: No household members: spouse and children housing: house number of children: 2 current occupational status: unemployed current occupation: [employer] pets and animals: No history of recent travel: No sexually active: Yes Smoking Status: Never smoker alcohol intake: current alcohol intake frequency: holidays/special occasions only details: not while substance use type: does not use well-balanced diet: daily or most days caffeine: No eating out: rarely or never during the past year weight has: remained stable what type of physical activity do you participate in: walking and weight training frequency: 3-4 times per week duration: 45-60 minutes/day romero/sabianist: Congregation seatbelt use: always do you feel safe at home: Yes additional social history: 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 ROS ROS ED Constitutional Constitutional ED: Denies chills or fever(s) Eyes Eyes: Denies blurry vision or change in vision ENT ENT ED: Denies rhinorrhea or sore throat Cardiovascular Cardiovascular: Denies chest pain or palpitations Respiratory/Chest Respiratory/Chest: Denies cough or dyspnea Gastrointestinal Gastrointestinal: Reports nausea and vomiting Genitourinary Genitourinary ED: Denies dysuria or hematuria Musculoskeletal Musculoskeletal: Denies back pain or neck pain Integumentary Denies abscess or rash Neurologic Neurologic: Denies headache(s) or weakness Allergic/Immunologi c Allergic/Immunologi c ED: Denies mouth swelling or urticaria EXAM Physical Exam Const Vital Signs: 08/26/24 11:03 Temperature 98.2 F Temperature Source Oral Pulse Rate 84 Respiratory Rate 16 Blood Pressure 116/63 Blood Pressure Mean 80 Pulse Ox 100 Oxygen Delivery Method Room Air Positive well nourished and well developed General Appearance ED: well developed and NAD HEENT Reports moist mucous membranes Neck supple and no JVD Resp normal respiratory effort and clear to auscultation bilaterally Cardio regular rate and regular rhythm GI non-tender and non-distended Palpation: soft Extremity normal to inspection General Extremety ED: Negative for edema or tenderness General Extremity: Negative for edema Neuro oriented x3, CN's II-XII intact bilaterally and no sensory deficits noted Sensorium / Orientation: alert Motor Exam: strength 5/5 throughout Psych mental status grossly normal MDM MDM MDM Narrative Medical decision making narrative: Differential diagnosis includes hyperemesis gravidarum, viral illness, and dehydration. CBC will be obtained to assess for leukocytosis and anemia. Basic metabolic profile will be obtained to assess for electrolyte abnor (more content not included)... Normal [facility] Eosinophil percentageOrdered By: Clarence Wolff on 08-26-2024 Eosinophils/100 WBC (Bld) 0.5 % 0-5 [facility] Erythrocyte distribution wid th (RBC) [Ratio]Ordered By: Clarence Wolff on 08-26-2024 Erythrocyte distribution width (RBC) [Entitic vol] 42.7 fL 35.1-43.9 [facility] Erythrocyte distribution wid th ratioOrdered By: Clarence Wolff on 08-26-2024 Erythrocyte distribution width (RBC) [Ratio] 12.5 % 11.6-14.6 [facility] Erythrocyte distribution wid th standard deviationOrdered By: Clarence Wolff on 08-26-2024 Erythrocyte distribution width (RBC) [Ratio] 42.7 fl 35.1-43.9 [facility] Estimation of creatinine tan aranceOrdered By: Clarence Wolff on 08-26-2024 Estimated Creatinine Clearance Calc 124.12 ml/min 50-250 [facility] GFR/1.73 sq M.predicted abram g non-blacks MDRD (S/P/Bld) [Vol rate/Area]Ordered By: Clarence Wolff on 08-26-2024 Estimated GFR (MDRD) Non-Af Amer 126 >60 [facility] Comment on above: mL/min/1.73m2 CKD-EP I Creatinine Equation (2020) Glomerular filtration rate ( GFR) estimation/1.73 sq m using serum, plasma, or whole bOrdered By: Clarence Wolff on 08-26-2024 GFR/1.73 sq M.predicted among non-blacks MDRD (S/P/Bld) [Vol rate/Area] 126 mL/min/{1.73_m2} >60 [facility] Comment on above: mL/min/1.73m2 CKD-EP I Creatinine Equation (2020) Hematocrit Auto (Bld) [Volum e fraction]Ordered By: Clarence Wolff on 08-26-2024 Hematocrit (Bld) [Volume fraction] 37.1 % 37-47 [facility] Hemoglobin measurementOrdere d By: Clarence Wolff on 08-26-2024 Hemoglobin (Bld) [Mass/Vol] 12.7 g/dL 12.0-15.0 [facility] Immature granulocytes/100 WB C Auto (Bld)Ordered By: Clarence Wolff on 08-26-2024 Immature granulocytes/100 WBC (Bld) 0.500 % 0.0-0.9 [facility] Comment on above: IG% - Immature Granu locytes (promyelocytes, myelocytes and metamyelocytes) > 1% indicates that a LEFT SHIFT is Present. Lymphocytes Auto (Unsp spec) [#/Vol]Ordered By: Clarence Wolff on 08-26-2024 Lymphocytes (Bld) [#/Vol] 0.87 10*3/uL 0.83-4.5 1 [facility] Lymphocytes/100 WBC Auto (Un sp spec)Ordered By: Clarence Wolff on 08-26-2024 Lymphocytes/100 WBC (Bld) 10.9 % Low 19-41 [facility] MCV (mean corpuscular volume ) determinationOrdered By: Clarence Wolff on 08-26-2024 MCV (RBC) [Entitic vol] 92.8 fL 81-99 [facility] Mean corpuscular hemoglobin (MCH) determinationOrdered By: Clarence Wolff on 08-26-2024 MCH (RBC) [Entitic mass] 31.8 pg 27.0-32.0 [facility] Mean corpuscular hemoglobin concentration (MCHC) determinationOrdered By: Clarence Wolff on 08-26-2024 MCHC (RBC) [Mass/Vol] 34.2 g/dL 32-36 [facility] Mean platelet volume determi nationOrdered By: Clarence Wolff on 08-26-2024 Platelet mean volume (Bld) [Entitic vol] 10.8 fL 6.2-12.0 [facility] Monocyte percentageOrdered B y: Clarence Wolff on 08-26-2024 Monocytes/100 WBC (Bld) 3.1 % 0-10 [facility] Neutrophil percentageOrdered By: Clarence Wolff on 08-26-2024 Neutrophils/100 WBC (Bld) 84.7 % High 47-70 [facility] Nucleated red blood cell per centageOrdered By: Clarence Wolff on 08-26-2024 Nucleated RBC/100 WBC (Bld) [Ratio] 0 % 0-5 [facility] Platelet countOrdered By: Markus Wolff on 08-26-2024 Platelets (Bld) [#/Vol] 192 10*3/uL 150-450 [facility] Potassium (Unsp spec) [Mass/ Vol]Ordered By: Clarence Wolff on 08-26-2024 Potassium [Moles/Vol] 3.8 mmol/L 3.3-5.1 [facility] Potassium measurement (mass/ volume)Ordered By: Clarence Wolff on 08-26-2024 Potassium (Unsp spec) [Mass/Vol] 3.8 mmol/L 3.3-5.1 [facility] RBC Auto (Bld) [#/Vol]Ordere d By: Clarence Wolff on 08-26-2024 RBC (Bld) [#/Vol] 4.00 10*6/uL Low 4.2-5.4 [facility] Serum creatinine measurement (mass/volume)Ordered By: Clarence oWlff on 08-26-2024 Creatinine [Mass/Vol] 0.56 mg/dL Low 0.70-1.20 [facility] Serum glucose measurement (m ass/volume)Ordered By: Clarence Wolff on 08-26-2024 Glucose [Mass/Vol] 98 mg/dL 70-99 [facility] Serum or plasma calcium betsy urement (mass/volume)Ordered By: Clarence Wolff on 08-26-2024 Calcium [Mass/Vol] 9.3 mg/dL 7.6-11.0 [facility] Serum or plasma urea nitroge n measurement (mass/volume)Ordered By: Clarence Woflf on 08-26-2024 Urea nitrogen [Mass/Vol] 13 mg/dL 4-19 [facility] Sodium levelOrdered By: Clarence Wolff on 08-26-2024 Sodium [Moles/Vol] 136 mmol/L 133-145 [facility] White blood cell (WBC) count Ordered By: Clarence Wolff on 08-26-2024 WBC (Bld) [#/Vol] 8.0 10*3/uL 4.4-11.0 [facility] - Chemistry and C hemistry - challengeOrdered By: Tricia Euceda on 08-06-2024 Glucose Ql (U) Negative [facility] - UrinalysisOrder ed By: Tricia Euceda on 08-06-2024 Protein Ql (U) Negative [facility] Engineering Mgr Office Visit Reporton 08-06-2024 Engineering Mgr Office Visit Report [facility], [facility] [address] [place] [address] OFFICE VISIT Date of Service: 08/06/24 MR#: [id number] Acct: [id number] Name: FRANCINE MANTILLA RAJIV Rep #: [id number] : 1995 Provider: Dr. Tricia hunter MD Age/Sex: 29/F Location[place] [facility] Status: Signed Intake Vital Signs 08/24/22 15:42 07/18/24 08:49 08/06/24 09:13 Height 5 ft 6 in 5 ft 6 in 5 ft 6 in Weight: 116 lb BMI 18.7 BP 110/69 Intake Visit Reasons: 12wk OB [employer] Worker Required: No Is patient in pain?: No Feel stressed/tense/nerv ous/anxious/difficu lty sleeping: not at all Allergies penicillin G Allergy (Mild, Verified 08/06/24 09:16) Other nitrous oxide Allergy (Verified 08/06/24 09:16) Other acetaminophen (From Tylenol) Adverse Reaction (Severe, Verified 08/06/24 09:16) Vomiting Medications ???Medication ???Instructions ???Recorded ???Confirmed ???Type [id number] 400 mcg-om3 35 mg-dha 25 tab PO DAILY 04/12/21 0 08/06/24 History mg-epa 5 mg-fish oil chewable tablet ondansetron 4 mg disintegrating 4 mg PO Q6H PRN nausea and 5 08/06/24 Rx tablet vomiting #30 tabs metoclopramide HCl 5 mg tablet 5 mg PO QAC #14 tabs 07/31/2407/01 Rx Last Menstrual Period: 05/17/24 Zika: Zika virus screening: Negative : No PFSH PFSH Medical History Anxiety Vaginal delivery Surgical History H/O knee surgery K[place] teeth extracted Family History Grandfather Cancer Paternal Social History adopted: No household members: spouse and children housing: house number of children: 2 current occupational status: unemployed current occupation: [employer] pets and animals: No history of recent travel: No sexually active: Yes Smoking Status: Never smoker alcohol intake: current alcohol intake frequency: holidays/special occasions only details: not while substance use type: does not use well-balanced diet: daily or most days caffeine: No eating out: rarely or never during the past year weight has: remained stable what type of physical activity do you participate in: walking and weight training frequency: 3-4 times per week duration: 45-60 minutes/day romero/sabianist: Congregation seatbelt use: always do you feel safe at home: Yes 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 Date Name GA/Weeks Outcome Route Bth Weight Infant Gen Labor Lgth Anesthesia Del Locatn Provider FOB 05/20/18 Loyd 37 live - full term 7lbs 0oz Male 8 hours epidural [facility] BELA Mcintyre 04/13/21December 37 live - full term 6#4oz Male epidural [facility] Dr. Ok Mcintyre Delivery Date: 05/20/18 Last Updated by: Shyla Hurley MD 34 wk PTL: fluids and stopped. steroids. Thinks related to noravirus. Pushed for 20 min. 2nd degree with abscess of suture Delivery Date: 04/13/21 Last Updated by: Radha Espinoza COVID + at , IAL HPI 12wk OB Details: FRANCINE MANTILLA is a 29 year old who presents for routine OB visit. OB Visit KIRK Calculator Estimated Delivery Date Method Current WG Current Estimate 02/21/25 LMP (Certain) 11w 4d Other Estimates 02/20/25 Ultrasound #1 11w 5d Expected Delivery Route/Plan Labor Preferences- CB/BF classes: [] labor support person: [] labor intervention preferences: [] pain management options preferred: [] cut cord/dad catch: [] : [] PP control planned: [] discussed possible routes of delivery and associated risks: [] special requests: [] Specific Issue/Plans Covid status: [] Flu vaccine: [] Tdap vaccine: [] Rhogam: [] LARC form signed: [] Problem list reviewed and updated with the most current plan of care details and appropriate orders placed. Relevant counseling for the gestational age provided. Continue routine care and follow up unless otherwise noted in visit notes/problem list details Initial Weight: Not Recorded Date -???-???-???-???-?? ?-???-???-???-???-? ??-???-???- EGA Weight BP Urine Prot -???-???-???-???-?? ?-???-???-???-???-? ??-???-???- Glucose FHR FuHt Pres Dilation -???-???-???-???-?? ?-???-???-???-???-? ??-???-???- Effaced St Visit Note 07/18/24 -???-???-???-???-?? ?-???-???-???-???-? ??-???-???- 8w 6d 116 lb 8 oz 107/69 -???-???-???-???-?? ?-???-???-???-???-? ??-???-???- 178 -?? (more content not included)... Normal [facility] Chlamydia/GC VICKI aptimaon CHLAMY,NUC ACID Negative Normal Negative [facility] Comment on above: Performed By: #### L 7000.1800, M100.2200 #### [facility] [address] [place], [place], [id number] GC BY NUC ACID Negative Normal Negative [facility] Comment on above: Result Comment: Perf ormed at: =G - [facility] [address] [id number] Tin Worker: Inga Chau MD, Phone: [phone] Performed By: #### L 7000.1800, M100.2200 #### [facility] [address] [place], [address] Urine Cultureon 07-20-2024 URC Below infection level. Mixed Gram Positive Organisms [place] Count 1000-10,000 MIXC Mixed contaminants. Submit a new specimen if indicated. Normal [facility] Comment on above: Performed By: #### L 7000.1800, M100.2200 #### [facility] [address] [place], [address] Absolute lymphocyte countOrd ered By: Moon Rosales on 07-18-2024 Lymphocytes Auto (Unsp spec) [#/Vol] 1.09 10*3/uL 0.83-4.51 [facility] Absolute neutrophil countOrd ered By: Moon Rosales on 07-18-2024 Neutrophils (Bld) [#/Vol] 4.9 10*3/uL 2.0-7.7 [facility] Automated lymphocyte count a s percentage of total leukocytesOrdered By: Moon Rosales on 07-18-2024 Lymphocytes/100 WBC Auto (Unsp spec) 16.9 % Low 19-41 [facility] Basophil percentageOrdered B y: Moon Rosales on 07-18-2024 Basophils/100 WBC (Bld) 0.5 % 0-1 [facility] C. trachomatis rRNA VICKI+prob e Ql (Unsp spec)Ordered By: Moon Rosales on 07-18-2024 Chlamydia DNA (VICKI) Negative Negative [facility] CBC W/Diff, Automatedon 07-05 Absolute Lymph 1.09 X10 3/uL Normal 0.83-4.51 [facility] Comment on above: Performed By: #### L 509.4006, L3890.6006, L509.8002, BTS, L100.0100, L3890.6301, L3890.6102 #### [facility] [address] [place], [address] Absolute Neut 4.9 X10 3/uL Normal 2.0-7.7 [facility] Comment on above: Performed By: #### L 509.4006, L3890.6006, L509.8002, BTS, L100.0100, L3890.6301, L3890.6102 #### [facility] [address] [place], [address] Basophils/100 WBC (Bld) 0.5 % Normal 0-1 [facility] Comment on above: Performed By: #### L 509.4006, L3890.6006, L509.8002, BTS, L100.0100, L3890.6301, L3890.6102 #### [facility] [address] [place], [address] Eosinophils/100 WBC (Bld) 1.4 % Normal 0-5 [facility] Comment on above: Performed By: #### L 509.4006, L3890.6006, L509.8002, BTS, L100.0100, L3890.6301, L3890.6102 #### [facility] [address] [place], [address] Erythrocyte distribution width (RBC) [Ratio] 12.8 % Normal 11.6-14.6 [facility] Comment on above: Performed By: #### L 509.4006, L3890.6006, L509.8002, BTS, L100.0100, L3890.6301, L3890.6102 #### [facility] [address] [place], [address] Hematocrit (Bld) [Volume fraction] 36.8 % Low 37-47 [facility] Comment on above: Performed By: #### L 509.4006, L3890.6006, L509.8002, BTS, L100.0100, L3890.6301, L3890.6102 #### [facility] [address] [place], [address] Hemoglobin (Bld) [Mass/Vol] 12.4 g/dL Normal 12.0-15.0 [facility] Comment on above: Performed By: #### L 509.4006, L3890.6006, L509.8002, BTS, L100.0100, L3890.6301, L3890.6102 #### [facility] [address] [place], [address] IG% 0.300 Normal 0.0-0.9 [facility] Comment on above: Result Comment: IG% - Immature Granulocytes (promyelocytes, myelocytes and metamyelocytes) > 1% indicates that a LEFT SHIFT is Present. Performed By: #### L 509.4006, L3890.6006, L509.8002, BTS, L100.0100, L3890.6301, L3890.6102 #### [facility] [address] [place], [address] Lymphocytes/100 WBC (Bld) 16.9 % Low 19-41 [facility] Comment on above: Performed By: #### L 509.4006, L3890.6006, L509.8002, BTS, L100.0100, L3890.6301, L3890.6102 #### [facility] [address] [place], [address] MCH (RBC) [Entitic mass] 31.8 pg Normal 27.0-32.0 [facility] Comment on above: Performed By: #### L 509.4006, L3890.6006, L509.8002, BTS, L100.0100, L3890.6301, L3890.6102 #### [facility] [address] [place], [address] MCHC (RBC) [Mass/Vol] 33.7 g/dL Normal 32-36 [facility] Comment on above: Performed By: #### L 509.4006, L3890.6006, L509.8002, BTS, L100.0100, L3890.6301, L3890.6102 #### [facility] [address] [place], [address] MCV (RBC) [Entitic vol] 94.4 fL Normal 81-99 [facility] Comment on above: Performed By: #### L 509.4006, L3890.6006, L509.8002, BTS, L100.0100, L3890.6301, L3890.6102 #### [facility] [address] [place], [address] Monocytes/100 WBC (Bld) 4.8 % Normal 0-10 [facility] Comment on above: Performed By: #### L 509.4006, L3890.6006, L509.8002, BTS, L100.0100, L3890.6301, L3890.6102 #### [facility] [address] [place], [address] Neutrophils/100 WBC (Bld) 76.1 % High 47-70 [facility] Comment on above: Performed By: #### L 509.4006, L3890.6006, L509.8002, BTS, L100.0100, L3890.6301, L3890.6102 #### [facility] [address] [place], [address] Nucleated RBC (Bld) [#/Vol] 0 10*3/uL Normal 0-5 [facility] Comment on above: Performed By: #### L 509.4006, L3890.6006, L509.8002, BTS, L100.0100, L3890.6301, L3890.6102 #### [facility] [address] [place], [address] Platelet mean volume (Bld) [Entitic vol] 11.5 fL Normal 6.2-12.0 [facility] Comment on above: Performed By: #### L 509.4006, L3890.6006, L509.8002, BTS, L100.0100, L3890.6301, L3890.6102 #### [facility] [address] [place], [address] Platelets (Bld) [#/Vol] 188 10*3/uL Normal 150-450 [facility] Comment on above: Performed By: #### L 509.4006, L3890.6006, L509.8002, BTS, L100.0100, L3890.6301, L3890.6102 #### [facility] [address] [place], [address] RBC (Bld) [#/Vol] 3.90 10*6/uL Low 4.2-5.4 [facility] Comment on above: Performed By: #### L 509.4006, L3890.6006, L509.8002, BTS, L100.0100, L3890.6301, L3890.6102 #### [facility] [address] [place], [address] RDW SD 43.8 fl Normal 35.1-43.9 [facility] Comment on above: Performed By: #### L 509.4006, L3890.6006, L509.8002, BTS, L100.0100, L3890.6301, L3890.6102 #### [facility] [address] [place], [address] WBC (Bld) [#/Vol] 6.4 10*3/uL Normal 4.4-11.0 [facility] Comment on above: Performed By: #### L 509.4006, L3890.6006, L509.8002, BTS, L100.0100, L3890.6301, L3890.6102 #### [facility] [address] [place], [address] Chlamydia trachomatis rRNA d etection by probe and target amplification methodOrdered By: Moon Rosales on 07-18-2024 C. trachomatis rRNA VICKI+probe Ql (Unsp spec) Negative Negative [facility] Eosinophil percentageOrdered By: Moon Rosales on 07-18-2024 Eosinophils/100 WBC (Bld) 1.4 % 0-5 [facility] Erythrocyte distribution wid th ratioOrdered By: Moon Rosales on 07-18-2024 Erythrocyte distribution width (RBC) [Ratio] 12.8 % 11.6-14.6 [facility] Erythrocyte distribution wid th standard deviationOrdered By: Moon Rosales on 07-18-2024 Erythrocyte distribution width (RBC) [Entitic vol] 43.8 fL 35.1-43.9 [facility] Erythrocyte distribution width (RBC) [Ratio] 43.8 fl 35.1-43.9 [facility] HBV surface Ag Ql (S)Ordered By: Moon Rosales on 07-18-2024 Hepatitis B Surface Antigen Non-Reactive Nonreactive [facility] Comment on above: Reactive: Presumptiv e evidence of HBV. Repeatedly reactive samples must be confirmed using a neutralization test ([employer] HBsAg Confirmatory Test)Non-Reactive: HBsAg not detected; does not exclude the possibility of exposure to HBV Hematocrit Auto (Bld) [Volum e fraction]Ordered By: Moon Rosales on 07-18-2024 Hematocrit (Bld) [Volume fraction] 36.8 % Low 37-47 [facility] Hemoglobin measurementOrdere d By: Moon Rosales on 07-18-2024 Hemoglobin (Bld) [Mass/Vol] 12.4 g/dL 12.0-15.0 [facility] Hepatitis C antibodyOrdered By: Moon Rosales on 07-18-2024 Hepatitis C Antibody Non-Reactive Nonreactive [facility] Comment on above: Reactive: Presumptiv e evidence of antibodies to HCV. Follow CDC recommendations for supplemental testing.Non-Reactive: Antibodies to HCV were not detected; does not exclude the possibility of exposure to HCVReactive Results are presumptive evidence of antibodies to HCV. Follow CDC recommendations for supplemental testing.Order confirmation testing: HCV Quant by PCR testing - HCVPCR #[id number] Non Reactive: < 0.8 Equivocal: >/= 0.8 to < 1.0 Reactive: >/= 1.0The CDC requires that a reactive/equivocal HCV antibody result be sent out for confirmation. HCV Quant by PCR testing. Immature granulocytes/100 WB C Auto (Bld)Ordered By: Moon Rosales on 07-18-2024 Immature granulocytes/100 WBC (Bld) 0.300 % 0.0-0.9 [facility] Comment on above: IG% - Immature Granu locytes (promyelocytes, myelocytes and metamyelocytes) > 1% indicates that a LEFT SHIFT is Present. L3890.6006on 07-18-2024 HIV No_Result Normal Nonreactive [facility] Comment on above: Result Comment: Non- Reactive Reactive Repeatedly reactive samples must be confirmed according to CDC recommended confirmatory algorithms. The subresults for either HIVAG or AHIV can be used as an aid in the selection of the confirmation algorithm for reactive samples. Send out specimens with Reactive results to [facility] for confirmation. Order the HIV antibody detection and differentiation: lc#[id number] Performed By: #### L 509.4006, L3890.6006, L509.8002, BTS, L100.0100, L3890.6301, L3890.6102 ####[facility] [address] [facility] [place], [address] L3890.6102on 07-18-2024 HEP B Surf Ag Non-Reactive Normal Nonreactive [facility] Comment on above: Result Comment: Reac tive: Presumptive evidence of HBV. Repeatedly reactive samples must be confirmed using a neutralization test ([employer] HBsAg Confirmatory Test) Non-Reactive: HBsAg not detected; does not exclude the possibility of exposure to HBV Performed By: #### L 509.4006, L3890.6006, L509.8002, BTS, L100.0100, L3890.6301, L3890.6102 ####[facility] [address] [facility] [address] [place], [place], [address] L3890.6301on 07-18-2024 Hepatitis C Ab Non-Reactive Normal Nonreactive [facility] Comment on above: Result Comment: Reac tive: Presumptive evidence of antibodies to HCV. Follow CDC recommendations for supplemental testing. Non-Reactive: Antibodies to HCV were not detected; does not exclude the possibility of exposure to HCV Reactive Results are presumptive evidence of antibodies to HCV. Follow CDC recommendations for supplemental testing. Order confirmation testing: HCV Quant by PCR testing - HCVPCR #[id number] Non Reactive: < 0.8 Equivocal: >/= 0.8 to < 1.0 Reactive: >/= 1.0 The CDC requires that a reactive/equivocal HCV antibody result be sent out for confirmation. HCV Quant by PCR testing. Performed By: #### L 509.4006, L3890.6006, L509.8002, BTS, L100.0100, L3890.6301, L3890.6102 ####[facility] [address] [facility] [place], [address] L509.4006on 07-18-2024 Rubella IgG REAC Normal Nonreactive [facility] Comment on above: Result Comment: Anti body Result: Interpretation Non-Reactive: Non-Immune Reactive: Immune The following results were obtained with the [employer] Rubella IgG assay. Results from assays of other manufacturers cannot be used interchangeably. Performed By: #### L 509.4006, L3890.6006, L509.8002, BTS, L100.0100, L3890.6301, L3890.6102 #### [facility] [address] [facility] [place], [address] L509.8002on 07-18-2024 Syphilis Abs Non-Reactive Normal Nonreactive [facility] Comment on above: Performed By: #### L 509.4006, L3890.6006, L509.8002, BTS, L100.0100, L3890.6301, L3890.6102 ####[facility] [address] [facility] [place], [place], [id number] Laboratory - Microbiology an d Antimicrobial susceptibilityOrdered By: Moon Rosales on 07-18-2024 HBV surface Ag Ql (S) Non-Reactive Nonreactive [facility] Comment on above: Reactive: Presumptiv e evidence of HBV. Repeatedly reactive samples must be confirmed using a neutralization test ([employer] HBsAg Confirmatory Test)Non-Reactive: HBsAg not detected; does not exclude the possibility of exposure to HBV Lymphocytes Auto (Unsp spec) [#/Vol]Ordered By: Moon Rosales on 07-18-2024 Lymphocytes (Bld) [#/Vol] 1.09 10*3/uL 0.83-4.5 1 [facility] Lymphocytes/100 WBC Auto (Un sp spec)Ordered By: Moon Rosales on 07-18-2024 Lymphocytes/100 WBC (Bld) 16.9 % Low 19-41 [facility] MCV (mean corpuscular volume ) determinationOrdered By: Moon Rosales on 07-18-2024 MCV (RBC) [Entitic vol] 94.4 fL 81-99 [facility] Mean corpuscular hemoglobin (MCH) determinationOrdered By: Moon Rosales on 07-18-2024 MCH (RBC) [Entitic mass] 31.8 pg 27.0-32.0 [facility] Mean corpuscular hemoglobin concentration (MCHC) determinationOrdered By: Moon Rosales on 07-18-2024 MCHC (RBC) [Mass/Vol] 33.7 g/dL 32-36 [facility] Mean platelet volume determi nationOrdered By: Moon Rosales on 07-18-2024 Platelet mean volume (Bld) [Entitic vol] 11.5 fL 6.2-12.0 [facility] Monocyte percentageOrdered B y: Moon Rosales on 07-18-2024 Monocytes/100 WBC (Bld) 4.8 % 0-10 [facility] Neisseria gonorrhoeae nuclei c acid detection by amplified probe techniqueOrdered By: Moon Rosales on 07-18-2024 N. gonorrhoeae DNA VICKI+probe Ql (Unsp spec) Negative Negative [facility] Comment on above: Performed at: =[address] [id number] Director: Inga Chau MD, Phone: [phone] Neutrophil percentageOrdered By: Moon Rosales on 07-18-2024 Neutrophils/100 WBC (Bld) 76.1 % High 47-70 [facility] No Panel InformationOrdered By: Moon Rosales on 07-18-2024 HIV (1&2) Antibody No_Result Nonreactive [facility] Comment on above: Non-ReactiveReactive Repeatedly reactive samples must be confirmed according to CDC recommended confirmatory algorithms. The subresults for either HIVAG or AHIV can be used as an aid in the selection of the confirmation algorithm for reactive samples.Send out specimens with Reactive results to [facility] for confirmation.Order the HIV antibody detection and differentiation: #[id number] Nucleated red blood cell per centageOrdered By: Moon Rosales on 07-18-2024 Nucleated RBC/100 WBC (Bld) [Ratio] 0 % 0-5 [facility] Engineering Mgr Office Visit Reporton 07-18-2024 Engineering Mgr Office Visit Report [facility] [address], [address] [place] [address] OFFICE VISIT Date of Service: 07/18/24 MR#: [id number] Acct: [id number] Name: FRANCINE MANTILLA Rep #: [id number] : 1995 Provider: Dr. Moon Singh DO Age/Sex: 29/F Location[place] [facility] [place] Status: Signed Intake Vital Signs 08/24/22 15:42 07/18/24 08:47 07/18/24 08:49 Height 5 ft 6 in 5 ft 6 in 5 ft 6 in Weight: 116 lb 8 oz BMI 18.8 BP 107/69 Intake Visit Reasons: New OB, LMP 05/17, KIRK 02/21 [employer] Worker Required: No Is patient in pain?: No Allergies penicillin G Allergy (Mild, Verified 07/18/24 08:47) Other nitrous oxide Allergy (Verified 07/18/24 08:47) Other acetaminophen (From Tylenol) Adverse Reaction (Severe, Verified 07/18/24 08:47) Vomiting Medications ???Medication ???Instructions ???Recorded ???Confirmed ???Type [id number] 400 mcg-om3 35 mg-dha 25 tab PO DAILY 04/12/21 0 07/18/24 History mg-epa 5 mg-fish oil chewable tablet ondansetron 4 mg disintegrating 4 mg PO Q6H PRN nausea and 5 07/18/24 Rx tablet vomiting #30 tabs Last Menstrual Period: 05/17/24 Zika: Zika virus screening: Negative : No PFSH PFSH Medical History Anxiety Vaginal delivery Surgical History H/O knee surgery [place] teeth extracted Family History Grandfather Cancer Paternal Social History adopted: No household members: spouse and children housing: house number of children: 2 service: No current occupational status: unemployed current occupation: [employer] pets and animals: No history of recent travel: No sexually active: Yes Smoking Status: Never smoker alcohol intake: current alcohol intake frequency: holidays/special occasions only details: not while substance use type: does not use well-balanced diet: daily or most days caffeine: No eating out: rarely or never during the past year weight has: remained stable what type of physical activity do you participate in: walking and weight training frequency: 3-4 times per week duration: 45-60 minutes/day romero/sabianist: [employer] seatbelt use: always do you feel safe at home: Yes 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 Date Name GA/Weeks Outcome Route Bth Weight Infant Gen Labor Lgth Anesthesia Del Locatn Provider EKTA 05/20/18 Loyd 37 live - full term 7lbs 0oz Male 8 hours epidural [facility] BELA Mcintyre 04/13/21December 37 live - full term 6#4oz Male epidural [facility] Dr. Ok Mcintyre Delivery Date: 05/20/18 Last Updated by: Shyla Hurley MD 34 wk PTL: fluids and stopped. steroids. Thinks related to noravirus. Pushed for 20 min. 2nd degree with abscess of suture Delivery Date: 04/13/21 Last Updated by: Radha Espinoza COVID + at , IAL HPI New OB, LMP 05/17, KIRK 02/21 Details: FRANCINE MANTILLA is a 29 year old who presents for New OB visit. OB Visit KIRK Calculator Estimated Delivery Date Method Current WG Current Estimate 02/21/25 LMP (Certain) 8w 6d Other Estimates 02/20/25 Ultrasound #1 9w 0d Comments: HIV: Urine Culture: Sequential Screen: NIPT Screen: Estimated Due Date: 02/21/25 Expected Delivery Route/Plan Labor Preferences- CB/BF classes: [] labor support person: [] labor intervention preferences: [] pain management options preferred: [] cut cord/dad catch: [] : [] PP control planned: [] discussed possible routes of delivery and associated risks: [] special requests: [] Specific Issue/Plans Covid status: [] Flu vaccine: [] Tdap vaccine: [] Rhogam: [] LARC form signed: [] Problem list reviewed and updated with the most current plan of care details and appropriate orders placed. Relevant counseling for the gestational age provided. Continue routine care and follow up unless otherwise noted in visit notes/problem list details Initial Weight: Not Recorded Date -???-???-???-???-?? ?-???-???-???-???-? ??-???-???- EGA Weight BP Urine Prot -???-???-???-???-?? ?-???-???-???-???-? ??-???-???- Glucose FHR FuHt Pres Dilation -???-???-???-???-?? ?-???-???-???-???-? ??-???-???- Effaced St Visit Note 07/18/24 -???-???-???-???-?? ?-???-???-???-???-? ??-???-???- 8w 6d 116 lb 8 oz 107/69 -???-???-???-???-?? ?-???-???-???-? (more content not included)... Normal [facility] Platelet countOrdered By: Johnathon Rosales on 07-18-2024 Platelets (d) [#/Vol] 188 10*3/uL 150-450 [facility] RBC Auto (d) [#/Vol]Ordere d By: Moon Rosales on 07-18-2024 RBC (Bld) [#/Vol] 3.90 10*6/uL Low 4.2-5.4 [facility] Rubella immune status determ ination by IgG antibody assayOrdered By: Moon Rosales on 07-18-2024 Rubella IgG Antibody REAC Nonreactive [facility] Comment on above: Antibody Result: Int erpretationNon-Reactive: Non-ImmuneReactive: ImmuneThe following results were obtained with the [employer] Rubella IgG assay. Results from assays of other manufacturers cannot be used interchangeably. T. pallidum abOrdered By: Johnathon Rosales on 07-18-2024 Syphilis Total Antibody Non-Reactive Nonreactiv e [facility] Type AND Screenon 07-18-2024 Ab SCREEN GEL Negative Normal [facility] Comment on above: Order Comment: PN Performed By: #### L 509.4006, L3890.6006, L509.8002, BTS, L100.0100, L3890.6301, L3890.6102 #### [facility] [address] [place], [address] Urine cultureOrdered By: Mary Rosales on 07-18-2024 Bacteria identified Cx Nom (U) Positive Abnormal [facility] White blood cell (WBC) count Ordered By: Moon Rosales on 07-18-2024 WBC (Bld) [#/Vol] 6.4 10*3/uL 4.4-11.0 [facility] Absolute lymphocyte countOrd ered By: Jorge Golden on 03-09-2023 Lymphocytes Auto (Unsp spec) [#/Vol] 1.65 10*3/uL 0.83-4.51 [facility] Basophil percentageOrdered B y: Jorge Golden on 03-09-2023 Basophils/100 WBC (Bld) 0.7 % 0-1 [facility] Chloride [Moles/Vol] 109 mmol/L 98-107 [facility] Cholesterol [Mass/Vol] 144 mg/dL <200 [facility] Comment on above: <200 mg/dL Desirable 200-240 mg/dL Borderline >240 mg/dL High Risk Eosinophils/100 WBC (Bld) 2.7 % 0-5 [facility] Glucose [Mass/Vol] 90 mg/dL 74-106 [facility] Neutrophils (Bld) [#/Vol] 2.3 10*3/uL 2.0-7.7 [facility] Neutrophils/100 WBC (Bld) 51.6 % 47-70 [facility] Potassium [Moles/Vol] 3.7 mmol/L 3.5-5.1 [facility] Sodium [Moles/Vol] 140 mmol/L 136-145 [facility] Triglyceride [Mass/Vol] 62 mg/dL <199 [facility] Comment on above: The drugs N-Acetylcy steine and Metamizole may falsely depress this assay.Serum Triglycerides Reference Interval Normal <150 mg/dL Borderline high 150 - 199 mg/dL High 200 - 499 mg/dL Very High > or = 500 mg/dL WBC (Bld) [#/Vol] 4.4 10*3/uL 4.4-11.0 [facility] Blood erythrocytes count (nu mber/volume)Ordered By: Jorge Golden on 03-09-2023 RBC (Bld) [#/Vol] 4.27 10*6/uL 4.2-5.4 [facility] Blood hemoglobin measurement (mass/volume)Ordered By: Jorge Golden on 03-09-2023 Hemoglobin (Bld) [Mass/Vol] 13.0 g/dL 12.0-15.0 [facility] Blood lymphocytes/100 leukoc ytesOrdered By: Jorge Golden on 03-09-2023 Lymphocytes/100 WBC (Bld) 37.7 % 19-41 [facility] Blood monocytes/100 leukocyt esOrdered By: Jorge Golden on 03-09-2023 Monocytes/100 WBC (Bld) 7.1 % 0-10 [facility] Blood platelet mean volumeOr dered By: Jorge Golden on 03-09-2023 Platelet mean volume (Bld) [Entitic vol] 11.4 fL 6.2-12.0 [facility] Determination of erythrocyte mean corpuscular volume (MCV)Ordered By: Jorge Golden on 03-09-2023 MCV (RBC) [Entitic vol] 95.8 fL 81-99 [facility] Hematocrit Auto (Bld) [Volum e fraction]Ordered By: Jorge Golden on 03-09-2023 Hematocrit (Bld) [Volume fraction] 40.9 % 37-47 [facility] - Chemistry and C hemistry - challengeOrdered By: Jorge Golden on 03-09-2023 CO2 [Moles/Vol] 28.0 mmol/L 21.0-32.0 [facility] Urea nitrogen/Creatinine [Mass ratio] 24.2 mg/mg 10-20 [facility] - Hematology and Cell countsOrdered By: Jorge Golden on 03-09-2023 Erythrocyte distribution width (RBC) [Entitic vol] 45.1 fL 35.1-43.9 [facility] Erythrocyte distribution width (RBC) [Ratio] 12.7 % 11.6-14.6 [facility] Immature granulocytes/100 WBC (Bld) 0.200 % 0.0-0.9 [facility] Comment on above: IG% - Immature Granu locytes (promyelocytes, myelocytes and metamyelocytes) > 1% indicates that a LEFT SHIFT is Present. MCH (RBC) [Entitic mass] 30.4 pg 27.0-32.0 [facility] Nucleated RBC/100 WBC (Bld) [Ratio] 0 % 0-5 [facility] MCHC Auto (RBC) [Mass/Vol]Or dered By: Jorge Golden on 03-09-2023 MCHC (RBC) [Mass/Vol] 31.8 g/dL 32-36 [facility] No Panel InformationOrdered By: Jorge Golden on 03-09-2023 Estimated GFR (MDRD) Amer 119 mL/min >60 [facility] Comment on above: GFR Calc Estimated GFR (MDRD) Non-Af Amer 98 mL/min >60 [facility] Comment on above: Non- GFR Calc Platelets bldOrdered By: Benjy Golden on 03-09-2023 Platelets (Bld) [#/Vol] 197 10*3/uL 150-450 [facility] Serum or plasma calcium betsy urement (mass/volume)Ordered By: Jorge Golden on 03-09-2023 Calcium [Mass/Vol] 8.9 mg/dL 8.5-10.1 [facility] Serum or plasma cholesterol in HDL measurement (mass/volume)Ordered By: Jorge Golden on 03-09-2023 Cholesterol in HDL [Mass/Vol] 65 mg/dL >40 [facility] Comment on above: The drugs N-Acetylcy steine and Metamizole may falsely depress this assay. Reference Range HDL <40 mg/dL Low HDL Cholesterol HDL >or= 60 mg/dL High HDL Cholesterol Serum or plasma cholesterol in VLDL measurement (mass/volume)Ordered By: Jorge Golden on 03-09-2023 Cholesterol in VLDL [Mass/Vol] 12 mg/dL 5-40 [facility] Serum or plasma creatinine m easurement (mass/volume)Ordered By: Jorge Golden on 03-09-2023 Creatinine [Mass/Vol] 0.74 mg/dL 0.55-1.02 [facility] Comment on above: The validity of the calculated GFR & GFRAA in patients over 70 years has not been determined. Clinical correlation is essential. Serum or plasma low density lipoprotein (LDL) cholesterol measurement (mass/volume)Ordered By: Jorge Golden on 03-09-2023 Cholesterol in LDL [Mass/Vol] 67 mg/dL 0-130 [facility] Serum or plasma urea nitroge n measurement (mass/volume)Ordered By: Jorge Golden on 03-09-2023 Urea nitrogen [Mass/Vol] 18 mg/dL 7-18 [facility] Thin prep Papanicolaou smear with manual screeningOrdered By: Jorge Golden on 03-09-2023 Thin prep Papanicolaou smear with manual screening 3 5-15 [facility] CNPNon 05-13-2020 CNPN Telephone (VALERIYYL) ---- FRANCINE MANTILLA ([id number]) 1995 F Date Time Provider Department 05/13/20 TOYA RAMIREZ During your visit today, we recorded the following information about you: Toya Ramirez DO 05/13/2020 2:37 PM Signed Echo normal Madelaine Mojica LPN, DELPHINE 05/13/2020 4:41 PM Signed Patient informed. Allergies As of Date: 05/13/2020 Noted Allergy Reaction PENICILLINS 01/17/2018 13 - Other: See Comments Comments: Family history of allergy. Pt. Has never had medication. TYLENOL (ACETAMINOPHEN) 08/23/2015 8 - GI Upset Comments: emesis Date Reviewed: 04/06/2020 Reviewed by: Christel Meza - Fully Assessed Reason for Visit: Film Cath/Echo [2726] Report On Audiogram [1182] Prescriptions as of 05/13/2020 Sig: LO LOESTRIN FE 1 MG-10 MCG (2* Take 1 tablet by mouth once d* Problem List As Of Date: 05/13/2020 (None) Encounter Status:Closed by TOYA RAMIREZ on 05/13/20 [facility] CNPN Telephone (FPDOYL) ---- FRANCINE MANTILLA ([id number]) 1995 F Date Time Provider Department 05/13/20 TOYA RAMIREZ FPDOYL During your visit today, we recorded the following information about you: Toya Ramirez DO 05/13/2020 3:42 PM Signed Echo nabeel Mojica LPN, LPN 05/13/2020 4:44 PM Signed Duplicate message, patient advised. Allergies As of Date: 05/13/2020 Noted Allergy Reaction PENICILLINS 01/17/2018 14 - Other: See Comments Comments: Family history of allergy. Pt. Has never had medication. TYLENOL (ACETAMINOPHEN) 08/23/2015 8 - GI Upset Comments: emesis Date Reviewed: 04/06/2020 Reviewed by: Christel Meza - Fully Assessed Reason for Visit: Results [95] Cmt: echo Prescriptions as of 05/13/2020 Sig: LO LOESTRIN FE 1 MG-10 MCG (2* Take 1 tablet by mouth once d* Problem List As Of Date: 05/13/2020 (None) Encounter Status:Closed by MADELAINE MOJICA LPN on 05/13/20 [facility] 04-05-2020 LAWSONN Telephone (JOSEFINADOYL) ---- FRANCINE MANTILLA ([id number]) 1995 F Date Time Provider Department 04/05/20 YUMIKO HICKMAN During your visit today, we recorded the following information about you: Raven Young 04/05/2020 2:13 PM Signed ----- Message from Savannah Cárdenas sent at 04/05/2020 1:22 PM EST ----- Regarding: medicine / jose / Lab Work Subject Line Format: Medicine / [Provider Name] / [Issue] Patient has been identified by name and Date of (Y/N): Y Patient: Francine Mantilla Date of : 1995 Provider for this encounter: Reason for the call/escalation: Patient is wanting lab work done prior to appointment on 04/28. Looking for more in depth testing of her thyroid. Patient would like a call from the nurse or doctor to confirm what labs are being ordered. Person calling if other than patient: na Return call to if other than patient: na Best contact number: [phone] Savannah Sellers April 05, 2020 1:22 PM Raven Young 04/05/2020 2:15 PM Signed Advised Pt that she must be seen on 04/28/2020 to get the lab order. Lab orders are not written prior to appointment. Raven Young Allergies As of Date: 04/05/2020 Noted Allergy Reaction TYLENOL (ACETAMINOPHEN) 08/23/2015 8 - GI Upset Comments: emesis Date Reviewed: 05/15/2016 Reviewed by: Alondra Montgomery Ma - Fully Assessed Reason for Visit: Patient Question [8310] Cmt: wanted a lab order Prescriptions as of 04/05/2020 Sig: NORGESTIMATE 0.25 MG-ETHINYL * Take 1 tablet by mouth once d* Problem List As Of Date: 04/05/2020 (None) Encounter Status:Closed by RAVEN YOUNG on 04/05/20 [facility] (JOSEFINADOYL) ---- FRANCINE MANTILLA ([id number]) 1995 F Date Time Provider Department 03/26/20 YUMIKO HICKMAN During your visit today, we recorded the following information about you: Kelle Orellananc 03/26/2020 8:23 AM Signed Patient called with concern of anxiety with episode in the middle of the night of increased heart rate. Patient requesting echo. Please advise. Toya Ramirez DO 03/26/2020 9:08 AM Signed Ordered echo Margi Rogers LPN 03/26/2020 10:29 AM Signed Left message to call Margi Rogers LPN 04/02/2020 10:37 AM Signed Left another message to call Margi Rogers LPN 04/05/2020 10:24 AM Signed Called patient and advised he ordered the echo. She states she stopped in last week and picked up the order and is going to schedule herself. States she wants a work up on her thyroid since she saw another Dr and was discussing her symptoms. Can you please schedule patient an appt to come in and discuss her thyroid and symptoms. Thank you Allergies As of Date: 03/26/2020 Noted Allergy Reaction TYLENOL (ACETAMINOPHEN) 08/23/2015 8 - GI Upset Comments: emesis Date Reviewed: 05/15/2016 Reviewed by: Alondra Montgomery Ma - Fully Assessed Reason for Visit: Anxiety [9] Primary Visit Diagnosis:Paroxysma l SVT (supraventricular tachycardia) ([facility]) [I47.1] Order(s):ECHO [[id number]] Order #: [id number]: 1 FUTURE perflutren lipid microspheres 1.3 mL in NaCl (PF) 0.9% 10 mL injection (DEFINITY)Disp: Rfl: sodium chloride 0.9 % (flush) 10 mL (BD POSIFLUSH)Disp: Rfl: Prescriptions as of 03/26/2020 Sig: NORGESTIMATE 0.25 MG-ETHINYL * Take 1 tablet by mouth once d* Problem List As Of Date: 03/26/2020 (None) Prescriptions ordered this encounter Disp Refills Start End PERFLUTREN LIPID MICROSPHERES 1.1 MG* 03/26/2020 06/25/2021 Route: INTRAVENOUS SODIUM CHLORIDE 0.9 % (FLUSH) INJECT* 03/26/2020 06/25/2021 Route: INTRAVENOUS Encounter Status:Closed by TOYA RAMIREZ on 03/26/20 [facility] CNPN Telephone (VALERIYYL) ---- FRANCINE MANTILLA ([id number]) 1995 F Date Time Provider Department 03/26/20 YUMIKO HICKMAN During your visit today, we recorded the following information about you: Kelle Barbour 03/26/2020 8:23 AM Signed Patient called with concern of anxiety with episode in the middle of the night of increased heart rate. Patient requesting echo. Please advise. Toya Ramirez DO 03/26/2020 9:08 AM Signed Ordered echo Margi Rogers LPN 03/26/2020 10:29 AM Signed Left message to call Margi Rogers LPN 04/02/2020 10:37 AM Signed Left another message to call Margi Rogers LPN 04/05/2020 10:24 AM Signed Called patient and advised he ordered the echo. She states she stopped in last week and picked up the order and is going to schedule herself. States she wants a work up on her thyroid since she saw another and was discussing her symptoms. Can you please schedule patient an appt to come in and discuss her thyroid and symptoms. Thank you Keena Salinas 04/07/2020 9:46 AM Signed Left message for pt to call back to schedule an appt. Keena Salinas Allergies As of Date: 03/26/2020 Noted Allergy Reaction TYLENOL (ACETAMINOPHEN) 08/23/2015 8 - GI Upset Comments: emesis Date Reviewed: 05/15/2016 Reviewed by: Alondra Montgomery Ma - Fully Assessed Reason for Visit: Anxiety [9] Primary Visit Diagnosis:Paroxysma l SVT (supraventricular tachycardia) ([facility]) [I47.1] Order(s):ECHO [[id number]] Order #: [id number]: 1 FUTURE perflutren lipid microspheres 1.3 mL in NaCl (PF) 0.9% 10 mL injection (DEFINITY)Disp: Rfl: sodium chloride 0.9 % (flush) 10 mL (BD POSIFLUSH)Disp: Rfl: Prescriptions as of 03/26/2020 Sig: X NORGESTIMATE 0.25 MG-ETHINYL * Take 1 tablet by mouth once d* Problem List As Of Date: 03/26/2020 (None) Prescriptions ordered this encounter Disp Refills Start End PERFLUTREN LIPID MICROSPHERES 1.1 MG* 03/26/2020 06/25/2021 Route: INTRAVENOUS SODIUM CHLORIDE 0.9 % (FLUSH) INJECT* 03/26/2020 06/25/2021 Route: INTRAVENOUS Encounter Status:Closed by TOYA RAMIREZ on 03/26/20 [facility] Vital Signs Date Time Vital Sign Value Performing Clinician [facility] 12-02-2024 13:04040 Body height 167.[address] Chaim Golden MD Work Phone: [facility] 12-02-2024 13:04-0400 Body mass index (BMI) [Ratio] 21.2 kg/m2 Dr. Chaim Golden MD Work Phone: [facility] 12-02-2024 13:040400 Body weight 59.[address] Chaim Golden MD Work Phone: [facility] 12-02-2024 13:04-0400 Diastolic blood pressure 62 mm[Hg] Dr. Chaim Golden MD Work Phone: 1(579)394-978204 [place] [address] 12-02-2024 13:04-0400 Systolic blood pressure 98 mm[Hg] Dr. Chaim Golden MD Work Phone: 9(029)103-811191 [address] 10-29-2024 11:31-0400 Body height 167.[address] Chaim Golden MD Work Phone: 1(259)803-788374 [place] [address] 10-29-2024 11:30-0400 Body mass index (BMI) [Ratio] 20.7 kg/m2 Dr. Chaim Golden MD Work Phone: 3(522)947-566474 [place] [address] 10-29-2024 11:30-0400 Body weight 58.[address] Chaim Golden MD Work Phone: 3(661)943-425374 [place] [address] 10-29-2024 11:30-0400 Diastolic blood pressure 67 mm[Hg] Dr. Chaim Golden MD Work Phone: 4(939)958-851074 [place] [address] 10-29-2024 11:30-0400 Systolic blood pressure 101 mm[Hg] Dr. Chaim Golden MD Work Phone: 8(775)921-940874 [place] [address] 10-03-2024 09:19-0400 Body height 167.[address] Chaim Golden MD Work Phone: 9(445)362-857474 [place] [address] 10-03-2024 09:15-0400 Body mass index (BMI) [Ratio] 20.2 kg/m2 Dr. Chaim Golden MD Work Phone: 9(861)874-424474 [place] [address] 10-03-2024 09:15-0400 Body weight 56.[address] Chaim Golden MD Work Phone: 0(613)119-425674 [place] [address] 10-03-2024 09:15-0400 Diastolic blood pressure 70 mm[Hg] Dr. Chaim Golden MD Work Phone: 4(737)229-442474 [place] [address] 10-03-2024 09:15-0400 Systolic blood pressure 105 mm[Hg] Dr. Chaim Golden MD Work Phone: [facility] 09-11-2024 12:02-0400 Diastolic blood pressure 56 mm[Hg] Dr. Chaim Golden MD Work Phone: [facility] 09-11-2024 12:02-0400 Heart rate 75 /min Dr. Chaim Golden MD Work Phone: [facility] 09-11-2024 12:02-0400 Systolic blood pressure 92 mm[Hg] Dr. Chaim Golden MD Work Phone: 2(732)075-095604 [place] [address] 09-11-2024 10:44-0400 Body height 167.[address] Chaim Golden MD Work Phone: 1(668)090-067674 [place] [address] 09-11-2024 10:44-0400 Body mass index (BMI) [Ratio] 19.2 kg/m2 Dr. Chaim Golden MD Work Phone: 7(486)541-547704 [place] [address] 09-11-2024 10:44-0400 Body temperature 97.3 [degF] Dr. Chaim Golden MD Work Phone: 1(786)264-327891 [address] 09-11-2024 10:44-0400 Body weight 53.[address] Chaim Golden MD Work Phone: [facility] 09-11-2024 10:44-0400 Respiratory rate 16 /min Dr. Chaim Golden MD Work Phone: [facility] 09-11-2024 10:44-0400 SaO2% (BldA) [Mass fraction] 95 % Dr. Chaim Golden MD Work Phone: [facility] 09-05-2024 09:48-0400 Body mass index (BMI) [Ratio] 19.2 kg/m2 Dr. Chaim Golden MD Work Phone: [facility] 09-05-2024 09:48-0400 Body weight 54.[address] Chaim Golden MD Work Phone: [facility] 09-05-2024 09:48-0400 Diastolic blood pressure 64 mm[Hg] Dr. Chaim Golden MD Work Phone: [facility] 09-05-2024 09:48-0400 Systolic blood pressure 101 mm[Hg] Dr. Chaim Golden MD Work Phone: [facility] 09-02-2024 12:59-0400 Diastolic blood pressure 55 mm[Hg] Dr. Chaim Golden MD Work Phone: [facility] 09-02-2024 12:59-0400 Heart rate 82 /min Dr. Chaim Golden MD Work Phone: [facility] 09-02-2024 12:59-0400 Systolic blood pressure 97 mm[Hg] Dr. Chaim Golden MD Work Phone: [facility] 09-02-2024 11:44-0400 Body height 167.[address] Chaim Golden MD Work Phone: [facility] 09-02-2024 11:44-0400 Body temperature 97 [degF] Dr. Chaim Golden MD Work Phone: [facility] 09-02-2024 11:44-0400 Respiratory rate 16 /min Dr. Chaim Golden MD Work Phone: [facility] 09-02-2024 11:44-0400 SaO2% (BldA) [Mass fraction] 100 % Dr. Chaim Golden MD Work Phone: [facility] 08-26-2024 12:48-0400 Body temperature 98.2 [degF] Dr. Chaim Golden MD Work Phone: [facility] 08-26-2024 12:48-0400 Diastolic blood pressure 77 mm[Hg] Dr. Chaim Golden MD Work Phone: [facility] 08-26-2024 12:48-0400 Heart rate 78 /min Dr. Chaim Golden MD Work Phone: 2(181)183-905404 [place] [address] 08-26-2024 12:48-0400 Respiratory rate 19 /min Dr. Chaim Golden MD Work Phone: 7(750)643-103104 [place] [address] 08-26-2024 12:48-0400 SaO2% (BldA) [Mass fraction] 97 % Dr. Chaim Golden MD Work Phone: 9(507)841-626574 [place] [address] 08-26-2024 12:48-0400 Systolic blood pressure 110 mm[Hg] Dr. Chaim Golden MD Work Phone: 3(598)427-849674 [place] [address] 08-26-2024 11:03-0400 Body mass index (BMI) [Ratio] 19 kg/m2 Dr. Chaim Golden MD Work Phone: 6(415)407-750774 [place] [address] 08-26-2024 11:03-0400 Body weight 53.[address] Chaim Golden MD Work Phone: 4(138)958-430974 [place] [address] 08-06-2024 09:13-0400 Body mass index (BMI) [Ratio] 18.7 kg/m2 Dr. Chaim Golden MD Work Phone: 9(383)045-119674 [place] [address] 08-06-2024 09:13-0400 Body weight 52.[address] Chaim Golden MD Work Phone: 9(964)682-497074 [place] [address] 08-06-2024 09:13-0400 Diastolic blood pressure 69 mm[Hg] Dr. Chaim Golden MD Work Phone: 1(671)229-651274 [place] [address] 08-06-2024 09:13-0400 Systolic blood pressure 110 mm[Hg] Dr. Chaim Golden MD Work Phone: 0(563)989-960374 [place] [address] 07-18-2024 08:49-0400 Body height 167.[address] Chaim Golden MD Work Phone: 7(198)197-970974 [place] [address] 07-18-2024 08:47-0400 Body mass index (BMI) [Ratio] 18.8 kg/m2 Dr. Chaim Golden MD Work Phone: 7(695)931-619974 [place] [address] 07-18-2024 08:47-0400 Body weight 52.[address] Chaim Golden MD Work Phone: [facility] 07-18-2024 08:47-0400 Diastolic blood pressure 69 mm[Hg] Dr. Chaim Golden MD Work Phone: [facility] 07-18-2024 08:47-0400 Systolic blood pressure 107 mm[Hg] Dr. Chaim Golden MD Work Phone: [facility] 08-24-2022 15:42-0400 Body height 167.[address] Jorge Golden Work Phone: [facility] 08-24-2022 15:38-0400 Body mass index (BMI) [Ratio] 18.9 kg/m2 Dr. Jorge Golden Work Phone: [facility] 08-24-2022 15:38-0400 Body weight 53.[address] Jorge Golden Work Phone: [facility] 08-24-2022 15:38-0400 Diastolic blood pressure 71 mm[Hg] Dr. Jorge Golden Work Phone: [facility] 08-24-2022 15:38-0400 Systolic blood pressure 114 mm[Hg] Dr. Jorge Golden Work Phone: [facility] 05-31-2022 09:32-0500 Body mass index (BMI) [Ratio] 18.6 kg/m2 Dr. Jorge Golden Work Phone: [facility] 05-31-2022 09:32-0500 Body weight 52.[address] Jorge Golden Work Phone: [facility] 05-31-2022 09:32-0500 Diastolic blood pressure 62 mm[Hg] Dr. Jorge Golden Work Phone: [facility] 05-31-2022 09:32-0500 Systolic blood pressure 96 mm[Hg] Dr. Jorge Golden Work Phone: [facility] Encounters Encounter Date Encounter Type Care Provider Facility Start: 12-02-2024 End: 12-02-2024 ambulatory Carmelina Russtings [employer] Facility:[facility] Start: 12-02-2024 End: 12-02-2024 Patient encounter procedure Carmelina Morin [employer]-C -[facility] Work Phone: Start: 10-29-2024 End: 10-29-[address] Moon Reddy DO -[facility] Work Phone: Start: 10-29-2024 End: 10-29-[address] Chaim Golden MD Work Phone: [facility] Work Phone: Start: 10-03-2024 End: 10-03-[address] Tricia Euceda MD -[facility] Work Phone: Start: 10-03-2024 End: 10-03-[address] Chaim Golden MD Work Phone: [facility] Work Phone: Start: 10-02-2024 End: 10-03-2024 ambulatory JENNY [facility] Start: 09-11-2024 End: 09-11-[address] Tricia Euceda MD -[facility] Work Phone: Start: 09-11-2024 End: 09-11-[address] Chaim Golden MD Work Phone: [facility] Work Phone: Start: 09-05-2024 End: 09-05-2024 Patient encounter procedure Chrissy Lucas CNM -[facility] Work Phone: Start: 09-05-2024 End: 09-05-2024 ambulatory Chrissy Lucas Facility:[facility] Start: 09-02-2024 End: 09-02-[address] Tricia Euceda MD -[facility] Work Phone: Start: 09-02-2024 End: 09-02-[address] Chaim Golden MD Work Phone: [facility] Work Phone: Start: 08-26-2024 End: 08-26-2024 Emergency department patient visit Dr. Clarence Wolff DO -Emergency Department Work Phone: Start: 08-06-2024 End: 08-06-[address] Tricia Euceda MD -[facility] Work Phone: Start: 08-06-2024 End: 08-06-2024 ambulatory Chaim Golden Facility:[facility] Start: 07-18-2024 End: 07-18-[address] Moon Reddy DO -[facility] Work Phone: Start: 07-18-2024 End: 07-18-[address] Chaim Golden MD Work Phone: [facility] Work Phone: Start: 07-18-2024 End: 07-18-2024 ambulatory Chaim Golden Facility:[facility] Start: 04-21-2024 End: 06-18-2024 ambulatory SANIA SOUSA PA-C Facility:[facility] Start: 04-21-2024 End: 06-18-2024 Physical therapy management SANIA SOUSA PA-C [facility] Start: 03-09-2023 End: 03-09-2023 ambulatory [facility] Work Phone: Start: 03-09-2023 End: 03-09-2023 Patient encounter procedure [facility] Start: 09-01-2022 End: 09-01-[address] Jorge Golden Work Phone: [facility] Work Phone: Start: 09-01-2022 End: 09-01-[address] Jorge Golden Work Phone: [facility]-Physical Therapy Start: 08-24-2022 End: 08-24-[address] Jorge Golden Work Phone: [facility]-Laboratory, Specimen Start: 08-24-2022 End: 08-24-[address] Jorge Golden Work Phone: [facility] Start: 05-31-2022 End: 05-31-[address] Jorge Golden Work Phone: [facility] Procedures Date Procedure Procedure Detail Performing Clinician Start: 08-26-[address] Chaim Golden MD Work Phone: Start: 07-18-[address] Murali Golden MD Work Phone: Start: 07-18-2024 Hepatitis C antibody measurement Dr. Chaim Golden MD Work Phone: Comment on above: Reactive: Presumptiv e evidence of antibodies to HCV. Follow CDC recommendations for supplemental testing.Non-Reactive: Antibodies to HCV were not detected; does not exclude the possibility of exposure to HCVReactive Results are presumptive evidence of antibodies to HCV. Follow CDC recommendations for supplemental testing.Order confirmation testing: HCV Quant by PCR testing - HCVPCR #[id number] Non Reactive: < 0.8 Equivocal: >/= 0.8 to < 1.0 Reactive: >/= 1.0The CDC requires that a reactive/equivocal HCV antibody result be sent out for confirmation. HCV Quant by PCR testing. Start: 07-18-[address] Chaim Golden MD Work Phone: Comment on above: Antibody Result: Int erpretationNon-Reactive: Non- ImmuneReactive: ImmuneThe following results were obtained with the [employer] Rubella IgG assay. Results from assays of other manufacturers cannot be used interchangeably. Start: 07-18-2024 Serologic test for syphilis Dr. Chaim Golden MD Work Phone: Plan of Treatment Date Care Activity Detail Author Start: 12-02-2024 CBC W Auto Differential panel - Blood [facility] Start: 12-02-2024 Measurement of glucose 2 hours after glucose challenge for glucose tolerance test [facility] Start: 12-02-2024 Serologic test for syphilis [facility] Start: 12-02-2024 [facility] Start: 10-03-2024 CBC W Auto Differential panel - Blood [facility] Start: 10-03-2024 [facility] Start: 09-11-2024 Iv infusion hydration initial 31 min-1 hour HYDRATION IV INFUSION WVIT [facility] Start: 09-02-2024 Iv infusion hydration initial 31 min-1 hour HYDRATION IV INFUSION [facility] Start: 08-26-2024 [facility] Start: 08-24-2022 Liquid based cervical cytology screening [facility] Start: 04-04-2017 End: 04-04-2017 Appointment Appointment [facility] CBC W Auto Different ial panel - Blood [facility] Erythrocyte mean corpuscular volume determination [facility] Erythrocyte mean corpuscular volume determination [facility] Hematocrit [Volume Fraction] of Blood [facility] Hematocrit [Volume Fraction] of Blood [facility] Hemoglobin [Mass/vol ume] in Blood [facility] Hemoglobin [Mass/vol ume] in Blood [facility] Leukocytes [#/volume ] in Blood [facility] Leukocytes [#/volume ] in Blood [facility] Mean corpuscular hemoglobin concentration determination [facility] Mean corpuscular hemoglobin concentration determination [facility] Mean corpuscular hemoglobin determination [facility] Mean corpuscular hemoglobin determination [facility] Measurement of gluco se 2 hours after glucose challenge for glucose tolerance test [facility] Neutrophil count [facility] Neutrophil count [facility] Neutrophil percent differential count [facility] Neutrophil percent differential count [facility] Path report.final Dx Spec [facility] Patient Education ED Hyperemesis Gravidarum ED ED Vomiting (Adult) [facility] Work Phone: Patient referral [facility] Work Phone: Platelets [#/volume] in Blood [facility] Platelets [#/volume] in Blood [facility] Red blood cell count [facility] Red blood cell count [facility] Red cell distributio n width determination [facility] Red cell distributio n width determination [facility] Serologic test for syphilis [facility] Payers Date Payer Category Payer Self-pay [id number] 2023 Unknown [id number] 2023 Unknown [id number] 1995 Unknown [id number] 2.16.8 [id number] 1995 Unknown [id number] 2.16. [id number] Unknown ANTHEM [id number] Unknown [employer] [facility] [id number] Unknown [id number] 2.16.8 [id number] Unknown [id number] 2.16.8 [id number] Unknown [id number] 2.16.8 [id number] Unknown [id number] 2.16.8 [id number] Unknown [id number] 2.16.8 [id number] Unknown [id number] 2.16.8 [id number] Unknown [id number] 2.16.8 [id number] Unknown [id number] 2.16.8 [id number] Unknown [id number] 2.16.8 [id number] Unknown [id number] 2.16.8 [id number] Unknown [id number] 2.16.8 [id number] Social History Date Type Detail Facility Start: 08-24-2022 End: 08-24-2022 Tobacco smoking status NHIS Unknown if ever smoked [facility] Start: 05-21-2018 None [facility] Start: 1995 Sex Assigned At Female [facility] Tobacco smoking status [facility] Start: 04-18-2024 End: 09-03-2024 Sex Female (finding) [facility] Start: 06-24-2024 End: 08-26-2024 Tobacco smoking status NHIS Never smoked tobacco (finding) [facility] Functional Status Date Assessment Result Facility 04-21-2024 Functional Status Home Living Ad ditional Information Objective: Cardiovascular screen: BP: 110/68 HR: 65 BPM O2 sat: 97% Gait: Ambulates with mild valgus positioning without AD. Weight bearing status: no current restrictions Balance: SLS mild wobble L and R with mild valgus positioning. Improves with practice. Observation in standing: Genu Valgum mild bilat Observation: Surgical incision is well healed without any signs of obvious infection. Effusion: min to no effusion present Foot: Pes planus, pes cavus, hallux [id number], pronation/supination Functional Strength: ASLR: 7, Squat pattern : part range: tends to hip hinge with limited load on the quadriceps. [facility] Mental Status Date Assessment Result Facility 09-11-2024 Cognitive function Voice/Name [facility] Work Phone: 09-02-2024 Cognitive function Awake;Alert;A ppropriate;Fol lows Commands [facility] Work Phone: Clinical Notes 09-01-2022 to 10-29-2024 Note Date & Type Note Facility 10-29-2024 Progress note [facility] 10-03-2024 Progress note [facility] 08-06-2024 Evaluation note Diagnosis Onset Date Resolution acute August 06 9:02am Supervision of normal acute August 06, 2024 9:02am acute September 05, 2024 9:46am Supervision of normal acute September 05, 2024 9: 46am acute October 03, 2024 9:11am Supervision of normal acute October 03, 2024 9 :11am acute October 29 11:29am Supervision of normal acute October 29, 2024 11:29am acute December 02 12:44pm Supervision of normal acute December 02, 2024 12:44pm [facility] Work Phone: 1(406) 132-289003-14-2025 Evaluation note* Diagnosis Onset Date Resolution Status Admit Date Cervical ectropion acute July 18, 2024 8:43am acute July 18 8:43am Supervision of normal acut e July 18, 2024 8:43am Tilted uterus acute July 18, 2024 8:43am Underweight (BMI < 18.5) acute July 18, 2024 8:43am [facility] Work Phone: 1([phone]) 555-894503-14-2025 Evaluation note* Diagnosis Onset Date Resolution Status Admit Date acute July 18 8:43am Supervision of normal acute July 18, 2024 8:43am Cervical ectropion resolved July 18, 2024 8:43am Tilted uterus resolved July 18, 2024 8:43am Underweight (BMI < 18.5) resolved July 18, 2024 8:43am acute August 06 9:02am Supervision of normal acute August 06, 2024 9:02am [facility] Work Phone: 1([phone]) 204-897803-14-2025 Evaluation note* Diagnosis Onset Date Resolution Status Admit Date acute July 18 8:43am Supervision of normal acute July 18, 2024 8:43am Cervical ectropion resolved July 18, 2024 8:43am Tilted uterus resolved July 18, 2024 8:43am Underweight (BMI < 18.5) resolved July 18, 2024 8:43am acute August 06 9:02am Supervision of normal acute August 06, 2024 9:02am acute September 05, 2024 9:46am Supervision of normal acute September 05, 2024 9: 46am [facility] Work Phone: 1([phone]) 242-655203-14-2025 Evaluation note* Diagnosis Onset Date Resolution Status Admit Date acute July 18 8:43am Supervision of normal acute July 18, 2024 8:43am Cervical ectropion resolved July 18, 2024 8:43am Tilted uterus resolved July 18, 2024 8:43am Underweight (BMI < 18.5) resolved July 18, 2024 8:43am acute August 06 9:02am Supervision of normal acute August 06, 2024 9:02am acute September 05, 2024 9:46am Supervision of normal acute September 05, 2024 9: 46am acute October 03, 2024 9:11am Supervision of normal acute October 03, 2024 9 :11am [place] [email or web address] [facility] Work Phone: 1([phone]) 314-817003-14-2025 Evaluation note* Diagnosis Onset Date Resolution Status Admit Date acute July 18 8:43am Supervision of normal acute July 18, 2024 8:43am Cervical ectropion resolved July 18, 2024 8:43am Tilted uterus resolved July 18, 2024 8:43am Underweight (BMI < 18.5) resolved July 18, 2024 8:43am acute August 06 9:02am Supervision of normal acute August 06, 2024 9:02am acute September 05, 2024 9:46am Supervision of normal acute September 05, 2024 9: 46am acute October 03, 2024 9:11am Supervision of normal acute October 03, 2024 9 :11am acute October 29 11:29am Supervision of normal acute October 29, 2024 11:29am [facility] Work Phone: [phone] 815-970604-28-2023 Discharge summary Author Keara Waller [facility] September 01, 2022 10:43am Note Date/Time September 01, 2022 10: 43am [facility] Physical Therapy [facility] [address] [place] [address] / REHABILITATION SERVICES DISCHARGE SUMMARY MR#: [id number] Acct: [id number] Name: FRANCINE MANTILLA Rep #: [id number] : 1995 27 From: Keara Waller PT, Cert. MDT Referring Dr.: Dr. Clif Mendieta MD Status: REG RCR Insurance: [employer]URANCE It has been my pleasure to treat FRANCINE MANTILLA referred by Dr. Clif Mendieta MD, with the diagnosis of Left Knee Instability and Patellar Tracking for a total of 6 visit(s). Discharge Date: 09/01/22 Please see the following information for a summary of their discharge status. Subjective: I KNOW NOW WHAT I NEED TO FOCUS ON NOW TO IMPROVE. SHE REPORTS HERTHIGH IS STRONER BUT HER KNEE STILL FEELS THE SAME. DENIES ANY NEW DISLOCATIONS. % Improvement: 100 Objective/Function: PATIENT WAS SEEN TODAY FOR RE-ASSESSMENT OF PROGRESS TOWARD THE SET PT GOALS AND THE NEED FOR FURTHER PHYSICAL THERAPY VS READINESS FOR DISCHARGE. UPON EXAM TODAY PATIENT DEMONSTRATES A LOT OF APPREHENSION ABOUT HAVING KNEES TOUCHED (ALIA) AND RIGHT ILIAC CREST IS SIGNIFICANTLY HIGHER THAN RIGHT. SHE STANDS WITH R LE STRAIGHT WITH MOST OF HER WEIGHT ON IT AND L KNEE BENT. DISCUSSED POSSIBLE BENEFITS OF L SHOE LIFT AND PATIENT REPORTS SHE HAS TRIED THIS IN THE PAST AND HAS CONSIDERED TRYING IT AGAIN. L LE STRENGTH IS 5/5 WITH MMT'ING TODAY EXCEPT L KNEE GRADED 4/5. SEE GOALS BELOW. ENCOURAGED PATIENT TO FOLLOW UP WITH SPECIALIST RECOMMENDED. NO SIGNIFICANT CHANGE IN LEFSSCORE. Goal 1:: Patient will be I with HEP and progression Goal Progress: Goal Met Goal 2:: Patient will SLS without pelvic translation Goal Progress: Goal Met Goal 3:: Patient will report no feelings of instability Goal Progress: Not Progressing Goal 4:: Patient will report 80% improvement Goal Progress: Goal Met Goal 5:: Patient will maintain proper posture t/o tx session to demo increased core s/s Goal Progress: Goal Met Plan: D/C TO INDEP HEP AND FOLLOW UP WITH SPECIALIST RECOMMENDED BY DR. MENDIETA. If there are questions or concerns regarding this patient's physical therapy, please feel free to call me at [phone]. Thank you for the referral of thispatient. Sincerely, Keara Waller, PT, Cert MDT Balance/Gait/Functional tests - Balance/Special Test Scores Lower Extremity Functional Score: 71 <Electronically signed by Santino Danielson PT. MDT> 09/01/22 1043 CC: Dr. Jorge Golden MD; Dr. Clif Mendieta MD ~ IVA Signed [facility] Work Phone: Evaluation + Plan note No data available for this section [facility] Evaluation note* Diagnosis Onset Date Resolution Status Cervicitis resolved Encounter for routine gynecological examination noneactive Cervical ectropion acute [facility] Work Phone: Evaluation noteNo assessment information available [facility] Work Phone: Hospital Discharge instructions No data available for this section [facility] Progress note No data available for this section [facility] Progrgue note Author Tricia Euceda [facility] Note Date/Time October 03, 2024 9:44a m [facility] [address], [address] [place] [address] OFFICE VISIT Date of Service: 10/03/24 MR#: [id number] Acct: [id number] Name: FRANCINE MANTILLA Rep #: [id number] : 1995 Provider: Dr. Alonzo Euceda MD Age/Sex: 29/F [place] [facility] Status: Signed Intake Vital Signs 08/06/24 09:13 09/11/24 10:44 10/03/24 09:15 10/03/24 09:19 Height 5 ft 6 in 5 ft 6 in 5 ft 6 in 5 ft 6 in Weight: 125 lb 2 oz BMI 20.2 BP 105/70 Intake Visit Reasons: 20 wk ob [employer] Worker Required: No Is patient in pain?: No Feel stressed/tense/nervous/anxious/difficulty sleeping: not at all Allergies penicillin G Allergy (Mild, Verified 10/03/24 09:15) Other nitrous oxide Allergy (Verified 10/03/24 09:15) Other acetaminophen (From Tylenol) Adverse Reaction (Severe, Verified 10/03/24 09:15) Vomiting Medications ?Medication ?Instructions ?Recorded ?Confirmed ?Type GMR02-NC 400 mcg-om3 35 mg-dha 25 1 tab PO DAILY PREGN PRUDENCE 04/12/21 10/03/24 History mg-epa 5 mg-fish oil chewable tablet doxylamine succinate 25 mg tablet 25 mg PO QHS PRN 10/03/24 History (Unisom (doxylamine)) pyridoxine (vitamin B6) 10 mg 10 mg PO QDAY 10/03/24 0 10/03/24 History tablet Last Menstrual Period: 05/17/24 Zika: Zika virus screening: Negative : No PFSH PFSH Medical History Anxiety Vaginal delivery Surgical History H/O knee surgery Kinderhook teeth extracted Family History Grandfather Cancer Paternal Social History adopted: No household members: spouse and children housing: house number of children: 2 current occupational status: unemployed current occupation: [employer] pets and animals: No history of recent travel: No sexually active: Yes Smoking Status: Never smoker alcohol intake: current alcohol intake frequency: holidays/special occasions only details: not while substance use type: does not use well-balanced diet: daily or most days caffeine: No eating out: rarely or never during the past year weight has: remained stable what type of physical activity do you participate in: walking and weight training frequency: 3-4 times per week duration: 45-60 minutes/day romero/sabianist: Congregation seatbelt use: always do you feel safe at home: Yes 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 Date Name GA/Weeks Outcome Route Bth Weight Infant Gen Labor Lgth Anesthesia Del Locatn Provider FOB 05/20/18 37 live - full term 7lbs 0oz Male 8 hours e pidural [facility] BELA Mcintyre 04/13/21December live - full term 6#4oz Male epidu ral [facility] Dr. Ok Mcintyre Delivery Date: 05/20/18 Last Updated by: Shyla Hurley MD 34 wk PTL: fluids and stopped. steroids. Thinks related to noravirus. Pushed for 20 min. 2nd degree with abscess of suture Delivery Date: 04/13/21 Last Updated by: Radha Espinoza COVID + at , IAL HPI 20 wk ob Details: FRANCINE MANTILLA is a 29 year old who presents for routine OB visit. OB Visit KIRK Calculator Estimated Delivery Date Method Current WG Current Estimate 02/21/25 LMP (Certain) 19w 6d Other Estimates 02/20/25 Ultrasound #1 20w 0d Expected Delivery Route/Plan Labor Preferences- CB/BF classes: [] labor support person: [] labor intervention preferences: [] pain management options preferred: [] cut cord/dad catch: [] : [] PP control planned: [] discussed possible routes of delivery and associated risks: [] special requests: [] Specific Issue/Plans Covid status: [] Flu vaccine: [] Tdap vaccine: [] Rhogam: [] LARC form signed: [] Problem list reviewed and updated with the most current plan of care details and appropriate orders placed. Relevant counseling for the gestational age provided. Continue routine care and follow up unless otherwise noted in visit notes/problem list details Initial Weight: Not Recorded Date -?-?-?-?-?-?-?-?-?-?-?-?- EGA Weight BP Urine Prot -?-?-?-?-?-?-?-?-?-?-?-?- Glucose FHR FuHt Pres Dilation -?-?-?-?-?-?-?-?-?-?-?-?- Effaced St Visit Note 07/18/24 -?-?-?-?-?-?-?-?-?-?-?-?- 8w 6d 116 lb 8 oz 107/69 -?-?-?-?-?-?-?-?-?-?-?-?- 178 -?-?-?-?-?-?-?-?-?-?-?-?- JV- CRL consiste nt with LMP. declines nipt. zofran to pharmacy. new ob labs today 08/06/24 -?-?-?-?-?-?-?-?-?-?-?-?- 11w 4d 116 lb 110/69 Negative -?-?-?-?-?-?-?-?-?-?-?-?- Negative 160 -?-?-?-?-?-?-?-?-?-?-?-?- SM- trying to de termine if HIV has resulted- discuss with lab. if didn't reuslt will draw at 26 weeks. no vb cramping still has nausea 09/05/24 -?-?-?-?-?-?-?-?-?-?-?-?- 15w 6d 119 lb 2 oz 101/64 Nega tive -?-?-?-?-?-?-?-?-?-?-?-?- Negative 150 -?-?-?-?-?-?-?-?-?-?-?-?- KW- no vb/crampi ng. no concerns today. thinking about stopping the IV fluids. nausea is improving. US scheduled with MFM 10/03/24 -?-?-?-?-?-?-?-?-?-?-?-?- 19w 6d 125 lb 2 oz 105/70 Nega tive -?-?-?-?-?-?-?-?-?-?-?-?- Negative 145 20 -?-?-?-?-?-?-?-?-?-?-?-?- SM- no vb lof go od fm feeling tired ACOG First Trimester First Trimester: Desire for , Alcohol, Tobacco Cessation, Illicit/Recreational Drug/Substance Use, Intimate Partner Violence, Barriers to care, Unstable Housing, Communication Barriers, Environmental/Work Hazards, Anticipated Course of Care, Toxoplasmosis Precations, Use of Any medications, Sexual activity, Exercise, Dental Care, Sauna/Hot tub use, Seat Belt use, Childbirth classes/Hospital facilities, Travel, Indications for Ultrasound and Screening for Aneuploidy; Discussed Second Trimester Second Trimester: Signs and Symptoms of Labor, Selecting a care provider, Reproductive Life Planning & Contreception, Care Planning, Depression/Anxiety and Intimate Partner Violence; Discussed Tobacco Cessation Third Trimester Third Trimester: Pain Management Plans, Labor support person(s), Immediate Larc, Circumcision preference, Signs and Symptoms of Preeclampsia and Education Results POC Urinalysis 2 Dip (Clinic) Office Urine Glucose Negative Last Edit by Carmelina Arriaza on 10/03/24 09:20 Office Urine Protein Negative Last Edit by Carmelina Arriaza on 10/03/24 09:20 Coding Level of Care Code OB Routine Diagnoses Supervision of normal Z34.90 19 weeks gestation of Z3A.19 Weeks of gestation: 19 weeks Assessment and Plan Assessment and Plan (1) Supervision of normal : Status: Acute Comment: PRR , KIRK 02/21/25, surprise PC Loyd, December, Francisco Javier (2) : Status: Acute Qualifiers: Weeks of gestation: 19 weeks Qualified Code(s): Z3A.19 - 19 weeks gestation of Comment: declined NIPT & Carrier testing Orders: Orders POC Urinalysis 2 Dip (Clinic) Today 10/03/24 9646 <Electronically signed by Tricia tejada MD> Date _ Tricia Euceda MD Cosigner Signature: Date (if applicable) CC: ~ [facility] Work Phone: Progress note Author Moon Rosales [facility] Note Date/Time October 29, 2024 11:5 4am [facility] [address] [place] [address], [address] [place] [id number] OFFICE VISIT Date of Service: 10/29/24 MR#: [id number] Acct: [id number] Name: FRANCINE MANTILLA Rep #: [id number] : 1995 Provider: Dr. 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 Is patient in pain?: No Allergies penicillin G Allergy (Mild, Verified 10/29/24 11:30) Other nitrous oxide Allergy (Verified 10/29/24 11:30) Other acetaminophen (From Tylenol) Adverse Reaction (Severe, Verified 10/29/24 11:30) Vomiting Medications ?Medication ?Instructions ?Recorded ?Confirmed ?Type OEX13-RG 400 mcg-om3 35 mg-dha 25 1 tab PO DAILY PREGN PRUDENCE 04/12/21 10/29/24 History mg-epa 5 mg-fish oil chewable tablet doxylamine succinate 25 mg tablet 25 mg PO QHS PRN 10/29/24 History (Unisom (doxylamine)) pyridoxine (vitamin B6) 10 mg 10 mg PO QDAY 10/03/24 0 10/29/24 History tablet Last Menstrual Period: 05/17/24 Zika: Zika virus screening: Negative : No PFSH PFSH Medical History Anxiety Vaginal delivery Surgical History H/O knee surgery Kinderhook teeth extracted Family History Grandfather Cancer Paternal Social History adopted: No household members: spouse and children housing: house number of children: 2 current occupational status: unemployed current occupation: [employer] pets and animals: No history of recent travel: No sexually active: Yes Smoking Status: Never smoker alcohol intake: current alcohol intake frequency: holidays/special occasions only details: not while substance use type: does not use well-balanced diet: daily or most days caffeine: No eating out: rarely or never during the past year weight has: remained stable what type of physical activity do you participate in: walking and weight training frequency: 3-4 times per week duration: 45-60 minutes/day romero/sabianist: Congregation seatbelt use: always do you feel safe at home: Yes 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 Date Name GA/Weeks Outcome Route Bth Weight Gen Labor Lgth Anesthesia Del Locatn Provider EKTA 05/20/18 37 live - full term 7lbs 0oz Male 8 hours e pidural [facility] BELA Mcintyre 04/13/21December 37 live - full term 6#4oz Male epidu ral [facility] Dr. Ok Mcintyre Delivery Date: 05/20/18 Last Updated by: Shyla Hurley MD 34 wk PTL: fluids and stopped. steroids. Thinks related to noravirus. Pushed for 20 min. 2nd degree with abscess of suture Delivery Date: 04/13/21 Last Updated by: Radha Espinoza COVID + at , IAL HPI 24 wk ob Details: FRANCINE MANTILLA is a 29 year old who presents for routine OB visit. OB Visit KIRK Calculator Estimated Delivery Date Method Current WG Current Estimate 02/21/25 LMP (Certain) 23w 4d Other Estimates 02/20/25 Ultrasound #1 23w 5d Expected Delivery Route/Plan Labor Preferences- CB/BF classes: [] labor support person: [] labor intervention preferences: [] pain management options preferred: [] cut cord/dad catch: [] : [] PP control planned: [] discussed possible routes of delivery and associated risks: [] special requests: [] Specific Issue/Plans Covid status: [] Flu vaccine: [] Tdap vaccine: [] Rhogam: [] LARC form signed: [] Problem list reviewed and updated with the most current plan of care details and appropriate orders placed. Relevant counseling for the gestational age provided. Continue routine care and follow up unless otherwise noted in visit notes/problem list details Initial Weight: 116 lb Date -?-?-?-?-?-?-?-?-?-?-?-?- EGA Weight BP Urine Prot -?-?-?-?-?-?-?-?-?-?-?-?- Glucose FHR FuHt Pres Dilation -?-?-?-?-?-?-?-?-?-?-?-?- Effaced St Visit Note 07/18/24 -?-?-?-?-?-?-?-?-?-?-?-?- 8w 6d 116 lb 8 oz (+8 oz) 107/69 -?-?-?-?-?-?-?-?-?-?-?-?- 178 -?-?-?-?-?-?-?-?-?-?-?-?- JV- CRL consiste nt with LMP. declines nipt. emiliaan to pharmacy. new ob labs today 08/06/24 -?-?-?-?-?-?-?-?-?-?-?-?- 11w 4d 116 lb (+0 oz) 110/69 Negative -?-?-?-?-?-?-?-?-?-?-?-?- Negative 160 -?-?-?-?-?-?-?-?-?-?-?-?- SM- trying to de termine if HIV has resulted- discuss with lab. if didn't reuslt will draw at 26 weeks. no vb cramping still has nausea 09/05/24 -?-?-?-?-?-?-?-?-?-?-?-?- 15w 6d 119 lb 2 oz (+3 lb 2 oz) 101/64 Negative -?-?-?-?-?-?-?-?-?-?-?-?- Negative 150 -?-?-?-?-?-?-?-?-?-?-?-?- KW- no vb/crampi ng. no concerns today. thinking about stopping the IV fluids. nausea is improving. US scheduled with [facility] 10/03/24 -?-?-?-?-?-?-?-?-?-?-?-?- 19w 6d 125 lb 2 oz (+9 lb 2 oz) 105/70 Negative -?-?-?-?-?-?-?-?-?-?-?-?- Negative 145 20 -?-?-?-?-?-?-?-?-?-?-?-?- SM- no vb lof go od fm feeling tired 10/29/24 -?-?-?-?-?-?-?-?-?-?-?-?- 23w 4d 128 lb 4 oz (+12 lb 4 oz) 101/67 Negative -?-?-?-?-?-?-?-?-?-?-?-?- Negative 151 24 -?-?-?-?-?-?-?-?-?-?-?-?- JV- no lof, vagi nal bleeding, or dec fm. no complaints. ACOG First Trimester First Trimester: Desire for , Alcohol, Tobacco Cessation, Illicit/Recreational Drug/Substance Use, Intimate Partner Violence, Barriers to care, Unstable Housing, Communication Barriers, Environmental/Work Hazards, Anticipated Course of Care, Toxoplasmosis Precations, Use of Any medications, Sexual activity, Exercise, Dental Care, Sauna/Hot tub use, Seat Belt use, Childbirth classes/Hospital facilities, Travel, Indications for Ultrasound and Screening for Aneuploidy; Discussed Second Trimester Second Trimester: Signs and Symptoms of Labor, Selecting a care provider, Reproductive Life Planning & Contreception, Care Planning, Depression/Anxiety and Intimate Partner Violence; Discussed Tobacco Cessation Third Trimester Third Trimester: Pain Management Plans, Labor support person(s), Immediate Larc, Circumcision preference, Signs and Symptoms of Preeclampsia and [place] Education Results POC Urinalysis 2 Dip (Clinic) Office Urine Glucose Negative Last Edit by Radha Espinoza on 10/29/24 11: 37 Office Urine Protein Negative Last Edit by Radha Espinoza on 10/29/24 11: 37 Coding Level of Care Code OB Routine Diagnoses Supervision of normal Z34.90 23 weeks gestation of Z3A.23 Weeks of gestation: 23 weeks Assessment and Plan Assessment and Plan (1) Supervision of normal : Status: Acute Comment: PRR , KIRK 02/21/25, surprise PC Loyd, [place], Francisco Javier (2) : Status: Acute Qualifiers: Weeks of gestation: 23 weeks Qualified Code(s): Z3A.23 - 23 weeks gestation of Comment: declined NIPT & Carrier testing, normal anatomy Orders: Orders POC Urinalysis 2 Dip (Clinic) Today CBC W/Diff, Automated Today Z34.90 - Encounter for supervision of normal , unspecified, unspecified trimester Glucose Challenge Gest 1H 50g Today Z13.1 - Encounter for screening for diabetes mellitus, Z34.90 - Encounter for supervision of normal , unspecified, unspecified trimester Syphilis Antibodies Today Z34.90 - Encounter for supervision of normal , unspecified, unspecified trimester HIV Today Z34.90 - Encounter for supervision of normal , unspecified, unspecified trimester 10/29/24 1154 <Electronically signed by Moon Hernandez DO> Date _ Moon Reddy DO Cosigner Signature: Date (if applicable) CC: ~ [facility] Work Phone: Reason for referral (narrative)No reason for referral information [facility] Work Phone: Summary Purpose Family History Relationship Condition Age at Onset Recorded Date/T tammy grandfather Malignant neoplasm Unknown Advance Directives Advance Directive Response Recorded Date/ Time Living Will Yes April 13 3:42am Power of Irrigator Valve Pipe Yes April 13, 2021 3:42am Advance Directive Response Recorded Date/ Time Living Will Yes April 13 2:42am Power of Irrigator Valve Pipe Yes April 13, 2021 2:42am Advance Directive Response Recorded Date/ Time Do you have a Healthcare Power of Irrigator Valve Pipe? 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/RX HERE Reason for Visit Cervicitis Encounter for routine gynecological examination Cervical ectropion Chief Complaint Admit Date New OB, LMP 05/17, KIRK 02/21July 18, 2024 8:43am Reason for Visit Admit Date Cervical ectropion July 18, 2024 8:4 3am July 18, 2024 8:4 3am Supervision of normal July 182024 8:43am Tilted uterus July 18, 2024 8:4 3am Underweight (BMI < 18.5) July 18 8:43am Chief Complaint Admit Date New OB, LMP 05/17, KIRK 02/21July 18, 2024 8:43am 12wk OB August 06, 2024 9:02 am n/v August 26, 2024 11: 02am hydration, D5LR September 02, 2024 11: 38am Reason for Visit Admit Date July 18, 2024 8:4 3am Supervision of normal July 182024 8:43am Cervical ectropion July 18, 2024 8:4 3am Tilted uterus July 18, 2024 8:4 3am Underweight (BMI < 18.5) July 18 8:43am August 06, 2024 9:02 am Supervision of normal August 9:02am Chief Complaint Admit Date New OB, LMP 05/17, KIRK 02/21July 18, 2024 8:43am 12wk OB August 06, 2024 9:02 am n/v August 26, 2024 11: 02am hydration, D5LR September 02, 2024 11: 38am 16 wk ob September 05, 2024 9:46am HYDRATION September 11, 2024 10:29a m Reason for Visit Admit Date July 18, 2024 8:4 3am Supervision of normal July 182024 8:43am Cervical ectropion July 18, 2024 8:4 3am Tilted uterus July 18, 2024 8:4 3am Underweight (BMI < 18.5) July 18 8:43am August 06, 2024 9:02 am Supervision of normal August 9:02am September 05, 2024 9:46am Supervision of normal September 05, 2024 9:46am Chief Complaint Admit Date New OB, LMP 05/17, KIRK 02/21July 18, 2024 8:43am 12wk OB August 06, 2024 9:02 am n/v August 26, 2024 11: 02am hydration, D5LR September 02, 2024 11: 38am 16 wk ob September 05, 2024 9:46am HYDRATION September 11, 2024 10:29a m 20 wk ob October 03, 2024 9:11a m Reason for Visit Admit Date July 18, 2024 8:4 3am Supervision of normal July 182024 8:43am Cervical ectropion July 18, 2024 8:4 3am Tilted uterus July 18, 2024 8:4 3am Underweight (BMI < 18.5) July 18 8:43am August 06, 2024 9:02 am Supervision of normal August 9:02am September 05, 2024 9:46am Supervision of normal September 05, 2024 9:46am October 03, 2024 9:11a m Supervision of normal September 9:11am Chief Complaint Admit Date New OB, LMP 05/17, KIRK 02/21July 18, 2024 8:43am 12wk OB August 06, 2024 9:02 am n/v August 26, 2024 11: 02am hydration, D5LR September 02, 2024 11: 38am 16 wk ob September 05, 2024 9:46am HYDRATION September 11, 2024 10:29a m 20 wk ob October 03, 2024 9:11a m 24 wk ob October 29, 2024 11:2 9am Reason for Visit Admit Date July 18, 2024 8:4 3am Supervision of normal July 182024 8:43am Cervical ectropion July 18, 2024 8:4 3am Tilted uterus July 18, 2024 8:4 3am Underweight (BMI < 18.5) July 18 8:43am August 06, 2024 9:02 am Supervision of normal August 9:02am September 05, 2024 9:46am Supervision of normal September 05, 2024 9:46am October 03, 2024 9:11a m Supervision of normal September 9:11am October 29, 2024 11:2 9am Supervision of normal October 11:29am Chief Complaint Admit Date 12wk OB August 06, 2024 9:02 am n/v August 26, 2024 11: 02am hydration, D5LR September 02, 2024 11: 38am 16 wk ob September 05, 2024 9:46am HYDRATION September 11, 2024 10:29a m 20 wk ob October 03, 2024 9:11a m 24 wk ob October 29, 2024 11:2 9am 28 wk ob/glucose December 02, 2024 12:4 4pm Reason for Visit Admit Date August 06, 2024 9:02 am Supervision of normal August 9:02am September 05, 2024 9:46am Supervision of normal September 05, 2024 9:46am October 03, 2024 9:11a m Supervision of normal September 9:11am October 29, 2024 11:2 9am Supervision of normal October 11:29am December 02, 2024 12:4 4pm Supervision of normal November 12:44pm Additional Source Comments INFORMATION SOURCE (unrecogn ized section and content) DATE CREATED AUTHOR 04/05/2020 [facility] DATE CREATED AUTHOR AUTHOR'S ORGANIZ ATION 05/14/2020 [facility] DATE CREATED AUTHOR AUTHOR'S ORGANIZ ATION 06/20/2024 [facility] DATE CREATED AUTHOR AUTHOR'S ORGANIZ ATION 10/04/2024 [facility] DATE CREATED AUTHOR AUTHOR'S ORGANIZ ATION 11/27/2024 [facility] Care Teams (unrecognized sec tion and content) Team Status: Active Member Role Status Dates No Primary Care Physician Family Provider Active Dr. Jorge Golden MD Primary Care Provider Activ e Team Status: Inactive Member Role Status Dates Dr. Jorge Golden MD Primary Care Provider, Refe rring Provider Active Carmelina Morin [employer]IST, [employer] ECONOMIST-C Attending Provider Active Team Status: Inactive Member Role Status Dates Dr. Jorge Golden MD Primary Care Provider, Refe rring Provider Active Dr. Tricia Euceda MD Attending Provider Active Team Status: Inactive Member Role Status Dates Dr. Jorge Golden MD Primary Care Provider Activ e Dr. Clif Mendieta MD Attending Provider, Referring P maira Active Team Status: Inactive Member Role Status Dates Dr. Jorge Golden MD Primary Care Provider Activ e Dr. Tricia Euceda MD Attending Provider Active Team Status: Inactive Member Role Status Dates Dr. Jorge Golden MD Primary Care Provider, Atte nding Provider Active Team Status: Active Member Role Status Dates Dr. Chaim Golden MD Primary Care Provider Acti ve Team Status: Inactive Member Role Status Dates Dr. Chaim Golden MD Primary Care Provider Acti ve Start: July 18, 2024 End: July 18, 2024 Dr. Chaim Golden MD Referring Provider Active Start: July 18, 2024 End: July 18, 2024 Dr. Moon Reddy DO Attending Provider Activ e Start: July 18, 2024 End: July 18, 2024 Team Status: Inactive Member Role Status Dates Dr. Chaim Golden MD Primary Care Provider Acti ve Start: July 18, 2024 End: July 18, 2024 Dr. Moon Reddy DO Attending Provider Activ e Start: July 18, 2024 End: July 18, 2024 Dr. Moon Reddy DO Referring Provider Activ e Start: July 18, 2024 End: July 18, 2024 Team Status: Inactive Member Role Status Dates Dr. Chaim Golden MD Primary Care Provider Acti ve Start: August 06, 2024 End: August 06, 2024 Dr. Chaim Golden MD Referring Provider Active Start: August 06, 2024 End: August 06, 2024 Dr. Tricia Euceda MD Attending Provider Active Start: August 06, 2024 End: August 06, 2024 Team Status: Inactive Member Role Status Dates Dr. Chaim Golden MD Primary Care Provider Acti ve Start: August 26, 2024 End: August 26, 2024 Dr. Clarence Wolff DO Attending Provider Active Start: August 26, 2024 End: August 26, 2024 Dr. Clarence Wolff DO Emergency Provider Active Start: August 26, 2024 End: August 26, 2024 Team Status: Inactive Member Role Status Dates Dr. Chaim Golden MD Primary Care Provider Acti ve Start: September 02, 2024 End: September 02, 2024 Dr. Tricia Euceda MD Attending Provider Active Start: September 02, 2024 End: September 02, 2024 Dr. Tricia Euceda MD Referring Provider Active Start: September 02, 2024 End: September 02, 2024 Team Status: Inactive Member Role Status Dates Dr. Chaim Golden MD Primary Care Provider Acti ve Start: September 05, 2024 End: September 05, 2024 Dr. Chaim Golden MD Referring Provider Active Start: September 05, 2024 End: September 05, 2024 Chrissy Lucas CNM Attending Provider Active S tart: September 05, 2024 End: September 05, 2024 Team Status: Inactive Member Role Status Dates Dr. Chaim Golden MD Primary Care Provider Acti ve Start: September 11, 2024 End: September 11, 2024 Dr. Tricia Euceda MD Attending Provider Active Start: September 11, 2024 End: September 11, 2024 Dr. Tricia Euceda MD Referring Provider Active Start: September 11, 2024 End: September 11, 2024 Team Status: Inactive Member Role Status Dates Dr. Chaim Golden MD Primary Care Provider Acti ve Start: October 03, 2024 End: October 03, 2024 Dr. Chaim Golden MD Referring Provider Active Start: October 03, 2024 End: October 03, 2024 Dr. Tricia Euceda MD Attending Provider Active Start: October 03, 2024 End: October 03, 2024 Team Status: Active Member Role Status Dates Dr. Chaim Golden MD Primary Care Provider Acti ve Start: October 03, 2024 Dr. Tricia Euceda MD Attending Provider Active Start: October 03, 2024 Dr. Tricia Euceda MD Referring Provider Active Start: October 03, 2024 Team Status: Inactive Member Role Status Dates Dr. Chaim Golden MD Primary Care Provider Acti ve Start: October 03, 2024 End: October 03, 2024 Dr. Tricia Euceda MD Attending Provider Active Start: October 03, 2024 End: October 03, 2024 Dr. Tricia Euecda MD Referring Provider Active Start: October 03, 2024 End: October 03, 2024 Team Status: Inactive Member Role Status Dates Dr. Chaim Golden MD Primary Care Provider Acti ve Start: October 29, 2024 End: October 29, 2024 Dr. Chaim Golden MD Referring Provider Active Start: October 29, 2024 End: October 29, 2024 Dr. Moon Reddy DO Attending Provider Activ e Start: October 29, 2024 End: October 29, 2024 Team Status: Active Member Role/Relationship Status Dates Dr. Chaim Golden MD Primary Care Provider Acti ve Team Status: Inactive Member Role/Relationship Status Dates Dr. Chaim Golden MD Primary Care Provider Acti ve Start: August 06, 2024 End: August 06, 2024 Dr. Chaim Golden MD Referring Provider Active Start: August 06, 2024 End: August 06, 2024 Dr. Tircia Euceda MD Attending Provider Active Start: August 06, 2024 End: August 06, 2024 Team Status: Inactive Member Role/Relationship Status Dates Dr. Chaim Golden MD Primary Care Provider Acti ve Start: August 26, 2024 End: August 26, 2024 Dr. Clarence Wolff DO Attending Provider Active Start: August 26, 2024 End: August 26, 2024 Dr. Clarence Wolff DO Emergency Provider Active Start: August 26, 2024 End: August 26, 2024 Team Status: Inactive Member Role/Relationship Status Dates Dr. Chaim Golden MD Primary Care Provider Acti ve Start: September 02, 2024 End: September 02, 2024 Dr. Tricia Euceda MD Attending Provider Active Start: September 02, 2024 End: September 02, 2024 Dr. Tricia Euceda MD Referring Provider Active Start: September 02, 2024 End: September 02, 2024 Team Status: Inactive Member Role/Relationship Status Dates Dr. Chaim Golden MD Primary Care Provider Acti ve Start: September 05, 2024 End: September 05, 2024 Dr. Chaim Golden MD Referring Provider Active Start: September 05, 2024 End: September 05, 2024 Chrissy Lucas CNM Attending Provider Active S tart: September 05, 2024 End: September 05, 2024 Team Status: Inactive Member Role/Relationship Status Dates Dr. Chaim Golden MD Primary Care Provider Acti ve Start: September 11, 2024 End: September 11, 2024 Dr. Tricia Euceda MD Attending Provider Active Start: September 11, 2024 End: September 11, 2024 Dr. Tricia Euceda MD Referring Provider Active Start: September 11, 2024 End: September 11, 2024 Team Status: Inactive Member Role/Relationship Status Dates Dr. Chaim Golden MD Primary Care Provider Acti ve Start: October 03, 2024 End: October 03, 2024 Dr. Chaim Golden MD Referring Provider Active Start: October 03, 2024 End: October 03, 2024 Dr. Tricia Euceda MD Attending Provider Active Start: October 03, 2024 End: October 03, 2024 Team Status: Inactive Member Role/Relationship Status Dates Dr. Chaim Golden MD Primary Care Provider Acti ve Start: October 03, 2024 End: October 03, 2024 Dr. Tricia Euceda MD Attending Provider Active Start: October 03, 2024 End: October 03, 2024 Dr. Tricia Euceda MD Referring Provider Active Start: October 03, 2024 End: October 03, 2024 Team Status: Inactive Member Role/Relationship Status Dates Dr. Chaim Golden MD Primary Care Provider Acti ve Start: October 29, 2024 End: October 29, 2024 Dr. Chaim Golden MD Referring Provider Active Start: October 29, 2024 End: October 29, 2024 Dr. Moon Reddy DO Attending Provider Activ e Start: October 29, 2024 End: October 29, 2024 Team Status: Inactive Member Role/Relationship Status Dates Dr. Chaim Golden MD Primary Care Provider Acti ve Start: December 02, 2024 End: December 02, 2024 Dr. Chaim Golden MD Referring Provider Active Start: December 02, 2024 End: December 02, 2024 MJ Zelaya NP Attending Provider Active Start: December 02, 2024 End: December 02, 2024 Team Status: Active Member Role/Relationship Status Dates Dr. Chaim Golden MD Primary Care Provider Acti ve Start: December 02, 2024 MJ Zelaya NP Attending Provider Active Start: December 02, 2024 Goals (unrecognized section and content) Goals may be documented in a n alternate sectionGoals may be documented in an alternate section No data available for this sectionGoals may be documented in an alternate sectionGoals may be documented in an alternate sectionGoals may be documented in an alternate sectionGoals may be documented in an alternate sectionGoals may be documented in an alternate sectionGoals may be documented in an alternate sectionGoals may be documented in an alternate section FOR RECORDS PERTAINING TO PATIENTS WHO ARE OR HAVE BEEN ENROLLED IN A CHEMICAL DEPENDENCY/SUBSTANCEABUSE PROGRAM, SOME INFORMATION MAY BE OMITTED. This clinical summary was aggregated from multiple sources. Caution should be exercised in using it in the provision of clinical care. This summary normalizes information from multiple sources, and as a consequence, information in this document may materially change the coding, format and clinical context of patient data. In addition, data may be omitted in some cases. CLINICAL DECISIONS SHOULD BE BASED ON THE PRIMARY CLINICAL RECORDS. [facility] provides no warranty or guarantee of the accuracy or completeness of information in this document.
== END | disposition home or self-care (01) ==
LOC: BWCLAB 12:46
PROVIDERS: Obstetrics & Gynecology; PCP Family Medicine; Visit Provider Nurse Practitioner Women's Health
DX: Z34.90 Encounter for supervision of normal pregnancy, unspecified, unspecified trimester (principal); Z13.1 Encounter for screening for diabetes mellitus
CPT/HCPCS: 36415; 82950; 85025; 86703; 86780

== ENCOUNTER → 2025-01-23 | Outpatient (CLI) | payer BC, SELFPAY ==
--- OUTSIDE RECORDS SUMMARY | 2025-01-23 12:26 | XMS RPT_ITS | CCD ---
Author Organization [facility] Care Team Providers Care Clother In Name Role Phone Tricia Euceda MD Unavailable [phone] Dr. Jorge Golden Primary Care Provider [phone] Dr. Jorge Golden Referring Provider Mikel PICK PULLING MACHINE OPERATOR, [place] Carmelina Attending Provider [phone] Dr. Tricia Euceda Attending Provider CHANTEL COSBY, DR RUCKER Primary Care Physician SANIA SOUSA PA-C Attending Walt GOLDEN MD, DR RUCKER Primary Care Zan Golden MD, Dr. Rucker Primary Care Provider Dr. Chaim Golden MD Referring Provider Dr. Moon Reddy DO Attending Provider Dr. Moon Reddy DO Referring Provider Dr. Tricia Euceda MD Attending Provider Dr. Clarence Wolff DO Attending Provider [phone] Dr. Clarence Wolff DO Emergency Provider Dr. Tricia Euceda MD Referring Provider Chrissy Lucas CNM Attending Provider JENNY PEREZ Attending Unavailable CHAIM GOLDEN Primary Care TRICIA Meza Referring Walt Golden MD, Dr. Rucker Primary Care Provider Dr. Chaim Golden MD Referring Provider [phone] Dr. Moon Reddy DO Attending Provider Mikel PICK PULLING MACHINE OPERATOR-C, Carmelina Attending Provider [phone] Chantel COSBY, Dr. Rucker Primary Care Provider Ok COSBY, Dr. Clarke Attending Provider Chantel COSBY, Dr. Rucker Referring Provider [phone] Chantel COSBY, Dr. Rucker Primary Care Provider Chantel COSBY, Dr. Rucker Primary Care Provider Chantel COSBY, Dr. Rucker Referring Provider Ok COSBY, Dr. Clarke Attending Provider Ok COSBY, Dr. Clarke Referring Provider [phone] Chrissy Lucas CNM Attending Provider [phone] Ranney, Christopher Primary Care Unavailable Clarence Wolff Attending Unavailable Ranney, Christopher Primary Care Unavailable Tricia Euceda Referring Unavailable Tricia Euceda Attending Unavailable Ranney, Christopher Primary Care Unavailable Tricia Euceda Attending Unavailable Ranney, Christopher Referring Unavailable Ranney, Christopher Primary Care Unavailable Moon Reddy Attending Unavailabl e Ranney, Christopher Referring Unavailable Ranney, Christopher Primary Care Unavailable Ranney, Christopher Referring Unavailable Chrissy Lucas Attending Unavailable Ranney, Christopher Primary Care Unavailable Ranney, Christopher Referring Unavailable Mikel PICK PULLING MACHINE OPERATOR, Carmelina Attending Unavailable Ranney, Christopher Primary Care Unavailable Ranney, Christopher Referring Unavailable Chrissy Lucas Attending Unavailable Ranney, Christopher Primary Care Unavailable Ranney, Christopher Referring Unavailable MarcanthonyTricia Attending Unavailable Ranney, Christopher Primary Care Unavailable Ranney, Christopher Referring Unavailable MarcanthonyTricia Attending Unavailable Ranney, Christopher Primary Care Unavailable Ranney, Christopher Referring Unavailable Vande Moon Rosales Attending Unavailabl e Ranney, Christopher Primary Care Unavailable Ranney, Christopher Referring Unavailable Chrissy Lucas Attending Unavailable Ranney, Christopher Primary Care Unavailable Moon Reddy Attending Unavailabl e Ranney, Christopher Referring Unavailable Ranney, Christopher Primary Care Unavailable Tricia Euceda Referring Unavailable Tricia Euceda Attending Unavailable [facility] Unavailable Tricia Euceda Referring Unavailable Tricia Euceda Attending Unavailable [facility] Unavailable Moon Reddy Referring [facility]oon [place] [facility] Mikel PICK PULLING MACHINE OPERATOR, Carmelina Attending Unavailable Allergies Allergy Classification Reported Allergen(s) Allergy Type Date of Onset Reaction(s) Facility (14 sources) Acetaminophen; Translations: [ACETAMINOPHEN] Drug Allergy 8 Vomiting [facility] (13 sources) Nitrous Oxide Drug Allergy 3 Other [facility] Comment on above: Hallucinations and v omiting (13 sources) Penicillin G Drug Allergy 3 [facility] Comment on above: unknown reaction- Fa paty sethi (1 source) Penicillins; Translations: [PENICILLINS] Propensity to adverse reactions to drug (disorder) 8 [facility] Repository (1 source) Acetaminophen Drug Allergy 5 [facility] Repository (1 source) Nitrous Oxide Drug Allergy 5 [facility] Repository (1 source) Penicillin Drug Allergy 5 [facility] Repository Medications Current Medications Medication Drug Class(es) Dates Sig (Normalized) Sig (Original) doxylamine succinate 25 mg oral tablet (8 sources) Start: 10-03-2024 take 1 tablet by mouth at bedtime as needed Doxylamine Succinate (Unisom (Doxylamine)) 25 mg tablet Active 25 mg PO AT BEDTIME as needed October 03, 2024 12:00am Qkh68-Xj-Gu1-Tha-Se a-Fish Oil ( Gummy) 400 mcg-35 mg -25 mg-5 mg Tablet,Chewable (3 sources) Start: 04-12-2021 Kgq72-Xi-Dk3-Djz-L pa-Fish Oil ( Gummy) 400 mcg-35 mg -25 mg-5 mg Tablet,Chewable Active {tbl} PO DAILY April 12, 2021 1:00am Start: 04-12-2021 take 1 tablet by pamella th once daily Lzp70-St-Fo2-Hvl-Isz-Zvqp Oil ( Gummy) 400 mcg-35 mg -25 mg-5 mg Tablet,Chewable Active TABLET PO DAILY April 12, 2021 12:00am Start: 04-12-2021 take 1 tablet by pamella th once daily Rcc62-Fw-Oz7-Ugg-Kmx-Xlyo Oil ( Gummy) 400 mcg-35 mg -25 mg-5 mg Tablet,Chewable Active TABLET PO DAILY April 12, 2021 1:00am Sch71-Jb-Fj9-Lxj-Ems-Jgzn Oi l 400 mcg-35 mg -25 mg-5 mg Tablet,Chewable (10 sources) Start: 04-12-2021 Boi69-Wd-Ua1-L miramontes-Epa-Fish Oil 400 mcg-35 mg -25 mg-5 mg Tablet,Chewable Active 1 {tbl} PO DAILY April 12, 2021 1:00am Start: 04-12-2021 Byu55-Wh-Md4-P miramontes-Epa-Fish Oil 400 mcg-35 mg -25 mg-5 mg Tablet,Chewable Active 1 {tbl} PO DAILY April 12, 2021 1:00am vitamin b6 10 mg oral tablet (8 sources) Start: 10-03-2024 take 1 tablet by mouth once daily Pyridoxine (Vitamin B6) 10 mg tablet Active 10 mg PO daily October 03, 2024 12:00am Completed/Discontinued Medications Medication Drug Class(es) Dates Sig (Normalized) Sig (Original) antrinex (13 sources) Start: 05-31-2020 End: 08-24-2020 antrinex Discontinued PO May 31, 2020 1:00am August 24, 2020 10:43am Start: 05-31-2020 End: 08-24-2020 antrinex Discontinued PO May 12:00am August 24, 2020 9:43am Start: 05-31-2020 End: 08-24-2020 antrinex Discontinued PO May 1:00am August 24, 2020 10:43am ascorbic acid 1000 mg extended release oral tablet (20 sources) Vitamin C Start: 04-12-2021 End: 06-24-2024 Ascorbic Acid (Vitamin C) (Vitamin C) 1,000 mg Capsule, Extended Release Discontinued 1000 NMA PO DAILY April 12, 2021 1:00am June 24, 2024 12:02pm Start: 04-12-2021 take 1 capsule by [facility] once daily Ascorbic Acid (Vitamin C) (Vitamin C) 1,000 mg Capsule, Extended Release Active 1000 CAP PO DAILY April 12, 2021 12:00am Start: 04-23-2018 End: 07-02-2018 take 1 tablet by mouth once daily Ascorbic Acid (Vitamin C) 500 MG tablet Discontinued 500 mg PO DAILY@0800 April 23, 2018 1:00am July 02, 2018 5:19pm supplement cholecalciferol 0.05 mg oral capsule (13 sources) Vitamin D Start: 05-31-2020 End: 08-24-2020 take 1 capsule by mouth once daily Cholecalciferol (Vitamin D3) 50 mcg (2,000 unit) capsule Discontinued 50 ug PO DAILY May 31, 2020 1:00am August 24, 2020 10:43am cholecalciferol 500 unt / folic acid 1 mg oral tablet (13 sources) Vitamin D Start: 04-12-2021 End: 06-24-2024 Vitamin D3-Folic Acid 500 unit- 1 mg Tablet Discontinued 1000 {tbl} PO DAILY April 12, 2021 1:00am June 24, 2024 12:02pm Desogestrel-Ethinyl Estradiol (20 sources) Progestin, Estrogen Start: 07-10-2019 End: 07-15-2019 [...] 2:37pm docusate sodium 100 mg oral capsule (13 sources) Start: 05-20-2018 End: 07-02-2018 take 1 capsule by mouth once daily Docusate Sodium 100 MG capsule Discontinued 100 mg PO DAILY May 20, 2018 1:00am July 02, 2018 5:19pm constipation doxycycline monohydrate 100 mg oral capsule (20 sources) Tetracycline -class Drug Start: 05-31-2022 End: [...] Discontinued 100 mg PO TWICE A DAY May 31, 2020 1:00am August 24, 2020 10:43am drospirenone 4 mg oral tablet (13 sources) Progestin Start: 05-26-2021 End: 05-31-2022 take 1 tablet by mouth once daily Drospirenone (Contraceptive) 4 mg (28) tablet Discontinued 4 mg PO DAILY May 26, 2021 1:00am May 31, 2022 10:36am Drospirenone-Ethiny l Estradiol (13 sources) Progestin, Estrogen Start: 07-15-2019 End: 11-26-2019 take 3 tablets by mouth once daily Drospirenone-Ethinyl Estradiol (Gianvi (28)) 3-0.02 mg tablet Discontinued 1 {tbl} PO daily 84 July 15, 2019 12:00am November 26, 2019 12:39pm Start: 07-15-2019 End: 11-26-2019 take 3 tablets by mouth once daily Drospirenone-Ethinyl Estradiol (Gianvi (28)) 3-0.02 mg tablet Discontinued 1 {tbl} PO daily July 15, 2019 12:00am November 26, 2019 12:39pm Start: 07-15-2019 End: 11-26-2019 Drospirenone-Ethinyl Estradi ol (Gianvi (28)) 3-0.02 mg tablet Discontinued 1 TABLET PO daily 84 July 14, 2019 11:00pm November 26, 2019 11:39am Start: 07-15-2019 End: 11-26-2019 Drospirenone-Ethinyl Estradi ol (Gianvi (28)) 3-0.02 mg tablet Discontinued 1 TABLET PO daily July 15, 2019 12:00am November [...] 12:43pm Start: 04-23-2019 End: 07-10-2019 Norethindrone-E.Estradiol-Ir on (Junel [...] TABLET PO DAILY 84 April 23, 2019 1:00am July 10, 2019 12:43pm Start: 08-13-2017 End: 10-22-2017 Norethindrone-E.Estradiol-Ir on ( Fe 24) 1 mg-20 mcg (24)/75 mg (4) tablet Discontinued 1 {tbl} PO daily 84 August 13, 2017 3:45pm October 22, 2017 10:41am Start: 08-13-2017 End: 10-22-2017 Norethindrone-E.Estradiol-Ir on ( 24) 1 mg-20 mcg (24)/75 mg (4) tablet Discontinued 1 {tbl} PO daily 84 August 13, 2017 3:45pm October 22, 2017 10:41am Start: 08-13-2017 End: 10-22-2017 take 1 tablet by mouth once daily Norethindrone-E.Estradiol-Iron () 1 mg-20 mcg (24)/75 mg (4) tablet Discontinued 1 TABLET PO daily 84 August 13, 2017 2:45pm October 22, 2017 9:41am Start: 08-13-2017 End: 10-22-2017 take 1 tablet by mouth once daily Norethindrone-E.Estradiol-Iron ( 24) 1 mg-20 mcg (24)/75 mg (4) [...] mg / levonorgestrel 0.1 mg oral tablet (13 sources) Progestin, Estrogen, Progestin-containing Intrauterine Device Start: 04-21-2019 End: 04-23-2019 take 1 tablet by mouth once daily Levonorgestrel-Ethinyl Estrad (Aviane) 0.1-20 mg-mcg tablet Discontinued 1 {tbl} PO daily April 21, 2019 1:00am April 23, 2019 2:33pm take only active pills, discard inactive and start new pack immediately Norgestimate-Ethi nyl Estradiol (14 sources) Progestin, Estrogen Start: 05-17-2017 End: 05-17-2017 [...] Start: 01-26-2017 take 1 tablet by pamella th once daily SPRINTEC 28 0.25-35 MG-MCG TABS One tablet by mouth daily NORGESTIMATE-ETH ESTRADIOL [id number] Tricia Euceda MD evening primrose oil 500 mg oral capsule (13 sources) Start: 05-31-2020 End: 08-24-2020 take 1 capsule by mouth three times daily Evening Evans Oil 500 mg capsule Discontinued 500 mg PO THREE TIMES A DAY May 31, 2020 1:00am August 24, 2020 10:43am give with meal/snack ferrous gluconate 324 mg oral tablet (13 sources) Start: 04-22-2018 End: 05-20-2018 Ferrous Gluconate 324 MG tablet Discontinued 325 mg PO DAILY@799April 22, 2018 1:00am May 20, 2018 9:08am anemia Start: 04-22-2018 End: 05-20-2018 take 325 mg by mouth once daily Ferrous Gluconate Discontinued 325 MG PO DAILY@799April 22, 2018 12:00am May 20, 2018 8:08am ferrous sulfate 325 mg oral tablet (20 sources) Start: 11-22-2020 End: 05-26-2021 take 1 [...] 2018 5:19pm fluconazole 150 mg oral tablet (13 sources) Azole Antifungal Start: 01-22-2020 End: 05-31-2020 take 1 tablet by mouth once Fluconazole (Diflucan) 150 mg tablet Discontinued 150 mg PO ONCE 1 0 January 22, 2020 12:00am May 31, 2020 2:58pm as a single dose Lactobacillus Combination No.8 (Adult Probiotic) 3 billion cell capsule (13 sources) Start: 08-24-2020 End: 09-21-2020 take 3 [...] meal magnesium gluconate 550 mg oral tablet (13 sources) Start: 05-31-2020 End: 08-24-2020 take 1 tablet by mouth once daily Magnesium 30 mg tablet Discontinued 30 mg PO DAILY May 31, 2020 1:00am August 24, 2020 10:45am metoclopramide 5 mg oral tablet (10 sources) Dopamine-2 Receptor Antagonist Start: 07-31-2024 End: 10-03-2024 take 1 tablet by mouth 30 minutes before mealtime Metoclopramide Hcl 5 mg tablet Discontinued 5 mg PO before meals 14 0 July 31, 2024 12:00am October 03, 2024 9:28am administer 30 minutes before meals mintran (13 sources) Start: 05-31-2020 End: 08-24-2020 mintran Discontinued PO 0 May 31, 2020 1:00am August 24, 2020 10:45am Start: 05-31-2020 End: 08-24-2020 mintran Discontinued PO Abhishek katy 2020 12:00am August 24, 2020 9:45am Start: 05-31-2020 End: 08-24-2020 mintran Discontinued PO Abhishek katy 2020 1:00am August 24, 2020 10:45am norethindrone 0.35 mg oral tablet (13 sources) Start: 05-22-2018 End: 08-14-2018 take 1 tablet by mouth once daily Norethindrone (Contraceptive) (Zuleika) 0.35 mg tablet Discontinued 0.35 mg PO daily 84 May 22, 2018 1:00am August 14, 2018 4:01pm start day 1 of menstrual cycle ondansetron 4 mg disintegrating oral tablet (11 sources) Serotonin-3 Receptor Antagonist Start: 07-18-2024 End: 10-03-2024 take 1 tablet by mouth every six hours as needed for nausea and vomiting Ondansetron 4 mg tablet,disintegratin g Discontinued 4 mg PO EVERY 6 HOURS as needed for nausea and vomiting 30 July 18, 2024 12:00am October 03, 2024 9:28am Prenat.Vits,Korey,Min- Iron-Folic ( Vitamin) tablet (13 sources) Start: 10-22-2017 End: 05-31-2020 Prenat.Vits,Korey,Min- Iron-Folic ( Vitamin) tablet Discontinued 1 {tbl} PO daily October 22, 2017 12:00am May 31, 2020 2:58pm Start: 10-22-2017 End: 05-31-2020 Prenat.Vits,Korey,Mju-Bbzu-Wru ic ( Vitamin) tablet Discontinued 1 {tbl} PO daily October 22, 2017 12:00am May 31, 2020 2:58pm Start: 10-22-2017 End: 05-31-2020 take 1 tablet by mouth once daily Prenat.Vits,Korey,Tee-Xfrd-Pumrx ( Vitamin) tablet Discontinued 1 TABLET PO daily October 21, 2017 11:00pm May 31, 2020 1:58pm Start: 10-22-2017 End: 05-31-2020 take 1 tablet by mouth once daily Prenat.Vits,Korey,Xwp-Tqbn-Ioqos ( Vitamin) tablet Discontinued 1 TABLET PO daily October 22, 2017 12:00am May 31, 2020 2:58pm prochlorperazine 10 mg oral tablet (10 sources) Phenothiazine Start: 08-26-2024 End: 10-03-2024 take 1 tablet by mouth every eight hours as needed for nausea and vomiting Prochlorperazine Maleate (Compazine) 10 mg tablet Discontinued 10 mg PO Q8H as needed for nausea and vomiting 90 3 August 26, 2024 12:00am October 03, 2024 9:27am seasonal allergy supplement (13 sources) Start: 05-31-2020 End: 09-21-2020 seasonal allergy supplement Discontinued PO 0 May 31, 2020 1:00am September 21, 2020 12:44pm Start: 05-31-2020 End: 09-21-2020 seasonal allergy supplement Discontinued PO May 31, 2020 12:00am September 21, 2020 11:44am Start: 05-31-2020 End: 09-21-2020 seasonal allergy supplement Discontinued PO May 31, 2020 1:00am September 21, 2020 12:44pm sertraline 50 mg oral tablet (13 sources) Serotonin Reuptake Inhibitor Start: 04-06-2020 End: 05-31-2020 take 1 tablet by mouth once daily Sertraline (Zoloft) 50 mg tablet Discontinued 50 mg PO DAILY 30 April 06, 2020 1:00am May 31, 2020 2:58pm Problems Active Problems Problem Classification Problem Date Documented Date Episodic/Chronic Anxiety disorders (13 sources) Anxiety; Translations: [Anxiety disorder, unspecified] 04-14-2021 Chronic Comment on above: counseling. No meds. 02/10 stable Cardiac dysrhythmias (13 sources) Fluttering heart; Translations: [Other specified cardiac arrhythmias] 04-01-2021 Chronic Early or threatened labor (13 sources) Threatened premature labor - not delivered ; Translations: [False labor before 37 completed weeks of gestation, unspecified trimester] 05-21-2018 Episodic Inflammatory diseases of female pelvic organs (14 sources) Inflammation of cervix; Translations: [Inflammatory disease of cervix uteri] 08-24-2022 Episodic Comment on above: Doxy, on IC X 2 wk. Call with recurrence Joint disorders and dislocations; trauma-related (1 source) Dislocation of patellofemoral joint; Translations: [Unspecified dislocation of left patella, subsequent encounter] Episodic Other complications of (13 sources) Anemia of ; Translations: [Anemia complicating , unspecified trimester] 05-21-2018 Chronic Other complications of (13 sources) Fundal height low for dates; Translations: [Uterine size-date discrepancy, third trimester] 04-14-2021 Episodic Comment on above: growth us ordered an d nl Other complications of (13 sources) High risk ; Translations: [Supervision of high risk , unspecified, unspecified trimester] 04-14-2021 Episodic Comment on above: PRR KIRK 1 boy PC: Loyd, Spouse:Francisco Javier Other complications of (2 sources) Nausea and vomiting; Translations: [Vomiting of , unspecified] 02-25-2021 Episodic Other complications of (10 sources) Hyperemesis gravidarum; Translations: [Mild hyperemesis gravidarum] 09-03-2024 Episodic Other female genital disorders (13 sources) History of premature labor; Translations: [Personal history of pre-term labor] 11-22-2020 Episodic Comment on above: PTL first at 34 wk, stop with fluids. Full term delivery Other female genital disorders (19 sources) Ectropion of cervix; Translations: [Erosion and ectropion of cervix uteri] 08-24-2022 Episodic Comment on above: silver nitrate treat ed, if fails recommend vaginal estrogen Other female genital disorders (17 sources) Retroverted uterus; Translations: [Malposition of uterus] 06-24-2024 Episodic Other nutritional; endocrine; and metabolic disorders (17 sources) Underweight; Translations: [Underweight] 06-24-2024 Episodic Comment on above: BMI 17.8 Other and delivery including normal (20 sources) Vaginal delivery; Translations: [Encounter for full-term uncomplicated delivery] Onset: 12-18-2024 05-31-2022 Episodic Comment on above: IAL SM covid pos in labor, boy December , KIRK 02/21/25, PC Loyd, December, Francisco Javier declined NIPT & Rose ier testing GBS neg., Declines c arrier, ntd, and NIPT screen; NL anatomy. trouble with vicrylrapide last , if needs repair use chromic. PRR , KIRK , surprise PC Loyd, December, Francisco Javier declined NIPT & Rose ier testing, normal anatomy PRR, normal glucola, , KIRK 02/21/25, surprise PC Loyd, [place], Francisco Javier PRR, , KIRK 02/21, surprise PC Loyd, December, Francisco Javier Other screening for suspected conditions (not mental disorders or infectious disease) (1 source) No current problems or disability 01-27-2017 Residual codes; unclassified (1 source) 34 weeks gestation of ; Translations: [34 weeks gestation of ] Onset: 01-16-2025 Episodic Residual codes; unclassified (1 source) 32 weeks gestation of ; Translations: [32 weeks gestation of ] Onset: 12-31-2024 Episodic Residual codes; unclassified (1 source) 30 weeks gestation of ; Translations: [30 weeks gestation of ] Onset: 12-16-2024 Episodic Residual codes; unclassified (1 source) 23 weeks gestation of ; Translations: [23 weeks gestation of ] Onset: 10-29-2024 Episodic Past or Other Problems Problem Classification Problem Date Documented Da te Episodic/Chronic Fluid and electrolyte disorders (11 sources) Dehydration; Translations: [Dehydration] Onset: 09-16-2024 09-03-2024 Episodic Malaise and fatigue (1 source) Other fatigue; Translations: [Other fatigue] Onset: 10-09-2024 Episodic Other complications of (12 sources) Vomiting of , unspecified; Translations: [Nausea and vomiting during ] Onset: 08-29-2024 02-25-2021 Episodic Comment on above: zofran; failed B6 an d unisom; 12/20 improved Other female genital disorders (2 sources) Erosion [...] 19.9 or less, adult] Onset: 07-18-2024 Episodic Residual codes; unclassified (1 source) 19 weeks gestation of ; Translations: [19 weeks gestation of ] Onset: 10-03-2024 Episodic Unclassified (2 sources) Normal labor; Translations: [Active labor at term] 04-14-2021 Results Test Name Value Interpretation Reference Range Facility Supervisor Garage Office Visit Reporton 01-16-2025 Supervisor Garage Office Visit Report [facility] [address], [address] [place] [address] OFFICE VISIT Date of Service: 01/16/25 MR#: [id number] Acct: [id number] Name: FRANCINE MANTILLA Rep #: [id number] : 1995 Provider: Dr. Tricia hunter MD Age/Sex: 29/F Location: [facility] Status: Signed Intake Vital Signs 12/02/24 13:04 12/31/24 11:50 01/16/25 10:18 Height 5 ft 6 in 5 ft 6 in 5 ft 6 in Weight: 136 lb 3 oz BMI 21.9 BP 106/69 Intake Visit Reasons: 35 WK OB Model Technician Required: No Is patient in pain?: No Allergies penicillin G Allergy (Mild, Verified 01/16/25 10:18) Other nitrous oxide Allergy (Verified 01/16/25 10:18) Other acetaminophen (From Tylenol) Adverse Reaction (Severe, Verified 01/16/25 10:18) Vomiting Medications ???Medication ???Instructions ???Recorded ???Confirmed ???Type [id number] 400 mcg-om3 35 mg-dha 25 1 tab PO DAILY 04/12/21 01/16/25 History mg-epa 5 mg-fish oil chewable tablet doxylamine succinate 25 mg tablet 25 mg PO QHS PRN 10/03/24 5 History (Unisom (doxylamine)) pyridoxine (vitamin B6) 10 mg 10 mg PO QDAY 10/03/24 01/16/25 Hi story tablet Last Menstrual Period: 05/17/24 Zika: Zika virus screening: Negative : No PFSH PFSH Medical History Anxiety Vaginal delivery Surgical History H/O knee surgery [place] teeth extracted Family History Grandfather Cancer Paternal Social History adopted: No household members: spouse and children housing: house number of children: 2 current occupational status: unemployed current occupation: [employer] pets and animals: No history of recent [...] 3-4 times per week duration: 45-60 minutes/day romero/protestant: Scientologist seatbelt use: always do you feel safe at home: Yes 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 Date Name GA/Weeks Outcome Route Bth Weight Gen Labor Lgth Anesthesia Del [facility] Provider FOB 05/20/18 Loyd 37 live - full term 7lbs 0oz Male 8 hours epidural [facility] BELA Mcintyre 04/13/21December 37 live - full term 6#4oz Male epidural [facility] Dr. Ok Mcintyre Delivery Date: 05/20/18 Last Updated by: Shyla Hurley MD 34 wk PTL: fluids and stopped. steroids. Thinks related to noravirus. Pushed for 20 min. 2nd degree with abscess of suture Delivery Date: 04/13/21 Last Updated by: Radha Espinoza COVID + at , IAL HPI 35 WK OB Details: FRANCINE MANTILLA is a 29 year old who presents for routine OB visit. OB Visit KIRK Calculator Estimated Delivery Date Method Current WG Current Estimate 02/21/25 LMP (Certain) 34w 6d Other Estimates 02/20/25 Ultrasound #1 35w 0d Expected Delivery Route/Plan Labor Preferences- CB/BF classes: no labor support person: Francisco Javier labor intervention preferences: [] pain management options preferred: ok for epidural cut cord/dad catch: cord : yes PP control planned: discussed discussed possible routes of delivery and associated risks: [] special requests: [] Specific Issue/Plans Covid status: [] Flu vaccine: [] Tdap vaccine: declines Rhogam: NA LARC form signed: yes movement and labor precautions reviewed. Problem list reviewed and updated with the [...] lb 8 oz (+8 oz) 107/69 -???-???-???-???-?? ?-???-?? (more content not included)... Normal [facility] - Chemistry and C hemistry - challengeOrdered By: Moon Rosales on 12-31-2024 Glucose Ql (U) Negative [facility] - UrinalysisOrder ed By: Moon Rosales on 12-31-2024 Protein Ql (U) Negative [facility] Supervisor Garage Office Visit Reporton 12-31-2024 Supervisor Garage Office Visit Report [facility] [address], [address] [place] [address] OFFICE VISIT Date of Service: 12/31/24 MR#: [id number] Acct: [id number] Name: FRANCINE MANTILLA Rep #: [id number] : 1995 Provider: Dr. Moon Singh DO Age/Sex: 29/F Location: [facility] Status: Signed Intake Vital Signs 12/02/24 13:04 12/16/24 11:03 12/31/24 11:50 12/31/24 11:50 Height 5 ft 6 in 5 ft 6 in 5 ft 6 in 5 ft 6 in Weight: 137 lb 7 oz BMI 22.1 BP 112/72 Intake Visit Reasons: 33 WK OB Model Technician Required: No Is patient in pain?: No Allergies penicillin G Allergy (Mild, Verified 12/31/24 11:49) Other nitrous oxide Allergy (Verified 12/31/24 11:49) Other acetaminophen (From Tylenol) Adverse Reaction (Severe, Verified 12/31/24 11:49) Vomiting Medications ???Medication ???Instructions ???Recorded ???Confirmed ???Type [id number] 400 mcg-om3 35 mg-dha 25 1 tab PO DAILY 04/12/21 12/31/24 History mg-epa 5 mg-fish oil chewable tablet doxylamine succinate 25 mg tablet 25 mg PO QHS PRN 10/03/24 5 History (Unisom (doxylamine)) pyridoxine (vitamin B6) 10 mg 10 mg PO QDAY 10/03/24 12/31/24 Hi story tablet Last Menstrual Period: 05/17/24 Zika: Zika virus screening: Negative : No PFSH PFSH Medical History Anxiety Vaginal delivery Surgical History H/O knee surgery Schurz teeth extracted Family History Grandfather Cancer Paternal Social History adopted: No household members: spouse and children housing: house number of children: 2 current occupational status: unemployed current occupation: [employer] pets and animals: No history of recent [...] 3-4 times per week duration: 45-60 minutes/day romero/protestant: Scientologist seatbelt use: always do you feel safe [...] term 7lbs 0oz Male 8 hours epidural [facility] BELA Mcintyre 04/13/21December 37 live - full term 6#4oz Male epidural [facility] Dr. Ok Mcintyre Delivery Date: 05/20/18 Last Updated by: Shyla Hurley MD 34 wk PTL: fluids and stopped. steroids. Thinks related to noravirus. Pushed for 20 min. 2nd degree with abscess of suture Delivery Date: 04/13/21 Last Updated by: Radha Espinoza COVID + at , IAL HPI 33 WK OB Details: FRANCINE MANTILLA is a 29 year old who presents for routine OB visit. OB Visit KIRK Calculator Estimated Delivery Date Method Current WG Current Estimate 02/21/25 LMP (Certain) 32w 4d Other Estimates 02/20/25 Ultrasound #1 32w 5d Expected Delivery Route/Plan Labor Preferences- CB/BF classes: no labor support person: Francisco Javier labor intervention preferences: [] pain management options preferred: ok for epidural cut cord/dad catch: cord : yes PP control planned: discussed discussed possible routes of delivery and associated risks: [] special requests: [] Specific Issue/Plans Covid status: [] Flu vaccine: [] Tdap vaccine: declines Rhogam: NA LARC form signed: yes Problem list reviewed and updated with the [...] 8 oz (+8 oz) 107/69 -???-???-???-???-?? ?-???-???-???-???-? ??-???- (more content not included)... Normal [facility] - Chemistry and C hemistry - challengeOrdered By: Chrissy Lucas on 12-16-2024 Glucose Ql (U) Negative [facility] - UrinalysisOrder ed By: Chrissy Lucas on 12-16-2024 Protein Ql (U) Negative [facility] Supervisor Garage Office Visit Reporton 12-16-2024 Supervisor Garage Office Visit Report [facility]'[address], [address] [place] [address] OFFICE VISIT Date of Service: 12/16/24 MR#: [id number] Acct: [id number] Name: FRANCINE MANTILLA Rep #: [id number] : 1995 Provider: MONSE Pacheco ams Age/Sex: 29/F Location: [facility] [place] Status: Signed Intake Vital Signs 10/03/24 09:19 12/02/24 13:04 12/16/24 11:03 Height 5 ft 6 in 5 ft 6 in 5 ft 6 in Weight: 135 lb 8 oz BMI 21.9 BP 102/68 Intake Visit Reasons: 31 wk ob Chief Complaint: 31wk ob Model Technician Required: No Is patient in pain?: No Allergies penicillin G Allergy (Mild, Verified 12/16/24 11:01) Other nitrous oxide Allergy (Verified 12/16/24 11:01) Other acetaminophen (From Tylenol) Adverse Reaction (Severe, Verified 12/16/24 11:01) Vomiting Medications ???Medication ???Instructions ???Recorded ???Confirmed ???Type [id number] 400 mcg-om3 35 mg-dha 25 1 tab PO DAILY 04/12/21 12/16/24 History mg-epa 5 mg-fish oil chewable tablet doxylamine succinate 25 mg tablet 25 mg PO QHS PRN 10/03/24 5 History (Unisom (doxylamine)) pyridoxine (vitamin B6) 10 mg 10 mg PO QDAY 10/03/24 12/16/24 Hi story tablet Last Menstrual Period: 05/17/24 : No Have you fallen in the past year?: No PFSH PFSH Medical History Anxiety Vaginal delivery Surgical History H/O knee surgery Schurz teeth extracted Family History Grandfather Cancer Paternal Social History adopted: No household members: spouse and children housing: house number of children: 2 current occupational status: unemployed current occupation: [employer] pets and animals: No history of recent [...] 3-4 times per week duration: 45-60 minutes/day romero/protestant: Scientologist seatbelt use: always do you feel safe [...] term 7lbs 0oz Male 8 hours epidural [facility] BELA Mcintyre 04/13/21December 36 live - full term 6#4oz Male epidural [facility] Dr. Ok Mcintyre Delivery Date: 05/20/18 Last Updated by: Shyla Hurley MD 34 wk PTL: fluids and stopped. steroids. Thinks related to noravirus. Pushed for 20 min. 2nd degree with abscess of suture Delivery Date: 04/13/21 Last Updated by: Radha Espinoza COVID + at , IAL HPI 31 wk ob Details: FRANCINE MANTILLA is a 29 year old who presents for routine OB visit. OB Visit KIRK Calculator Estimated Delivery Date Method Current WG Current Estimate 02/21/25 LMP (Certain) 30w 3d Other Estimates 02/20/25 Ultrasound #1 30w 4d Expected Delivery Route/Plan Labor Preferences- CB/BF classes: no labor support person: Francisco Javier labor intervention preferences: [] pain management options preferred: ok for epidural cut cord/dad catch: cord : yes PP control planned: discussed discussed possible routes of delivery and associated risks: [] special requests: [] Specific Issue/Plans Covid status: [] Flu vaccine: [] Tdap vaccine: declines Rhogam: NA LARC form signed: yes Problem list reviewed and updated with the [...] (+8 oz) 107/69 -???-???-???-???-?? ?-???-???-???-???-? ??-???-???- 178 -???-???-???-??? (more content not included)... Normal [facility] Absolute lymphocyte countOrd ered By: Moon Rosales on 12-02-2024 Lymphocytes Auto (Unsp spec) [#/Vol] 1.16 10*3/uL 0.83-4.51 [facility] Absolute neutrophil countOrd ered By: Moon Rosales on 12-02-2024 Neutrophils (Bld) [#/Vol] 5.1 10*3/uL 2.0-7.7 [facility] Automated lymphocyte count a s percentage of total leukocytesOrdered By: Moon Rosales on 12-02-2024 Lymphocytes/100 WBC Auto (Unsp spec) 17.3 % Low 19-41 [facility] Basophil percentageOrdered B y: Moon Rosales on 12-02-2024 Basophils/100 WBC (Bld) 0.3 % 0-1 [facility] CBC W/Diff, Automatedon - Absolute Lymph 1.16 X10 3/uL Normal 0.83-4.51 [facility] Comment on above: Performed By: #### L 100.0100, BTS, L509.4006, L509.8002, L3890.6102, L3890.6301, L3890.6006 #### [facility] [address] [place], [address] Absolute Neut 5.1 X10 3/uL Normal 2.0-7.7 [facility] Comment on above: Performed By: #### L 100.0100, BTS, L509.4006, L509.8002, L3890.6102, L3890.6301, L3890.6006 #### [facility] [address] [place], [address] Basophils/100 WBC (Bld) 0.3 % Normal 0-1 [facility] Comment on above: Performed By: #### L 100.0100, BTS, L509.4006, L509.8002, L3890.6102, L3890.6301, L3890.6006 #### [facility] [address] [place], [address] Eosinophils/100 WBC (Bld) 0.7 % Normal 0-5 [facility] Comment on above: Performed By: #### L 100.0100, BTS, L509.4006, L509.8002, L3890.6102, L3890.6301, L3890.6006 #### [facility] [address] [place], [address] Erythrocyte distribution width (RBC) [Ratio] 12.4 % Normal 11.6-14.6 [facility] Comment on above: Performed By: #### L 100.0100, BTS, L509.4006, L509.8002, L3890.6102, L3890.6301, L3890.6006 #### [facility] [address] [place], [address] Hematocrit (Bld) [Volume fraction] 34.9 % Low 37-47 [facility] Comment on above: Performed By: #### L 100.0100, BTS, L509.4006, L509.8002, L3890.6102, L3890.6301, L3890.6006 #### [facility] [address] [place], [address] Hemoglobin (Bld) [Mass/Vol] 11.7 g/dL Low 12.0-15.0 [facility] Comment on above: Performed By: #### L 100.0100, BTS, L509.4006, L509.8002, L3890.6102, L3890.6301, L3890.6006 #### [facility] [address] [place], [address] IG% 0.600 Normal 0.0-0.9 [facility] Comment on above: Result Comment: IG% - Immature Granulocytes (promyelocytes, myelocytes and metamyelocytes) > 1% indicates that a LEFT SHIFT is Present. Performed By: #### L 100.0100, BTS, L509.4006, L509.8002, L3890.6102, L3890.6301, L3890.6006 #### [facility] [address] [place], [address] Lymphocytes/100 WBC (Bld) 17.3 % Low 19-41 [facility] Comment on above: Performed By: #### L 100.0100, BTS, L509.4006, L509.8002, L3890.6102, L3890.6301, L3890.6006 #### [facility] [address] [place], [address] MCH (RBC) [Entitic mass] 32.4 pg High 27.0-32.0 [facility] Comment on above: Performed By: #### L 100.0100, BTS, L509.4006, L509.8002, L3890.6102, L3890.6301, L3890.6006 #### [facility] [address] [place], [address] MCHC (RBC) [Mass/Vol] 33.5 g/dL Normal 32-36 [facility] Comment on above: Performed By: #### L 100.0100, BTS, L509.4006, L509.8002, L3890.6102, L3890.6301, L3890.6006 #### [facility] [address] [place], [address] MCV (RBC) [Entitic vol] 96.7 fL Normal 81-99 [facility] Comment on above: Performed By: #### L 100.0100, BTS, L509.4006, L509.8002, L3890.6102, L3890.6301, L3890.6006 #### [facility] [address] [place], [address] Monocytes/100 WBC (Bld) 5.7 % Normal 0-10 [facility] Comment on above: Performed By: #### L 100.0100, BTS, L509.4006, L509.8002, L3890.6102, L3890.6301, L3890.6006 #### [facility] [address] [place], [address] Neutrophils/100 WBC (Bld) 75.4 % High 47-70 [facility] Comment on above: Performed By: #### L 100.0100, BTS, L509.4006, L509.8002, L3890.6102, L3890.6301, L3890.6006 #### [facility] [address] [place], [address] Nucleated RBC (Bld) [#/Vol] 0 10*3/uL Normal 0-5 [facility] Comment on above: Performed By: #### L 100.0100, BTS, L509.4006, L509.8002, L3890.6102, L3890.6301, L3890.6006 #### [facility] [address] [place], [address] Platelet mean volume (Bld) [Entitic vol] 10.8 fL Normal 6.2-12.0 [facility] Comment on above: Performed By: #### L 100.0100, BTS, L509.4006, L509.8002, L3890.6102, L3890.6301, L3890.6006 #### [facility] [address] [place], [address] Platelets (Bld) [#/Vol] 211 10*3/uL Normal 150-450 [facility] Comment on above: Performed By: #### L 100.0100, BTS, L509.4006, L509.8002, L3890.6102, L3890.6301, L3890.6006 #### [facility] [address] [place], [address] RBC (Bld) [#/Vol] 3.61 10*6/uL Low 4.2-5.4 [facility] Comment on above: Performed By: #### L 100.0100, BTS, L509.4006, L509.8002, L3890.6102, L3890.6301, L3890.6006 #### [facility] [address] [place], [address] RDW SD 43.7 fl Normal 35.1-43.9 [facility] Comment on above: Performed By: #### L 100.0100, BTS, L509.4006, L509.8002, L3890.6102, L3890.6301, L3890.6006 #### [facility] [address] [place], [place], [id number] (544) WBC (Bld) [#/Vol] 6.7 10*3/uL Normal 4.4-11.0 [facility] Comment on above: Performed By: #### L 100.0100, BTS, L509.4006, L509.8002, L3890.6102, L3890.6301, L3890.6006 #### [facility] [address] [place], [address] Eosinophil percentageOrdered By: Moon Rosales on 12-02-2024 Eosinophils/100 WBC (Bld) 0.7 % 0-5 [facility] Erythrocyte distribution wid th ratioOrdered By: Moon Rosales on 12-02-2024 Erythrocyte distribution width (RBC) [Ratio] 12.4 % 11.6-14.6 [facility] Erythrocyte distribution wid th standard deviationOrdered By: Moon Rosales on 12-02-2024 Erythrocyte distribution width (RBC) [Ratio] 43.7 fl 35.1-43.9 [facility] Glucose Challenge Gest 1H 50 chrissy 12-02-2024 GLU GEST 50g 1H 96 mg/dL Normal 70-140 [facility] Comment on above: Performed By: #### L 100.0100, BTS, L509.4006, L509.8002, L3890.6102, L3890.6301, L3890.6006 #### [facility] [address] [place], [address] Glucose measurement at 2 mario rs post-dose gestational glucose tolerance testOrdered By: Moon Rosales on 12-02-2024 Glucose [Mass/Vol] 96 mg/dL 70-140 [facility] HIVon 12-02-2024 HIV Non-Reactive Normal Nonreactive [facility] Comment on above: Result Comment: Non- Reactive Reactive Repeatedly reactive samples must be confirmed according to CDC recommended confirmatory algorithms. The subresults for either HIVAG or AHIV can be used as an aid in the selection of the confirmation algorithm for reactive samples. Send out specimens with Reactive results to [facility] for confirmation. Order the HIV antibody detection and differentiation: lc#[id number] Performed By: #### L 100.0100, BTS, L509.4006, L509.8002, L3890.6102, L3890.6301, L3890.6006 #### [facility] [address] [place], [address] Hematocrit Auto (Bld) [Volum e fraction]Ordered By: Moon Rosales on 12-02-2024 Hematocrit (Bld) [Volume fraction] 34.9 % Low 37-47 [facility] Hemoglobin measurementOrdere d By: Moon Rosales on 12-02-2024 Hemoglobin (Bld) [Mass/Vol] 11.7 g/dL Low 12.0-15.0 [facility] Immature granulocytes/100 WB C Auto (Bld)Ordered By: Moon Rosales on 12-02-2024 Immature granulocytes/100 WBC (Bld) 0.600 % 0.0-0.9 [facility] Comment on above: IG% - Immature Granu locytes (promyelocytes, myelocytes and metamyelocytes) > 1% indicates that a LEFT SHIFT is Present. Laboratory - Chemistry and C hemistry - challengeOrdered By: Carmelina Morin on 12-02-2024 Glucose Ql (U) Negative [facility] - UrinalysisOrder ed By: Carmelina Morin on 12-02-2024 Protein Ql (U) Negative [facility] MCV (mean corpuscular volume ) determinationOrdered By: Moon Rosales on 12-02-2024 MCV (RBC) [Entitic vol] 96.7 fL 81-99 [facility] Mean corpuscular hemoglobin (MCH) determinationOrdered By: Moon Rosales on 12-02-2024 MCH (RBC) [Entitic mass] 32.4 pg High 27.0-32.0 [facility] Mean corpuscular hemoglobin concentration (MCHC) determinationOrdered By: Moon Rosales on 12-02-2024 MCHC (RBC) [Mass/Vol] 33.5 g/dL 32-36 [facility] Mean platelet volume determi nationOrdered By: Moon Rosales on 12-02-2024 Platelet mean volume (Bld) [Entitic vol] 10.8 fL 6.2-12.0 [facility] Monocyte percentageOrdered B y: Moon Rosales on 12-02-2024 Monocytes/100 WBC (Bld) 5.7 % 0-10 [facility] Neutrophil percentageOrdered By: Moon Rosales on 12-02-2024 Neutrophils/100 WBC (Bld) 75.4 % High 47-70 [facility] No Panel InformationOrdered By: Moon Rosales on 12-02-2024 HIV (1&2) Antibody Non-Reactive Nonreactive [facility] Comment on above: Non-ReactiveReactive Repeatedly reactive samples must be confirmed according to CDC recommended confirmatory algorithms. The subresults for either HIVAG or AHIV can be used as an aid in the selection of the confirmation algorithm for reactive samples.Send out specimens with Reactive results to [facility] for confirmation.Order the HIV antibody detection and differentiation: #[id number] Nucleated red blood cell per centageOrdered By: Moon Rosales on 12-02-2024 Nucleated RBC/100 WBC (Bld) [Ratio] 0 % 0-5 [facility] Supervisor Garage Office Visit Reporton 12-02-2024 Supervisor Garage Office Visit Report [facility] [address], [address] [place] [address] OFFICE VISIT Date of Service: 12/02/24 MR#: [id number] Acct: [id number] Name: KESHAJOANNFRANCINESHAMEKA VANCE Rep #: [id number] : 1995 Provider: MJ iraheta Age/Sex: 29/F Location: [facility] [place] Status: Signed Intake Vital Signs 10/03/24 09:19 10/29/24 11:31 12/02/24 13:04 Height 5 ft 6 in 5 ft 6 in 5 ft 6 in Weight: 131 lb 8 oz BMI 21.2 BP 98/62 Intake Visit Reasons: 28 wk ob/glucose Chief Complaint: 28 Week OB/Glucose Model Technician Required: No Is patient in pain?: No Allergies penicillin G Allergy (Mild, Verified 12/02/24 13:06) Other nitrous oxide Allergy (Verified 12/02/24 13:06) Other acetaminophen (From Tylenol) Adverse Reaction (Severe, Verified 12/02/24 13:06) Vomiting Medications ???Medication ???Instructions ???Recorded ???Confirmed ???Type [id number] 400 mcg-om3 35 mg-dha 25 1 tab PO DAILY 04/12/21 12/02/24 History mg-epa 5 mg-fish oil chewable tablet doxylamine succinate 25 mg tablet 25 mg PO QHS PRN 10/03/24 5 History (Unisom (doxylamine)) pyridoxine (vitamin B6) 10 mg 10 mg PO QDAY 10/03/24 12/02/24 Hi story tablet Last Menstrual Period: 05/17/24 Zika: Zika virus screening: Negative : Yes PFSH PFSH Medical History Anxiety Vaginal delivery Surgical History H/O knee surgery Schurz teeth extracted Family History Grandfather Cancer Paternal Social History adopted: No household members: spouse and children housing: house number of children: 2 current occupational status: unemployed current occupation: [employer] pets and animals: No history of recent [...] 3-4 times per week duration: 45-60 minutes/day romero/protestant: Scientologist seatbelt use: always do you feel safe at home: Yes 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 Date Name GA/Weeks Outcome Route Bth Weight Infant Gen Labor Lgth Anesthesia Del Locatn Provider FOChantelle 05/20/18 Loyd 37 live - full term 7lbs 0oz Male 8 hours epidural [facility] BELA Mcintyre 04/13/21December 37 live - full term 6#4oz Male epidural [facility] Dr. Ok Mcintyre Delivery Date: 05/20/18 Last Updated by: Shyla Hurley MD 34 wk PTL: fluids and stopped. steroids. Thinks related to noravirus. Pushed for 20 min. 2nd degree with abscess of suture Delivery Date: 04/13/21 Last Updated by: Radha Espinoza COVID + at , IAL HPI 28 wk ob/glucose Details: FRANCINE MANTILLA is a 29 year old who presents for routine OB visit. OB Visit KIRK Calculator Estimated Delivery Date Method Current WG Current Estimate 02/21/25 LMP (Certain) 28w 3d Other Estimates 02/20/25 Ultrasound #1 28w 4d Expected Delivery Route/Plan Labor Preferences- CB/BF classes: no labor support person: Francisco Javier labor intervention preferences: [] pain management options preferred: ok for epidural cut cord/dad catch: cord : yes PP control planned: discussed discussed possible routes of delivery and associated risks: [] special requests: [] Specific Issue/Plans Covid status: [] Flu vaccine: [] Tdap vaccine: declines Rhogam: NA LARC form signed: yes Problem list reviewed and updated with the [...] lb 8 oz (+8 oz) 107/69 -???-???-???-???-?? ?-?? (more content not included)... Normal [facility] Platelet countOrdered By: Johnathon Rosales on 12-02-2024 Platelets (Bld) [#/Vol] 211 10*3/uL 150-450 [facility] RBC Auto (Bld) [#/Vol]Ordere d By: Moon Rosales on 12-02-2024 RBC (Bld) [#/Vol] 3.61 10*6/uL Low 4.2-5.4 [facility] Syphilis Antibodieson 2024 Syphilis Abs Non-Reactive Normal Nonreactive [facility] Comment on above: Performed By: #### L 100.0100, BTS, L509.4006, L509.8002, L3890.6102, L3890.6301, L3890.6006 #### [facility] [address] [place], [address] White blood cell (WBC) count Ordered By: Moon Rosales on 12-02-2024 WBC (Bld) [#/Vol] 6.7 10*3/uL 4.4-11.0 [facility] Laboratory - Chemistry and C hemistry - challengeOrdered By: Moon Rosales on 10-29-2024 Glucose Ql (U) Negative [facility] - UrinalysisOrder ed By: Moon Rosales on 10-29-2024 Protein Ql (U) Negative [facility] Supervisor Garage Office Visit Reporton 10-29-2024 Supervisor Garage Office Visit Report [facility] [address], [address] [place] [address] OFFICE VISIT Date of Service: 10/29/24 MR#: [id number] Acct: [id number] Name: FRANCINE MANTILLA Rep #: [id number] : 1995 Provider: Dr. Moon Singh, Age/Sex: 29/F Location: [facility] [place] Status: Signed Intake Vital Signs 09/05/24 09:48 10/03/24 09:19 10/29/24 11:30 10/29/24 11:31 Height 5 ft 6 in 5 ft 6 in 5 ft 6 in 5 ft 6 in Weight: 128 lb 4 oz BMI 20.7 BP 101/67 Intake Visit Reasons: 24 wk ob Model Technician Required: No Is patient in pain?: No Allergies penicillin G Allergy (Mild, Verified 10/29/24 11:30) Other nitrous oxide Allergy (Verified 10/29/24 11:30) Other acetaminophen (From Tylenol) Adverse Reaction (Severe, Verified 10/29/24 11:30) Vomiting Medications ???Medication ???Instructions ???Recorded ???Confirmed ???Type [id number]-[id number] 400 mcg-om3 35 mg-dha 25 1 tab [...] Vaginal delivery Surgical History H/O knee surgery Schurz teeth extracted Family History Grandfather Cancer Paternal Social History adopted: No household members: spouse and children housing: house number of children: 2 current occupational status: unemployed current occupation: [employer] pets and animals: No history of recent [...] 3-4 times per week duration: 45-60 minutes/day romero/protestant: Scientologist seatbelt use: always do you feel safe [...] term 7lbs 0oz Male 8 hours epidural [facility] BELA Mcintyre 04/13/21December 36 live - full term 6#4oz Male epidural [facility] Dr. Ok Mcintyre Delivery Date: 05/20/18 Last [...] -???-???-???-???-?? ?-? (more content not included)... Normal [facility] Absolute lymphocyte countOrd ered By: Tricia Euceda on 10-03-2024 Lymphocytes Auto (Unsp spec) [#/Vol] 1.45 10*3/uL 0.83-4.51 [facility] Absolute neutrophil countOrd ered By: Tricia Euceda on 10-03-2024 Neutrophils (Bld) [#/Vol] 6.3 10*3/uL 2.0-7.7 [facility] Automated lymphocyte count a s percentage of total leukocytesOrdered By: Tricia Euceda on 10-03-2024 Lymphocytes/100 WBC Auto (Unsp spec) 17.6 % Low 19-41 [facility] Basophil percentageOrdered B y: Tricia Euceda on 10-03-2024 Basophils/100 WBC (Bld) 0.2 % 0-1 [facility] CBC W/Diff, Automatedon 09-06 Absolute Lymph 1.45 X10 3/uL Normal 0.83-4.51 [facility] Comment on above: Performed By: #### L 100.0100, L3890.6006 #### [facility] [facility] [address] [place], [address] Absolute Neut 6.3 X10 3/uL Normal 2.0-7.7 [facility] Comment on above: Performed By: #### L 100.0100, L3890.6006 #### [facility] [address] [place], [address] Basophils/100 WBC (Bld) 0.2 % Normal 0-1 [facility] Comment on above: Performed By: #### L 100.0100, L3890.6006 #### [facility] [address] [place], [address] Eosinophils/100 WBC (Bld) 1.0 % Normal 0-5 [facility] Comment on above: Performed By: #### L 100.0100, L3890.6006 #### [facility] [address] [place], [address] Erythrocyte distribution width (RBC) [Ratio] 12.8 % Normal 11.6-14.6 [facility] Comment on above: Performed By: #### L 100.0100, L3890.6006 #### [facility] [address] [place], [address] Hematocrit (Bld) [Volume fraction] 34.3 % Low 37-47 [facility] Comment on above: Performed By: #### L 100.0100, L3890.6006 #### [facility] [address] [place], [address] Hemoglobin (Bld) [Mass/Vol] 11.5 g/dL Low 12.0-15.0 [facility] Comment on above: Performed By: #### L 100.0100, L3890.6006 #### [facility] [address] [place], [address] IG% 0.700 Normal 0.0-0.9 [facility] Comment on above: Result Comment: IG% - Immature Granulocytes (promyelocytes, myelocytes and metamyelocytes) > 1% indicates that a LEFT SHIFT is Present. Performed By: #### L 100.0100, L3890.6006 #### [facility] [address] [place], [address] Lymphocytes/100 WBC (Bld) 17.6 % Low 19-41 [facility] Comment on above: Performed By: #### L 100.0100, L3890.6006 #### [facility] [address] [place], [address] MCH (RBC) [Entitic mass] 32.3 pg High 27.0-32.0 [facility] Comment on above: Performed By: #### L 100.0100, L3890.6006 #### [facility] [address] [place], [address] MCHC (RBC) [Mass/Vol] 33.5 g/dL Normal 32-36 [facility] Comment on above: Performed By: #### L 100.0100, L3890.6006 #### [facility] [address] [place], [address] MCV (RBC) [Entitic vol] 96.3 fL Normal 81-99 [facility] Comment on above: Performed By: #### L 100.0100, L3890.6006 #### [facility] [address] [place], [address] Monocytes/100 WBC (Bld) 4.5 % Normal 0-10 [facility] Comment on above: Performed By: #### L 100.0100, L3890.6006 #### [facility] [address] [place], [address] Neutrophils/100 WBC (Bld) 76.0 % High 47-70 [facility] Comment on above: Performed By: #### L 100.0100, L3890.6006 #### [facility] [address] [place], [address] Nucleated RBC (Bld) [#/Vol] 0 10*3/uL Normal 0-5 [facility] Comment on above: Performed By: #### L 100.0100, L3890.6006 #### [facility] [address] [place], [address] Platelet mean volume (Bld) [Entitic vol] 11.0 fL Normal 6.2-12.0 [facility] Comment on above: Performed By: #### L 100.0100, L3890.6006 #### [facility] [address] [place], [address] Platelets (Bld) [#/Vol] 203 10*3/uL Normal 150-450 [facility] Comment on above: Performed By: #### L 100.0100, L3890.6006 #### [facility] [address] [place], [address] RBC (Bld) [#/Vol] 3.56 10*6/uL Low 4.2-5.4 [facility] Comment on above: Performed By: #### L 100.0100, L3890.6006 #### [facility] [address] [place], [address] RDW SD 45.1 fl High 35.1-43.9 [facility] Comment on above: Performed By: #### L 100.0100, L3890.6006 #### [facility] [address] [place], [address] WBC (Bld) [#/Vol] 8.3 10*3/uL Normal 4.4-11.0 [facility] Comment on above: Performed By: #### L 100.0100, L3890.6006 #### [facility] [address] [place], [address] Eosinophil percentageOrdered By: Tricia Euceda on 10-03-2024 Eosinophils/100 WBC (Bld) 1.0 % 0-5 [facility] Erythrocyte distribution wid th ratioOrdered By: Tricia Euceda on 10-03-2024 Erythrocyte distribution width (RBC) [Ratio] 12.8 % 11.6-14.6 [facility] Erythrocyte distribution wid th standard deviationOrdered By: Tricia Euceda on 10-03-2024 Erythrocyte distribution width (RBC) [Ratio] 45.1 fl High 35.1-43.9 [facility] HIVon 10-03-2024 HIV Non-Reactive Normal Nonreactive [facility] Comment on above: Result Comment: Non- Reactive Reactive Repeatedly reactive samples must be confirmed according to CDC recommended confirmatory algorithms. The subresults for either HIVAG or AHIV can be used as an aid in the selection of the confirmation algorithm for reactive samples. Send out specimens with Reactive results to [facility] for confirmation. Order the HIV antibody detection and differentiation: lc#[id number] Performed By: #### L 100.0100, L3890.6006 #### [facility] [address] [place], [address] Hematocrit Auto (Bld) [Volum e fraction]Ordered By: Tricia Euceda on 10-03-2024 Hematocrit (Bld) [Volume fraction] 34.3 % Low 37-47 [facility] Hemoglobin measurementOrdere d By: Tricia Euceda on 10-03-2024 Hemoglobin (Bld) [Mass/Vol] 11.5 g/dL Low 12.0-15.0 [facility] Immature granulocytes/100 WB C Auto (Bld)Ordered By: Tricia Euceda on 10-03-2024 Immature granulocytes/100 WBC (Bld) 0.700 % 0.0-0.9 [facility] Comment on above: IG% - Immature Granu locytes (promyelocytes, myelocytes and metamyelocytes) > 1% indicates that a LEFT SHIFT is Present. Laboratory - Chemistry and C hemistry - challengeOrdered By: Tricia Euceda on 10-03-2024 Glucose Ql (U) Negative [facility] Laboratory - UrinalysisOrder ed By: Tricia Euceda on 10-03-2024 Protein Ql (U) Negative [facility] MCV (mean corpuscular volume ) determinationOrdered By: Tricia Euceda on 10-03-2024 MCV (RBC) [Entitic vol] 96.3 fL 81-99 [facility] Mean corpuscular hemoglobin (MCH) determinationOrdered By: Tricia Euceda on 10-03-2024 MCH (RBC) [Entitic mass] 32.3 pg High 27.0-32.0 [facility] Mean corpuscular hemoglobin concentration (MCHC) determinationOrdered By: Tricia Euceda on 10-03-2024 MCHC (RBC) [Mass/Vol] 33.5 g/dL 32-36 [facility] Mean platelet volume determi nationOrdered By: Tricia Euceda on 10-03-2024 Platelet mean volume (Bld) [Entitic vol] 11.0 fL 6.2-12.0 [facility] Monocyte percentageOrdered B y: Tricia Euceda on 10-03-2024 Monocytes/100 WBC (Bld) 4.5 % 0-10 [facility] Neutrophil percentageOrdered By: Tricia Euceda on 10-03-2024 Neutrophils/100 WBC (Bld) 76.0 % High 47-70 [facility] No Panel InformationOrdered By: Tricia Euceda on 10-03-2024 HIV (1&2) Antibody Non-Reactive Nonreactive [facility] Comment on above: Non-ReactiveReactive Repeatedly reactive samples must be confirmed according to CDC recommended confirmatory algorithms. The subresults for either HIVAG or AHIV can be used as an aid in the selection of the confirmation algorithm for reactive samples.Send out specimens with Reactive results to [facility] for confirmation.Order the HIV antibody detection and differentiation: #[id number] Nucleated red blood cell per centageOrdered By: Tricia Euceda on 10-03-2024 Nucleated RBC/100 WBC (Bld) [Ratio] 0 % 0-5 [facility] Supervisor Garage Office Visit Reporton 10-03-2024 Supervisor Garage Office Visit Report [facility] [address], [address] [place] [address] OFFICE VISIT Date of Service: 10/03/24 MR#: [id number] Acct: [id number] Name: FRANCINE MANTILLA Rep #: [id number] : 1995 Provider: Dr. Tricia hunter MD Age/Sex: 29/F Location: [facility] [place] Status: Signed Intake Vital Signs 08/06/24 09:13 09/11/24 10:44 10/03/24 09:15 10/03/24 09:19 Height 5 ft 6 in 5 ft 6 in 5 ft 6 in 5 ft 6 in Weight: 125 lb 2 oz BMI 20.2 BP 105/70 Intake Visit Reasons: 20 wk ob Model Technician Required: No Is patient in pain?: No Feel stressed/tense/nerv ous/anxious/difficu lty sleeping: not at all Allergies penicillin G Allergy (Mild, Verified 10/03/24 09:15) Other nitrous oxide Allergy (Verified 10/03/24 09:15) Other acetaminophen (From Tylenol) Adverse Reaction (Severe, Verified 10/03/24 09:15) Vomiting Medications ???Medication ???Instructions ???Recorded ???Confirmed ???Type JFU32-GF 400 mcg-om3 35 mg-dha 25 1 tab [...] Vaginal delivery Surgical History H/O knee surgery Schurz teeth extracted Family History Grandfather Cancer Paternal Social History adopted: No household members: spouse and children housing: house number of children: 2 current occupational status: unemployed current occupation: [employer] pets and animals: No history of recent [...] 3-4 times per week duration: 45-60 minutes/day romero/protestant: Scientologist seatbelt use: always do you feel safe [...] term 7lbs 0oz Male 8 hours epidural [facility] BELA Mcintyre 04/13/21December 37 live - full term 6#4oz Male epidural [facility] Dr. Ok Mcintyre Delivery Date: 05/20/18 Last Updated by: Shyla Hurley MD 34 wk PTL: fluids and stopped. steroids. Thinks related to noravirus. Pushed for 20 min. 2nd degree with abscess of suture Delivery Date: 04/13/21 Last Updated by: Radha L Alexis COVID + at , IAL HPI 20 [...] -???-???-???-???-?? ?-??? (more content not included)... Normal [facility] Platelet countOrdered By: Douglas Euceda on 10-03-2024 Platelets (Bld) [#/Vol] 203 10*3/uL 150-450 [facility] RBC Auto (Bld) [#/Vol]Ordere d By: Tricia Euceda on 10-03-2024 RBC (Bld) [#/Vol] 3.56 10*6/uL Low 4.2-5.4 [facility] White blood cell (WBC) count Ordered By: Tricia Euceda on 10-03-2024 WBC (Bld) [#/Vol] 8.3 10*3/uL 4.4-11.0 [facility] Laboratory - Chemistry and C hemistry - challengeOrdered By: Chrissy Lucas on 09-05-2024 Glucose Ql (U) Negative [facility] Laboratory - UrinalysisOrder ed By: Chrissy Lucas on 09-05-2024 Protein Ql (U) Negative [facility] Supervisor Garage Office Visit Reporton 09-05-2024 Supervisor Garage Office Visit Report [facility] [address], [address] [place] [address] OFFICE VISIT Date of Service: 09/05/24 MR#: [id number] Acct: [id number] Name: FRANCINE MANTILLA Rep #: [id number] : 1995 Provider: MONSE Pacheco ams Age/Sex: 29/F Location: [facility] [place] Status: Signed Intake Vital Signs 07/18/24 08:49 09/02/24 11:44 09/05/24 09:48 Height 5 ft 6 in 5 ft 6 in 5 ft 6 in Weight: 119 lb 2 oz BMI 19.2 BP 101/64 Intake Visit Reasons: 16 wk ob Chief Complaint: 16wk OB Model Technician Required: No Is patient in pain?: No Allergies penicillin G Allergy (Mild, Verified 09/05/24 09:46) Other nitrous oxide Allergy (Verified 09/05/24 09:46) Other acetaminophen (From Tylenol) Adverse Reaction (Severe, Verified 09/05/24 09:46) Vomiting Medications ???Medication ???Instructions ???Recorded ???Confirmed ???Type [id number] 400 mcg-om3 35 mg-dha 25 1 tab [...] Vaginal delivery Surgical History H/O knee surgery Schurz teeth extracted Family History Grandfather Cancer Paternal Social History adopted: No household members: spouse and children housing: house number of children: 2 current occupational status: unemployed current occupation: [employer] pets and animals: No history of recent [...] 3-4 times per week duration: 45-60 minutes/day romero/protestant: Scientologist seatbelt use: always do you feel safe at home: Yes 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 Date Name GA/Weeks Outcome Route Bth Weight Gen Labor Lgth Anesthesia Del Locatn Provider KETA 05/20/18 Loyd 37 live - full term 7lbs 0oz Male 8 hours epidural [facility] BELA Mcintyre 04/13/21December 37 live - full term 6#4oz Male epidural [facility] Dr. Ok Mcintyre Delivery Date: 05/20/18 Last Updated by: Shyla Hurley MD 34 wk PTL: fluids and stopped. steroids. Thinks related to noravirus. Pushed for 20 min. 2nd degree with abscess of suture Delivery Date: 04/13/21 Last Updated by: Radha Cervantesion COVID + at , IAL HPI 16 [...] -???-???-???-???-?? ?-???-?? (more content not included)... Normal [facility] Absolute lymphocyte countOrd ered By: Clarence Wolff on 08-26-2024 Lymphocytes Auto (Unsp spec) [#/Vol] 0.87 10*3/uL 0.83-4.51 [facility] Absolute neutrophil countOrd ered By: Clarence Wolff on 08-26-2024 Neutrophils (Bld) [#/Vol] 6.8 10*3/uL 2.0-7.7 [facility] Anion gap in Serum or Plasma Ordered By: Clarence Wolff on 08-26-2024 Anion gap [Moles/Vol] 11 mmol/L 5-15 [facility] Automated lymphocyte count a s percentage of total leukocytesOrdered By: Clarence Wolff on 08-26-2024 Lymphocytes/100 WBC Auto (Unsp spec) 10.9 % Low 19-41 [facility] BUN/creatinine ratioOrdered By: Clarence Wolff on 08-26-2024 Urea nitrogen/Creatinine [Mass ratio] 22.7 mg/mg High 10-20 [facility] Basic Metabolic Profile (BMP )on 08-26-2024 BUN/CRE 22.7 RATIO High 10-20 [facility] Comment on above: Performed By: #### L 100.0100, BTS, L509.4006, L509.8002, L3890.6102, L3890.6301, L3890.6006 #### [facility] [address] [place], [place], [address] Calcium [Mass/Vol] 9.3 mg/dL Normal 7.6-11.0 [facility] Comment on above: Performed By: #### L 100.0100, BTS, L509.4006, L509.8002, L3890.6102, L3890.6301, L3890.6006 #### [facility] [address] [place], [address] Chloride [Moles/Vol] 102 mmol/L Normal 98-108 [facility] Comment on above: Performed By: #### L 100.0100, BTS, L509.4006, L509.8002, L3890.6102, L3890.6301, L3890.6006 #### [facility] [address] [place], [address] CO2 [Moles/Vol] 23.2 mmol/L Normal 21.0-32.0 [facility] Comment on above: Performed By: #### L 100.0100, BTS, L509.4006, L509.8002, L3890.6102, L3890.6301, L3890.6006 #### [facility] [address] [place], [address] Creatinine [Mass/Vol] 0.56 mg/dL Low 0.70-1.20 [facility] Comment on above: Performed By: #### L 100.0100, BTS, L509.4006, L509.8002, L3890.6102, L3890.6301, L3890.6006 #### [facility] [address] [place], [address] ECRCL 124.12 ml/min Normal 50-250 [facility] Comment on above: Performed By: #### L 100.0100, BTS, L509.4006, L509.8002, L3890.6102, L3890.6301, L3890.6006 #### [facility] [address] [place], [address] GAP 11 Normal 5-15 [facility] Comment on above: Performed By: #### L 100.0100, BTS, L509.4006, L509.8002, L3890.6102, L3890.6301, L3890.6006 #### [facility] [address] [place], [address] GFR/1.73 sq M.predicted among non-blacks MDRD (S/P/Bld) [Vol rate/Area] 126 mL/min/{1.73_m2} Normal >60 [facility] Comment on above: Result Comment: mL/m in/1.73m2 CKD-EPI Creatinine Equation (2020) Performed By: #### L 100.0100, BTS, L509.4006, L509.8002, L3890.6102, L3890.6301, L3890.6006 #### [facility] [address] [place], [address] Glucose [Mass/Vol] 98 mg/dL Normal 70-99 [facility] Comment on above: Performed By: #### L 100.0100, BTS, L509.4006, L509.8002, L3890.6102, L3890.6301, L3890.6006 #### [facility] [address] [place], [address] Potassium [Moles/Vol] 3.8 mmol/L Normal 3.3-5.1 [facility] Comment on above: Performed By: #### L 100.0100, BTS, L509.4006, L509.8002, L3890.6102, L3890.6301, L3890.6006 #### [facility] [address] [place], [address] Sodium [Moles/Vol] 136 mmol/L Normal 133-145 [facility] Comment on above: Performed By: #### L 100.0100, BTS, L509.4006, L509.8002, L3890.6102, L3890.6301, L3890.6006 #### [facility] [address] [place], [address] Urea nitrogen [Mass/Vol] 13 mg/dL Normal 4-19 [facility] Comment on above: Performed By: #### L 100.0100, BTS, L509.4006, L509.8002, L3890.6102, L3890.6301, L3890.6006 #### [facility] [address] [place], [address] Basophil percentageOrdered B y: Clarence Gradysuzanne on 08-26-2024 Basophils/100 WBC (Bld) 0.3 % 0-1 [facility] CBC W/Diff, Automatedon 08-06 Absolute Lymph 0.87 X10 3/uL Normal 0.83-4.51 [facility] Comment on above: Performed By: #### L 100.0100, L500.2500 #### [facility] [address] [place], [address] Absolute Neut 6.8 X10 3/uL Normal 2.0-7.7 [facility] Comment on above: Performed By: #### L 100.0100, L500.2500 #### [facility] [address] [place], [address] Basophils/100 WBC (Bld) 0.3 % Normal 0-1 [facility] Comment on above: Performed By: #### L 100.0100, L500.2500 #### [facility] [address] [place], [address] Eosinophils/100 WBC (Bld) 0.5 % Normal 0-5 [facility] Comment on above: Performed By: #### L 100.0100, L500.2500 #### [facility] [address] [place], [address] Erythrocyte distribution width (RBC) [Ratio] 12.5 % Normal 11.6-14.6 [facility] Comment on above: Performed By: #### L 100.0100, L500.2500 #### [facility] [address] [place], [address] Hematocrit (Bld) [Volume fraction] 37.1 % Normal 37-47 [facility] Comment on above: Performed By: #### L 100.0100, L500.2500 #### [facility] [address] [place], [address] Hemoglobin (Bld) [Mass/Vol] 12.7 g/dL Normal 12.0-15.0 [facility] Comment on above: Performed By: #### L 100.0100, L500.2500 #### [facility] [address] [place], [address] IG% 0.500 Normal 0.0-0.9 [facility] Comment on above: Result Comment: IG% - Immature Granulocytes (promyelocytes, myelocytes and metamyelocytes) > 1% indicates that a LEFT SHIFT is Present. Performed By: #### L 100.0100, L500.2500 #### [facility] [address] [place], [address] Lymphocytes/100 WBC (Bld) 10.9 % Low 19-41 [facility] Comment on above: Performed By: #### L 100.0100, L500.2500 #### [facility] [address] [place], [address] MCH (RBC) [Entitic mass] 31.8 pg Normal 27.0-32.0 [facility] Comment on above: Performed By: #### L 100.0100, L500.2500 #### [facility] [address] [place], [address] MCHC (RBC) [Mass/Vol] 34.2 g/dL Normal 32-36 [facility] Comment on above: Performed By: #### L 100.0100, L500.2500 #### [facility] [address] [place], [address] MCV (RBC) [Entitic vol] 92.8 fL Normal 81-99 [facility] Comment on above: Performed By: #### L 100.0100, L500.2500 #### [facility] [address] [place], [address] Monocytes/100 WBC (Bld) 3.1 % Normal 0-10 [facility] Comment on above: Performed By: #### L 100.0100, L500.2500 #### [facility] [address] [place], [address] Neutrophils/100 WBC (Bld) 84.7 % High 47-70 [facility] Comment on above: Performed By: #### L 100.0100, L500.2500 #### [facility] [address] [place], [address] Nucleated RBC (Bld) [#/Vol] 0 10*3/uL Normal 0-5 [facility] Comment on above: Performed By: #### L 100.0100, L500.2500 #### [facility] [address] [place], [address] Platelet mean volume (Bld) [Entitic vol] 10.8 fL Normal 6.2-12.0 [facility] Comment on above: Performed By: #### L 100.0100, L500.2500 #### [facility] [address] [place], [address] Platelets (Bld) [#/Vol] 192 10*3/uL Normal 150-450 [facility] Comment on above: Performed By: #### L 100.0100, L500.2500 #### [facility] [address] [place], [address] RBC (Bld) [#/Vol] 4.00 10*6/uL Low 4.2-5.4 [facility] Comment on above: Performed By: #### L 100.0100, L500.2500 #### [facility] [address] [place], [address] RDW SD 42.7 fl Normal 35.1-43.9 [facility] Comment on above: Performed By: #### L 100.0100, L500.2500 #### [facility] [address] [place], [address] WBC (Bld) [#/Vol] 8.0 10*3/uL Normal 4.4-11.0 [facility] Comment on above: Performed By: #### L 100.0100, L500.2500 #### [facility] Laboratory [address] [place], [address] Carbon dioxide, total [Moles /volume] in Central venous bloodOrdered By: Clarence Wolff on 08-26-2024 CO2 [Moles/Vol] 23.2 mmol/L 21.0-32.0 [facility] Chloride assayOrdered By: Joann Wolff on 08-26-2024 Chloride [Moles/Vol] 102 mmol/L 98-108 [facility] Emergency Department Summary on 08-26-2024 Emergency Department Summary [facility] Medical Records Department [address] [place] [address] Emergency Department Summary 08/26/24 MR#: [id number] Acct: [id number] Name: FRANCINE MANTILLA RAJIV Rep #: [id number] : 1995 29 From: Clarence Wolff DO [...] or discharge. Patient is 3 para 2. PFSH PFSH Medical History Anxiety Vaginal delivery Home Medications ???Medication ???Instructions ???Recorded ???Last Taken ???Type ABI91-SL 400 mcg-om3 35 mg-dha 25 tab PO [...] Cancer Paternal Surgical History H/O knee surgery Schurz teeth extracted Social History adopted: No household members: spouse and children housing: house number of children: 2 current occupational status: unemployed current occupation: [employer] pets and animals: No history of recent [...] 3-4 times per week duration: 45-60 minutes/day romero/protestant: Scientologist seatbelt use: always do you feel safe [...] electrolyte abnor (more content not included)... Normal [facility] Eosinophil percentageOrdered By: Clarence Wolff on 08-26-2024 Eosinophils/100 WBC (Bld) 0.5 % 0-5 [facility] Erythrocyte distribution wid th (RBC) [Ratio]Ordered By: Clarence Wolff on 08-26-2024 Erythrocyte distribution width (RBC) [Entitic vol] 42.7 fL 35.1-43.9 [facility] Erythrocyte distribution wid th ratioOrdered By: Clarence Wolff on 08-26-2024 Erythrocyte distribution width (RBC) [Ratio] 12.5 % 11.6-14.6 [facility] Erythrocyte distribution wid th standard deviationOrdered By: Clarence Wolff on 08-26-2024 Erythrocyte distribution width (RBC) [Ratio] 42.7 fl 35.1-43.9 [facility] Estimation of creatinine tan aranceOrdered By: Clarence Wolff on 08-26-2024 Estimated Creatinine Clearance Calc 124.12 ml/min 50-250 [facility] GFR/1.73 sq M.predicted abram g non-blacks MDRD (S/P/Bld) [Vol rate/Area]Ordered By: Clarence Wolff on 08-26-2024 Estimated GFR (MDRD) Non-Af Amer 126 >60 [facility] Comment on above: mL/min/1.73m2 CKD-EP I Creatinine Equation (2020) Glomerular filtration rate ( GFR) estimation/1.73 sq m using serum, plasma, or whole bOrdered By: Clarence Wolff on 08-26-2024 GFR/1.73 sq M.predicted among non-blacks MDRD (S/P/Bld) [Vol rate/Area] 126 mL/min/{1.73_m2} >60 [facility] Comment on above: mL/min/1.73m2 CKD-EP I Creatinine Equation (2020) Hematocrit Auto (Bld) [Volum e fraction]Ordered By: Clarence Wolff on 08-26-2024 Hematocrit (Bld) [Volume fraction] 37.1 % 37-47 [facility] Hemoglobin measurementOrdere d By: Clarence Wolff on 08-26-2024 Hemoglobin (Bld) [Mass/Vol] 12.7 g/dL 12.0-15.0 [facility] Immature granulocytes/100 WB C Auto (Bld)Ordered By: Clarence Wolff on 08-26-2024 Immature granulocytes/100 WBC (Bld) 0.500 % 0.0-0.9 [facility] Comment on above: IG% - Immature Granu locytes (promyelocytes, myelocytes and metamyelocytes) > 1% indicates that a LEFT SHIFT is Present. Lymphocytes Auto (Unsp spec) [#/Vol]Ordered By: Clarence Wolff on 08-26-2024 Lymphocytes (Bld) [#/Vol] 0.87 10*3/uL 0.83-4.5 1 [facility] Lymphocytes/100 WBC Auto (Un sp spec)Ordered By: Clarence Wolff on 08-26-2024 Lymphocytes/100 WBC (Bld) 10.9 % Low 19-41 [facility] MCV (mean corpuscular volume ) determinationOrdered By: Clarence Wolff on 08-26-2024 MCV (RBC) [Entitic vol] 92.8 fL 81-99 [facility] Mean corpuscular hemoglobin (MCH) determinationOrdered By: Clarence Wolff on 08-26-2024 MCH (RBC) [Entitic mass] 31.8 pg 27.0-32.0 [facility] Mean corpuscular hemoglobin concentration (MCHC) determinationOrdered By: Clarence Wolff on 08-26-2024 MCHC (RBC) [Mass/Vol] 34.2 g/dL 32-36 [facility] Mean platelet volume determi nationOrdered By: Clarence Wolff on 08-26-2024 Platelet mean volume (Bld) [Entitic vol] 10.8 fL 6.2-12.0 [facility] Monocyte percentageOrdered B y: Clarence Wolff on 08-26-2024 Monocytes/100 WBC (Bld) 3.1 % 0-10 [facility] Neutrophil percentageOrdered By: Clarence Wolff on 08-26-2024 Neutrophils/100 WBC (Bld) 84.7 % High 47-70 [facility] Nucleated red blood cell per centageOrdered By: Clarence Wolff on 08-26-2024 Nucleated RBC/100 WBC (Bld) [Ratio] 0 % 0-5 [facility] Platelet countOrdered By: Joann Wolff on 08-26-2024 Platelets (Bld) [#/Vol] 192 10*3/uL 150-450 [facility] Potassium (Unsp spec) [Mass/ Vol]Ordered By: Clarence Wolff on 08-26-2024 Potassium [Moles/Vol] 3.8 mmol/L 3.3-5.1 [facility] Potassium measurement (mass/ volume)Ordered By: Clarence Wolff on 08-26-2024 Potassium (Unsp spec) [Mass/Vol] 3.8 mmol/L 3.3-5.1 [facility] RBC Auto (Bld) [#/Vol]Ordere d By: Clarence Wolff on 08-26-2024 RBC (Bld) [#/Vol] 4.00 10*6/uL Low 4.2-5.4 [facility] Serum creatinine measurement (mass/volume)Ordered By: Clarence Wolff on 08-26-2024 Creatinine [Mass/Vol] 0.56 mg/dL Low 0.70-1.20 [facility] Serum glucose measurement (m ass/volume)Ordered By: Clarence Wolff on 08-26-2024 Glucose [Mass/Vol] 98 mg/dL 70-99 [facility] Serum or plasma calcium betsy urement (mass/volume)Ordered By: Clarence Wolff on 08-26-2024 Calcium [Mass/Vol] 9.3 mg/dL 7.6-11.0 [facility] Serum or plasma urea nitroge n measurement (mass/volume)Ordered By: Clarence Wolff on 08-26-2024 Urea nitrogen [Mass/Vol] 13 mg/dL 4-19 [facility] Sodium levelOrdered By: Clarence Wolff on 08-26-2024 Sodium [Moles/Vol] 136 mmol/L 133-145 [facility] White blood cell (WBC) count Ordered By: Clarence Wolff on 08-26-2024 WBC (Bld) [#/Vol] 8.0 10*3/uL 4.4-11.0 [facility] Laboratory - Chemistry and C hemistry - challengeOrdered By: Tricia Euceda on 08-06-2024 Glucose Ql (U) Negative [facility] Laboratory - UrinalysisOrder ed By: Tricia Euceda on 08-06-2024 Protein Ql (U) Negative [facility] Supervisor Garage Office Visit Reporton 08-06-2024 Supervisor Garage Office Visit Report [facility]'[address], [address] [place] [address] OFFICE VISIT Date of Service: 08/06/24 MR#: [id number] Acct: [id number] Name: FRANCINE MANTILLA Rep #: [id number] : 1995 Provider: Dr. Tricia hunter MD Age/Sex: 29/F Location: [facility] [place] Status: Signed Intake Vital Signs 08/24/22 15:42 07/18/24 08:49 08/06/24 09:13 Height 5 ft 6 in 5 ft 6 in 5 ft 6 in Weight: 116 lb BMI 18.7 BP 110/69 Intake Visit Reasons: 12wk OB Model Technician Required: No Is patient in pain?: No Feel stressed/tense/nerv ous/anxious/difficu lty sleeping: not at all Allergies penicillin G Allergy (Mild, Verified 08/06/24 09:16) Other nitrous oxide Allergy (Verified 08/06/24 09:16) Other acetaminophen (From Tylenol) Adverse Reaction (Severe, Verified 08/06/24 09:16) Vomiting Medications ???Medication ???Instructions ???Recorded ???Confirmed ???Type [id number] 400 mcg-om3 35 mg-dha 25 tab PO DAILY 04/12/21 0 08/06/24 History mg-epa 5 mg-fish oil chewable tablet ondansetron 4 mg disintegrating 4 mg PO Q6H PRN nausea and 5 08/06/24 Rx tablet vomiting #30 tabs metoclopramide HCl 5 mg tablet 5 mg PO QAC #14 tabs 07/31/24 04/0 07/01 Rx Last Menstrual Period: 05/17/24 Zika: Zika virus screening: Negative : No PFSH PFSH Medical History Anxiety Vaginal delivery Surgical History H/O knee surgery Sch[place] teeth extracted Family History Grandfather Cancer Paternal Social History adopted: No household members: spouse and children housing: house number of children: 2 current occupational status: unemployed current occupation: [employer] pets and animals: No history of recent [...] 3-4 times per week duration: 45-60 minutes/day romero/protestant: Scientologist seatbelt use: always do you feel safe [...] term 7lbs 0oz Male 8 hours epidural [facility] BELA Mcintyre 04/13/21December 36 live - full term 6#4oz Male epidural [facility] Dr. Ok Mcintyre Delivery Date: 05/20/18 Last [...] 178 -?? (more content not included)... Normal [facility] Chlamydia/GC VICKI aptimaon CHLAMY,NUC ACID Negative Normal Negative [facility] Comment on above: Performed By: #### L 100.0100, BTS, L509.4006, L509.8002, L3890.6102, L3890.6301, L3890.6006 #### [facility] [address] [place], [place], [id number] GC BY NUC ACID Negative Normal Negative [facility] Comment on above: Result Comment: Perf ormed at: =G - [facility] [address] Hospital[facility] [place], [place] [id number] Rip Tailer: Inga Chau MD, Phone: [phone] Performed By: #### L 100.0100, BTS, L509.4006, L509.8002, L3890.6102, L3890.6301, L3890.6006 #### [facility] [address] [place], [place], [id number] Urine Cultureon 07-20-2024 URC Below infection level. Mixed Gram Positive Organisms [address] Count 1000-10,000 MIXC Mixed contaminants. Submit a new specimen if indicated. Normal [facility] Comment on above: Performed By: #### L 100.0100, BTS, L509.4006, L509.8002, L3890.6102, L3890.6301, L3890.6006 #### [facility] [address] [place], [place], [id number] Absolute lymphocyte countOrd ered By: Moon Rosales on 07-18-2024 Lymphocytes Auto (Unsp spec) [#/Vol] 1.09 10*3/uL 0.83-4.51 [facility] Absolute neutrophil countOrd ered By: Moon [facility] on 07-18-2024 Neutrophils (Bld) [#/Vol] 4.9 10*3/uL 2.0-7.7 [facility] Automated lymphocyte count a s percentage of total leukocytesOrdered By: Moon Rosales on 07-18-2024 Lymphocytes/100 WBC Auto (Unsp spec) 16.9 % Low 19-41 [facility] Basophil percentageOrdered B y: Moon Connie on 07-18-2024 Basophils/100 WBC (Bld) 0.5 % 0-1 [facility] C. trachomatis rRNA VICKI+prob e Ql (Unsp spec)Ordered By: Moon Rosales on 07-18-2024 Chlamydia DNA (VICKI) Negative Negative [facility] CBC W/Diff, Automatedon 07-05 Absolute Lymph 1.09 X10 3/uL Normal 0.83-4.51 [facility] Comment on above: Performed By: #### L 100.0100, BTS, L509.4006, L509.8002, L3890.6102, L3890.6301, L3890.6006 #### [facility] [address] [place], [address] Absolute Neut 4.9 X10 3/uL Normal 2.0-7.7 [facility] Comment on above: Performed By: #### L 100.0100, BTS, L509.4006, L509.8002, L3890.6102, L3890.6301, L3890.6006 #### [facility] [address] [place], [address] Basophils/100 WBC (Bld) 0.5 % Normal 0-1 [facility] Comment on above: Performed By: #### L 100.0100, BTS, L509.4006, L509.8002, L3890.6102, L3890.6301, L3890.6006 #### [facility] [address] [place], [address] Eosinophils/100 WBC (Bld) 1.4 % Normal 0-5 [facility] Comment on above: Performed By: #### L 100.0100, BTS, L509.4006, L509.8002, L3890.6102, L3890.6301, L3890.6006 #### [facility] [address] [place], [address] Erythrocyte distribution width (RBC) [Ratio] 12.8 % Normal 11.6-14.6 [facility] Comment on above: Performed By: #### L 100.0100, BTS, L509.4006, L509.8002, L3890.6102, L3890.6301, L3890.6006 #### [facility] [address] [place], [address] Hematocrit (Bld) [Volume fraction] 36.8 % Low 37-47 [facility] Comment on above: Performed By: #### L 100.0100, BTS, L509.4006, L509.8002, L3890.6102, L3890.6301, L3890.6006 #### [facility] [address] [place], [address] Hemoglobin (Bld) [Mass/Vol] 12.4 g/dL Normal 12.0-15.0 [facility] Comment on above: Performed By: #### L 100.0100, BTS, L509.4006, L509.8002, L3890.6102, L3890.6301, L3890.6006 #### [facility] [address] [place], [address] IG% 0.300 Normal 0.0-0.9 [facility] Comment on above: Result Comment: IG% - Immature Granulocytes (promyelocytes, myelocytes and metamyelocytes) > 1% indicates that a LEFT SHIFT is Present. Performed By: #### L 100.0100, BTS, L509.4006, L509.8002, L3890.6102, L3890.6301, L3890.6006 #### [facility] [address] [place], [address] Lymphocytes/100 WBC (Bld) 16.9 % Low 19-41 [facility] Comment on above: Performed By: #### L 100.0100, BTS, L509.4006, L509.8002, L3890.6102, L3890.6301, L3890.6006 #### [facility] [address] [place], [address] MCH (RBC) [Entitic mass] 31.8 pg Normal 27.0-32.0 [facility] Comment on above: Performed By: #### L 100.0100, BTS, L509.4006, L509.8002, L3890.6102, L3890.6301, L3890.6006 #### [facility] [address] [place], [address] MCHC (RBC) [Mass/Vol] 33.7 g/dL Normal 32-36 [facility] Comment on above: Performed By: #### L 100.0100, BTS, L509.4006, L509.8002, L3890.6102, L3890.6301, L3890.6006 #### [facility] [address] [place], [address] MCV (RBC) [Entitic vol] 94.4 fL Normal 81-99 [facility] Comment on above: Performed By: #### L 100.0100, BTS, L509.4006, L509.8002, L3890.6102, L3890.6301, L3890.6006 #### [facility] [address] [place], [address] Monocytes/100 WBC (Bld) 4.8 % Normal 0-10 [facility] Comment on above: Performed By: #### L 100.0100, BTS, L509.4006, L509.8002, L3890.6102, L3890.6301, L3890.6006 #### [facility] [address] [place], [address] Neutrophils/100 WBC (Bld) 76.1 % High 47-70 [facility] Comment on above: Performed By: #### L 100.0100, BTS, L509.4006, L509.8002, L3890.6102, L3890.6301, L3890.6006 #### [facility] [address] [place], [address] Nucleated RBC (Bld) [#/Vol] 0 10*3/uL Normal 0-5 [facility] Comment on above: Performed By: #### L 100.0100, BTS, L509.4006, L509.8002, L3890.6102, L3890.6301, L3890.6006 #### [facility] [address] [place], [address] Platelet mean volume (Bld) [Entitic vol] 11.5 fL Normal 6.2-12.0 [facility] Comment on above: Performed By: #### L 100.0100, BTS, L509.4006, L509.8002, L3890.6102, L3890.6301, L3890.6006 #### [facility] [address] [place], [address] Platelets (Bld) [#/Vol] 188 10*3/uL Normal 150-450 [facility] Comment on above: Performed By: #### L 100.0100, BTS, L509.4006, L509.8002, L3890.6102, L3890.6301, L3890.6006 #### [facility] [address] [place], [address] RBC (Bld) [#/Vol] 3.90 10*6/uL Low 4.2-5.4 [facility] Comment on above: Performed By: #### L 100.0100, BTS, L509.4006, L509.8002, L3890.6102, L3890.6301, L3890.6006 #### [facility] [address] [place], [address] RDW SD 43.8 fl Normal 35.1-43.9 [facility] Comment on above: Performed By: #### L 100.0100, BTS, L509.4006, L509.8002, L3890.6102, L3890.6301, L3890.6006 #### [facility] [address] [place], [address] WBC (Bld) [#/Vol] 6.4 10*3/uL Normal 4.4-11.0 [facility] Comment on above: Performed By: #### L 100.0100, BTS, L509.4006, L509.8002, L3890.6102, L3890.6301, L3890.6006 #### [facility] [address] [place], [address] Chlamydia trachomatis rRNA d etection by probe and target amplification methodOrdered By: Moon Rosales on 07-18-2024 C. trachomatis rRNA VICKI+probe Ql (Unsp spec) Negative Negative [facility] Eosinophil percentageOrdered By: Moon Rosales on 07-18-2024 Eosinophils/100 WBC (Bld) 1.4 % 0-5 [facility] Erythrocyte distribution wid th ratioOrdered By: Moon Rosales on 07-18-2024 Erythrocyte distribution width (RBC) [Ratio] 12.8 % 11.6-14.6 [facility] Erythrocyte distribution wid th standard deviationOrdered By: Moonfletcher Rosales on 07-18-2024 Erythrocyte distribution width (RBC) [Entitic vol] 43.8 fL 35.1-43.9 [facility] Erythrocyte distribution width (RBC) [Ratio] 43.8 fl 35.1-43.9 [facility] HBV surface Ag Ql (S)Ordered By: Moon Rosales on 07-18-2024 Hepatitis B Surface Antigen Non-Reactive Nonreactive [facility] Comment on above: Reactive: Presumptiv e evidence of HBV. Repeatedly reactive samples must be confirmed using a neutralization test ([employer] HBsAg Confirmatory Test)Non-Reactive: HBsAg not detected; does not exclude the possibility of exposure to HBV Hematocrit Auto (Bld) [Volum e fraction]Ordered By: Moon Rosales on 07-18-2024 Hematocrit (Bld) [Volume fraction] 36.8 % Low 37-47 [facility] Hemoglobin measurementOrdere d By: Moon Rosales on 07-18-2024 Hemoglobin (Bld) [Mass/Vol] 12.4 g/dL 12.0-15.0 [facility] Hepatitis C antibodyOrdered By: Moonfletcher Rosales on 07-18-2024 Hepatitis C Antibody Non-Reactive Nonreactive [facility] Comment on above: Reactive: Presumptiv e evidence of antibodies to HCV. Follow CDC recommendations for supplemental testing.Non-Reactive: Antibodies to HCV were not detected; does not exclude the possibility of exposure to HCVReactive Results are presumptive evidence of antibodies to HCV. Follow CDC recommendations for supplemental testing.Order confirmation testing: HCV Quant by PCR testing - HCVPCR #[id number] Non Reactive: < 0.8 Equivocal: >/= 0.8 to < 1.0 Reactive: >/= 1.0The CDC requires that a reactive/equivocal HCV antibody result be sent out for confirmation. HCV Quant by PCR testing. Immature granulocytes/100 WB C Auto (Bld)Ordered By: Moon Rosales on 07-18-2024 Immature granulocytes/100 WBC (Bld) 0.300 % 0.0-0.9 [facility] Comment on above: IG% - Immature Granu locytes (promyelocytes, myelocytes and metamyelocytes) > 1% indicates that a LEFT SHIFT is Present. L3890.6006on 07-18-2024 HIV No_Result Normal Nonreactive [facility] Comment on above: Result Comment: Non- Reactive Reactive Repeatedly reactive samples must be confirmed according to CDC recommended confirmatory algorithms. The subresults for either HIVAG or AHIV can be used as an aid in the selection of the confirmation algorithm for reactive samples. Send out specimens with Reactive results to [facility] for confirmation. Order the HIV antibody detection and differentiation: lc#[id number] Performed By: #### L 100.0100, BTS, L509.4006, L509.8002, L3890.6102, L3890.6301, L3890.6006 #### [facility] [address] [facility] [place], [place], [address] L3890.6102on 07-18-2024 HEP B Surf Ag Non-Reactive Normal Nonreactive [facility] Comment on above: Result Comment: Reac tive: Presumptive evidence of HBV. Repeatedly reactive samples must be confirmed using a neutralization test ([employer] HBsAg Confirmatory Test) Non-Reactive: HBsAg not detected; does not exclude the possibility of exposure to HBV Performed By: #### L 100.0100, BTS, L509.4006, L509.8002, L3890.6102, L3890.6301, L3890.6006 #### [facility] [address] [place], [place], [id number] L3890.6301on 07-18-2024 Hepatitis C Ab Non-Reactive Normal Nonreactive [facility] Comment on above: Result Comment: Reac tive: Presumptive evidence of antibodies to HCV. Follow CDC recommendations for supplemental testing. Non-Reactive: Antibodies to HCV were not detected; does not exclude the possibility of exposure to HCV Reactive Results are presumptive evidence of antibodies to HCV. Follow CDC recommendations for supplemental testing. Order confirmation testing: HCV Quant by PCR testing - HCVPCR #[id number] Non Reactive: < 0.8 Equivocal: >/= 0.8 to < 1.0 Reactive: >/= 1.0 The CDC requires that a reactive/equivocal HCV antibody result be sent out for confirmation. HCV Quant by PCR testing. Performed By: #### L 100.0100, BTS, L509.4006, L509.8002, L3890.6102, L3890.6301, L3890.6006 #### [facility] [address] [facility] [place], [place], [address] L509.4006on 07-18-2024 Rubella IgG REAC [facility] Comment on above: Result Comment: Anti body Result: Interpretation Non-Reactive: Non-Immune Reactive: Immune The following results were obtained with the [employer] Rubella IgG assay. Results from assays of other manufacturers cannot be used interchangeably. Performed By: #### L 100.0100, BTS, L509.4006, L509.8002, L3890.6102, L3890.6301, L3890.6006 #### [facility] [address] [place], [address] L509.8002on 07-18-2024 Syphilis Abs Non-Reactive Normal [facility] Comment on above: Performed By: #### L 100.0100, BTS, L509.4006, L509.8002, L3890.6102, L3890.6301, L3890.6006 #### [facility] [address] [facility] [place], [place], [address] Laboratory - Microbiology an d Antimicrobial susceptibilityOrdered By: Moon Rosales on 07-18-2024 HBV surface Ag Ql (S) Non-Reactive Nonreactive [facility] Comment on above: Reactive: Presumptiv e evidence of HBV. Repeatedly reactive samples must be confirmed using a neutralization test ([employer] HBsAg Confirmatory Test)Non-Reactive: HBsAg not detected; does not exclude the possibility of exposure to HBV Lymphocytes Auto (Unsp spec) [#/Vol]Ordered By: Moon Rosales on 07-18-2024 Lymphocytes (Bld) [#/Vol] 1.09 10*3/uL 0.83-4.5 1 [facility] Lymphocytes/100 WBC Auto (Un sp spec)Ordered By: Moon Rosales on 07-18-2024 Lymphocytes/100 WBC (Bld) 16.9 % Low 19-41 [facility] MCV (mean corpuscular volume ) determinationOrdered By: Moon Rosales on 07-18-2024 MCV (RBC) [Entitic vol] 94.4 fL 81-99 [facility] Mean corpuscular hemoglobin (MCH) determinationOrdered By: Moon Rosales on 07-18-2024 MCH (RBC) [Entitic mass] 31.8 pg 27.0-32.0 [facility] Mean corpuscular hemoglobin concentration (MCHC) determinationOrdered By: Moon Rosales on 07-18-2024 MCHC (RBC) [Mass/Vol] 33.7 g/dL 32-36 [facility] Mean platelet volume determi nationOrdered By: Moon Rosales on 07-18-2024 Platelet mean volume (Bld) [Entitic vol] 11.5 fL 6.2-12.0 [facility] Monocyte percentageOrdered B y: Moon Rosales on 07-18-2024 Monocytes/100 WBC (Bld) 4.8 % 0-10 [facility] Neisseria gonorrhoeae nuclei c acid detection by amplified probe techniqueOrdered By: Moon Rosales on 07-18-2024 N. gonorrhoeae DNA VICKI+probe Ql (Unsp spec) Negative Negative [facility] Comment on above: Performed at: =[address] [id number] Director: Inga Chau MD, Phone: [phone] Neutrophil percentageOrdered By: Moon Rosales on 07-18-2024 Neutrophils/100 WBC (Bld) 76.1 % High 47-70 [facility] No Panel InformationOrdered By: Moon Rosales on 07-18-2024 HIV (1&2) Antibody No_Result Nonreactive [facility] Comment on above: Non-ReactiveReactive Repeatedly reactive samples must be confirmed according to CDC recommended confirmatory algorithms. The subresults for either HIVAG or AHIV can be used as an aid in the selection of the confirmation algorithm for reactive samples.Send out specimens with Reactive results to [facility] for confirmation.Order the HIV antibody detection and differentiation: #[id number] Nucleated red blood cell per centageOrdered By: Moon Rosales on 07-18-2024 Nucleated RBC/100 WBC (Bld) [Ratio] 0 % 0-5 [facility] Supervisor Garage Office Visit Reporton 07-18-2024 Supervisor Garage Office Visit Report [facility] [address], [address] [place] [address] OFFICE VISIT Date of Service: 07/18/24 MR#: [id number] Acct: [id number] Name: FRANCINE MANTILLA RAJIV Rep #: [id number] : 1995 Provider: Dr. Moon Singh DO Age/Sex: 29/F Location: [facility] [place] Status: Signed Intake Vital Signs 08/24/22 15:42 07/18/24 08:47 07/18/24 08:49 Height 5 ft 6 in 5 ft 6 in 5 ft 6 in Weight: 116 lb 8 oz BMI 18.8 BP 107/69 Intake Visit Reasons: New OB, LMP 05/17, KIRK 02/21 Model Technician Required: No Is patient in pain?: No Allergies penicillin G Allergy (Mild, Verified 07/18/24 08:47) Other nitrous oxide Allergy (Verified 07/18/24 08:47) Other acetaminophen (From Tylenol) Adverse Reaction (Severe, Verified 07/18/24 08:47) Vomiting Medications ???Medication ???Instructions ???Recorded ???Confirmed ???Type [id number] 400 mcg-om3 35 mg-dha 25 tab PO DAILY 12/07/21 0 07/18/24 History mg-epa 5 mg-fish oil chewable tablet ondansetron 4 mg disintegrating 4 mg PO Q6H PRN nausea and 5 07/18/24 Rx tablet vomiting #30 tabs Last Menstrual Period: 05/17/24 Zika: Zika virus screening: Negative : No PFSH PFSH Medical History Anxiety Vaginal delivery Surgical History H/O knee surgery [place] teeth extracted Family History Grandfather Cancer Paternal Social History adopted: No household members: spouse and children housing: house number of children: 2 service: No current occupational status: unemployed current occupation: [employer] pets and animals: No history of recent [...] 3-4 times per week duration: 45-60 minutes/day romero/protestant: Scientologist seatbelt use: always do you feel safe [...] term 7lbs 0oz Male 8 hours epidural [facility] BELA Mcintyre 04/[birth year]/21December 36 live - full term 6#4oz Male epidural [facility] Dr. Ok Mcintyre Delivery Date: 05/20/18 Last [...] -???-???-???-???-?? ?-???-???-???-? (more content not included)... Normal [facility] Platelet countOrdered By: Johnathon Rosales on 07-18-2024 Platelets (Bld) [#/Vol] 188 10*3/uL 150-450 [facility] RBC Auto (Bld) [#/Vol]Ordere d By: Moon Rosales on 07-18-2024 RBC (Bld) [#/Vol] 3.90 10*6/uL Low 4.2-5.4 [facility] Rubella immune status determ ination by IgG antibody assayOrdered By: Moon Rosales on 07-18-2024 Rubella IgG Antibody REAC Nonreactive [facility] Comment on above: Antibody Result: Int erpretationNon-Reactive: Non-ImmuneReactive: ImmuneThe following results were obtained with the [employer] Rubella IgG assay. Results from assays of other manufacturers cannot be used interchangeably. T. pallidum abOrdered By: Johnathon Rosales on 07-18-2024 Syphilis Total Antibody Non-Reactive Nonreactiv e [facility] Type AND Screenon 07-18-2024 Ab SCREEN GEL Negative Normal [facility] Comment on above: Order Comment: PN Performed By: #### L 100.0100, BTS, L509.4006, L509.8002, L3890.6102, L3890.6301, L3890.6006 #### [facility] [address] [place], [address] Urine cultureOrdered By: Mary Rosales on 07-18-2024 Bacteria identified Cx Nom (U) Positive Abnormal [facility] White blood cell (WBC) count Ordered By: Moon Rosales on 07-18-2024 WBC (Bld) [#/Vol] 6.4 10*3/uL 4.4-11.0 [facility] Absolute lymphocyte countOrd ered By: Jorge Golden on 03-09-2023 Lymphocytes Auto (Unsp spec) [#/Vol] 1.65 10*3/uL 0.83-4.51 [facility] Basophil percentageOrdered B y: Jorge Golden on 03-09-2023 Basophils/100 WBC (Bld) 0.7 % 0-1 [facility] Chloride [Moles/Vol] 109 mmol/L 98-107 [facility] Cholesterol [Mass/Vol] 144 mg/dL <200 [facility] Comment on above: <200 mg/dL Desirable 200-240 mg/dL Borderline >240 mg/dL High Risk Eosinophils/100 WBC (Bld) 2.7 % 0-5 [facility] Glucose [Mass/Vol] 90 mg/dL 74-106 [facility] Neutrophils (Bld) [#/Vol] 2.3 10*3/uL 2.0-7.7 [facility] Neutrophils/100 WBC (Bld) 51.6 % 47-70 [facility] Potassium [Moles/Vol] 3.7 mmol/L 3.5-5.1 [facility] Sodium [Moles/Vol] 140 mmol/L 136-145 [facility] Triglyceride [Mass/Vol] 62 mg/dL <199 [facility] Comment on above: The drugs N-Acetylcy steine and Metamizole may falsely depress this assay.Serum Triglycerides Reference Interval Normal <150 mg/dL Borderline high 150 - 199 mg/dL High 200 - 499 mg/dL Very High > or = 500 mg/dL WBC (Bld) [#/Vol] 4.4 10*3/uL 4.4-11.0 [facility] Blood erythrocytes count (nu mber/volume)Ordered By: Jorge Golden on 03-09-2023 RBC (Bld) [#/Vol] 4.27 10*6/uL 4.2-5.4 [facility] Blood hemoglobin measurement (mass/volume)Ordered By: Jorge Golden on 03-09-2023 Hemoglobin (Bld) [Mass/Vol] 13.0 g/dL 12.0-15.0 [facility] Blood lymphocytes/100 leukoc ytesOrdered By: Jorge Golden on 03-09-2023 Lymphocytes/100 WBC (Bld) 37.7 % 19-41 [facility] Blood monocytes/100 leukocyt esOrdered By: Jorge Golden on 03-09-2023 Monocytes/100 WBC (Bld) 7.1 % 0-10 [facility] Blood platelet mean volumeOr dered By: Jorge Golden on 03-09-2023 Platelet mean volume (Bld) [Entitic vol] 11.4 fL 6.2-12.0 [facility] Determination of erythrocyte mean corpuscular volume (MCV)Ordered By: Jorge Golden on 03-09-2023 MCV (RBC) [Entitic vol] 95.8 fL 81-99 [facility] Hematocrit Auto (Bld) [Volum e fraction]Ordered By: Jorge Golden on 03-09-2023 Hematocrit (Bld) [Volume fraction] 40.9 % 37-47 [facility] - Chemistry and C hemistry - challengeOrdered By: Jorge Golden on 03-09-2023 CO2 [Moles/Vol] 28.0 mmol/L 21.0-32.0 [facility] Urea nitrogen/Creatinine [Mass ratio] 24.2 mg/mg 10-20 [facility] - Hematology and Cell countsOrdered By: Jorge Golden on 03-09-2023 Erythrocyte distribution width (RBC) [Entitic vol] 45.1 fL 35.1-43.9 [facility] Erythrocyte distribution width (RBC) [Ratio] 12.7 % 11.6-14.6 [facility] Immature granulocytes/100 WBC (Bld) 0.200 % 0.0-0.9 [facility] Comment on above: IG% - Immature Granu locytes (promyelocytes, myelocytes and metamyelocytes) > 1% indicates that a LEFT SHIFT is Present. MCH (RBC) [Entitic mass] 30.4 pg 27.0-32.0 [facility] Nucleated RBC/100 WBC (Bld) [Ratio] 0 % 0-5 [facility] MCHC Auto (RBC) [Mass/Vol]Or dered By: Jorge Golden on 03-09-2023 MCHC (RBC) [Mass/Vol] 31.8 g/dL 32-36 [facility] No Panel InformationOrdered By: Jorge Golden on 03-09-2023 Estimated GFR (MDRD) Amer 119 mL/min >60 [facility] Comment on above: GFR Calc Estimated GFR (MDRD) Non-Af Amer 98 mL/min >60 [facility] Comment on above: Non- GFR Calc Platelets bldOrdered By: Benjy aletopnemesio Chantel on 03-09-2023 Platelets (Bld) [#/Vol] 197 10*3/uL 150-450 [facility] Serum or plasma calcium betsy urement (mass/volume)Ordered By: Jorge Golden on 03-09-2023 Calcium [Mass/Vol] 8.9 mg/dL 8.5-10.1 [facility] Serum or plasma cholesterol in HDL measurement (mass/volume)Ordered By: Jorge Golden on 03-09-2023 Cholesterol in HDL [Mass/Vol] 65 mg/dL >40 [facility] Comment on above: The drugs N-Acetylcy steine and Metamizole may falsely depress this assay. Reference Range HDL <40 mg/dL Low HDL Cholesterol HDL >or= 60 mg/dL High HDL Cholesterol Serum or plasma cholesterol in VLDL measurement (mass/volume)Ordered By: Jorge Golden on 03-09-2023 Cholesterol in VLDL [Mass/Vol] 12 mg/dL 5-40 [facility] Serum or plasma creatinine m easurement (mass/volume)Ordered By: Jorge Golden on 03-09-2023 Creatinine [Mass/Vol] 0.74 mg/dL 0.55-1.02 [facility] Comment on above: The validity of the calculated GFR & GFRAA in patients over 70 years has not been determined. Clinical correlation is essential. Serum or plasma low density lipoprotein (LDL) cholesterol measurement (mass/volume)Ordered By: Jorge Golden on 03-09-2023 Cholesterol in LDL [Mass/Vol] 67 mg/dL 0-130 [facility] Serum or plasma urea nitroge n measurement (mass/volume)Ordered By: Jorge Golden on 03-09-2023 Urea nitrogen [Mass/Vol] 18 mg/dL 7-18 [facility] Thin prep Papanicolaou smear with manual screeningOrdered By: Jorge Golden on 03-09-2023 Thin prep Papanicolaou smear with manual screening 3 5-15 [facility] Lu[place] 05-13-2020 [facility] Telephone (FPDOYL) ---- FRANCINE MANTILLA ([id number]) 1995 F Date Time Provider Department 05/13/20 TOYA RAMIREZ During your visit today, we recorded the following information about you: Toya Ramirez DO 05/13/2020 2:37 PM Signed Echo normal Madelaine YuniorDELPHINE, METAL LEAF LAYER 05/13/2020 4:41 PM Signed Patient informed. Allergies As of Date: 05/13/2020 Noted Allergy Reaction PENICILLINS 01/17/2018 14 - Other: See Comments Comments: Family history of allergy. Pt. Has never had medication. TYLENOL (ACETAMINOPHEN) 08/23/2015 8 - GI Upset Comments: emesis Date Reviewed: 04/06/2020 Reviewed by: Christel Meza - Fully Assessed Reason for Visit: Film Cath/Echo [4331] Report On Audiogram [1182] Prescriptions as of 05/13/2020 Sig: LO LOESTRIN FE 1 MG-10 MCG (2* Take 1 tablet by mouth once d* Problem List As Of Date: 05/13/2020 (None) Encounter Status:Closed by TOYA RAMIREZ on 05/13/20 [facility] YELENA Telephone (FPDOYL) ---- FRANCINE MANTILLA ([id number]) 1995 F Date Time Provider Department 05/13/20 TOYA RAMIREZ During your visit today, we recorded the following information about you: Toya Ramirez DO 05/13/2020 3:42 PM Signed Echo ok Madelaine Mojica LPN, LPN 05/13/2020 4:44 PM Signed [...] Status:Closed by MADELAINE MOJICA LPN on 05/13/20 [facility] CNPMerary 04-05-2020 [facility] Telephone (FPDOYL) ---- FRANCINE MANTILLA ([id number]) 1995 F Date Time Provider Department 04/05/20 YUMIKO HERNANDEZ During your visit today, we recorded the [...] other than patient: na Best contact number: [phone] Savannah Sellers April 05, 2020 1:22 PM [...] Fully Assessed Reason for Visit: Patient Question [5440] Cmt: wanted a lab order Prescriptions as of 04/05/2020 Sig: NORGESTIMATE 0.25 MG-ETHINYL * Take 1 tablet by mouth once d* Problem List As Of Date: 04/05/2020 (None) Encounter Status:Closed by RAVEN YOUNG on 04/05/20 [facility] Lu[place] 03-26-2020 [place] Telephone (VALERIYYL) ---- FRANCINE MANTILLA ([id number]) 1995 F Date Time Provider Department 03/26/20 YUMIKO HERNANDEZ During your visit today, we recorded the [...] Primary Visit Diagnosis:Paroxysma l SVT (supraventricular tachycardia) ([facility]) [I47.1] Order(s):ECHO [764178] Order #: [id number]: 1 FUTURE perflutren lipid microspheres 1.3 mL [...] Encounter Status:Closed by TOYA RAMIREZ on 03/26/20 [facility] YELENA Telephone (VALERIYYL) ---- FRANCINE MANTILLA ([id number]) 1995 F Date Time Provider Department 03/26/20 YUMIKO HERNANDEZ During your visit today, we recorded the [...] Primary Visit Diagnosis:Paroxysma l SVT (supraventricular tachycardia) ([facility]) [I47.1] Order(s):ECHO [[id number]] Order #: [id number]: 1 FUTURE perflutren lipid microspheres 1.3 mL [...] Encounter Status:Closed by TOYA RAMIREZ on 03/26/20 [facility] Vital Signs Date Time Vital Sign Value Performing Clinician [facility] 01-16-2025 10:18-0400 Body height 167.[address] Chaim Golden MD Work Phone: [facility] 01-16-2025 10:18-0400 Body mass index (BMI) [Ratio] 21.9 kg/m2 Dr. Chaim Golden MD Work Phone: 9(066)821-248108 [address] 01-16-2025 10:18-0400 Body weight 61.[address] Chaim Golden MD Work Phone: 8(798)326-226808 [address] 01-16-2025 10:18-0400 Diastolic blood pressure 69 mm[Hg] Dr. Chaim Golden MD Work Phone: 7(127)354-303769 [place] [address] 01-16-2025 10:18-0400 Systolic blood pressure 106 mm[Hg] Dr. Chaim Golden MD Work Phone: 1(992)564-500569 [place] [address] 12-31-2024 11:50-0400 Body height 167.[address] Chaim Golden MD Work Phone: [facility] 12-31-2024 11:50-0400 Body mass index (BMI) [Ratio] 22.1 kg/m2 Dr. Chaim Golden MD Work Phone: [facility] 12-31-2024 11:50-0400 Body weight 62.[address] Chaim Golden MD Work Phone: 1(602)325-081269 [place] [address] 12-31-2024 11:50-0400 Diastolic blood pressure 72 mm[Hg] Dr. Chaim Golden MD Work Phone: [facility] 12-31-2024 11:50-0400 Systolic blood pressure 112 mm[Hg] Dr. Chaim Golden MD Work Phone: 3(099)986-648069 [place] [address] 12-16-2024 11:03-0400 Body height 167.[address] Chaim Golden MD Work Phone: [facility] 12-16-2024 11:03-0400 Body mass index (BMI) [Ratio] 21.9 kg/m2 Dr. Chaim Golden MD Work Phone: 8(056)758-959569 [place] [address] 12-16-2024 11:03-0400 Body weight 61.[address] Chaim Golden MD Work Phone: 6(282)619-949508 [address] 12-16-2024 11:03-0400 Diastolic blood pressure 68 mm[Hg] Dr. Chaim Golden MD Work Phone: 5(558)110-067993 [place] [address] 12-16-2024 11:03-0400 Systolic blood pressure 102 mm[Hg] Dr. Chaim Golden MD Work Phone: 2(863)612-018293 [place] [address] 12-02-2024 13:04-0400 Body height 167.[address] Chaim Golden MD Work Phone: 5(042)366-495408 [address] 12-02-2024 13:04-0400 Body mass index (BMI) [Ratio] 21.2 kg/m2 Dr. Chaim Golden MD Work Phone: 0(773)500-544008 [address] 12-02-2024 13:04-0400 Body weight 59.[address] Chaim Golden MD Work Phone: 8(868)707-351608 [address] 12-02-2024 13:04-0400 Diastolic blood pressure 62 mm[Hg] Dr. Chaim Golden MD Work Phone: [facility] 12-02-2024 13:04-0400 Systolic blood pressure 98 mm[Hg] Dr. Chaim Golden MD Work Phone: 4(686)876-583308 [address] 10-29-2024 11:31-0400 Body height 167.[address] Chaim Golden MD Work Phone: 0(487)067-072308 [address] 10-29-2024 11:30-0400 Body mass index (BMI) [Ratio] 20.7 kg/m2 Dr. Chaim Golden MD Work Phone: [facility] 10-29-2024 11:30-0400 Body weight 58.[address] Chaim Golden MD Work Phone: 8(718)242-686893 [place] [address] 10-29-2024 11:30-0400 Diastolic blood pressure 67 mm[Hg] Dr. Chaim Golden MD Work Phone: 4(876)738-987493 [place] [address] 10-29-2024 11:30-0400 Systolic blood pressure 101 mm[Hg] Dr. Chaim Golden MD Work Phone: 0(326)924-957593 [place] [address] 10-03-2024 09:19-0400 Body height 167.[address] Chaim Golden MD Work Phone: 3(370)852-961593 [place] [address] 10-03-2024 09:15-0400 Body mass index (BMI) [Ratio] 20.2 kg/m2 Dr. Chaim Golden MD Work Phone: 4(374)001-976893 [place] [address] 10-03-2024 09:15-0400 Body weight 56.[address] Chiam Golden MD Work Phone: 4(974)812-227693 [place] [address] 10-03-2024 09:15-0400 Diastolic blood pressure 70 mm[Hg] Dr. Chaim Golden MD Work Phone: 1(834)861-993593 [place] [address] 10-03-2024 09:15-0400 Systolic blood pressure 105 mm[Hg] Dr. Chaim Golden MD Work Phone: 2(161)464-132969 [place] [address] 09-11-2024 12:02-0400 Diastolic blood pressure 56 mm[Hg] Dr. Chaim Golden MD Work Phone: 2(080)252-887693 [place] [address] 09-11-2024 12:02-0400 Heart rate 75 /min Dr. Chaim Golden MD Work Phone: 6(339)748-445193 [place] [address] 09-11-2024 12:02-0400 Systolic blood pressure 92 mm[Hg] Dr. Chaim Golden MD Work Phone: 5(061)499-067693 [place] [address] 09-11-2024 10:44-0400 Body height 167.[address] Chaim Golden MD Work Phone: [facility] 09-11-2024 10:44-0400 Body mass index (BMI) [Ratio] 19.2 kg/m2 Dr. Chaim Golden MD Work Phone: 3(015)733-209469 [place] [address] 09-11-2024 10:44-0400 Body temperature 97.3 [degF] Dr. Chaim Golden MD Work Phone: [facility] 09-11-2024 10:44-0400 Body weight 53.[address] Chaim Golden MD Work Phone: 1(660)581-320093 [place] [address] 09-11-2024 10:44-0400 Respiratory rate 16 /min Dr. Chaim Golden MD Work Phone: 3(790)531-882393 [place] [address] 09-11-2024 10:44-0400 SaO2% (BldA) [Mass fraction] 95 % Dr. Chaim Golden MD Work Phone: 7(604)207-074169 [place] [address] 09-05-2024 09:48-0400 Body mass index (BMI) [Ratio] 19.2 kg/m2 Dr. Chaim Golden MD Work Phone: [facility] 09-05-2024 09:48-0400 Body weight 54.[address] Chaim Golden MD Work Phone: [facility] 09-05-2024 09:48-0400 Diastolic blood pressure 64 mm[Hg] Dr. Chaim Golden MD Work Phone: [facility] 09-05-2024 09:48-0400 Systolic blood pressure 101 mm[Hg] Dr. Chaim Golden MD Work Phone: 5(392)406-171508 [address] 09-02-2024 12:59-0400 Diastolic blood pressure 55 mm[Hg] Dr. Chaim Golden MD Work Phone: 2(212)555-900569 [place] [address] 09-02-2024 12:59-0400 Heart rate 82 /min Dr. Chaim Golden MD Work Phone: [facility] 09-02-2024 12:59-0400 Systolic blood pressure 97 mm[Hg] Dr. Chaim Golden MD Work Phone: [facility] 09-02-2024 11:44-0400 Body height 167.[address] Chaim Golden MD Work Phone: 0(335)982-452369 [place] [address] 09-02-2024 11:44-0400 Body temperature 97 [degF] Dr. Chaim Golden MD Work Phone: 7(295)351-046169 [place] [address] 09-02-2024 11:44-0400 Respiratory rate 16 /min Dr. Chaim Golden MD Work Phone: 3(788)426-476993 [place] [address] 09-02-2024 11:44-0400 SaO2% (BldA) [Mass fraction] 100 % Dr. Chaim Golden MD Work Phone: 9(110)187-251369 [place] [address] 08-26-2024 12:48-0400 Body temperature 98.2 [degF] Dr. Chaim Golden MD Work Phone: 0(016)060-065193 [place] [address] 08-26-2024 12:48-0400 Diastolic blood pressure 77 mm[Hg] Dr. Chaim Golden MD Work Phone: 9(463)232-204469 [place] [address] 08-26-2024 12:48-0400 Heart rate 78 /min Dr. Chaim Golden MD Work Phone: 5(704)452-629769 [place] [address] 08-26-2024 12:48-0400 Respiratory rate 19 /min Dr. Chaim Golden MD Work Phone: [facility] 08-26-2024 12:48-0400 SaO2% (BldA) [Mass fraction] 97 % Dr. Chaim Golden MD Work Phone: [facility] 08-26-2024 12:48-0400 Systolic blood pressure 110 mm[Hg] Dr. Chaim Golden MD Work Phone: [facility] 08-26-2024 11:03-0400 Body mass index (BMI) [Ratio] 19 kg/m2 Dr. Chaim Golden MD Work Phone: [facility] 08-26-2024 11:03-0400 Body weight 53.[address] Chaim Golden MD Work Phone: [facility] 08-06-2024 09:13-0400 Body mass index (BMI) [Ratio] 18.7 kg/m2 Dr. Chaim Golden MD Work Phone: [facility] 08-06-2024 09:13-0400 Body weight 52.[address] Chaim Golden MD Work Phone: [facility] 08-06-2024 09:13-0400 Diastolic blood pressure 69 mm[Hg] Dr. Chaim Golden MD Work Phone: 2(899)698-851769 [place] [address] 08-06-2024 09:13-0400 Systolic blood pressure 110 mm[Hg] Dr. Chaim Golden MD Work Phone: [facility] 07-18-2024 08:49-0400 Body height 167.[address] Chaim Golden MD Work Phone: [facility] 07-18-2024 08:47-0400 Body mass index (BMI) [Ratio] 18.8 kg/m2 Dr. Chaim Golden MD Work Phone: [facility] 07-18-2024 08:47-0400 Body weight 52.[address] Chaim Golden MD Work Phone: [facility] 07-18-2024 08:47-0400 Diastolic blood pressure 69 mm[Hg] Dr. Chaim Golden MD Work Phone: [facility] 07-18-2024 08:47-0400 Systolic blood pressure 107 mm[Hg] Dr. Chaim Golden MD Work Phone: [facility] 08-24-2022 15:42-0400 Body height 167.[address] Jorge Golden Work Phone: [facility] 08-24-2022 15:38-0400 Body mass index (BMI) [Ratio] 18.9 kg/m2 Dr. Jorge Golden Work Phone: [facility] 08-24-2022 15:38-0400 Body weight 53.[address] Jorge Golden Work Phone: [facility] 08-24-2022 15:38-0400 Diastolic blood pressure 71 mm[Hg] Dr. Jorge Golden Work Phone: [facility] 08-24-2022 15:38-0400 Systolic blood pressure 114 mm[Hg] Dr. Jorge Golden Work Phone: [facility] 05-31-2022 09:32-0500 Body mass index (BMI) [Ratio] 18.6 kg/m2 Dr. Jorge Golden Work Phone: [facility] 05-31-2022 09:32-0500 Body weight 52.[address] Jorge Golden Work Phone: [facility] 05-31-2022 09:32-0500 Diastolic blood pressure 62 mm[Hg] Dr. Jorge Golden Work Phone: [facility] 05-31-2022 09:32-0500 Systolic blood pressure 96 mm[Hg] Dr. Jorge Golden Work Phone: [facility] Encounters Encounter Date Encounter Type Care Provider Facility Start: 01-23-2025 ambulatory Chaim Lozano lity:[facility] Start: 01-16-2025 End: 01-16-[address] Tricia Euceda MD -[facility] Work Phone: Start: 01-16-2025 End: 01-16-[address] Chaim Golden MD Work Phone: -[facility] Start: 12-31-2024 End: 12-31-[address] Moon Reddy DO -[facility] Work Phone: Start: 12-31-2024 End: 12-31-[address] Chaim Golden MD Work Phone: -[facility] Start: 12-16-2024 End: 12-16-2024 Patient encounter procedure Chrissy Lucas CNM -[facility] Work Phone: Start: 12-16-2024 End: 12-16-[address] Chaim Golden MD Work Phone: [facility] Start: 12-02-2024 End: 12-02-2024 Patient encounter procedure Carmelina BARKER -[facility] Work Phone: Start: 12-02-2024 End: 12-02-[address] Chaim Golden MD Work Phone: [facility] Start: 12-02-2024 End: 12-02-2024 ambulatory Chaim Golden Facility:[facility] Start: 10-29-2024 End: 10-29-[address] Moon Reddy DO -[facility] Work Phone: Start: 10-29-2024 End: 10-29-[address] Chaim Golden MD Work Phone: [facility] Work Phone: Start: 10-03-2024 End: 10-03-[address] Tricia Euceda MD -[facility] Work Phone: Start: 10-03-2024 End: 10-03-[address] Chaim Golden MD Work Phone: [facility] Work Phone: Start: 10-02-2024 End: 10-03-2024 ambulatory JENNY PEREZ [facility] Start: 09-11-2024 End: 09-11-[address] Tricia Euceda MD -[facility] Work Phone: Start: 09-11-2024 End: 09-11-[address] Chaim Golden MD Work Phone: [facility] Work Phone: Start: 09-05-2024 End: 09-05-2024 Patient encounter procedure Chrissy Lucas CNM -[facility] Work Phone: Start: 09-05-2024 End: 09-05-2024 ambulatory Chaim Golden Facility:[facility] Start: 09-02-2024 End: 09-02-[address] Tricia Euceda MD -[facility] Work Phone: Start: 09-02-2024 End: 09-02-[address] Chaim Golden MD Work Phone: [facility] Work Phone: Start: 08-26-2024 End: 08-26-2024 Emergency department patient visit Dr. Clarence Wolff DO -Emergency Department Work Phone: Start: 08-06-2024 End: 08-06-[address] Tricia Euceda MD -[facility] Work Phone: Start: 08-06-2024 End: 08-06-2024 ambulatory Chaim Golden Facility:[facility] Start: 07-18-2024 End: 07-18-[address] Moon Reddy DO -[facility] Work Phone: Start: 07-18-2024 End: 07-18-[address] Chaim Golden MD Work Phone: [facility] Work Phone: Start: 07-18-2024 End: 07-18-2024 ambulatory Chaim Golden Facility:[facility] Start: 04-21-2024 End: 06-18-2024 ambulatory SANIA SOUSA PA-C Facility:[facility] Start: 04-21-2024 End: 06-18-2024 Physical therapy management SANIA SOUSA PA-C [facility] Start: 03-09-2023 End: 03-09-2023 ambulatory [facility] Work Phone: Start: 03-09-2023 End: 03-09-2023 Patient encounter procedure [facility]-Laboratory, [place] [facility] Start: 09-01-2022 End: 09-01-[address] Jorge Golden Work Phone: [facility] Work Phone: Start: 09-01-2022 End: 09-01-[address] Jorge Golden Work Phone: [facility]-Physical Therapy Start: 08-24-2022 End: 08-24-[address] Jorge Golden Work Phone: [facility]-Laboratory, Specimen Start: 08-24-2022 End: 08-24-[address] Jorge Golden Work Phone: [facility] Start: 05-31-2022 End: 05-31-[address] Jorge Golden Work Phone: [facility] Procedures Date Procedure Procedure Detail Performing Clinician Start: 12-02-2024 Serologic test for syphilis Dr. Chaim Golden MD Work Phone: Start: 08-26-[address] Chaim [...] HCV Quant by PCR testing - HCVPCR #[id number] Non Reactive: < 0.8 Equivocal: >/= 0.8 to < 1.0 Reactive: >/= 1.0The CDC requires that a reactive/equivocal HCV antibody result be sent out for confirmation. HCV Quant by PCR testing. Start: 07-18-[address] Chaim Golden MD Work Phone: Comment on above: Antibody Result: Int erpretationNon-Reactive: Non- ImmuneReactive: ImmuneThe following results were obtained with the [employer] Rubella IgG assay. Results from assays of other manufacturers cannot be used interchangeably. Start: 07-18-2024 Serologic test for syphilis Dr. Chaim Golden MD Work Phone: Plan of Treatment Date Care Activity Detail Author Start: 12-02-2024 CBC W Auto Differential panel - Blood [facility] Start: 12-02-2024 Measurement of glucose 2 hours after glucose challenge for glucose tolerance test [facility] Start: 12-02-2024 Serologic test for syphilis [facility] Start: 12-02-2024 [facility] Start: 10-03-2024 CBC W Auto Differential panel - Blood [facility] Start: 10-03-2024 [facility] Start: 09-11-2024 Iv infusion hydration initial 31 min-[facility] Start: 09-02-2024 Iv infusion hydration initial 31 min-1 hour HYDRATION IV INFUSION [facility] Start: 08-26-2024 [facility] Start: 08-24-2022 Liquid based cervical cytology screening [facility] Start: 04-04-2017 End: 04-04-2017 Appointment Appointment [facility] CBC W Auto Different ial panel - Blood [facility] Erythrocyte mean corpuscular volume determination [facility] Erythrocyte mean corpuscular volume determination [facility] Hematocrit [Volume Fraction] of Blood [facility] Hematocrit [Volume Fraction] of Blood [facility] Hemoglobin [Mass/vol ume] in Blood [facility] Hemoglobin [Mass/vol ume] in Blood [facility] Leukocytes [#/volume ] in Blood [facility] Leukocytes [#/volume ] in Blood [facility] Mean corpuscular hemoglobin concentration determination [facility] Mean corpuscular hemoglobin concentration determination [facility] Mean corpuscular hemoglobin determination [facility] Mean corpuscular hemoglobin determination [facility] Measurement of gluco se 2 hours after glucose challenge for glucose tolerance test [facility] Neutrophil count [facility] Neutrophil count [facility] Neutrophil percent differential count [facility] Neutrophil percent differential count [facility] Path report.final Dx Spec [facility] Patient Education ED Hyperemesis Gravidarum ED ED Vomiting (Adult) [facility] Work Phone: Patient referral [facility] Work Phone: Platelets [#/volume] in Blood [facility] Platelets [#/volume] in Blood [facility] Red blood cell count [facility] Red blood cell count [facility] Red cell distributio n width determination [facility] Red cell distributio n width determination [facility] Serologic test for syphilis [facility] Payers Date Payer Category Payer Self-pay [id number] 2023 Unknown [id number] 2023 Unknown [id number] 1995 Unknown [id number] 2.16.8 [id number] 1995 Unknown [id number] 2.16. [id number] Unknown SHAREE [id number] Unknown [employer]ENN [employer] [facility] [id number] Unknown [id number] 2.16.8 [id number] Unknown [id number] 2.16.8 40.1.829356.3.579.2.462 Unknown [id number] 2.16.8 40.1.538473.3.579.2.462 Unknown [id number] 2.16.8 40.1.213288.3.579.2.462 Unknown [id number] 2.16.8 40.1.255741.3.579.2.462 Unknown [id number] 2.16.8 40.1.227589.3.579.2.462 Unknown [id number] 2.16.8 40.1.256279.3.579.2.462 Unknown [id number] 2.16.8 40.1.340194.3.579.2.462 Unknown [id number] 2.16.8 40.1.446637.3.579.2.462 Unknown [id number] 2.16.8 40.1.756394.3.579.2.462 Unknown [id number] 2.16.8 40.1.449405.3.579.2.462 Unknown [id number] 2.16.8 40.1.971223.3.579.2.462 Unknown [id number] 2.16.8 40.1.216693.3.579.2.462 Unknown [id number] 2.16.8 40.1.171670.3.579.2.462 Unknown [id number] 2.16.8 40.1.061929.3.579.2.462 Unknown [id number] 2.16.8 40.1.498455.3.579.2.462 Social History Date Type Detail Facility Start: 08-24-2022 End: 08-24-2022 Tobacco smoking status NHIS Unknown if ever smoked [facility] Start: 05-21-2018 None [facility] Start: 1995 Sex Assigned At Female [facility] Tobacco smoking status [facility] Start: 04-18-2024 End: 09-03-2024 Sex Female (finding) [facility] Start: 06-24-2024 End: 08-26-2024 Tobacco smoking status NHIS Never smoked tobacco (finding) [facility] Functional Status Date Assessment Result Facility [...] present Foot: Pes planus, pes cavus, hallux [id number], pronation/supination Functional Strength: ASLR: 7, Squat pattern : part range: tends to hip hinge with limited load on the quadriceps. [facility] Mental Status Date Assessment Result Facility 09-11-2024 Cognitive function Voice/Name [facility] Work Phone: 09-02-2024 Cognitive function Awake;Alert;A ppropriate;Fol lows Commands [facility] Work Phone: Clinical Notes 09-01-2022 to 01-16-2025 Note Date & Type Note Facility 01-16-2025 Progress note [facility] 12-31-2024 Progress note [facility] 12-16-2024 Progress note [facility] 10-29-2024 Progress note [facility] 10-03-2024 Evaluation note Diagnosis Onset Date Resolution acute October 03, 2024 9:11am Supervision of normal acute October 03, 2024 9 :11am acute October 29 11:29am Supervision of normal acute October 29, 2024 11:29am acute December 02 12:44pm Supervision of normal acute December 02, 2024 12:44pm acute December 16, 025 11:00am Supervision of normal acute December 16 11:00am acute December 31, 2 025 11:47am Supervision of normal acute December 31 11:47am acute January 10:04am Supervision of normal acute January 16, 2025 10:04am [facility] Work Phone: 1(558) 582-402505-30-2025 Progress [facility] [address] [place] [address], [address] [place] [address] OFFICE VISIT Date of Service: 10/03/24 MR#: [id number] Acct: [id number] Name: FRANCINE MANTILLA Rep #: [id number] : 1995 Provider: Dr. Alonzo Euceda MD Age/Sex: 29/F Location: [facility] Status: Signed Intake Vital Signs 08/06/24 09:13 09/11/24 10:44 10/03/24 09:15 10/03/24 09:19 Height 5 ft 6 in 5 ft 6 in 5 ft 6 in 5 ft 6 in Weight: 125 lb 2 oz BMI 20.2 BP 105/70 Intake Visit Reasons: 20 wk ob Model Technician Required: No Is patient in pain?: No Feel stressed/tense/nervous/anxious/difficulty sleeping: not at all Allergies penicillin G Allergy (Mild, Verified 10/03/24 09:15) Other nitrous oxide Allergy (Verified 10/03/24 09:15) Other acetaminophen (From Tylenol) Adverse Reaction (Severe, Verified 10/03/24 09:15) Vomiting Medications ?Medication ?Instructions ?Recorded ?Confirmed ?Type [id number]-QV 400 mcg-om3 35 mg-dha 25 1 tab [...] Vaginal delivery Surgical History H/O knee surgery Schurz teeth extracted Family History Grandfather Cancer Paternal Social History adopted: No household members: spouse and children housing: house number of children: 2 current occupational status: unemployed current occupation: [employer] pets and animals: No history of recent [...] 3-4 times per week duration: 45-60 minutes/day romero/protestant: Scientologist seatbelt use: always do you feel safe [...] 7lbs 0oz Male 8 hours e pidural [facility] BELA Mcintyre 04/13/21December 37 live - full term 6#4oz Male epidu ral [facility] Dr. Ok Mcintyre Delivery Date: 05/20/18 Last Updated by: Shyla Hurley MD 34 wk PTL: fluids and stopped. steroids. Thinks related to noravirus. Pushed for 20 min. 2nd degreewith abscess of suture Delivery Date: 04/13/21 Last [...] current plan of care details and appropriate ordersplaced. Relevant counseling for the gestational age provided. Continue routine care and follow up unless otherwise noted in visit notes/problem list details Initial Weight: Not Recorded Date -?-?-?-?-?-?-?-?-?-?-?-?- EGA Weight BP Urine Prot -?-?-?-?-?-?-?-?-?-?-?-?- Glucose FHR FuHt Pres Dilation -?-?-?-?-?-?-?-?-?-?-?-?- Effaced St Visit Note 07/18/24 -?-?-?-?-?-?-?-?-?-?-?-?- 8w 6d 116 lb 8 oz 107/69 -?-?-?-?-?-?-?-?-?-?-?-?- 178 -?-?-?-?-?-?-?-?-?-?-?-?- JV- CRL consiste nt with LMP. declines nipt. david to pharmacy. new ob labs today 08/06/24 [...] fluids. nausea is improving. US scheduled with [facility] 10/03/24 -?-?-?-?-?-?-?-?-?-?-?-?- 19w 6d 125 lb 2 oz 105/70 Nega tive -?-?-?-?-?-?-?-?-?-?-?-?- Negative 145 20 -?-?-?-?-?-?-?-?-?-?-?-?- SM- no vb lof go od fm feeling tired ACOG First Trimester First Trimester: Desire for , Alcohol, Tobacco Cessation, Illicit/Recreational Drug/Substance Use, Intimate Partner Violence, Barriers to care, Unstable Housing, Communication Barriers, Environmental/Work Hazards, Anticipated Course of Care, Toxoplasmosis Precations, Use of Any med ications, Sexual activity, Exercise, Dental Care, Sauna/Hot tub [...] preference, Signs and Symptoms of Preeclampsia and Avery Education Results POC Urinalysis 2 Dip (Clinic) [...] PRR , KIRK 02/21/25, surprise PC Loyd, [place], Francisco Javier (2) : Status: Acute Qualifiers: Weeks of gestation: 19 weeks Qualified Code(s): Z3A.19 - 19 weeks gestation of Comment: declined NIPT & Carrier testing Orders: Orders POC Urinalysis 2 Dip (Clinic) Today 10/03/24 0944 mallory COSBY> Date _ Tricia Euceda MD Cosigner Signature: Date (if applicable) CC: ~ [facility]05-02-2025 Evaluation note* Diagnosis Onset Date Resolution Status Admit Date acute September 05, 2024 9:46am Supervision of normal acut e September 05, 2024 9:46am acute October 03, 2024 9:11am Supervision of normal acut e October 03, 2024 9:11am acute October 29 11:29am Supervision of normal acut e October 29, 2024 11:29am acute December 02 12:44pm Supervision of normal acut e December 02, 2024 12:44pm acute December 16, 025 11:00am Supervision of normal acut e December 16, 2024 11:00am [facility] Work Phone: 1([phone]) [phone] Evaluation note* Diagnosis Onset Date Resolution Status Admit Date acute September 05, 2024 9:46am Supervision of normal acut e September 05, 2024 9:46am acute October 03, 2024 9:11am Supervision of normal acut e October 03, 2024 9:11am acute October 29 11:29am Supervision of normal acut e October 29, 2024 11:29am acute December 02 12:44pm Supervision of normal acut e December 02, 2024 12:44pm acute December 16 11:00am Supervision of normal acut e December 16, 2024 11:00am acute December 31 11:47am Supervision of normal acut e December 31, 2024 11:47am [facility] Work Phone: [phone]) [phone] Evaluation note* Diagnosis Onset Date Resolution Status Admit Date acute August 06 9:02am Supervision of normal acut e August 06, 2024 9:02am acute September 05, 2024 9:46am Supervision of normal acut e September 05, 2024 9:46am acute October 03, 2024 9:11am Supervision of normal acut e October 03, 2024 9:11am acute October 29 11:29am Supervision of normal acut e October 29, 2024 11:29am acute December 02 12:44pm Supervision of normal acut e December 02, 2024 12:44pm [facility] Work Phone: [phone]) [phone] Evaluation note* Diagnosis Onset Date Resolution Status Admit Date Cervical ectropion acute July 18, 2024 8:43am acute July 18 8:43am Supervision of normal acut e July 18, 2024 8:43am Tilted uterus acute July 18, 2024 8:43am Underweight (BMI < 18.5) acute July 18, 2024 8:43am [facility] Work Phone: 1(901) 537-270603-14-2025 Evaluation note* Diagnosis Onset Date Resolution Status Admit Date acute July 18 8:43am Supervision of normal acute July 18, 2024 8:43am Cervical ectropion resolved July 18, 2024 8:43am Tilted uterus resolved July 18, 2024 8:43am Underweight (BMI < 18.5) resolved July 18, 2024 8:43am acute August 06 9:02am Supervision of normal acute August 06, 2024 9:02am [facility] Work Phone: 1(326) 932-468003-14-2025 Evaluation note* Diagnosis Onset Date Resolution Status [...] normal acute September 05, 2024 9: 46am [facility] Work Phone: 1(243) 586-231803-14-2025 Evaluation note* Diagnosis Onset Date Resolution Status [...] normal acute October 03, 2024 9 :11am [facility] Work Phone: 1(446) 904-546403-14-2025 Evaluation note* Diagnosis Onset Date Resolution Status [...] of normal acute October 29, 2024 11:29am [facility] Work Phone: 1(389) 433-855804-28-2023 Discharge summary Author Keara Waller [facility] September 01, 2022 10:43am Note Date/Time September 01, 2022 10: 43am [facility] Physical Therapy [facility] [address] [place] [address] / REHABILITATION SERVICES DISCHARGE SUMMARY MR#: [id number] Acct: [id number] Name: FRANCINE MANTILLA Rep #: [id number] : 1995 27 From: Keara Wallre PT, Cert. MDT Referring Dr.: Dr. Clif [...] FOLLOW UP WITH SPECIALIST RECOMMENDED BY DR. MNEDIETA. If there are questions or concerns regarding this patient's physical therapy, please feel free to call me at [phone]. Thank you for the referral of thispatient. Sincerely, Keara Waller, PT, Cert MDT Balance/Gait/Functional tests - Balance/Special Test Scores Lower Extremity Functional Score: 71 <Electronically signed by Keara Waller PT, Cert. MDT> 09/01/22 1043 CC: Dr. Jorge Golden MD; Dr. Clif Mendieta MD ~ IVA Signed [facility] Work Phone: Evaluation + Plan note No data available for this section [facility] Evaluation note* Diagnosis Onset Date Resolution Status Cervicitis resolved Encounter for routine gynecological examination noneactive Cervical ectropion acute [facility] Work Phone: Evaluation noteNo assessment information available [facility] Work Phone: Hospital Discharge instructions No data available for this section [facility] Progress note No data available for this section [facility] Progress note Author Tricia Euceda [facility] Note Date/Time October 03, 2024 9:44a m [facility] [address] [place] [address], [address] [place] [address] OFFICE VISIT Date of Service: 10/03/24 MR#: [id number] Acct: [id number] Name: FRANCINE MANTILLA Rep #: [id number] : 1995 Provider: Dr. Alonzo Euceda MD Age/Sex: 29/F Location: [facility] Status: Signed Intake Vital Signs 08/06/24 09:13 09/11/24 10:44 10/03/24 09:15 10/03/24 09:19 Height 5 ft 6 in 5 ft 6 in 5 ft 6 in 5 ft 6 in Weight: 125 lb 2 oz BMI 20.2 BP 105/70 Intake Visit Reasons: 20 wk ob Model Technician Required: No Is patient in pain?: No Feel stressed/tense/nervous/anxious/difficulty sleeping: not at all Allergies penicillin G Allergy (Mild, Verified 10/03/24 09:15) Other nitrous oxide Allergy (Verified 10/03/24 09:15) Other acetaminophen (From Tylenol) Adverse Reaction (Severe, Verified 10/03/24 09:15) Vomiting Medications ?Medication ?Instructions ?Recorded ?Confirmed ?Type [id number] 400 mcg-om3 35 mg-dha 25 1 tab [...] Vaginal delivery Surgical History H/O knee surgery Schurz teeth extracted Family History Grandfather Cancer Paternal Social History adopted: No household members: spouse and children housing: house number of children: 2 current occupational status: unemployed current occupation: [employer] pets and animals: No history of recent [...] 3-4 times per week duration: 45-60 minutes/day romero/protestant: Scientologist seatbelt use: always do you feel safe at home: Yes 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 Date Name GA/Weeks Outcome Route Bth Weight Gen Labor Lgth Anesthesia Del Locatn Provider FOChantelle 05/20/18 Loyd 37 live - full term 7lbs 0oz Male 8 hours e pidural [facility] BELA Mcintyre 04/13/21December 37 live - full term 6#4oz Male epidu ral [facility] Dr. Ok Mcintyre Delivery Date: 05/20/18 Last [...] preference, Signs and Symptoms of Preeclampsia and Avery Education Results POC Urinalysis 2 Dip (Clinic) [...] Acute Comment: PRR , KIRK 02/21/25, surprise RAJIV Har[place], [place], Francisco Javier (2) : Status: Acute Qualifiers: Weeks of gestation: 19 weeks Qualified Code(s): Z3A.19 - 19 weeks gestation of Comment: declined NIPT & Carrier testing Orders: Orders POC Urinalysis 2 Dip (Clinic) Today 10/03/24 0996 <Electronically signed by Tricia tejada MD> Date _ Tricia Euceda MD Cosigner Signature: Date (if applicable) CC: ~ [facility] Work Phone: Progress note Author Moon Rosales [facility] Note Date/Time October 29, 2024 11:5 4am [facility] [address] [place] [address], [address] [place] [address] OFFICE VISIT Date of Service: 10/29/24 MR#: [id number] Acct: [id number] Name: FRANCINE MANTILLA Rep #: [id number] : 1995 Provider: Dr. Elly Reddy, Age/Sex: 29/F Location: [facility] Status: Signed Intake Vital Signs 09/05/24 09:48 10/03/24 09:19 10/29/24 11:30 10/29/24 11:31 Height 5 ft 6 in 5 ft 6 in 5 ft 6 in 5 ft 6 in Weight: 128 lb 4 oz BMI 20.7 BP 101/67 Intake Visit Reasons: 24 wk ob Model Technician Required: No Is patient in pain?: No Allergies penicillin G Allergy (Mild, Verified 10/29/24 11:30) Other nitrous oxide Allergy (Verified 10/29/24 11:30) Other acetaminophen (From Tylenol) Adverse Reaction (Severe, Verified 10/29/24 11:30) Vomiting Medications ?Medication ?Instructions ?Recorded ?Confirmed ?Type [id number] 400 mcg-om3 35 mg-dha 25 1 tab [...] Vaginal delivery Surgical History H/O knee surgery Schurz teeth extracted Family History Grandfather Cancer Paternal Social History adopted: No household members: spouse and children housing: house number of children: 2 current occupational status: unemployed current occupation: [employer] pets and animals: No history of recent [...] 3-4 times per week duration: 45-60 minutes/day romero/protestant: Scientologist seatbelt use: always do you feel safe [...] 7lbs 0oz Male 8 hours e pidural [facility] BELA Mcintyre 04/13/21December 37 live - full term 6#4oz Male epidu ral [facility] Dr. Ok Mcintyre Delivery Date: 05/20/18 Last [...] CRL consiste nt with LMP. declines nipt. david to pharmacy. new ob labs today 08/06/24 [...] fluids. nausea is improving. US scheduled with [facility] 10/03/24 -?-?-?-?-?-?-?-?-?-?-?-?- 19w 6d 125 lb 2 [...] Cosigner Signature: Date (if applicable) CC: ~ [facility] Work Phone: Progress note Author Chrissy Lucas [facility] Note Date/Time December 16, 2024 11 :22am [facility] [address], [address] [place] [address] OFFICE VISIT Date of Service: 12/16/24 MR#: [id number] Acct: [id number] Name: FRANCINE MANTILLA Rep #: [id number] : 1995 Provider: MONSE Lucas Age/Sex: 29/F Location: [facility] Status: Signed Intake Vital Signs 10/03/24 09:19 12/02/24 13:04 12/16/24 11:03 Height 5 ft 6 in 5 ft 6 in 5 ft 6 in Weight: 135 lb 8 oz BMI 21.9 BP 102/68 Intake Visit Reasons: 31 wk ob Chief Complaint: 31wk ob Model Technician Required: No Is patient in pain?: No Allergies penicillin G Allergy (Mild, Verified 12/16/24 11:01) Other nitrous oxide Allergy (Verified 12/16/24 11:01) Other acetaminophen (From Tylenol) Adverse Reaction (Severe, Verified 12/16/24 11:01) Vomiting Medications ?Medication ?Instructions ?Recorded ?Confirmed ?Type [id number] 400 mcg-om3 35 mg-dha 25 1 tab PO DAILY PREGN PRUDENCE 04/12/21 12/16/24 History mg-epa 5 mg-fish oil chewable tablet doxylamine succinate 25 mg tablet 25 mg PO QHS PRN 12/16/24 History (Unisom (doxylamine)) pyridoxine (vitamin B6) 10 mg 10 mg PO QDAY 10/03/24 0 12/16/24 History tablet Last Menstrual Period: 05/17/24 : No Have you fallen in the past year?: No PFSH PFSH Medical History Anxiety Vaginal delivery Surgical History H/O knee surgery Schurz teeth extracted Family History Grandfather Cancer Paternal Social History adopted: No household members: spouse and children housing: house number of children: 2 current occupational status: unemployed current occupation: [employer] pets and animals: No history of recent [...] 3-4 times per week duration: 45-60 minutes/day romero/protestant: Scientologist seatbelt use: always do you feel safe at home: Yes additional social history: 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 Date Name GA/Weeks Outcome Route Bth Weight Gen Labor Lgth Anesthesia Del Locatn Provider FOChantelle 05/20/18 Loyd 37 live - full term 7lbs 0oz Male 8 hours e pidural [facility] BELA Francisco Javier 04/13/21December 37 live - full term 6#4oz Male epidu ral [facility] Dr. Ok Mcintyre Delivery Date: 05/20/18 Last Updated by: Shyla Hurley MD 34 wk PTL: fluids and stopped. steroids. Thinks related to noravirus. Pushed for 20 min. 2nd degree with abscess of suture Delivery Date: 04/13/21 Last Updated by: Radha Espinoza COVID + at , IAL HPI 31 wk ob Details: FRANCINE MANTILLA is a 29 year old who presents for routine OB visit. OB Visit KIRK Calculator Estimated Delivery Date Method Current WG Current Estimate 02/21/25 LMP (Certain) 30w 3d Other Estimates 02/20/25 Ultrasound #1 30w 4d Expected Delivery Route/Plan Labor Preferences- CB/BF classes: no labor support person: Francisco Javier labor intervention preferences: [] pain management options preferred: ok for epidural cut cord/dad catch: cord : yes PP control planned: discussed discussed possible routes of delivery and associated risks: [] special requests: [] Specific Issue/Plans Covid status: [] Flu vaccine: [] Tdap vaccine: declines Rhogam: NA LARC form signed: yes Problem list reviewed and updated with the most current plan of care details and appropriate orders placed. Relevant counseling for the gestational age provided. Continue routine care and follow up unless otherwise noted in visit notes/problem list details Initial Weight: 116 lb Date -?-?-?-?--?-?-?-?-?-?-?-?- EGA Weight BP Urine Prot -?-?-?-?-?-?-?-?-?-?-?-?- Glucose FHR FuHt Pres Dilation -?-?-?-?-?-?-?-?-?-?-?-?- Effaced St Visit Note 07/18/24 -?-?-?-?-?-?-?-?-?-?-?-?- 8w 6d 116 lb 8 oz (+8 oz) 107/69 -?-?-?-?-?-?-?-?-?-?-?-?- 178 -?-?-?-?-?-?-?-?-?-?-?-?- JV- CRL consiste nt with LMP. declines nipt. emiliaan to pharmacy. new ob labs today 08/06/24 -?-?-?-?-?-?-?-?-?-?-?-?- 11w 4d 116 lb (+0 oz) 110/69 Negative -?-?-?-?-?-?-?-?-?-?-?-?- Negative 160 -?-?-?-?-?-?-?-?-?--?-?-?- SM- trying to de termine if HIV has resulted- discuss with lab. if didn't reuslt will draw at 26 weeks. no vb cramping still has nausea 09/05/24 -?-?-?-?-?-?-?-?-?-?-?-?- 15w 6d 119 lb 2 oz (+3 lb 2 oz) 101/64 Negative -?-?-?-?-?-?-?-?-?-?-?-?- Negative 150 -?-?-?-?-?-?-?-?-?-?-?-?- KW- no vb/crampi ng. no concerns today. thinking about stopping the IV fluids. nausea is improving. US scheduled with [facility] 10/03/24 -?-?-?-?-?-?-?-?-?-?-?-?- 19w 6d 125 lb 2 oz (+9 lb 2 oz) 105/70 Negative -?-?-?-?-?-?-?-?-?-?-?-?- Negative 145 20 -?-?-?-?-?-?-?-?-?-?-?-?- SM- no vb lof go od fm feeling tired 10/29/24 -?-?-?-?-?-?-?-?-?-?-?-?- 23w 4d 128 lb 4 oz (+12 lb 4 oz) 101/67 Negative -?-?-?-?-?-?-?-?-?-?-?-?- Negative 151 24 -?-?-?-?-?-?-?-?-?-?-?-?- JV- no lof, vagi nal bleeding, or dec fm. no complaints. 12/02/24 -?-?-?-?-?-?-?-?-?-?-?-?- 28w 3d 131 lb 8 oz (+15 lb 8 oz) 98/62 Negative -?-?-?-?-?-?-?-?-?-?-?-?- Negative 155 27 -?-?-?-?-?-?-?-?-?-?-?-?- MH-No VB, LOF. G ood FM. Larc. 28 wk labs pending. Declines tdap 12/16/24 -?-?-?-?-?-?-?-?-?-?-?-?- 30w 3d 135 lb 8 oz (+19 lb 8 oz) 102/68 Negative -?-?-?-?-?-?-?-?-?--?-?-?- Negative 145 30 -?-?-?-?-?-?-?-?-?-?-?-?- KW- no vb/lof/ct x. good fm. would like a tub room for labor. ACOG First Trimester First Trimester: Desire for [...] Larc, Circumcision preference, Signs and Symptoms of Preeclampsia, Feeding No , Education and Family Medical Leave or Disability Forms ROS Const Reports system reviewed and no additional complaints, except as documented Eyes Reports system reviewed and no additional complaints, except as documented ENT Reports system reviewed and no additional complaints, except as documented Card Reports system reviewed and no additional complaints, except as documented Resp Reports system reviewed and no additional complaints, except as documented GI Reports system reviewed and no additional complaints, except as documented, Denies nausea and Denies vomiting Reports system reviewed and no additional complaints, except as documented Musc Reports system reviewed and no additional complaints, except as documented Skin/Breast Reports system reviewed and no additional complaints, except as documented Neuro Yes system reviewed and no additional complaints, except as documented Psych Reports system reviewed and no additional complaints, except as documented Endo Reports system reviewed and no additional complaints, except as documented Tutu/Lymph Reports system reviewed and no additional complaints, except as documented Aller/Immun Reports system reviewed and no additional complaints, except as documented Exam Const General: cooperative, healthy appearing and no acute distress Orientation: alert, awake and oriented x3 Neck Neck: normal visual inspection and full ROM Resp Effort & Inspection: normal respiratory effort, able to speak in complete sentences and symmetric chest movement GI Inspection: normal to inspection Palpation: soft and other Other: gravid Skin General: no rashes or lesions noted Neuro General: patient alert, patient awake and patient oriented x3 Cognition: normal cognition Speech: speech normal Gait: normal gait Motor: muscle tone normal throughout Extrem General: normal to inspection and full ROM Psych Appearance: grossly normal Mental Status: mental status grossly normal Mood: congruent mood Affect: normal affect Speech and Movement: speech and movement normal Attitude: cooperative Thought Process: normal Thought Content: normal Judgment: judgment good Results POC Urinalysis 2 Dip (Clinic) Office Urine Glucose Negative Last Edit by Lynn Velasquez on 12/16/24 11:09 Office Urine Protein Negative Last Edit by Lynn Velasquez on 12/16/24 11:09 Coding Level of Care Code OB Routine Diagnoses Encounter for supervision of other normal in third trimester Z34.83 Normal : other normal Trimester: third trimester 30 weeks gestation of Z3A.30 Weeks of gestation: 30 weeks Assessment and Plan Assessment and Plan (1) Supervision of normal : Status: Acute Qualifiers: Normal : other normal Trimester: third trimester Qualified Code(s): Z34.83 - Encounter for supervision of other normal , third trimester Comment: PRR, normal glucola, , KIRK 02/21/25, surprise PC Loyd, December, Francisco Javier (2) : Status: Acute Qualifiers: Weeks of gestation: 30 weeks Qualified Code(s): Z3A.30 - 30 weeks gestation of Comment: declined NIPT & Carrier testing, normal anatomy Orders: Orders POC Urinalysis 2 Dip (Clinic) Today Plan Details Additional Comments: ACOG trimester education reviewed and updated. see problem list details for updated plan management information and see below for orders placed at this visit. GA appropriate handout given. Clinical Quality Measures Falls Risk Screening/Assistive Devices Have you fallen in the past year?: No 12/16/24 1122 <Electronically signed by Chrissy castro CNM> Date _ Chrissy Lucas CNM Cosigner Signature: Date (if applicable) CC: ~ [facility] Work Phone: Progress note Author Moon Rosales [facility] Note Date/Time December 31, 2024 12 :19pm [facility] [address], [address] [place] [address] OFFICE VISIT Date of Service: 12/31/24 MR#: [id number] Acct: [id number] Name: FRANCINE MANTILLA Rep #: [id number] : 1995 Provider: Dr. Elly Reddy DO Age/Sex: 29/F Location: [facility] [place] Status: Signed Intake Vital Signs 12/02/24 13:04 12/16/24 11:03 12/31/24 11:50 12/31/24 11:50 Height 5 ft 6 in 5 ft 6 in 5 ft 6 in 5 ft 6 in Weight: 137 lb 7 oz BMI 22.1 BP 112/72 Intake Visit Reasons: 33 WK OB Model Technician Required: No Is patient in pain?: No Allergies penicillin G Allergy (Mild, Verified 12/31/24 11:49) Other nitrous oxide Allergy (Verified 12/31/24 11:49) Other acetaminophen (From Tylenol) Adverse Reaction (Severe, Verified 12/31/24 11:49) Vomiting Medications ?Medication ?Instructions ?Recorded ?Confirmed ?Type VMX78-CH 400 mcg-om3 35 mg-dha 25 1 tab PO DAILY PREGN PRUDENCE 04/12/21 12/31/24 History mg-epa 5 mg-fish oil chewable tablet doxylamine succinate 25 mg tablet 25 mg PO QHS PRN 12/31/24 History (Unisom (doxylamine)) pyridoxine (vitamin B6) 10 mg 10 mg PO QDAY 10/03/24 0 12/31/24 History tablet Last Menstrual Period: 05/17/24 Zika: Zika virus screening: Negative : No PFSH PFSH Medical History Anxiety Vaginal delivery Surgical History H/O knee surgery Schurz teeth extracted Family History Grandfather Cancer Paternal Social History adopted: No household members: spouse and children housing: house number of children: 2 current occupational status: unemployed current occupation: [employer] pets and animals: No history of recent [...] 3-4 times per week duration: 45-60 minutes/day romero/protestant: Scientologist seatbelt use: always do you feel safe at home: Yes 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 Date Name GA/Weeks Outcome Route Bth Weight Gen Labor Lgth Anesthesia Del Locatn Provider FOChantelle 05/20/18 Loyd 37 live - full term 7lbs 0oz Male 8 hours e pidural [facility] Francisco Javier 04/13/21December 37 live - full term 6#4oz Male epidu ral [facility] Dr. Ok Mcintyre Delivery Date: 05/20/18 Last Updated by: Shyla Hurley MD 34 wk PTL: fluids and stopped. steroids. Thinks related to noravirus. Pushed for 20 min. 2nd degree with abscess of suture Delivery Date: 04/13/21 Last Updated by: Radha Espinoza COVID + at , IAL HPI 33 WK OB Details: FRANCINE MANTILLA is a 29 year old who presents for routine OB visit. OB Visit KIRK Calculator Estimated Delivery Date Method Current WG Current Estimate 02/21/25 LMP (Certain) 32w 4d Other Estimates 02/20/25 Ultrasound #1 32w 5d Expected Delivery Route/Plan Labor Preferences- CB/BF classes: no labor support person: Francisco Javier labor intervention preferences: [] pain management options preferred: ok for epidural cut cord/dad catch: cord : yes PP control planned: discussed discussed possible routes of delivery and associated risks: [] special requests: [] Specific Issue/Plans Covid status: [] Flu vaccine: [] Tdap vaccine: declines Rhogam: NA LARC form signed: yes Problem list reviewed and updated with the [...] CRL consiste nt with LMP. declines nipt. david to pharmacy. new ob labs today 08/06/24 -?-?-?-?-?-?-?-?-?-?-?-?- 11w 4d 116 lb (+0 oz) 110/69 Negative -?-?-?-?-?-?-?-?-?-?-?-?- Negative 160 -?-?-?-?-?-?-?-?-?-?-?-?- SM- trying to de termine if HIV has resulted- discuss with lab. if didn't reuslt will draw at 26 weeks. no vb cramping still has nausea 09/05/24 -?-?-?-?-?-?-?-?-?-?-?-?- 15w 6d 119 lb 2 oz (+3 lb 2 oz) 101/64 Negative -?-?-?-?-?-?-?-?-?-?-?-?- Negative 150 -?-?--?-?-?-?-?-?-?-?-?-?- KW- no vb/crampi ng. no concerns today. thinking about stopping the IV fluids. nausea is improving. US scheduled with [facility] 10/03/24 -?-?-?-?-?-?-?-?-?-?-?-?- 19w 6d 125 lb 2 oz (+9 lb 2 oz) 105/70 Negative -?-?-?-?-?-?-?-?-?-?-?-?- Negative 145 20 -?-?-?-?-?-?-?-?-?-?-?-?- SM- no vb lof go od fm feeling tired 10/29/24 -?-?-?-?-?-?-?-?-?-?-?-?- 23w 4d 128 lb 4 oz (+12 lb 4 oz) 101/67 Negative -?-?-?-?-?-?-?-?-?-?--?-?- Negative 151 24 -?-?-?-?-?-?-?-?-?-?-?-?- JV- no lof, vagi nal bleeding, or dec fm. no complaints. 12/02/24 -?-?-?-?-?-?-?-?-?-?-?-?- 28w 3d 131 lb 8 oz (+15 lb 8 oz) 98/62 Negative -?-?-?-?-?-?-?-?-?-?-?-?- Negative 155 27 -?-?-?-?-?-?-?-?-?-?-?-?- MH-No VB, LOF. G ood FM. Larc. 28 wk labs pending. Declines tdap 12/16/24 -?-?-?-?-?-?-?-?-?-?-?-?- 30w 3d 135 lb 8 oz (+19 lb 8 oz) 102/68 Negative -?-?-?-?-?-?-?-?-?-?-?-?- Negative 145 30 -?-?-?-?-?-?-?-?-?-?-?-?- KW- no vb/lof/ct x. good fm. would like a tub room for labor. 12/31/24 -?-?-?-?-?-?-?-?-?-?-?-?- 32w 4d 137 lb 7 oz (+21 lb 7 oz) 112/72 Negative -?-?-?-?-?-?-?-?-?-?-?-?- Negative 143 31.5 -?--?-?-?-?-?-?-?-?-?-?-?- JV- no lof, vagi nal bleeding, or [...] Larc, Circumcision preference, Signs and Symptoms of Preeclampsia, Infant Feeding No , [place] Education and Family Medical Leave or Disability Forms Results POC Urinalysis 2 Dip (Clinic) Office Urine Glucose Negative Last Edit by Radha Espinoza on 12/31/24 12: 02 Office Urine Protein Negative Last Edit by Radha Espinoza on 12/31/24 12: 02 Coding Level of Care Code OB Routine Diagnoses Encounter for supervision of other normal in third trimester Z34.83 Normal : other normal Trimester: third trimester 32 weeks gestation of Z3A.32 Weeks of gestation: 32 weeks Assessment and Plan Assessment and Plan (1) Supervision of normal : Status: Acute Qualifiers: Normal : other normal Trimester: third trimester Qualified Code(s): Z34.83 - Encounter for supervision of other normal , third trimester Comment: PRR, normal glucola, , KIRK 02/21/25, surprise PC Emmett Harp, Francisco Javier (2) : Status: Acute Qualifiers: Weeks of gestation: 32 weeks Qualified Code(s): Z3A.32 - 32 weeks gestation of Comment: declined NIPT & Carrier testing, normal anatomy Orders: Orders POC Urinalysis 2 Dip (Clinic) Today 12/31/24 1219 <Electronically signed by Moon Hernandez DO> Date _ Moon Reddy DO Cosigner Signature: Date (if applicable) CC: ~ [facility] Work Phone: Progress note Author Tricia Euceda [facility] Note Date/Time January 16, 2025 10:30am [facility] [address], [address] [place] [address] OFFICE VISIT Date of Service: 01/16/25 MR#: [id number] Acct: [id number] Name: FRANCINE MANTILLA RAJIV Rep #: [id number] : 1995 Provider: Dr. Alonzo Euceda MD Age/Sex: 29/F Location: [facility] [place] Status: Signed Intake Vital Signs 12/02/24 13:04 12/31/24 11:50 01/16/25 10:18 Height 5 ft 6 in 5 ft 6 in 5 ft 6 in Weight: 136 lb 3 oz BMI 21.9 BP 106/69 Intake Visit Reasons: 35 WK OB Model Technician Required: No Is patient in pain?: No Allergies penicillin G Allergy (Mild, Verified 01/16/25 10:18) Other nitrous oxide Allergy (Verified 01/16/25 10:18) Other acetaminophen (From Tylenol) Adverse Reaction (Severe, Verified 01/16/25 10:18) Vomiting Medications ?Medication ?Instructions ?Recorded ?Confirmed ?Type [id number]-RG 400 mcg-om3 35 mg-dha 25 1 tab PO DAILY PREGN PRUDENCE 04/12/21 01/16/25 History mg-epa 5 mg-fish oil chewable tablet doxylamine succinate 25 mg tablet 25 mg PO QHS PRN 01/16/25 History (Unisom (doxylamine)) pyridoxine (vitamin B6) 10 mg 10 mg PO QDAY 10/03/24 0 01/16/25 History tablet Last Menstrual Period: 05/17/24 Zika: Zika virus screening: Negative : No PFSH PFSH Medical History Anxiety Vaginal delivery Surgical History H/O knee surgery Schurz teeth extracted Family History Grandfather Cancer Paternal Social History adopted: No household members: spouse and children housing: house number of children: 2 current occupational status: unemployed current occupation: [employer] pets and animals: No history of recent [...] 3-4 times per week duration: 45-60 minutes/day romero/protestant: Scientologist seatbelt use: always do you feel safe [...] 7lbs 0oz Male 8 hours e pidural [facility] Mcintyre 04/13/21December 37 live - full term 6#4oz Male epidu ral [facility] Dr. Ok Mcintyre Delivery Date: 05/20/18 Last Updated by: Shyla Hurley MD 34 wk PTL: fluids and stopped. steroids. Thinks related to noravirus. Pushed for 20 min. 2nd degree with abscess of suture Delivery Date: 04/13/21 Last Updated by: Radha Espinoza COVID + at , IAL HPI 35 WK OB Details: FRANCINE MANTILLA is a 29 year old who presents for routine OB visit. OB Visit KIRK Calculator Estimated Delivery Date Method Current WG Current Estimate 02/21/25 LMP (Certain) 34w 6d Other Estimates 02/20/25 Ultrasound #1 35w 0d Expected Delivery Route/Plan Labor Preferences- CB/BF classes: no labor support person: Francisco Javier labor intervention preferences: [] pain management options preferred: ok for epidural cut cord/dad catch: cord : yes PP control planned: discussed discussed possible routes of delivery and associated risks: [] special requests: [] Specific Issue/Plans Covid status: [] Flu vaccine: [] Tdap vaccine: declines Rhogam: NA LARC form signed: yes movement and labor precautions reviewed. Problem list reviewed and updated with the [...] CRL consiste nt with LMP. declines nipt. david to pharmacy. new ob labs today 08/06/24 -?-?-?-?-?-?-?-?-?-?-?-?- 11w 4d 116 lb (+0 oz) 110/69 Negative -?-?-?-?-?-?-?-?-?-?-?-?- Negative 160 -?-?-?-?-?-?-?-?-?-?-?-?- SM- trying to de termine if HIV has resulted- discuss with lab. if didn't reuslt will draw at 26 weeks. no vb cramping still has nausea 09/05/24 -?-?-?-?-?-?-?-?-?-?-?-?- 15w 6d 119 lb 2 oz (+3 lb 2 oz) 101/64 Negative -?-?-?-?-?-?-?-?-?-?-?-?- Negative 150 -?-?-?-?--?-?-?-?-?-?-?-?- KW- no vb/crampi ng. no concerns today. thinking about stopping the IV fluids. nausea is improving. US scheduled with [facility] 10/03/24 -?-?-?-?-?-?-?-?-?-?-?-?- 19w 6d 125 lb 2 oz (+9 lb 2 oz) 105/70 Negative -?-?-?-?-?-?-?-?-?-?-?-?- Negative 145 20 -?-?-?-?-?-?-?-?-?-?-?-?- SM- no vb lof go od fm feeling tired 10/29/24 -?-?-?-?-?-?-?-?-?-?-?-?- 23w 4d 128 lb 4 oz (+12 lb 4 oz) 101/67 Negative -?-?-?-?-?-?-?-?-?-?-?-?- Negative 151 24 -?-?-?-?-?-?-?-?-?-?-?-?- JV- no lof, vagi nal bleeding, or dec fm. no complaints. 12/02/24 -?-?-?-?-?-?-?-?-?-?-?-?- 28w 3d 131 lb 8 oz (+15 lb 8 oz) 98/62 Negative -?-?-?-?-?-?-?-?-?-?-?-?- Negative 155 27 -?-?-?-?-?-?-?-?-?-?-?-?- MH-No VB, LOF. G ood FM. Larc. 28 wk labs pending. Declines tdap 12/16/24 -?-?-?-?-?-?-?-?-?-?-?-?- 30w 3d 135 lb 8 oz (+19 lb 8 oz) 102/68 Negative -?-?-?-?-?-?-?-?-?-?-?-?- Negative 145 30 -?-?-?-?-?-?-?-?-?-?-?-?- KW- no vb/lof/ct x. good fm. would like a tub room for labor. 12/31/24 -?-?-?-?-?-?-?-?-?-?-?-?- 32w 4d 137 lb 7 oz (+21 lb 7 oz) 112/72 Negative -?-?-?-?-?-?-?-?-?-?-?-?- Negative 143 31.5 -?-?-?--?-?-?-?-?-?-?-?-?- JV- no lof, vagi nal bleeding, or dec fm. no complaints. 01/16/25 -?-?-?-?-?-?-?-?-?-?-?-?- 34w 6d 136 lb 3 oz (+20 lb 3 oz) 106/69 Negative -?-?-?-?-?-?-?-?-?-?-?-?- Negative 145 33 Cephalic -?-?-?-?-?-?-?-?-?-?-?-?- Sm- no vb lof go od fm no regular ctx ACOG First Trimester First Trimester: Desire for [...] Larc, Circumcision preference, Signs and Symptoms of Preeclampsia, Feeding No , Education and Family Medical Leave or Disability Forms Results POC Urinalysis 2 Dip (Clinic) Office Urine Glucose Negative Last Edit by Carmelina Arriaza on 01/16/25 10:23 Office Urine Protein Negative Last Edit by Carmelina Arriaza on 01/16/25 10:23 Coding Level of Care Code OB Routine Diagnoses Encounter for supervision of other normal in third trimester Z34.83 Normal : other normal Trimester: third trimester 34 weeks gestation of Z3A.34 Weeks of gestation: 34 weeks Assessment and Plan Assessment and Plan (1) Supervision of normal : Status: Acute Qualifiers: Normal : other normal Trimester: third trimester Qualified Code(s): Z34.83 - Encounter for supervision of other normal , third trimester Comment: PRR, , KIRK 02/21/25, surprise PC Loyd, December, Francisco Javier (2) : Status: Acute Qualifiers: Weeks of gestation: 34 weeks Qualified Code(s): Z3A.34 - 34 weeks gestation of Comment: declined NIPT & Carrier testing, normal anatomy Orders: Orders POC Urinalysis 2 Dip (Clinic) Today 01/16/25 1030 <Electronically signed by Tricia tejada MD> Date _ Tricia Euceda MD [facility] Signature: Date (if applicable) CC: ~ [facility] Work Phone: Reason for referral (narrative)No reason for referral information [facility] Work Phone: Summary Purpose Family History No Family History Records Found Relationship Condition Age at Onset Recorded Date/T tammy grandfather Malignant neoplasm Unknown Advance Directives No Advanced Directives Records Found Advance Directive Response Recorded Date/ Time Living Will Yes April 13 3:42am Power of Agile Qa Tester Yes April 13, 2021 3:42am Advance Directive Response Recorded Date/ Time Living Will Yes April 13 2:42am Power of Agile Qa Tester Yes April 13, 2021 2:42am Advance Directive Response Recorded Date/ Time Do you have a Healthcare Power of Agile Qa Tester? 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/RX HERE [...] 12:4 4pm Supervision of normal November 12:44pm Chief Complaint Admit Date n/v August 26, 2024 11: 02am hydration, D5LR September 02, 2024 11: 38am 16 wk ob September 05, 2024 9:46am HYDRATION September 11, 2024 10:29a m 20 wk ob October 03, 2024 9:11a m 24 wk ob October 29, 2024 11:2 9am 28 wk ob/glucose December 02, 2024 12:4 4pm 31 wk ob December 16, 2024 11 :00am Reason for Visit Admit Date September 05, 2024 9:46am Supervision of normal September 05, 2024 9:46am October 03, 2024 9:11a m Supervision of normal September 9:11am October 29, 2024 11:2 9am Supervision of normal October 11:29am December 02, 2024 12:4 4pm Supervision of normal November 12:44pm December 16, 2024 11 :00am Supervision of normal December 052024 11:00am Chief Complaint Admit Date hydration, D5LR September 02, 2024 11: 38am 16 wk ob September 05, 2024 9:46am HYDRATION September 11, 2024 10:29a m 20 wk ob October 03, 2024 9:11a m 24 wk ob October 29, 2024 11:2 9am 28 wk ob/glucose December 02, 2024 12:4 4pm 31 wk ob December 16, 2024 11 :00am 33 WK OB December 31, 2024 11 :47am Reason for Visit Admit Date September 05, 2024 9:46am Supervision of normal September 05, 2024 9:46am October 03, 2024 9:11a m Supervision of normal September 9:11am October 29, 2024 11:2 9am Supervision of normal October 11:29am December 02, 2024 12:4 4pm Supervision of normal November 12:44pm December 16, 2024 11 :00am Supervision of normal December 052024 11:00am December 31, 2024 11 :47am Supervision of normal December 062024 11:47am Chief Complaint Admit Date 20 wk ob October 03, 2024 9:11a m 24 wk ob October 29, 2024 11:2 9am 28 wk ob/glucose December 02, 2024 12:4 4pm 31 wk ob December 16, 2024 11 :00am 33 WK OB December 31, 2024 11 :47am 35 WK OB January 16, 2025 10:04am Reason for Visit Admit Date October 03, 2024 9:11a m Supervision of normal September 9:11am October 29, 2024 11:2 9am Supervision of normal October 11:29am December 02, 2024 12:4 4pm Supervision of normal November 12:44pm December 16, 2024 11 :00am Supervision of normal December 052024 11:00am December 31, 2024 11 :47am Supervision of normal December 062024 11:47am January 16, 2025 10:04am Supervision of normal Septembe r 2024 10:04am Additional Source Comments INFORMATION SOURCE (unrecogn ized section and content) DATE CREATED AUTHOR 04/05/2020 [facility] DATE CREATED AUTHOR AUTHOR'S ORGANIZ ATION 05/14/2020 [facility] DATE CREATED AUTHOR AUTHOR'S ORGANIZ ATION 06/20/2024 [facility] DATE CREATED AUTHOR AUTHOR'S ORGANIZ ATION 10/04/2024 [facility] DATE CREATED AUTHOR AUTHOR'S ORGANIZ ATION 01/21/2025 [facility] Care Teams (unrecognized sec tion and content) Team Status: Active Member Role Status Dates No Primary Care Physician Family Provider Active Dr. Jorge Golden MD Primary Care Provider Activ e Team Status: Inactive Member Role Status Dates Dr. Jorge Golden MD Primary Care Provider, Refe rring Provider Active Carmelina Morin PICK PULLING MACHINE OPERATOR, PICK PULLING MACHINE OPERATOR-C Attending Provider Active Team Status: Inactive Member Role Status Dates Dr. Jorge Golden MD Primary Care Provider, Refe rring Provider Active Dr. Tricia Euceda MD Attending Provider Active Team Status: Inactive Member Role Status Dates Dr. Jorge Golden MD Primary Care Provider Activ e Dr. Clif Mendieta MD Attending Provider, David rao Active Team Status: Inactive Member Role Status [...] 2024 End: October 03, 2024 Dr. Tricia Ecueda MD Referring Provider Active Start: October 03, [...] Status: Inactive Member Role/Relationship Status Dates Dr. Chiam Golden MD Primary Care Provider Acti ve Start: December 02, 2024 End: December 02, 2024 Dr. Chaim Golden MD Referring Provider Active Start: December 02, 2024 End: December 02, 2024 Carmelina Morin PICK PULLING MACHINE OPERATOR, PICK PULLING MACHINE OPERATOR-C Attending Provider Active Start: December 02, 2024 End: December 02, 2024 Team Status: Active Member Role/Relationship Status Dates Dr. Chaim Golden MD Primary Care Provider Acti ve Start: December 02, 2024 Carmelina Morin PICK PULLING MACHINE OPERATOR, PICK PULLING MACHINE OPERATOR-C Attending Provider Active Start: December 02, 2024 Team Status: Inactive Member Role/Relationship [...] December 02, 2024 End: December 02, 2024 Carmelina Morin PICK PULLING MACHINE OPERATOR, PICK PULLING MACHINE OPERATOR-C Attending Provider Active Start: December 02, 2024 End: December 02, 2024 Team Status: Active Member Role/Relationship Status Dates Dr. Chaim Golden MD Primary Care Provider Acti ve Start: December 02, 2024 Carmelina Morin PICK PULLING MACHINE OPERATOR, PICK PULLING MACHINE OPERATOR-C Attending Provider Active Start: December 02, 2024 Team Status: Inactive Member Role/Relationship Status Dates Dr. Chaim Golden MD Primary Care Provider Acti ve Start: December 16, 2024 End: December 16, 2024 Dr. Chaim Golden MD Referring Provider Active Start: December 16, 2024 End: December 16, 2024 Chrissy Lucas CNM Attending Provider Active S tart: December 16, 2024 End: December 16, 2024 Team Status: Inactive Member Role/Relationship Status Dates Dr. Chaim Golden MD Primary Care Provider Acti ve Start: December 02, 2024 End: December 02, 2024 Carmelina Morin PICK PULLING MACHINE OPERATOR, PICK PULLING MACHINE OPERATOR-C Attending Provider Active Start: December 02, 2024 End: December 02, 2024 Team Status: Inactive Member Role/Relationship [...] December 02, 2024 End: December 02, 2024 Carmelina Morin PICK PULLING MACHINE OPERATOR, PICK PULLING MACHINE OPERATOR-C Attending Provider Active Start: December 02, 2024 End: December 02, 2024 Team Status: Inactive Member Role/Relationship Status Dates Dr. Chaim Golden MD Primary Care Provider Acti ve Start: December 02, 2024 End: December 02, 2024 Carmelina Morin PICK PULLING MACHINE OPERATOR, PICK PULLING MACHINE OPERATOR-C Attending Provider Active Start: December 02, 2024 End: December 02, 2024 Team Status: Inactive Member Role/Relationship Status Dates Dr. Chaim Golden MD Primary Care Provider Acti ve Start: December 16, 2024 End: December 16, 2024 Dr. Chaim Golden MD Referring Provider Active Start: December 16, 2024 End: December 16, 2024 Chrissy Lucas CNM Attending Provider Active S tart: December 16, 2024 End: December 16, 2024 Team Status: Inactive Member Role/Relationship Status Dates Dr. Chaim Golden MD Primary Care Provider Acti ve Start: December 31, 2024 End: December 31, 2024 Dr. Chaim Golden MD Referring Provider Active Start: December 31, 2024 End: December 31, 2024 Dr. Moon Reddy DO Attending Provider Activ e Start: December 31, 2024 End: December 31, 2024 Team Status: Inactive Member Role/Relationship Status [...] December 02, 2024 End: December 02, 2024 Carmelina Morin PICK PULLING MACHINE OPERATOR, PICK PULLING MACHINE OPERATOR-C Attending Provider Active Start: December 02, 2024 End: December 02, 2024 Team Status: Inactive Member Role/Relationship Status Dates Dr. Chaim Godlen MD Primary Care Provider Acti ve Start: December 02, 2024 End: December 02, 2024 Carmelina Morin PICK PULLING MACHINE OPERATOR, PICK PULLING MACHINE OPERATOR-C Attending Provider Active Start: December 02, 2024 End: December 02, 2024 Team Status: Inactive Member Role/Relationship Status Dates Dr. Chaim Golden MD Primary Care Provider Acti ve Start: December 16, 2024 End: December 16, 2024 Dr. Chaim Golden MD Referring Provider Active Start: December 16, 2024 End: December 16, 2024 Chrissy Lucas CNM Attending Provider Active S tart: December 16, 2024 End: December 16, 2024 Team Status: Inactive Member Role/Relationship Status Dates Dr. Chaim Golden MD Primary Care Provider Acti ve Start: December 31, 2024 End: December 31, 2024 Dr. Chaim Golden MD Referring Provider Active Start: December 31, 2024 End: December 31, 2024 Dr. Moon Reddy DO Attending Provider Activ e Start: December 31, 2024 End: December 31, 2024 Team Status: Inactive Member Role/Relationship Status Dates Dr. Chaim Golden MD Primary Care Provider Acti ve Start: January 16, 2025 End: January 16, 2025 Dr. Chaim Golden MD Referring Provider Active Start: January 16, 2025 End: January 16, 2025 Dr. Tricia Euceda MD Attending Provider Active Start: January 16, 2025 End: January 16, 2025 Goals (unrecognized section and content) Goals may [...] BE BASED ON THE PRIMARY CLINICAL RECORDS. [employer] [facility]. provides no warranty or guarantee of the accuracy or completeness of information in this document.
== END | disposition home or self-care (01) ==
LOC: LABSPEC 12:04
PROVIDERS: PCP Family Medicine; Referring Provider Advanced Practice Midwife; Visit Provider Advanced Practice Midwife
DX: Z34.93 Encounter for supervision of normal pregnancy, unspecified, third trimester (principal); Z3A.35 35 weeks gestation of pregnancy
CPT/HCPCS: 87081

== ENCOUNTER 2025-01-30 05:35 | Inpatient (IN) | payer BC, SELFPAY ==
[2025-01-30] VITALS (65 sets, daily range): BP systolic 97–127; BP diastolic 55–92; PULSE 64–132; RESP 16–18; TEMP 36.2–37.4; O2SAT 78–100; BMI 22.6
[2025-01-30 04:34] LABS: Color, Urine Straw (Yellow); Glucose, Dipstick Normal (Normal); Ketone-Dipstick 15 mg/dl (Negative); Leukocyte Esterase-Dipstick Negative /ul (Negative); Nitrite-Dipstick Negative (Negative); Occult Blood-Urine Negative /ul (Negative); Protein-Dipstick 15 mg/dl (Negative); Specific Gravity, Urine 1.015 (1.002-1.030); Urine Bilirubin Dipstick Negative (Negative)
--- OUTSIDE RECORDS SUMMARY | 2025-01-30 05:44 | XMS RPT_ITS | CCD ---
Author Organization [facility] Care Team Providers Care Senior Interior Designer Name Role Phone Tricia Euceda MD Unavailable [phone] Dr. Jorge Golden Primary Care Provider [phone] Dr. Jorge Golden Referring Provider Mikel DATA ENTRY REPRESENTATIVE, DATA ENTRY REPRESENTATIVE-C Carmelina Attending Provider [phone] Dr. Tricia Euceda Attending Provider CHANTEL COSBY, DR RUCKER Primary Care Physician SANIA SOUSA PA-C Attending Walt GOLDEN MD, DR RUCKER Primary Care Zan Golden MD, Dr. Rucker Primary Care Provider Dr. Chaim Golden MD Referring Provider Dr. Moon Reddy DO Attending Provider Dr. Moon Reddy DO Referring Provider Dr. Tricia Euceda MD Attending Provider Dr. Clarence Wolff DO Attending Provider [phone] Dr. Clarence Wolff DO Emergency Provider Dr. Tricia Euceda MD Referring Provider Chrissy Lucas CNM Attending Provider JENNY PEREZ Attending Unavailable CHAIM GOLDEN Primary Care TRICIA Meza Referring Walt Golden MD, Dr. Christopher Primary Care Provider Chantel COSBY, Dr. Rucker Referring Provider Eric Rosales DO, Dr. Mustafa Attending Provider Mikel PAIZ-CCarmelina Attending Provider [phone] Chantel COSBY, Dr. Rucker Primary Care Provider Ok COSBY, Dr. Clarke Attending Provider [phone] Chantel COSBY, Dr. Rucker Referring Provider Chantel COSBY, Dr. Rucker Primary Care Provider Chantel COSBY, Dr. Rucker Primary Care Provider Chantel COSBY, Dr. Rucker Referring Provider Ok COSBY, Dr. Clarke Attending Provider Ok COSBY, Dr. Clarke Referring Provider Chrissy Lucas CNM Attending Provider [phone] Chrissy Lucas Attending Unavailable Chrissy Lucas Referring Unavailable Ranney, Christopher Primary Care Unavailable Chrissy Lucas Attending Unavailable Ranney, Christopher Referring Unavailable Ranney, Christopher Primary Care Unavailable Tricia Euceda Attending Unavailable Ranney, Christopher Referring Unavailable Ranney, Christopher Primary Care Unavailable Tricia Euceda Attending Unavailable Ranney, Christopher Referring Unavailable Ranney, Christopher Primary Care Unavailable Ranney, Christopher Referring Unavailable Ranney, Christopher Primary Care Unavailable Moon Reddy Attending Unavailabl Carmelina Edmonds Attending Unavailable Ranney, Christopher Referring Unavailable Ranney, Christopher Primary Care Unavailable Chrissy Lucas Attending Unavailable Ranney, Christopher Referring Unavailable Ranney, Christopher Primary Care Unavailable Ranney, Christopher Primary Care Unavailable Ranney, Christopher Referring Unavailable Moon Reddy Attending Unavailabl Tricia Vo Attending Unavailable Ranney, Christopher Primary Care Unavailable Ranney, Christopher Referring Unavailable Chrissy Lucas Attending Unavailable Ranney, Christopher Referring Unavailable Ranney, Christopher Primary Care Unavailable Ranney, Christopher Referring Unavailable Ranney, Christopher Primary Care Unavailable Moon Reddy Attending UnavailMoon [place] [facility] Primary Care Unavailable Tricia Euceda Attending Unavailable Tricia Euceda [facility]erring [facility] Unavailable Tricia Euceda Attending Unavailable Tricia Euceda Referring Unavailable [facility] Primary Care Unavailable Moon Reddy Referring [facility]availabl e [facility] Unavailable Moon Reddy Attending UnavailTricia Oquendo Referring Unavailable Tricia Euceda Attending Unavailable [facility] Primary [facility] Unavailable Clarence Wolff Attending Unavailable [facility] Unavailable Carmelina Morin Attending Unavailable [facility] Unavailable Allergies Allergy Classification Reported Allergen(s) Allergy Type Date of Onset Reaction(s) Facility (14 sources) Acetaminophen; Translations: [ACETAMINOPHEN] Drug Allergy 8 [facility] (13 sources) Nitrous Oxide Drug Allergy 3 Other [facility] Comment on above: Hallucinations and v omiting (13 sources) Penicillin G Drug Allergy 3 [facility] Comment on above: unknown reaction- Sam sethi (1 source) Penicillins; Translations: [PENICILLINS] Propensity to adverse reactions to drug (disorder) 8 [facility] (1 source) Acetaminophen Drug Allergy 5 [facility] (1 source) Nitrous Oxide Drug Allergy 5 [facility] (1 source) Penicillin Drug Allergy 5 [facility] Medications Current Medications Medication Drug Class(es) Dates Sig (Normalized) Sig (Original) doxylamine succinate 25 mg oral tablet (8 sources) Start: 10-03-2024 take 1 tablet by mouth at bedtime as needed Doxylamine Succinate (Unisom (Doxylamine)) 25 mg tablet Active 25 mg PO AT BEDTIME as needed October 03, 2024 12:00am Blx51-Of-Eq3-Yvs-Tp a-Fish Oil ( Gummy) 400 mcg-35 mg -25 mg-5 mg Tablet,Chewable (3 sources) Start: 04-12-2021 Ubp02-Od-Ag5-Wxe-X pa-Fish Oil ( Gummy) 400 mcg-35 mg -25 mg-5 mg Tablet,Chewable Active {tbl} PO DAILY April 12, 2021 1:00am Start: 04-12-2021 take 1 tablet by pamella th once daily Aco45-Uc-Fb7-Rss-Aqa-Gjza Oil ( Gummy) 400 mcg-35 mg -25 mg-5 mg Tablet,Chewable Active TABLET PO DAILY April 12, 2021 12:00am Start: 04-12-2021 take 1 tablet by pamella th once daily Oiy66-Tb-Rm3-Ztz-Esi-Edog Oil ( Gummy) 400 mcg-35 mg -25 mg-5 mg Tablet,Chewable Active TABLET PO DAILY April 12, 2021 1:00am Psg72-Bj-Sq2-Wux-Ovh-Erci Oi l 400 mcg-35 mg -25 mg-5 mg Tablet,Chewable (10 sources) Start: 04-12-2021 Hak40-Nj-Yi5-F miramontes-Epa-Fish Oil 400 mcg-35 mg -25 mg-5 mg Tablet,Chewable Active 1 {tbl} PO DAILY April 12, 2021 1:00am Start: 04-12-2021 Ics94-Em-Ip9-M miramontes-Epa-Fish Oil 400 mcg-35 mg -25 mg-5 [...] Start: 05-31-2020 End: 08-24-2020 antrinex Discontinued PO Cedric 2020 1:00am August 24, 2020 10:43am ascorbic acid 1000 mg extended release oral tablet (20 sources) Vitamin C Start: 04-12-2021 End: 06-24-2024 Ascorbic Acid (Vitamin C) (Vitamin C) 1,000 mg Capsule, Extended Release Discontinued 1000 NMA PO DAILY April 12, 2021 1:00am June 24, 2024 12:02pm Start: 04-12-2021 take 1 capsule by mo [facility] once daily Ascorbic Acid (Vitamin C) (Vitamin [...] Discontinued 1 {tbl} PO daily 84 July 10, 2019 1:00am July 15, 2019 [...] 1 TABLET PO daily July 10, 2019 12:00July 15, 2019 1:37pm Start: 07-10-2019 End: 07-15-2019 Desogestrel-Ethinyl Estradio l (Apri) 0.15-0.03 mg tablet Discontinued 1 TABLET PO daily July 10, 2019 12:00am July 15, 2019 1:37pm Start: 07-10-2019 End: 07-15-2019 Desogestrel-Ethinyl Estradio l (Apri) 0.15-0.03 mg tablet Discontinued 1 TABLET PO daily July 10, 2019 1:00July 15, [...] 100 mg PO DAILY May 20, 2018 1:00July 02, 2018 5:19pm constipation doxycycline monohydrate 100 mg oral capsule (20 sources) Tetracycline -class Drug Start: 05-31-2022 End: 06-07-2022 take 1 capsule by mouth twice daily Doxycycline Monohydrate 100 mg capsule Discontinued 100 mg PO TWICE A DAY 14 7 May 31, 2022 1:00am June 06, 2022 [...] 2:58pm Start: 04-23-2019 End: 07-10-2019 Norethindrone-E.Estradiol-Ir on (Octoberl [...] TABLET PO daily 84 August 13, 2017 3:45pm [...] tablet Discontinued 1 {tbl} PO daily 84 5 April 21, 2019 1:00am April 23, 2019 [...] One tablet by mouth daily NORGESTIMATE-ETH ESTRADIOL [id number] Tricia Euceda MD evening primrose oil 500 mg oral capsule (13 sources) Start: 05-31-2020 End: 08-24-2020 take 1 capsule by mouth three times daily Evening Madison Oil 500 mg capsule Discontinued 500 mg [...] 31, 2020 2:58pm Start: 10-22-2017 End: 05-31-2020 Prenat.Vits,Korey,Lvz-Iatb-Fvj ic ( Vitamin) tablet Discontinued 1 {tbl} PO daily October 22, 2017 12:00am May 31, 2020 2:58pm Start: 10-22-2017 End: 05-31-2020 take 1 tablet by mouth once daily Prenat.Vits,Korey,Mrp-Tqyx-Kkmyi ( Vitamin) tablet Discontinued 1 TABLET PO daily October 21, 2017 11:00pm May 31, 2020 1:58pm Start: 10-22-2017 End: 05-31-2020 take 1 tablet by mouth once daily Prenat.Vits,Korey,Utw-Gdif-Pjvav ( Vitamin) tablet Discontinued 1 TABLET PO [...] cervix uteri] 08-24-2022 Episodic Comment on above: Jacqueliney, on IC X 2 wk. Call with [...] 02/21/25, surprise [facility], December, Francisco Javier PRR, , KIRK 02/21, surprise [facility], December, Francisco Javier Other screening for suspected conditions (not mental disorders or infectious disease) (1 source) No current problems or disability 01-27-2017 Residual codes; unclassified (1 source) 35 weeks gestation of ; Translations: [35 weeks gestation of ] Onset: 01-23-2025 Episodic Residual codes; unclassified (1 source) 34 weeks [...] B6 an d unisom; 8/16 improved Other female genital disorders (2 sources) [...] Test Name Value Interpretation Reference Range Facility Rule out Beta Strep (Grp. B) on 01-27-2025 NITIN Group B Beta Streptococcus is not isolated. Normal [facility] Comment on above: Performed By: #### L 3890.6006, L100.0100 #### [facility] [address] 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 Operator Required: No Is patient in pain?: No Allergies penicillin G Allergy (Mild, Verified 01/23/25 10:18) Other nitrous oxide Allergy (Verified 01/23/25 10:18) Other acetaminophen (From Tylenol) Adverse Reaction (Severe, Verified 01/23/25 10:18) Vomiting Medications ???Medication ???Instructions ???Recorded ???Confirmed ???Type [id number] 400 mcg-om3 35 mg-dha 25 1 tab PO DAILY 04/12/21 01/23/25 History mg-epa 5 mg-fish oil chewable tablet doxylamine succinate 25 mg tablet 25 mg PO QHS PRN 10/03/24 5 History (Unisom (doxylamine)) pyridoxine (vitamin B6) 10 mg 10 mg PO QDAY 10/03/24 01/23/25 Hi story tablet Last Menstrual Period: 05/17/24 Zika: Zika virus screening: Negative : No Have you fallen in the past year?: No PFSH PFSH Medical History Anxiety Vaginal delivery Surgical History H/O knee surgery [place] teeth extracted Family History Grandfather Cancer Paternal Social History adopted: No household members: spouse and children housing: house number of children: 2 current occupational status: unemployed current occupation: [employer] pets and animals: No history of recent [...] 3-4 times per week duration: 45-60 minutes/day romero/synagogue: Church seatbelt use: always do you feel safe [...] term 7lbs 0oz Male 8 hours epidural [facility] BELA Mcintyre 04/13/21December 37 live - full term 6#4oz Male epidural [facility] Dr. Ok Mcintyre Delivery Date: 05/20/18 Last Updated by: Shyla Hurley MD 34 wk PTL: fluids and stopped. steroids. Thinks related to noravirus. Pushed for 20 min. 2nd degree with abscess of suture Delivery Date: 04/13/21 Last Updated by: Radha Espinoza COVID + at , IAL HPI 36 WK OB Details: FRANCINE MANTILLA is a 29 year old who presents for routine OB visit. OB Visit KIRK Calculator Estimated Delivery Date Method Current WG Current Estimate 02/21/25 LMP (Certain) 35w 6d Other Estimates 02/20/25 Ultrasound #1 36w 0d Expected Delivery Route/Plan Labor Preferences- CB/BF [...] 116 lb 8 oz (+8 oz) 107/69 -?? (more content not included)... Normal [facility] Cello Teacher Office Visit Reporton 01-16-2025 Cello Teacher Office Visit Report [facility]'s [address], [address] [place] [address] OFFICE VISIT Date of Service: 01/16/25 MR#: [id number] Acct: [id number] Name: FRANCINE MANTILLA RAJIV Rep #: [id number] : 1995 Provider: Dr. 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 Operator Required: No Is patient in pain?: No Allergies penicillin G Allergy (Mild, Verified 01/16/25 10:18) Other nitrous oxide Allergy (Verified 01/16/25 10:18) Other acetaminophen (From Tylenol) Adverse Reaction (Severe, Verified 01/16/25 10:18) Vomiting Medications ???Medication ???Instructions ???Recorded ???Confirmed ???Type [id number]-[id number] 400 mcg-om3 35 mg-dha 25 1 tab [...] Vaginal delivery Surgical History H/O knee surgery [place] teeth extracted Family History Grandfather Cancer Paternal Social History adopted: No household members: spouse and children housing: house number of children: 2 current occupational status: unemployed current occupation: [employer] pets and animals: No history of recent [...] 3-4 times per week duration: 45-60 minutes/day romero/synagogue: Church seatbelt use: always do you feel safe [...] term 7lbs 0oz Male 8 hours epidural [facility] BELA Mcintyre 04/13/21December 37 live - full term 6#4oz Male epidural [facility] Dr. Ok Mcintyre Delivery Date: 05/20/18 [...] -???-???-???-???-?? ?-???-?? (more content not included)... Normal [facility] - Chemistry and C hemistry - challengeOrdered By: Moon Rosales on 12-31-2024 Glucose Ql (U) Negative [facility] - UrinalysisOrder ed By: Moon Rosales on 12-31-2024 Protein Ql (U) Negative [facility] Cello Teacher Office Visit Reporton 12-31-2024 Cello Teacher Office Visit Report [facility] [address], [address] [place] [address] OFFICE VISIT Date of Service: 12/31/24 MR#: [id number] Acct: [id number] Name: FRANCINE MANTILLA Rep #: [id number] : 1995 Provider: Dr. 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 Operator Required: No Is patient in pain?: No Allergies penicillin G Allergy (Mild, Verified 12/31/24 11:49) Other nitrous oxide Allergy (Verified 12/31/24 11:49) Other acetaminophen (From Tylenol) Adverse Reaction (Severe, Verified 12/31/24 11:49) Vomiting Medications ???Medication ???Instructions ???Recorded ???Confirmed ???Type PEA20-LG 400 mcg-om3 35 mg-dha 25 1 tab [...] Vaginal delivery Surgical History H/O knee surgery [place] teeth extracted Family History Grandfather Cancer Paternal Social History adopted: No household members: spouse and children housing: house number of children: 2 current occupational status: unemployed current occupation: [employer] pets and animals: No history of recent [...] 3-4 times per week duration: 45-60 minutes/day romero/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 Date Name GA/Weeks Outcome Route Bth Weight Infant Gen Labor Lgth Anesthesia Del Locatn Provider MICHAEL 05/20/18 Loyd 37 live - full term 7lbs 0oz Male 8 hours epidural [facility] BELA Mcintyre 04/13/21December 37 live - full term 6#4oz Male epidural [facility] Dr. Ok Mcintyre Delivery Date: 05/20/18 [...] ?-???-???-???-???-? ??-???- (more content not included)... Normal [facility] - Chemistry and C hemistry - challengeOrdered By: Chrissy Lucas on 12-16-2024 Glucose Ql (U) Negative [facility] - UrinalysisOrder ed By: Chrissy Lucas on 12-16-2024 Protein Ql (U) Negative [facility] Cello Teacher Office Visit Reporton 12-16-2024 Cello Teacher Office Visit Report [facility] [address], [address] [place] [address] OFFICE VISIT Date of Service: 12/16/24 MR#: [id number] Acct: [id number] Name: FRANCINE MANTILLA Rep #: [id number] : 1995 Provider: MONSE Pacheco ams Age/Sex: 29/F [place] [facility]: Signed Intake Vital Signs 10/03/24 09:19 12/02/24 13:04 12/16/24 11:03 Height 5 ft 6 in 5 ft 6 in 5 ft 6 in Weight: 135 lb 8 oz BMI 21.9 BP 102/68 Intake Visit Reasons: 31 wk ob Chief Complaint: 31wk ob 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 Operator Required: No Is patient in pain?: No Allergies penicillin G Allergy (Mild, Verified 12/16/24 11:01) Other nitrous oxide Allergy (Verified 12/16/24 11:01) Other acetaminophen (From Tylenol) Adverse Reaction (Severe, Verified 12/16/24 11:01) Vomiting Medications ???Medication ???Instructions ???Recorded ???Confirmed ???Type OPR64-CL 400 mcg-om3 35 mg-dha 25 1 tab [...] Vaginal delivery Surgical History H/O knee surgery [place] teeth extracted Family History Grandfather Cancer Paternal Social History adopted: No household members: spouse and children housing: house number of children: 2 current occupational status: unemployed current occupation: [employer] pets and animals: No history of recent [...] 3-4 times per week duration: 45-60 minutes/day romero/synagogue: Church seatbelt use: always do you feel safe [...] term 7lbs 0oz Male 8 hours epidural [facility] BELA Mcintyre 04/13/21December 36 live - full term 6#4oz Male epidural [facility] Dr. Ok Mcintyre Delivery Date: 05/20/18 [...] 178 -???-???-???-??? (more content not included)... Normal [facility] Absolute lymphocyte countOrd ered By: Moon Rosales on 12-02-2024 Lymphocytes Auto (Unsp spec) [#/Vol] 1.16 10*3/uL 0.83-4.51 [facility] Absolute neutrophil countOrd ered By: Moon Rosales on 12-02-2024 Neutrophils (Bld) [#/Vol] 5.1 10*3/uL 2.0-7.7 [facility] Automated lymphocyte count a s percentage of total leukocytesOrdered By: Moon Rosales on 12-02-2024 Lymphocytes/100 WBC Auto (Unsp spec) 17.3 % Low 19-41 [facility] Basophil percentageOrdered B y: Moon Rosales on 12-02-2024 Basophils/100 WBC (Bld) 0.3 % 0-1 [facility] CBC W/Diff, Automatedon 11-05 Absolute Lymph 1.16 X10 3/uL Normal 0.83-4.51 [facility] Comment on above: Performed By: #### L 501.0250, L3890.6006, L509.8002, L100.0100 #### [facility] [address] [place], [address] Absolute Neut 5.1 X10 3/uL Normal 2.0-7.7 [facility] Comment on above: Performed By: #### L 501.0250, L3890.6006, L509.8002, L100.0100 #### [facility] [address] [place], [address] Basophils/100 WBC (Bld) 0.3 % Normal 0-1 [facility] Comment on above: Performed By: #### L 501.0250, L3890.6006, L509.8002, L100.0100 #### [facility] [address] [place], [address] Eosinophils/100 WBC (Bld) 0.7 % Normal 0-5 [facility] Comment on above: Performed By: #### L 501.0250, L3890.6006, L509.8002, L100.0100 #### [facility] [address] [place], [address] Erythrocyte distribution width (RBC) [Ratio] 12.4 % Normal 11.6-14.6 [facility] Comment on above: Performed By: #### L 501.0250, L3890.6006, L509.8002, L100.0100 #### [facility] [address] [place], [address] Hematocrit (Bld) [Volume fraction] 34.9 % Low 37-47 [facility] Comment on above: Performed By: #### L 501.0250, L3890.6006, L509.8002, L100.0100 #### [facility] [address] [place], [address] Hemoglobin (Bld) [Mass/Vol] 11.7 g/dL Low 12.0-15.0 [facility] Comment on above: Performed By: #### L 501.0250, L3890.6006, L509.8002, L100.0100 #### [facility] [address] [place], [address] IG% 0.600 Normal 0.0-0.9 [facility] Comment on above: Result Comment: IG% - Immature Granulocytes (promyelocytes, myelocytes and metamyelocytes) > 1% indicates that a LEFT SHIFT is Present. Performed By: #### L 501.0250, L3890.6006, L509.8002, L100.0100 #### [facility] [address] [place], [address] Lymphocytes/100 WBC (Bld) 17.3 % Low 19-41 [facility] Comment on above: Performed By: #### L 501.0250, L3890.6006, L509.8002, L100.0100 #### [facility] [address] [place], [address] MCH (RBC) [Entitic mass] 32.4 pg High 27.0-32.0 [facility] Comment on above: Performed By: #### L 501.0250, L3890.6006, L509.8002, L100.0100 #### [facility] [address] [place], [address] MCHC (RBC) [Mass/Vol] 33.5 g/dL Normal 32-36 [facility] Comment on above: Performed By: #### L 501.0250, L3890.6006, L509.8002, L100.0100 #### [facility] [address] [place], [address] MCV (RBC) [Entitic vol] 96.7 fL Normal 81-99 [facility] Comment on above: Performed By: #### L 501.0250, L3890.6006, L509.8002, L100.0100 #### [facility] [address] [place], [address] Monocytes/100 WBC (Bld) 5.7 % Normal 0-10 [facility] Comment on above: Performed By: #### L 501.0250, L3890.6006, L509.8002, L100.0100 #### [facility] [address] [place], [address] Neutrophils/100 WBC (Bld) 75.4 % High 47-70 [facility] Comment on above: Performed By: #### L 501.0250, L3890.6006, L509.8002, L100.0100 #### [facility] [address] [place], [address] Nucleated RBC (Bld) [#/Vol] 0 10*3/uL Normal 0-5 [facility] Comment on above: Performed By: #### L 501.0250, L3890.6006, L509.8002, L100.0100 #### [facility] [address] [place], [address] Platelet mean volume (Bld) [Entitic vol] 10.8 fL Normal 6.2-12.0 [facility] Comment on above: Performed By: #### L 501.0250, L3890.6006, L509.8002, L100.0100 #### [facility] [address] [place], [address] Platelets (Bld) [#/Vol] 211 10*3/uL Normal 150-450 [facility] Comment on above: Performed By: #### L 501.0250, L3890.6006, L509.8002, L100.0100 #### [facility] [address] [place], [address] RBC (Bld) [#/Vol] 3.61 10*6/uL Low 4.2-5.4 [facility] Comment on above: Performed By: #### L 501.0250, L3890.6006, L509.8002, L100.0100 #### [facility] [address] [place], [address] RDW SD 43.7 fl Normal 35.1-43.9 [facility] Comment on above: Performed By: #### L 501.0250, L3890.6006, L509.8002, L100.0100 #### [facility] [address] [place], [address] WBC (Bld) [#/Vol] 6.7 10*3/uL Normal 4.4-11.0 [facility] Comment on above: Performed By: #### L 501.0250, L3890.6006, L509.8002, L100.0100 #### [facility] [address] [place], [address] Eosinophil percentageOrdered By: Moon Rosales on 12-02-2024 Eosinophils/100 WBC (Bld) 0.7 % 0-5 [facility] Erythrocyte distribution wid th ratioOrdered By: Moon Rosales on 12-02-2024 Erythrocyte distribution width (RBC) [Ratio] 12.4 % 11.6-14.6 [facility] Erythrocyte distribution wid th standard deviationOrdered By: Moon Rosales on 12-02-2024 Erythrocyte distribution width (RBC) [Ratio] 43.7 fl 35.1-43.9 [facility] Glucose Challenge Gest 1H 50 chrissy 12-02-2024 GLU GEST 50g 1H 96 mg/dL Normal 70-140 [facility] Comment on above: Performed By: #### L 501.0250, L3890.6006, L509.8002, L100.0100 #### [facility] [address] [place], [place], [id number] Glucose measurement at 2 mario rs post-dose gestational glucose tolerance testOrdered By: Moon Rosales on 12-02-2024 Glucose [Mass/Vol] 96 mg/dL 70-140 [facility] HIVon 12-02-2024 HIV Non-Reactive Normal Nonreactive [facility] Comment on above: Result Comment: Non- Reactive Reactive Repeatedly reactive samples must be confirmed according to CDC recommended confirmatory algorithms. The subresults for either HIVAG or AHIV can be used as an aid in the selection of the confirmation algorithm for reactive samples. Send out specimens with Reactive results to [facility] for confirmation. Order the HIV antibody detection and differentiation: lc#[id number] Performed By: #### L 501.0250, L3890.6006, L509.8002, L100.0100 #### [facility] [address] [place], [place], [address] Hematocrit Auto (Bld) [Volum e fraction]Ordered By: Moon Rosales on 12-02-2024 Hematocrit (Bld) [Volume fraction] 34.9 % Low 37-47 [facility] Hemoglobin measurementOrdere d By: Moon Rosales on 12-02-2024 Hemoglobin (Bld) [Mass/Vol] 11.7 g/dL Low 12.0-15.0 [facility] Immature granulocytes/100 WB C Auto (Bld)Ordered By: Moon Rosales on 12-02-2024 Immature granulocytes/100 WBC (Bld) 0.600 % 0.0-0.9 [facility] Comment on above: IG% - Immature Granu locytes (promyelocytes, myelocytes and metamyelocytes) > 1% indicates that a LEFT SHIFT is Present. Laboratory - Chemistry and C hemistry - challengeOrdered By: Carmelina Morin on 12-02-2024 Glucose Ql (U) Negative [facility] - UrinalysisOrder ed By: Carmelina Morin on 12-02-2024 Protein Ql (U) Negative [facility] MCV (mean corpuscular volume ) determinationOrdered By: Moon Rosales on 12-02-2024 MCV (RBC) [Entitic vol] 96.7 fL 81-99 [facility] Mean corpuscular hemoglobin (MCH) determinationOrdered By: Moon Rosales on 12-02-2024 MCH (RBC) [Entitic mass] 32.4 pg High 27.0-32.0 [facility] Mean corpuscular hemoglobin concentration (MCHC) determinationOrdered By: Moon Rosales on 12-02-2024 MCHC (RBC) [Mass/Vol] 33.5 g/dL 32-36 [facility] Mean platelet volume determi nationOrdered By: Moon Rosales on 12-02-2024 Platelet mean volume (Bld) [Entitic vol] 10.8 fL 6.2-12.0 [facility] Monocyte percentageOrdered B y: Moon Rosales on 12-02-2024 Monocytes/100 WBC (Bld) 5.7 % 0-10 [facility] Neutrophil percentageOrdered By: Moon Rosales on 12-02-2024 Neutrophils/100 WBC (Bld) 75.4 % High 47-70 [facility] No Panel InformationOrdered By: Moon Rosales on 12-02-2024 HIV (1&2) Antibody Non-Reactive Nonreactive [facility] Comment on above: Non-ReactiveReactive Repeatedly reactive samples must be confirmed according to CDC recommended confirmatory algorithms. 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 [facility] [address], [address] [place] [address] OFFICE VISIT Date of Service: 12/02/24 MR#: [id number] Acct: [id number] Name: FRANCINE MANTILLA Rep #: [id number] : 1995 Provider: MJ iraheta Age/Sex: 29/F [place] [facility] [place]: [place]igned Intake Vital Signs 10/03/24 09:19 10/29/24 11:31 12/02/24 13:04 Height 5 ft 6 in 5 ft 6 in 5 ft 6 in Weight: 131 lb 8 oz BMI 21.2 BP 98/62 Intake Visit Reasons: 28 wk ob/glucose Chief Complaint: 28 Week OB/Glucose 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 Operator Required: No Is patient in pain?: No Allergies penicillin G Allergy (Mild, Verified 12/02/24 13:06) Other nitrous oxide Allergy (Verified 12/02/24 13:06) Other acetaminophen (From Tylenol) Adverse Reaction (Severe, Verified 12/02/24 13:06) Vomiting Medications ???Medication ???Instructions ???Recorded ???Confirmed ???Type [id number]-RH 400 mcg-om3 35 mg-dha 25 1 tab [...] Vaginal delivery Surgical History H/O knee surgery [place] teeth extracted Family History Grandfather Cancer Paternal Social History adopted: No household members: spouse and children housing: house number of children: 2 current occupational status: unemployed current occupation: [employer] pets and animals: No history of recent [...] 3-4 times per week duration: 45-60 minutes/day romero/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 Date Name GA/Weeks Outcome Route Bth Weight Gen Labor Lgth Anesthesia Del Locatn Provider EKTA 05/20/18 Lyod 37 live - full term 7lbs 0oz Male 8 hours epidural [facility] BELA Mcintyre 04/13/21December 37 live - full term 6#4oz Male epidural [facility] Dr. Ok Mcintyre Delivery Date: 05/20/18 [...] -???-???-???-???-?? ?-?? (more content not included)... Normal [facility] Platelet countOrdered By: Johnathon Rosales on 12-02-2024 Platelets (Bld) [#/Vol] 211 10*3/uL 150-450 [facility] RBC Auto (Bld) [#/Vol]Ordere d By: Moon Rosales on 12-02-2024 RBC (Bld) [#/Vol] 3.61 10*6/uL Low 4.2-5.4 [facility] Syphilis Antibodieson 2024 Syphilis Abs Non-Reactive Normal Nonreactive [facility] Comment on above: Performed By: #### L 501.0250, L3890.6006, L509.8002, L100.0100 #### [facility] [address] 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 Moon Singh DO Age/Sex: 29/F [place] [facility] [place]: Signed Intake Vital Signs 09/05/24 09:48 10/03/24 09:19 10/29/24 11:30 10/29/24 11:31 Height 5 ft 6 in 5 ft 6 in 5 ft 6 in 5 ft 6 in Weight: 128 lb 4 oz BMI 20.7 BP 101/67 Intake Visit Reasons: 24 wk ob 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 Operator Required: No Is patient in pain?: No Allergies penicillin G Allergy (Mild, Verified 10/29/24 11:30) Other nitrous oxide Allergy (Verified 10/29/24 11:30) Other acetaminophen (From Tylenol) Adverse Reaction (Severe, Verified 10/29/24 11:30) Vomiting Medications ???Medication ???Instructions ???Recorded ???Confirmed ???Type XXV31-EF 400 mcg-om3 35 mg-dha 25 1 tab [...] Vaginal delivery Surgical History H/O knee surgery [place] teeth extracted Family History Grandfather Cancer Paternal Social History adopted: No household members: spouse and children housing: house number of children: 2 current occupational status: unemployed current occupation: [employer] pets and animals: No history of recent [...] 3-4 times per week duration: 45-60 minutes/day romero/synagogue: Church seatbelt use: always do you feel safe [...] term 7lbs 0oz Male 8 hours epidural [facility] BELA Mcintyre 04/13/21December 37 live - full term 6#4oz Male epidural [facility] Dr. Ok Mcintyre Delivery Date: 05/20/18 [...] -???-???-???-???-?? ?-? (more content not included)... Normal [facility] Absolute lymphocyte countOrd ered By: Tricia Euceda on 10-03-2024 Lymphocytes Auto (Unsp spec) [#/Vol] 1.45 10*3/uL 0.83-4.51 [facility] Absolute neutrophil countOrd ered By: Tricia Euceda on 10-03-2024 Neutrophils (Bld) [#/Vol] 6.3 10*3/uL 2.0-7.7 [facility] Automated lymphocyte count a s percentage of total leukocytesOrdered By: Tricia Euceda on 10-03-2024 Lymphocytes/100 WBC Auto (Unsp spec) 17.6 % Low 19-41 [facility] Basophil percentageOrdered B y: Tricia Euceda on 10-03-2024 Basophils/100 WBC (Bld) 0.2 % 0-1 [facility] CBC W/Diff, Automatedon 09-06 Absolute Lymph 1.45 X10 3/uL Normal 0.83-4.51 [facility] Comment on above: Performed By: #### L 3890.6006, L100.0100 #### [facility] [address] [place], [address] Absolute Neut 6.3 X10 3/uL Normal 2.0-7.7 [facility] Comment on above: Performed By: #### L 3890.6006, L100.0100 #### [facility] [address] [place], [address] Basophils/100 WBC (Bld) 0.2 % Normal 0-1 [facility] Comment on above: Performed By: #### L 3890.6006, L100.0100 #### [facility] [address] [place], [address] Eosinophils/100 WBC (Bld) 1.0 % Normal 0-5 [facility] Comment on above: Performed By: #### L 3890.6006, L100.0100 #### [facility] [address] [place], [address] Erythrocyte distribution width (RBC) [Ratio] 12.8 % Normal 11.6-14.6 [facility] Comment on above: Performed By: #### L 3890.6006, L100.0100 #### [facility] [address] [place], [address] Hematocrit (Bld) [Volume fraction] 34.3 % Low 37-47 [facility] Comment on above: Performed By: #### L 3890.6006, L100.0100 #### [facility] [address] [place], [address] Hemoglobin (Bld) [Mass/Vol] 11.5 g/dL Low 12.0-15.0 [facility] Comment on above: Performed By: #### L 3890.6006, L100.0100 #### [facility] [address] [place], [address] IG% 0.700 Normal 0.0-0.9 [facility] Comment on above: Result Comment: IG% - Immature Granulocytes (promyelocytes, myelocytes and metamyelocytes) > 1% indicates that a LEFT SHIFT is Present. Performed By: #### L 3890.6006, L100.0100 #### [facility] [address] [place], [address] Lymphocytes/100 WBC (Bld) 17.6 % Low 19-41 [facility] Comment on above: Performed By: #### L 3890.6006, L100.0100 #### [facility] [address] [place], [address] MCH (RBC) [Entitic mass] 32.3 pg High 27.0-32.0 [facility] Comment on above: Performed By: #### L 3890.6006, L100.0100 #### [facility] [address] [place], [address] MCHC (RBC) [Mass/Vol] 33.5 g/dL Normal 32-36 [facility] Comment on above: Performed By: #### L 3890.6006, L100.0100 #### [facility] [address] [place], [address] MCV (RBC) [Entitic vol] 96.3 fL Normal 81-99 [facility] Comment on above: Performed By: #### L 3890.6006, L100.0100 #### [facility] [address] [place], [address] Monocytes/100 WBC (Bld) 4.5 % Normal 0-10 [facility] Comment on above: Performed By: #### L 3890.6006, L100.0100 #### [facility] [address] [place], [address] Neutrophils/100 WBC (Bld) 76.0 % High 47-70 [facility] Comment on above: Performed By: #### L 3890.6006, L100.0100 #### [facility] [address] [place], [address] Nucleated RBC (Bld) [#/Vol] 0 10*3/uL Normal 0-5 [facility] Comment on above: Performed By: #### L 3890.6006, L100.0100 #### [facility] [address] [place], [address] Platelet mean volume (Bld) [Entitic vol] 11.0 fL Normal 6.2-12.0 [facility] Comment on above: Performed By: #### L 3890.6006, L100.0100 #### [facility] [address] [place], [address] Platelets (Bld) [#/Vol] 203 10*3/uL Normal 150-450 [facility] Comment on above: Performed By: #### L 3890.6006, L100.0100 #### [facility] [address] [place], [address] RBC (Bld) [#/Vol] 3.56 10*6/uL Low 4.2-5.4 [facility] Comment on above: Performed By: #### L 3890.6006, L100.0100 #### [facility] [address] [place], [address] RDW SD 45.1 fl High 35.1-43.9 [facility] Comment on above: Performed By: #### L 3890.6006, L100.0100 #### [facility] [address] [place], [address] WBC (Bld) [#/Vol] 8.3 10*3/uL Normal 4.4-11.0 [facility] Comment on above: Performed By: #### L 3890.6006, L100.0100 #### [facility] [address] [place], [address] Eosinophil percentageOrdered By: Tricia Euceda on 10-03-2024 Eosinophils/100 WBC (Bld) 1.0 % 0-5 [facility] Erythrocyte distribution wid th ratioOrdered By: Tricia Euceda on 10-03-2024 Erythrocyte distribution width (RBC) [Ratio] 12.8 % 11.6-14.6 [facility] Erythrocyte distribution wid th standard deviationOrdered By: Tricia Euceda on 10-03-2024 Erythrocyte distribution width (RBC) [Ratio] 45.1 fl High 35.1-43.9 [facility] HIVon 10-03-2024 HIV Non-Reactive Normal Nonreactive [facility] Comment on above: Result Comment: Non- Reactive Reactive Repeatedly reactive samples must be confirmed according to CDC recommended confirmatory algorithms. The subresults for either HIVAG or AHIV can be used as an aid in the selection of the confirmation algorithm for reactive samples. Send out specimens with Reactive results to [facility] for confirmation. Order the HIV antibody detection and differentiation: lc#[id number] Performed By: #### L 3890.6006, L100.0100 #### [facility] [address] [place], [address] Hematocrit Auto (Bld) [Volum e fraction]Ordered By: Tricia Euceda on 10-03-2024 Hematocrit (Bld) [Volume fraction] 34.3 % Low 37-47 [facility] Hemoglobin measurementOrdere d By: Tricia Euceda on 10-03-2024 Hemoglobin (Bld) [Mass/Vol] 11.5 g/dL Low 12.0-15.0 [facility] Immature granulocytes/100 WB C Auto (Bld)Ordered By: Tricia Euceda on 10-03-2024 Immature granulocytes/100 WBC (Bld) 0.700 % 0.0-0.9 [facility] Comment on above: IG% - Immature Granu locytes (promyelocytes, myelocytes and metamyelocytes) > 1% indicates that a LEFT SHIFT is Present. Laboratory - Chemistry and C hemistry - challengeOrdered By: Tricia Euceda on 10-03-2024 Glucose Ql (U) Negative [facility] - UrinalysisOrder ed By: Tricia Euceda on 10-03-2024 Protein Ql (U) Negative [facility] MCV (mean corpuscular volume ) determinationOrdered By: Tricia Euceda on 10-03-2024 MCV (RBC) [Entitic vol] 96.3 fL 81-99 [facility] Mean corpuscular hemoglobin (MCH) determinationOrdered By: Tricia Euceda on 10-03-2024 MCH (RBC) [Entitic mass] 32.3 pg High 27.0-32.0 [facility] Mean corpuscular hemoglobin concentration (MCHC) determinationOrdered By: Tricia Euceda on 10-03-2024 MCHC (RBC) [Mass/Vol] 33.5 g/dL 32-36 [facility] Mean platelet volume determi nationOrdered By: Tricia Euceda on 10-03-2024 Platelet mean volume (Bld) [Entitic vol] 11.0 fL 6.2-12.0 [facility] Monocyte percentageOrdered B y: Tricia Euceda on 10-03-2024 Monocytes/100 WBC (Bld) 4.5 % 0-10 [facility] Neutrophil percentageOrdered By: Tricia Diazsamara on 10-03-2024 Neutrophils/100 WBC (Bld) 76.0 % High 47-70 [facility] No Panel InformationOrdered By: Tricia Euceda on 10-03-2024 HIV (1&2) Antibody Non-Reactive Nonreactive [facility] Comment on above: Non-ReactiveReactive Repeatedly reactive samples must be confirmed according to CDC recommended confirmatory algorithms. The subresults for either HIVAG or AHIV can be used as an aid in the selection of the confirmation algorithm for reactive samples.Send out specimens with Reactive results to [facility] for confirmation.Order the HIV antibody detection and differentiation: #[id number] Nucleated red blood cell per centageOrdered By: Tricia Euceda on 10-03-2024 Nucleated RBC/100 WBC (Bld) [Ratio] 0 % 0-5 [facility] [employer] Visit Reporton 10-03-2024 Cello Teacher Office Visit Report [facility], [place] [address] OFFICE VISIT Date of Service: 10/03/24 MR#: [id number] Acct: [id number] Name: FRANCINE MANTILLA RAJIV Rep #: [id number] : 1995 Provider: Dr. 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 Is patient in pain?: No Feel stressed/tense/nerv ous/anxious/difficu lty sleeping: not at all Allergies penicillin G Allergy (Mild, Verified 10/03/24 09:15) Other nitrous oxide Allergy (Verified 10/03/24 09:15) Other acetaminophen (From Tylenol) Adverse Reaction (Severe, Verified 10/03/24 09:15) Vomiting Medications ???Medication ???Instructions ???Recorded ???Confirmed ???Type [id number]-[id number] 400 mcg-om3 35 mg-dha 25 1 tab [...] Vaginal delivery Surgical History H/O knee surgery [place] teeth extracted Family History Grandfather Cancer Paternal Social History adopted: No household members: spouse and children housing: house number of children: 2 current occupational status: unemployed current occupation: [employer] pets and animals: No history of recent [...] 3-4 times per week duration: 45-60 minutes/day romero/synagogue: Church seatbelt use: always do you feel safe [...] term 7lbs 0oz Male 8 hours epidural [facility] BELA Mcintyre 04/13/21December live - full term 6#4oz Male epidural [facility] Dr. Ok Mcintyre Delivery Date: 05/20/18 [...] -???-???-???-???-?? ?-??? (more content not included)... Normal [facility] Platelet countOrdered By: Douglas Euceda on 10-03-2024 Platelets (Bld) [#/Vol] 203 10*3/uL 150-450 [facility] RBC Auto (Bld) [#/Vol]Ordere d By: Tricia Euceda on 10-03-2024 RBC (Bld) [#/Vol] 3.56 10*6/uL Low 4.2-5.4 [facility] White blood cell (WBC) count Ordered By: Tricia Euceda on 10-03-2024 WBC (Bld) [#/Vol] 8.3 10*3/uL 4.4-11.0 [facility] - Chemistry and C hemistry - challengeOrdered By: Chrissy Lucas on 09-05-2024 Glucose Ql (U) Negative [facility] - UrinalysisOrder ed By: Chrissy Lucas on 09-05-2024 Protein Ql (U) Negative [facility] [employer] Office Visit Reporton 09-05-2024 Cello Teacher Office Visit Report 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 Operator Required: No Is patient in pain?: No Allergies penicillin G Allergy (Mild, Verified 09/05/24 09:46) Other nitrous oxide Allergy (Verified 09/05/24 09:46) Other acetaminophen (From Tylenol) Adverse Reaction (Severe, Verified 09/05/24 09:46) Vomiting Medications ???Medication ???Instructions ???Recorded ???Confirmed ???Type ODN10-QI 400 mcg-om3 35 mg-dha 25 1 tab [...] Vaginal delivery Surgical History H/O knee surgery [place] teeth extracted Family History Grandfather Cancer Paternal Social History adopted: No household members: spouse and children housing: house number of children: 2 current occupational status: unemployed current occupation: [employer] pets and animals: No history of recent [...] 3-4 times per week duration: 45-60 minutes/day romero/synagogue: Church seatbelt use: always do you feel safe [...] term 7lbs 0oz Male 8 hours epidural [facility] BELA Mcintyre 04/13/21December live - full term 6#4oz Male epidural [facility] Dr. Ok Mcintyre Delivery Date: 05/20/18 [...] -???-???-???-???-?? ?-???-?? (more content not included)... Normal [facility] Absolute lymphocyte countOrd ered By: Clarence Wolff on 08-26-2024 Lymphocytes Auto (Unsp spec) [#/Vol] 0.87 10*3/uL 0.83-4.51 [facility] Absolute neutrophil countOrd ered By: Clarencealison Wolff on 08-26-2024 Neutrophils (Bld) [#/Vol] 6.8 10*3/uL 2.0-7.7 [facility] Anion gap in Serum or Plasma Ordered By: Clarence Wolff on 08-26-2024 Anion gap [Moles/Vol] 11 mmol/L 5-15 [facility] Automated lymphocyte count a s percentage of total leukocytesOrdered By: Clarence Wolff on 08-26-2024 Lymphocytes/100 WBC Auto (Unsp spec) 10.9 % Low 19-41 [facility] BUN/creatinine ratioOrdered By: Clarence Wolff on 08-26-2024 Urea nitrogen/Creatinine [Mass ratio] 22.7 mg/mg High 10-20 [facility] Basic Metabolic Profile (BMP )on 08-26-2024 BUN/CRE 22.7 RATIO High 10- [facility] Comment on above: Performed By: #### L 100.0100, L500.2500 #### [facility] [address] [place], [address] Calcium [Mass/Vol] 9.3 mg/dL Normal 7.6-11.0 [facility] Comment on above: Performed By: #### L 100.0100, L500.2500 #### [facility] [address] [place], [address] Chloride [Moles/Vol] 102 mmol/L Normal 98-108 [facility] Comment on above: Performed By: #### L 100.0100, L500.2500 #### [facility] [address] [place], [address] CO2 [Moles/Vol] 23.2 mmol/L Normal 21.0-32.0 [facility] Comment on above: Performed By: #### L 100.0100, L500.2500 #### [facility] [address] [place], [address] Creatinine [Mass/Vol] 0.56 mg/dL Low 0.70-1.20 [facility] Comment on above: Performed By: #### L 100.0100, L500.2500 #### [facility] [address] [place], [address] ECRCL 124.12 ml/min Normal 50-250 [facility] Comment on above: Performed By: #### L 100.0100, L500.2500 #### [facility] [address] [place], [address] GAP 11 Normal 5-15 [facility] Comment on above: Performed By: #### L 100.0100, L500.2500 #### [facility] [address] [place], [address] GFR/1.73 sq M.predicted among non-blacks MDRD (S/P/Bld) [Vol rate/Area] 126 mL/min/{1.73_m2} Normal >60 [facility] Comment on above: Result Comment: mL/m in/1.73m2 CKD-EPI Creatinine Equation (2020) Performed By: #### L 100.0100, L500.2500 #### [facility] [address] [place], [address] Glucose [Mass/Vol] 98 mg/dL Normal 70-99 [facility] Comment on above: Performed By: #### L 100.0100, L500.2500 #### [facility] [address] [place], [address] Potassium [Moles/Vol] 3.8 mmol/L Normal 3.3-5.1 [facility] Comment on above: Performed By: #### L 100.0100, L500.2500 #### [facility] [address] [place], [address] Sodium [Moles/Vol] 136 mmol/L Normal 133-145 [facility] [facility] Comment on above: Performed By: #### L 100.0100, L500.2500 #### [facility] [address] [place], [address] Urea nitrogen [Mass/Vol] 13 mg/dL Normal 4-19 [facility] Comment on above: Performed By: #### L 100.0100, L500.2500 #### [facility] [address] [place], [address] Basophil percentageOrdered B y: Clarence Wolff on 08-26-2024 Basophils/100 WBC (Bld) 0.3 % 0-1 [facility] CBC W/Diff, Automatedon - Absolute Lymph 0.87 X10 3/uL Normal 0.83-4.51 [facility] Comment on above: Performed By: #### L 100.0100, L500.2500 #### [facility] [address] [place], [address] Absolute Neut 6.8 X10 3/uL Normal 2.0-7.7 [facility] Comment on above: Performed By: #### L 100.0100, L500.2500 #### [facility] [address] [place], [address] Basophils/100 WBC (Bld) 0.3 % Normal 0-1 [facility] Comment on above: Performed By: #### L 100.0100, L500.2500 #### [facility] [address] [place], [address] Eosinophils/100 WBC (Bld) 0.5 % Normal 0-5 [facility] Comment on above: Performed By: #### L 100.0100, L500.2500 #### [facility] [address] [place], [address] Erythrocyte distribution width (RBC) [Ratio] 12.5 % Normal 11.6-14.6 [facility] Comment on above: Performed By: #### L 100.0100, L500.2500 #### [facility] [address] [place], [address] Hematocrit (Bld) [Volume fraction] 37.1 % Normal 37-47 [facility] Comment on above: Performed By: #### L 100.0100, L500.2500 #### [facility] [address] [place], [address] Hemoglobin (Bld) [Mass/Vol] 12.7 g/dL Normal 12.0-15.0 [facility] Comment on above: Performed By: #### L 100.0100, L500.2500 #### [facility] [address] [place], [address] IG% 0.500 Normal 0.0-0.9 [facility] Comment on above: Result Comment: IG% - Immature Granulocytes (promyelocytes, myelocytes and metamyelocytes) > 1% indicates that a LEFT SHIFT is Present. Performed By: #### L 100.0100, L500.2500 #### [facility] [address] [place], [address] Lymphocytes/100 WBC (Bld) 10.9 % Low 19-41 [facility] Comment on above: Performed By: #### L 100.0100, L500.2500 #### [facility] [address] [place], [address] MCH (RBC) [Entitic mass] 31.8 pg Normal 27.0-32.0 [facility] Comment on above: Performed By: #### L 100.0100, L500.2500 #### [facility] [address] [place], [address] MCHC (RBC) [Mass/Vol] 34.2 g/dL Normal 32-36 [facility] Comment on above: Performed By: #### L 100.0100, L500.2500 #### [facility] [address] [place], [address] MCV (RBC) [Entitic vol] 92.8 fL Normal 81-99 [facility] Comment on above: Performed By: #### L 100.0100, L500.2500 #### [facility] [address] [place], [address] Monocytes/100 WBC (Bld) 3.1 % Normal 0-10 [facility] Comment on above: Performed By: #### L 100.0100, L500.2500 #### [facility] [address] [place], [address] Neutrophils/100 WBC (Bld) 84.7 % High 47-70 [facility] Comment on above: Performed By: #### L 100.0100, L500.2500 #### [facility] [address] [place], [address] Nucleated RBC (Bld) [#/Vol] 0 10*3/uL Normal 0-5 [facility] Comment on above: Performed By: #### L 100.0100, L500.2500 #### [facility] [address] [place], [address] Platelet mean volume (Bld) [Entitic vol] 10.8 fL Normal 6.2-12.0 [facility] Comment on above: Performed By: #### L 100.0100, L500.2500 #### [facility] [address] [place], [address] Platelets (Bld) [#/Vol] 192 10*3/uL Normal 150-450 [facility] Comment on above: Performed By: #### L 100.0100, L500.2500 #### [facility] [address] [place], [address] RBC (Bld) [#/Vol] 4.00 10*6/uL Low 4.2-5.4 [facility] Comment on above: Performed By: #### L 100.0100, L500.2500 #### [facility] [address] [place], [address] RDW SD 42.7 fl Normal 35.1-43.9 [facility] Comment on above: Performed By: #### L 100.0100, L500.2500 #### [facility] [address] [place], [address] WBC (Bld) [#/Vol] 8.0 10*3/uL Normal 4.4-11.0 [facility] Comment on above: Performed By: #### L 100.0100, L500.2500 #### [facility] [address] [place], [address] Carbon dioxide, total [Moles /volume] in Central venous bloodOrdered By: Clarence Wolff on 08-26-2024 CO2 [Moles/Vol] 23.2 mmol/L 21.0-32.0 [facility] Chloride assayOrdered By: Markus Wolff on 08-26-2024 Chloride [Moles/Vol] 102 mmol/L 98-108 [facility] Emergency Department Summary on 08-26-2024 Emergency Department Summary [facility] Medical Records Department [address] [place] [address] Emergency Department Summary 08/26/24 MR#: [id number] Acct: [id number] Name: FRANCINE MANTILLA Rep #: [id number] : 1995 29 From: Clarence Wolff DO PCP: Dr. Chaim Golden MD Status:DEP ER Location: ED HPI History of Present Illness Chief Complaint: Nausea/Vomiting Informant: patient Onset/Context/Timin g Onset: Weeks (6) Context: Gradual Onset Timing: [...] or discharge. Patient is 3 para 2. [facility] Medical History Anxiety Vaginal delivery Home Medications ???Medication ???Instructions ???Recorded ???Last Taken ???Type [id number] 400 mcg-om3 35 mg-dha 25 tab PO [...] Cancer Paternal Surgical History H/O knee surgery [place] teeth extracted Social History adopted: No household members: spouse and children housing: house number of children: 2 current occupational status: unemployed current occupation: [employer] pets and animals: No history of recent [...] 3-4 times per week duration: 45-60 minutes/day romero/synagogue: Church seatbelt use: always do you feel safe [...] electrolyte abnor (more content not included)... Normal [facility] Eosinophil percentageOrdered By: Clarence Wolff on 08-26-2024 Eosinophils/100 WBC (Bld) 0.5 % 0-5 [facility] Erythrocyte distribution wid th (RBC) [Ratio]Ordered By: Clarence Wolff on 08-26-2024 Erythrocyte distribution width (RBC) [Entitic vol] 42.7 fL 35.1-43.9 [facility] Erythrocyte distribution wid th ratioOrdered By: Clarence Wolff on 08-26-2024 Erythrocyte distribution width (RBC) [Ratio] 12.5 % 11.6-14.6 [facility] Erythrocyte distribution wid th standard deviationOrdered By: Clarence Wolff on 08-26-2024 Erythrocyte distribution width (RBC) [Ratio] 42.7 fl 35.1-43.9 [facility] Estimation of creatinine tan aranceOrdered By: Clarence Wolff on 08-26-2024 Estimated Creatinine Clearance Calc 124.12 ml/min 50-250 [facility] GFR/1.73 sq M.predicted abram g non-blacks MDRD (S/P/Bld) [Vol rate/Area]Ordered By: Clarence Wolff on 08-26-2024 Estimated GFR (MDRD) Non-Af Amer 126 >60 [facility] Comment on above: mL/min/1.73m2 CKD-EP I Creatinine Equation (2020) Glomerular filtration rate ( GFR) estimation/1.73 sq m using serum, plasma, or whole bOrdered By: Clarence Wolff on 08-26-2024 GFR/1.73 sq M.predicted among non-blacks MDRD (S/P/Bld) [Vol rate/Area] 126 mL/min/{1.73_m2} >60 [facility] Comment on above: mL/min/1.73m2 CKD-EP I Creatinine Equation (2020) Hematocrit Auto (Bld) [Volum e fraction]Ordered By: Clarence Wolff on 08-26-2024 Hematocrit (Bld) [Volume fraction] 37.1 % 37-47 [facility] Hemoglobin measurementOrdere d By: Clarence Wolff on 08-26-2024 Hemoglobin (Bld) [Mass/Vol] 12.7 g/dL 12.0-15.0 [facility] Immature granulocytes/100 WB C Auto (Bld)Ordered By: Clarence Wolff on 08-26-2024 Immature granulocytes/100 WBC (Bld) 0.500 % 0.0-0.9 [facility] Comment on above: IG% - Immature Granu locytes (promyelocytes, myelocytes and metamyelocytes) > 1% indicates that a LEFT SHIFT is Present. Lymphocytes Auto (Unsp spec) [#/Vol]Ordered By: Clarence Wolff on 08-26-2024 Lymphocytes (Bld) [#/Vol] 0.87 10*3/uL 0.83-4.5 1 [facility] Lymphocytes/100 WBC Auto (Un sp spec)Ordered By: Clarence Wolff on 08-26-2024 Lymphocytes/100 WBC (Bld) 10.9 % Low 19-41 [facility] MCV (mean corpuscular volume ) determinationOrdered By: Clarence Wolff on 08-26-2024 MCV (RBC) [Entitic vol] 92.8 fL 81-99 [facility] Mean corpuscular hemoglobin (MCH) determinationOrdered By: Clarence Wolff on 08-26-2024 MCH (RBC) [Entitic mass] 31.8 pg 27.0-32.0 [facility] Mean corpuscular hemoglobin concentration (MCHC) determinationOrdered By: Clarence Wolff 08-26-2024 MCHC (RBC) [Mass/Vol] 34.2 g/dL 32-36 [facility] Mean platelet volume determi nationOrdered By: Clarence Wolff on 08-26-2024 Platelet mean volume (Bld) [Entitic vol] 10.8 fL 6.2-12.0 [facility] Monocyte percentageOrdered B y: Clarnece Wolff on 08-26-2024 Monocytes/100 WBC (Bld) 3.1 % 0-10 [facility] Neutrophil percentageOrdered By: Clarence Wolff on 08-26-2024 Neutrophils/100 WBC (Bld) 84.7 % High 47-70 [facility] Nucleated red blood cell per centageOrdered By: Clarence Wolff on 08-26-2024 Nucleated RBC/100 WBC (Bld) [Ratio] 0 % 0-5 [facility] Platelet countOrdered By: Markus Wolff on 08-26-2024 Platelets (Bld) [#/Vol] 192 10*3/uL 150-450 [facility] Potassium (Unsp spec) [Mass/ Vol]Ordered By: Clarence Wolff on 08-26-2024 Potassium [Moles/Vol] 3.8 mmol/L 3.3-5.1 [facility] Potassium measurement (mass/ volume)Ordered By: Clarence Wolff on 08-26-2024 Potassium (Unsp spec) [Mass/Vol] 3.8 mmol/L 3.3-5.1 [facility] RBC Auto (Bld) [#/Vol]Ordere d By: Clarence Wolff on 08-26-2024 RBC (Bld) [#/Vol] 4.00 10*6/uL Low 4.2-5.4 [facility] Serum creatinine measurement (mass/volume)Ordered By: Clarence Wolff on 08-26-2024 Creatinine [Mass/Vol] 0.56 mg/dL Low 0.70-1.20 [facility] Serum glucose measurement (m ass/volume)Ordered By: Clarence Wolff on 08-26-2024 Glucose [Mass/Vol] 98 mg/dL 70-99 [facility] Serum or plasma calcium betsy urement (mass/volume)Ordered By: Clarence Wolff on 08-26-2024 Calcium [Mass/Vol] 9.3 mg/dL 7.6-11.0 [facility] Serum or plasma urea nitroge n measurement (mass/volume)Ordered By: Clarence Wolff on 08-26-2024 Urea nitrogen [Mass/Vol] 13 mg/dL 4-19 [facility] Sodium levelOrdered By: Clarence Wolff on 08-26-2024 Sodium [Moles/Vol] 136 mmol/L 133-145 [facility] White blood cell (WBC) count Ordered By: Clarence Wolff on 08-26-2024 WBC (Bld) [#/Vol] 8.0 10*3/uL 4.4-11.0 [facility] - Chemistry and C hemistry - challengeOrdered By: Tricia Euceda on 08-06-2024 Glucose Ql (U) Negative [facility] - UrinalysisOrder ed By: Tricia Euceda on 08-06-2024 Protein Ql (U) Negative [facility] Cello Teacher Office Visit Reporton 08-06-2024 Cello Teacher Office Visit Report [facility] [address], [address] [place] [address] OFFICE VISIT Date of Service: 08/06/24 MR#: [id number] Acct: [id number] Name: FRANCINE MANTILLA Rep #: [id number] : 1995 Provider: Dr. 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 Is patient in pain?: No Feel stressed/tense/nerv ous/anxious/difficu lty sleeping: not at all Allergies penicillin G Allergy (Mild, Verified 08/06/24 09:16) Other nitrous oxide Allergy (Verified 08/06/24 09:16) Other acetaminophen (From Tylenol) Adverse Reaction (Severe, Verified 08/06/24 09:16) Vomiting Medications ???Medication ???Instructions ???Recorded ???Confirmed ???Type [id number] 400 mcg-om3 35 mg-dha 25 tab PO [...] Vaginal delivery Surgical History H/O knee surgery [place] teeth extracted Family History Grandfather Cancer Paternal Social History adopted: No household members: spouse and children housing: house number of children: 2 current occupational status: unemployed current occupation: [employer] pets and animals: No history of recent [...] 3-4 times per week duration: 45-60 minutes/day romero/synagogue: Church seatbelt use: always do you feel safe [...] term 7lbs 0oz Male 8 hours epidural [facility] BELA Mcintyre 04/[birth year]/21December 36 live - full term 6#4oz Male epidural [facility] Dr. Ok Mcintyre Delivery Date: 05/20/18 [...] 178 -?? (more content not included)... Normal [facility] Chlamydia/GC VICKI aptimaon CHLAMY,NUC ACID Negative Normal Negative [facility] Comment on above: Performed By: #### L 100.0100, L500.2500 #### [facility] [address] [place], [address] GC BY NUC ACID Negative Normal Negative [facility] Comment on above: Result Comment: Perf ormed at: =G - [facility] [address] [id number] Edger Machine Helper: Inga Chau MD, Phone: [phone] Performed By: #### L 100.0100, L500.2500 #### [facility] [address] [place], [address] Urine Cultureon 07-20-2024 URC Below infection level. Mixed Gram Positive Organisms [place] Count 1000-10,000 MIXC Mixed contaminants. Submit a new specimen if indicated. Normal [facility] Comment on above: Performed By: #### L 100.0100, L500.2500 #### [facility] [address] [place], [address] Absolute lymphocyte countOrd ered By: Moon Rosales on 07-18-2024 Lymphocytes Auto (Unsp spec) [#/Vol] 1.09 10*3/uL 0.83-4.51 [facility] Absolute neutrophil countOrd ered By: Moon Rosales on 07-18-2024 Neutrophils (Bld) [#/Vol] 4.9 10*3/uL 2.0-7.7 [facility] Automated lymphocyte count a s percentage of total leukocytesOrdered By: Moon Rosales on 07-18-2024 Lymphocytes/100 WBC Auto (Unsp spec) 16.9 % Low 19-41 [facility] Basophil percentageOrdered B y: Moon Rosales on 07-18-2024 Basophils/100 WBC (Bld) 0.5 % 0-1 [facility] C. trachomatis rRNA VICKI+prob e Ql (Unsp spec)Ordered By: Moon Rosales on 07-18-2024 Chlamydia DNA (VICKI) Negative Negative [facility] CBC W/Diff, Automatedon 07-05 Absolute Lymph 1.09 X10 3/uL Normal 0.83-4.51 [facility] Comment on above: Performed By: #### L 100.0100, L500.2500 #### [facility] [address] [place], [address] Absolute Neut 4.9 X10 3/uL Normal 2.0-7.7 [facility] Comment on above: Performed By: #### L 100.0100, L500.2500 #### [facility] [address] [place], [address] Basophils/100 WBC (Bld) 0.5 % Normal 0-1 [facility] Comment on above: Performed By: #### L 100.0100, L500.2500 #### [facility] [address] [place], [address] Eosinophils/100 WBC (Bld) 1.4 % Normal 0-5 [facility] Comment on above: Performed By: #### L 100.0100, L500.2500 #### [facility] [address] [place], [address] Erythrocyte distribution width (RBC) [Ratio] 12.8 % Normal 11.6-14.6 [facility] Comment on above: Performed By: #### L 100.0100, L500.2500 #### [facility] [address] [place], [address] Hematocrit (Bld) [Volume fraction] 36.8 % Low 37-47 [facility] Comment on above: Performed By: #### L 100.0100, L500.2500 #### [facility] [address] [place], [address] Hemoglobin (Bld) [Mass/Vol] 12.4 g/dL Normal 12.0-15.0 [facility] Comment on above: Performed By: #### L 100.0100, L500.2500 #### [facility] [address] [place], [address] IG% 0.300 Normal 0.0-0.9 [facility] Comment on above: Result Comment: IG% - Immature Granulocytes (promyelocytes, myelocytes and metamyelocytes) > 1% indicates that a LEFT SHIFT is Present. Performed By: #### L 100.0100, L500.2500 #### [facility] [address] [place], [address] Lymphocytes/100 WBC (Bld) 16.9 % Low 19-41 [facility] Comment on above: Performed By: #### L 100.0100, L500.2500 #### [facility] [address] [place], [address] MCH (RBC) [Entitic mass] 31.8 pg Normal 27.0-32.0 [facility] Comment on above: Performed By: #### L 100.0100, L500.2500 #### [facility] [address] [place], [address] MCHC (RBC) [Mass/Vol] 33.7 g/dL Normal 32-36 [facility] Comment on above: Performed By: #### L 100.0100, L500.2500 #### [facility] [address] [place], [address] MCV (RBC) [Entitic vol] 94.4 fL Normal 81-99 [facility] Comment on above: Performed By: #### L 100.0100, L500.2500 #### [facility] [address] [place], [address] Monocytes/100 WBC (Bld) 4.8 % Normal 0-10 [facility] Comment on above: Performed By: #### L 100.0100, L500.2500 #### [facility] [address] [place], [address] Neutrophils/100 WBC (Bld) 76.1 % High 47-70 [facility] Comment on above: Performed By: #### L 100.0100, L500.2500 #### [facility] [address] [place], [address] Nucleated RBC (Bld) [#/Vol] 0 10*3/uL Normal 0-5 [facility] Comment on above: Performed By: #### L 100.0100, L500.2500 #### [facility] [address] [place], [address] Platelet mean volume (Bld) [Entitic vol] 11.5 fL Normal 6.2-12.0 [facility] Comment on above: Performed By: #### L 100.0100, L500.2500 #### [facility] [address] [place], [address] Platelets (Bld) [#/Vol] 188 10*3/uL Normal 150-450 [facility] Comment on above: Performed By: #### L 100.0100, L500.2500 #### [facility] [address] [place], [address] RBC (Bld) [#/Vol] 3.90 10*6/uL Low 4.2-5.4 [facility] Comment on above: Performed By: #### L 100.0100, L500.2500 #### [facility] [address] [place], [address] RDW SD 43.8 fl Normal 35.1-43.9 [facility] Comment on above: Performed By: #### L 100.0100, L500.2500 #### [facility] [address] [place], [address] WBC (Bld) [#/Vol] 6.4 10*3/uL Normal 4.4-11.0 [facility] Comment on above: Performed By: #### L 100.0100, L500.2500 #### [facility] [address] [place], [address] Chlamydia trachomatis rRNA d etection by probe and target amplification methodOrdered By: Moon oRsales on 07-18-2024 C. trachomatis rRNA VICKI+probe Ql (Unsp spec) Negative Negative [facility] Eosinophil percentageOrdered By: Moon Rosales on 07-18-2024 Eosinophils/100 WBC (Bld) 1.4 % 0-5 [facility] Erythrocyte distribution wid th ratioOrdered By: Moon Rosales on 07-18-2024 Erythrocyte distribution width (RBC) [Ratio] 12.8 % 11.6-14.6 [facility] Erythrocyte distribution wid th standard deviationOrdered By: Moon Rosales on 07-18-2024 Erythrocyte distribution width (RBC) [Entitic vol] 43.8 fL 35.1-43.9 [facility] Erythrocyte distribution width (RBC) [Ratio] 43.8 fl 35.1-43.9 [facility] HBV surface Ag Ql (S)Ordered By: Moon Rosales on 07-18-2024 Hepatitis B Surface Antigen Non-Reactive Nonreactive [facility] Comment on above: Reactive: Presumptiv e evidence of HBV. Repeatedly reactive samples must be confirmed using a neutralization test ([employer] HBsAg Confirmatory Test)Non-Reactive: HBsAg not detected; does not exclude the possibility of exposure to HBV Hematocrit Auto (Bld) [Volum e fraction]Ordered By: Moon Rosales on 07-18-2024 Hematocrit (Bld) [Volume fraction] 36.8 % Low 37-47 [facility] Hemoglobin measurementOrdere d By: Moon Rosales on 07-18-2024 Hemoglobin (Bld) [Mass/Vol] 12.4 g/dL 12.0-15.0 [facility] Hepatitis C antibodyOrdered By: Moon Rosales on 07-18-2024 Hepatitis C Antibody Non-Reactive Nonreactive [facility] Comment on above: Reactive: Presumptiv e evidence of antibodies to HCV. Follow CDC recommendations for supplemental testing.Non-Reactive: Antibodies to HCV were not detected; does not exclude the possibility of exposure to HCVReactive Results are presumptive evidence of antibodies to HCV. Follow CDC recommendations for supplemental testing.Order confirmation testing: HCV Quant by PCR testing - HCVPCR #[id number] Non Reactive: < 0.8 Equivocal: >/= 0.8 to < 1.0 Reactive: >/= 1.0The CDC requires that a reactive/equivocal HCV antibody result be sent out for confirmation. HCV Quant by PCR testing. Immature granulocytes/100 WB C Auto (Bld)Ordered By: Moon Rosales on 07-18-2024 Immature granulocytes/100 WBC (Bld) 0.300 % 0.0-0.9 [facility] Comment on above: IG% - Immature Granu locytes (promyelocytes, myelocytes and metamyelocytes) > 1% indicates that a LEFT SHIFT is Present. L3890.6006on 07-18-2024 HIV No_Result Normal Nonreactive [facility] Comment on above: Result Comment: Non- Reactive Reactive Repeatedly reactive samples must be confirmed according to CDC recommended confirmatory algorithms. The subresults for either HIVAG or AHIV can be used as an aid in the selection of the confirmation algorithm for reactive samples. Send out specimens with Reactive results to [facility] for confirmation. Order the HIV antibody detection and differentiation: #[id number] Performed By: #### L 100.0100, L500.2500 #### [facility] [address] [place], [place], [address] L3890.6102on 07-18-2024 HEP B Surf Ag Non-Reactive Normal Nonreactive [facility] Comment on above: Result Comment: Reac tive: Presumptive evidence of HBV. Repeatedly reactive samples must be confirmed using a neutralization test ([employer] HBsAg Confirmatory Test) Non-Reactive: HBsAg not detected; does not exclude the possibility of exposure to HBV Performed By: #### L 100.0100, L500.2500 #### [facility] [address] [place], [address] L3890.6301on 07-18-2024 Hepatitis C Ab Non-Reactive Normal Nonreactive [facility] Comment on above: Result Comment: Reac tive: Presumptive evidence of antibodies to HCV. Follow CDC recommendations for supplemental testing. Non-Reactive: Antibodies to HCV were not detected; does not exclude the possibility of exposure to HCV Reactive Results are presumptive evidence of antibodies to HCV. Follow CDC recommendations for supplemental testing. Order confirmation testing: HCV Quant by PCR testing - HCVPCR #[id number] Non Reactive: < 0.8 Equivocal: >/= 0.8 to < 1.0 Reactive: >/= 1.0 The [facility] requires that a reactive/equivocal HCV antibody result be sent out for confirmation. HCV Quant by PCR testing. Performed By: #### L 100.0100, L500.2500 #### [facility] [address] [place], [address] L509.4006on 07-18-2024 Rubella IgG REAC Normal Nonreactive [facility] Comment on above: Result Comment: Anti body Result: Interpretation Non-Reactive: Non-Immune Reactive: Immune The following results were obtained with the [employer] Rubella IgG assay. Results from assays of other manufacturers cannot be used interchangeably. Performed By: #### L 100.0100, L500.2500 #### [facility] [address] [place], [address] L509.8002on 07-18-2024 Syphilis Abs Non-Reactive Normal Nonreactive [facility] [facility] Comment on above: Performed By: #### L 100.0100, L500.2500 #### [facility] [address] [place], [address] Laboratory - Microbiology an d Antimicrobial susceptibilityOrdered By: Moon Rosales on 07-18-2024 HBV surface Ag Ql (S) Non-Reactive Nonreactive [facility] Comment on above: Reactive: Presumptiv e evidence of HBV. Repeatedly reactive samples must be confirmed using a neutralization test ([employer] HBsAg Confirmatory Test)Non-Reactive: HBsAg not detected; does not exclude the possibility of exposure to HBV Lymphocytes Auto (Unsp spec) [#/Vol]Ordered By: Moon Rosales on 07-18-2024 Lymphocytes (Bld) [#/Vol] 1.09 10*3/uL 0.83-4.5 1 [facility] Lymphocytes/100 WBC Auto (Un sp spec)Ordered By: Moon Rosales on 07-18-2024 Lymphocytes/100 WBC (Bld) 16.9 % Low 19-41 [facility] MCV (mean corpuscular volume ) determinationOrdered By: Moon Rosales on 07-18-2024 MCV (RBC) [Entitic vol] 94.4 fL 81-99 [facility] Mean corpuscular hemoglobin (MCH) determinationOrdered By: Moon Rosales on 07-18-2024 MCH (RBC) [Entitic mass] 31.8 pg 27.0-32.0 [facility] Mean corpuscular hemoglobin concentration (MCHC) determinationOrdered By: Moon Rosales on 07-18-2024 MCHC (RBC) [Mass/Vol] 33.7 g/dL 32-36 [facility] Mean platelet volume determi nationOrdered By: Moon Rosales on 07-18-2024 Platelet mean volume (Bld) [Entitic vol] 11.5 fL 6.2-12.0 [facility] Monocyte percentageOrdered B y: Moon Rosales on 07-18-2024 Monocytes/100 WBC (Bld) 4.8 % 0-10 [facility] Neisseria gonorrhoeae nuclei c acid detection by amplified probe techniqueOrdered By: Moon Rosales on 07-18-2024 N. gonorrhoeae DNA VICKI+probe Ql (Unsp spec) Negative Negative [facility] Comment on above: Performed at: =[address] [id number] Director: Inga Chau MD, Phone: [phone] Neutrophil percentageOrdered By: Moon Rosales on 07-18-2024 Neutrophils/100 WBC (Bld) 76.1 % High 47-70 [facility] No Panel InformationOrdered By: Moon Rosales on 07-18-2024 HIV (1&2) Antibody No_Result Nonreactive [facility] Comment on above: Non-ReactiveReactive Repeatedly reactive samples must be confirmed according to CDC recommended confirmatory algorithms. The subresults for either HIVAG or AHIV can be used as an aid in the selection of the confirmation algorithm for reactive samples.Send out specimens with Reactive results to [facility] for confirmation.Order the HIV antibody detection and differentiation: #[id number] Nucleated red blood cell per centageOrdered By: Moon Rosales on 07-18-2024 Nucleated RBC/100 WBC (Bld) [Ratio] 0 % 0-5 [facility] Cello Teacher Office Visit Reporton 07-18-2024 Cello Teacher Office Visit Report [facility] [address], [address] [place] [address] OFFICE VISIT Date of Service: 07/18/24 MR#: [id number] Acct: [id number] Name: FRANCINE MANTILLA Rep #: [id number] : 1995 Provider: Dr. Moon Singh, Age/Sex: 29/F Location[place] [facility] Status: Signed Intake Vital Signs 08/24/22 15:42 07/18/24 08:47 07/18/24 08:49 Height 5 ft 6 in 5 ft 6 in 5 ft 6 in Weight: 116 lb 8 oz BMI 18.8 BP 107/69 Intake Visit Reasons: New OB, LMP 05/17, KIRK 02/21 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 Operator Required: No Is patient in pain?: No Allergies penicillin G Allergy (Mild, Verified 07/18/24 08:47) Other nitrous oxide Allergy (Verified 07/18/24 08:47) Other acetaminophen (From Tylenol) Adverse Reaction (Severe, Verified 07/18/24 08:47) Vomiting Medications ???Medication ???Instructions ???Recorded ???Confirmed ???Type [id number] 400 mcg-om3 35 mg-dha 25 tab PO DAILY 04/12/21 0 07/18/24 History mg-epa 5 mg-fish oil chewable tablet ondansetron 4 mg disintegrating 4 mg PO Q6H PRN nausea and 5 07/18/24 Rx tablet vomiting #30 tabs Last Menstrual Period: 05/17/24 Zika: Zika virus screening: Negative : No PFSH PFSH Medical History Anxiety Vaginal delivery Surgical History H/O knee surgery [place] teeth extracted Family History Grandfather Cancer Paternal Social History adopted: No household members: spouse and children housing: house number of children: 2 service: No current occupational status: unemployed current occupation: [employer] pets and animals: No history of recent [...] 3-4 times per week duration: 45-60 minutes/day romero/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 Date Name GA/Weeks Outcome Route Bth Weight Infant Gen Labor Lgth Anesthesia Del Locatn Provider FO 05/20/18 Loyd 37 live - full term 7lbs 0oz Male 8 hours epidural [facility] BELA Mcintyre 04/13/21December 37 live - full term 6#4oz Male epidural [facility] Dr. Ok Mcintyre Delivery Date: 05/20/18 [...] -???-???-???-???-?? ?-???-???-???-? (more content not included)... Normal [facility] Platelet countOrdered By: Johnathon Rosales on 07-18-2024 Platelets (Bld) [#/Vol] 188 10*3/uL 150-450 [facility] RBC Auto (Bld) [#/Vol]Ordere d By: Moon Rosales on 07-18-2024 RBC (Bld) [#/Vol] 3.90 10*6/uL Low 4.2-5.4 [facility] Rubella immune status determ ination by IgG antibody assayOrdered By: Moon Rosales on 07-18-2024 Rubella IgG Antibody REAC Nonreactive [facility] Comment on above: Antibody Result: Int erpretationNon-Reactive: Non-ImmuneReactive: ImmuneThe following results were obtained with the [employer]ys Rubella IgG assay. Results from assays of other manufacturers cannot be used interchangeably. T. pallidum abOrdered By: Johnathon Rosales on 07-18-2024 Syphilis Total Antibody Non-Reactive Nonreactiv e [facility] Type AND Screenon 07-18-2024 Ab SCREEN GEL Negative Normal [facility] Comment on above: Order Comment: PN Performed By: #### L 100.0100, L500.2500 #### [facility] [address] [facility], [address] Urine cultureOrdered By: Mary Rosales on 07-18-2024 Bacteria identified Cx Nom (U) Positive Abnormal [facility] White blood cell (WBC) count Ordered By: Moon Rosales on 07-18-2024 WBC (Bld) [#/Vol] 6.4 10*3/uL 4.4-11.0 [facility] Absolute lymphocyte countOrd ered By: Jorge Golden on 03-09-2023 Lymphocytes Auto (Unsp spec) [#/Vol] 1.65 10*3/uL 0.83-4.51 [facility] Basophil percentageOrdered B y: Jorge Golden on 03-09-2023 Basophils/100 WBC (Bld) 0.7 % 0-1 [facility] Chloride [Moles/Vol] 109 mmol/L 98-107 [facility] Cholesterol [Mass/Vol] 144 mg/dL <200 [facility] Comment on above: <200 mg/dL Desirable 200-240 mg/dL Borderline >240 mg/dL High Risk Eosinophils/100 WBC (Bld) 2.7 % 0-5 [facility] Glucose [Mass/Vol] 90 mg/dL 74-106 [facility] Neutrophils (Bld) [#/Vol] 2.3 10*3/uL 2.0-7.7 [facility] Neutrophils/100 WBC (Bld) 51.6 % 47-70 [facility] Potassium [Moles/Vol] 3.7 mmol/L 3.5-5.1 [facility] Sodium [Moles/Vol] 140 mmol/L 136-145 [facility] Triglyceride [Mass/Vol] 62 mg/dL <199 [facility] Comment on above: The drugs N-Acetylcy steine and Metamizole may falsely depress this assay.Serum Triglycerides Reference Interval Normal <150 mg/dL Borderline high 150 - 199 mg/dL High 200 - 499 mg/dL Very High > or = 500 mg/dL WBC (Bld) [#/Vol] 4.4 10*3/uL 4.4-11.0 [facility] Blood erythrocytes count (nu mber/volume)Ordered By: Jorge Golden on 03-09-2023 RBC (Bld) [#/Vol] 4.27 10*6/uL 4.2-5.4 [facility] Blood hemoglobin measurement (mass/volume)Ordered By: Jorge Golden on 03-09-2023 Hemoglobin (Bld) [Mass/Vol] 13.0 g/dL 12.0-15.0 [facility] Blood lymphocytes/100 leukoc ytesOrdered By: Jorge Golden on 03-09-2023 Lymphocytes/100 WBC (Bld) 37.7 % 19-41 [facility] Blood monocytes/100 leukocyt esOrdered By: Jorge Golden on 03-09-2023 Monocytes/100 WBC (Bld) 7.1 % 0-10 [facility] Blood platelet mean volumeOr dered By: Jorge Golden on 03-09-2023 Platelet mean volume (Bld) [Entitic vol] 11.4 fL 6.2-12.0 [facility] Determination of erythrocyte mean corpuscular volume (MCV)Ordered By: Jorge Golden on 03-09-2023 MCV (RBC) [Entitic vol] 95.8 fL 81-99 [facility] Hematocrit Auto (Bld) [Volum e fraction]Ordered By: Jorge Golden on 03-09-2023 Hematocrit (Bld) [Volume fraction] 40.9 % 37-47 [facility] - Chemistry and C hemistry - challengeOrdered By: Jorge Golden on 03-09-2023 CO2 [Moles/Vol] 28.0 mmol/L 21.0-32.0 [facility] Urea nitrogen/Creatinine [Mass ratio] 24.2 mg/mg 10-20 [facility] - Hematology and Cell countsOrdered By: Jorge Golden on 03-09-2023 Erythrocyte distribution width (RBC) [Entitic vol] 45.1 fL 35.1-43.9 [facility] Erythrocyte distribution width (RBC) [Ratio] 12.7 % 11.6-14.6 [facility] Immature granulocytes/100 WBC (Bld) 0.200 % 0.0-0.9 [facility] Comment on above: IG% - Immature Granu locytes (promyelocytes, myelocytes and metamyelocytes) > 1% indicates that a LEFT SHIFT is Present. MCH (RBC) [Entitic mass] 30.4 pg 27.0-32.0 [facility] Nucleated RBC/100 WBC (Bld) [Ratio] 0 % 0-5 [facility] MCHC Auto (RBC) [Mass/Vol]Or dered By: Jorge Golden on 03-09-2023 MCHC (RBC) [Mass/Vol] 31.8 g/dL 32-36 [facility] No Panel InformationOrdered By: Jorge Golden on 03-09-2023 Estimated GFR (MDRD) Amer 119 mL/min >60 [facility] Comment on above: GFR Calc Estimated GFR (MDRD) Non-Af Amer 98 mL/min >60 [facility] Comment on above: Non- GFR Calc Platelets bldOrdered By: Benjy Golden on 03-09-2023 Platelets (Bld) [#/Vol] 197 10*3/uL 150-450 [facility] Serum or plasma calcium betsy urement (mass/volume)Ordered By: Jorge Golden on 03-09-2023 Calcium [Mass/Vol] 8.9 mg/dL 8.5-10.1 [facility] Serum or plasma cholesterol in HDL measurement (mass/volume)Ordered By: Jorge Golden on 03-09-2023 Cholesterol in HDL [Mass/Vol] 65 mg/dL >40 [facility] Comment on above: The drugs N-Acetylcy steine and Metamizole may falsely depress this assay. Reference Range HDL <40 mg/dL Low HDL Cholesterol HDL >or= 60 mg/dL High HDL Cholesterol Serum or plasma cholesterol in VLDL measurement (mass/volume)Ordered By: Jorge Golden on 03-09-2023 Cholesterol in VLDL [Mass/Vol] 12 mg/dL 5-40 [facility] Serum or plasma creatinine m easurement (mass/volume)Ordered By: Jorge Golden on 03-09-2023 Creatinine [Mass/Vol] 0.74 mg/dL 0.55-1.02 [facility] Comment on above: The validity of the calculated GFR & GFRAA in patients over 70 years has not been determined. Clinical correlation is essential. Serum or plasma low density lipoprotein (LDL) cholesterol measurement (mass/volume)Ordered By: Jorge Golden on 03-09-2023 Cholesterol in LDL [Mass/Vol] 67 mg/dL 0-130 [facility] Serum or plasma urea nitroge n measurement (mass/volume)Ordered By: Jorge Golden on 03-09-2023 Urea nitrogen [Mass/Vol] 18 mg/dL 7-18 [facility] Thin prep Papanicolaou smear with manual screeningOrdered By: Jorge Golden on 03-09-2023 Thin prep Papanicolaou smear with manual screening 3 5-15 [facility] CNPNon 05-13-2020 [facility] Telephone (FPDOYL) ---- FRANCINE MANTILLA ([id number]) 1995 F Date Time Provider Department 05/13/20 TOYA RAMIREZ During your visit today, we recorded the following information about you: Toya Salazar DO [facility] 05/13/2020 2:37 PM Signed Echo normal Madelaine Mojica LPN, LPN 05/13/2020 4:41 PM Signed Patient informed. Allergies As of Date: 05/13/2020 Noted Allergy Reaction PENICILLINS 01/17/2018 14 - Other: See Comments Comments: Family history of allergy. Pt. Has never had medication. TYLENOL (ACETAMINOPHEN) 08/23/2015 8 - GI Upset Comments: emesis Date Reviewed: 04/06/2020 Reviewed by: Christel Meza - Fully Assessed Reason for Visit: Film Cath/Echo [0610] Report On Audiogram [1182] Prescriptions as of 05/13/2020 Sig: LO LOESTRIN FE 1 MG-10 MCG (2* Take 1 tablet by mouth once d* Problem List As Of Date: 05/13/2020 (None) Encounter Status:Closed by TOYA RAMIREZ on 05/13/20 [facility] CNPN Telephone (FPDOYL) ---- FRANCINE MANTILLA ([id number]) 1995 F Date Time Provider Department 05/13/20 TOYA RAMIREZYL During your visit today, we recorded the following information about you: Toya Salazar DO [facility] 05/13/2020 3:42 PM Signed Echo ok Madelaine [...] Status:Closed by MADELAINE MOJICA LPN on 05/13/20 [facility] Luís 04-05-2020 CNPN Telephone (FPDOYL) ---- FRANCINE MANTILLA ([id number]) 1995 F Date Time Provider Department 04/05/20 YUMIKO HERNANDEZ FPYL During your visit today, we recorded the following information about you: Raven Martinezannette 04/05/2020 2:13 PM Signed ----- Message from Savannah Cárdenas sent at 04/05/2020 1:22 PM EST ----- Regarding: medicine / franko / Lab Work Subject Line Format: Medicine [...] other than patient: na Best contact number: [phone] Savannah Sellers April 05, 2020 1:22 PM Raven Young 04/05/2020 2:15 PM Signed Advised Pt that she must be seen on 04/28/2020 to get the lab order. Lab orders are not written prior to appointment. Ravenkaveh Young Allergies As of Date: 04/05/2020 Noted Allergy Reaction TYLENOL (ACETAMINOPHEN) 08/23/2015 8 - GI Upset Comments: emesis Date Reviewed: 05/15/2016 Reviewed by: Alondra Montgomery Ma - Fully Assessed Reason for Visit: Patient Question [0453] Cmt: wanted a lab order Prescriptions as of 04/05/2020 Sig: NORGESTIMATE 0.25 MG-ETHINYL * Take 1 tablet by mouth once d* Problem List As Of Date: 04/05/2020 (None) Encounter Status:Closed by RAVEN YOUNG on 04/05/20 [facility] (JOSEFINADOYL) ---- FRANCINE MANTILLA ([id number]) 1995 F Date Time Provider Department 03/26/20 [...] l SVT (supraventricular tachycardia) (HCC) [I47.1] Order(s):ECHO [109132] Order #: [id number]: 1 FUTURE perflutren lipid microspheres 1.3 mL [...] Encounter Status:Closed by TOYA RAMIREZ on 03/26/20 [facility] CNPN Telephone (VALERIYYL) ---- FRANCINE MANTILLA ([id number]) 1995 F Date Time Provider Department 03/26/20 YUMIKO HERNANDEZ During your visit today, we recorded the following information about you: Kelle Barbour 03/26/2020 8:23 AM Signed Patient called with concern of anxiety with episode in the middle of the night of increased heart rate. Patient requesting echo. Please advise. Toay Ramirez DO 03/26/2020 9:08 AM Signed Ordered [...] Primary Visit Diagnosis:Paroxysma l SVT (supraventricular tachycardia) ([facility]) [I47.1] Order(s):ECHO [623544] Order #: [id number]: 1 FUTURE perflutren lipid microspheres 1.3 mL [...] Encounter Status:Closed by TOYA RAMIREZ on 03/26/20 [facility] Vital Signs Date Time Vital Sign Value Performing Clinician [facility] 01-16-2025 10:18-0400 Body height 167.[address] Chaim Golden MD Work Phone: [facility] 01-16-2025 10:18-0400 Body mass index (BMI) [Ratio] 21.9 kg/m2 Dr. Chaim Golden MD Work Phone: [facility] 01-16-2025 10:18-0400 Body weight 61.[address] Chaim Golden MD Work Phone: [facility] 01-16-2025 10:18-0400 Diastolic blood pressure 69 mm[Hg] Dr. Chaim Golden MD Work Phone: [facility] 01-16-2025 10:18-0400 Systolic blood pressure 106 mm[Hg] Dr. Chaim Golden MD Work Phone: [facility] 12-31-2024 11:50-0400 Body height 167.[address] Chaim Golden MD Work Phone: 1(666)453-716393 [place] [address] 12-31-2024 11:50-0400 Body mass index (BMI) [Ratio] 22.1 kg/m2 Dr. Chaim Golden MD Work Phone: [facility] 12-31-2024 11:50-0400 Body weight 62.[address] Chaim Golden MD Work Phone: [facility] 12-31-2024 11:50-0400 Diastolic blood pressure 72 mm[Hg] Dr. Chaim Golden MD Work Phone: [facility] 12-31-2024 11:50-0400 Systolic blood pressure 112 mm[Hg] Dr. Chaim Golden MD Work Phone: [facility] 12-16-2024 11:03-0400 Body height 167.[address] Chaim Golden MD Work Phone: [facility] 12-16-2024 11:03-0400 Body mass index (BMI) [Ratio] 21.9 kg/m2 Dr. Chaim Golden MD Work Phone: [facility] 12-16-2024 11:03-0400 Body weight 61.[address] Chaim Golden MD Work Phone: [facility] 12-16-2024 11:03-0400 Diastolic blood pressure 68 mm[Hg] Dr. Chaim Golden MD Work Phone: 5(436)072-965593 [place] [address] 12-16-2024 11:03-0400 Systolic blood pressure 102 mm[Hg] Dr. Chaim Golden MD Work Phone: 9(084)410-735693 [place] [address] 12-02-2024 13:04-0400 Body height 167.[address] Chaim Golden MD Work Phone: 5(929)627-263828 [place] [address] 12-02-2024 13:04-0400 Body mass index (BMI) [Ratio] 21.2 kg/m2 Dr. Chaim Golden MD Work Phone: 8(424)254-344328 [place] [address] 12-02-2024 13:04-0400 Body weight 59.[address] Chaim Golden MD Work Phone: 5(013)326-402228 [place] [address] 12-02-2024 13:04-0400 Diastolic blood pressure 62 mm[Hg] Dr. Chaim Golden MD Work Phone: 8(544)038-069228 [place] [address] 12-02-2024 13:04-0400 Systolic blood pressure 98 mm[Hg] Dr. Chaim Golden MD Work Phone: 2(508)750-300828 [place] [address] 10-29-2024 11:31-0400 Body height 167.[address] Chaim Golden MD Work Phone: 3(964)386-625928 [place] [address] 10-29-2024 11:30-0400 Body mass index (BMI) [Ratio] 20.7 kg/m2 Dr. Chaim Golden MD Work Phone: 2(657)069-463293 [place] [address] 10-29-2024 11:30-0400 Body weight 58.[address] Chaim Golden MD Work Phone: 0(046)916-459328 [place] [address] 10-29-2024 11:30-0400 Diastolic blood pressure 67 mm[Hg] Dr. Chaim Golden MD Work Phone: 9(591)385-982033 [address] 10-29-2024 11:30-0400 Systolic blood pressure 101 mm[Hg] Dr. Chaim Golden MD Work Phone: 5(425)261-151493 [place] [address] 10-03-2024 09:19-0400 Body height 167.[address] Chaim Golden MD Work Phone: 3(983)725-020828 [place] [address] 10-03-2024 09:15-0400 Body mass index (BMI) [Ratio] 20.2 kg/m2 Dr. Chaim Golden MD Work Phone: 8(044)835-787528 [place] [address] 10-03-2024 09:15-0400 Body weight 56.[address] Chaim Golden MD Work Phone: 6(182)830-587928 [place] [address] 10-03-2024 09:15-0400 Diastolic blood pressure 70 mm[Hg] Dr. Chaim Golden MD Work Phone: 7(648)836-728628 [place] [address] 10-03-2024 09:15-0400 Systolic blood pressure 105 mm[Hg] Dr. Chaim Golden MD Work Phone: 9(754)370-466328 [place] [address] 09-11-2024 12:02-0400 Diastolic blood pressure 56 mm[Hg] Dr. Chaim Golden MD Work Phone: 0(643)060-794128 [place] [address] 09-11-2024 12:02-0400 Heart rate 75 /min Dr. Chaim Golden MD Work Phone: 9(211)316-051928 [place] [address] 09-11-2024 12:02-0400 Systolic blood pressure 92 mm[Hg] Dr. Chaim Golden MD Work Phone: 4(004)817-716128 [place] [address] 09-11-2024 10:44-0400 Body height 167.[address] Chaim Golden MD Work Phone: 0(364)964-303728 [place] [address] 09-11-2024 10:44-0400 Body mass index (BMI) [Ratio] 19.2 kg/m2 Dr. Chaim Golden MD Work Phone: 2(381)580-143528 [place] [address] 09-11-2024 10:44-0400 Body temperature 97.3 [degF] Dr. Chaim Golden MD Work Phone: 7(167)549-806728 [place] [address] 09-11-2024 10:44-0400 Body weight 53.[address] Chaim Golden MD Work Phone: [facility] 09-11-2024 10:44-0400 Respiratory rate 16 /min Dr. Chaim Golden MD Work Phone: [facility] 09-11-2024 10:44-0400 SaO2% (BldA) [Mass fraction] 95 % Dr. Chaim Golden MD Work Phone: 7(764)040-707993 [place] [address] 09-05-2024 09:48-0400 Body mass index (BMI) [Ratio] 19.2 kg/m2 Dr. Chaim Golden MD Work Phone: 3(088)476-069533 [address] 09-05-2024 09:48-0400 Body weight 54.[address] Chaim Golden MD Work Phone: 5(554)057-702933 [address] 09-05-2024 09:48-0400 Diastolic blood pressure 64 mm[Hg] Dr. Chaim Golden MD Work Phone: [facility] 09-05-2024 09:48-0400 Systolic blood pressure 101 mm[Hg] Dr. Chaim Golden MD Work Phone: [facility] 09-02-2024 12:59-0400 Diastolic blood pressure 55 mm[Hg] Dr. Chaim Golden MD Work Phone: [facility] 09-02-2024 12:59-0400 Heart rate 82 /min Dr. Chaim Golden MD Work Phone: [facility] 09-02-2024 12:59-0400 Systolic blood pressure 97 mm[Hg] Dr. Chaim Golden MD Work Phone: [facility] 09-02-2024 11:44-0400 Body height 167.[address] Chaim Golden MD Work Phone: [facility] 09-02-2024 11:44-0400 Body temperature 97 [degF] Dr. Chaim Golden MD Work Phone: 9(800)804-821293 [place] [address] 09-02-2024 11:44-0400 Respiratory rate 16 /min Dr. Chaim Golden MD Work Phone: 4(438)802-881093 [place] [address] 09-02-2024 11:44-0400 SaO2% (BldA) [Mass fraction] 100 % Dr. Chaim Golden MD Work Phone: 2(023)020-890728 [place] [address] 08-26-2024 12:48-0400 Body temperature 98.2 [degF] Dr. Chaim Golden MD Work Phone: 7(694)002-706528 [place] [address] 08-26-2024 12:48-0400 Diastolic blood pressure 77 mm[Hg] Dr. Chaim Golden MD Work Phone: 7(605)148-171428 [place] [address] 08-26-2024 12:48-0400 Heart rate 78 /min Dr. Chaim Golden MD Work Phone: 4(279)096-235828 [place] [address] 08-26-2024 12:48-0400 Respiratory rate 19 /min Dr. Chaim Golden MD Work Phone: 4(723)545-398528 [place] [address] 08-26-2024 12:48-0400 SaO2% (BldA) [Mass fraction] 97 % Dr. Chaim Golden MD Work Phone: 3(655)199-808928 [place] [address] 08-26-2024 12:48-0400 Systolic blood pressure 110 mm[Hg] Dr. Chaim Golden MD Work Phone: 5(331)514-587028 [place] [address] 08-26-2024 11:03-0400 Body mass index (BMI) [Ratio] 19 kg/m2 Dr. Chaim Golden MD Work Phone: 9(970)872-147128 [place] [address] 08-26-2024 11:03-0400 Body weight 53.[address] Chaim Golden MD Work Phone: 2(378)534-278128 [place] [address] 08-06-2024 09:13-0400 Body mass index (BMI) [Ratio] 18.7 kg/m2 Dr. Chaim Golden MD Work Phone: 7(466)541-382828 [place] [address] 08-06-2024 09:13-0400 Body weight 52.[address] Chaim Golden MD Work Phone: [facility] 08-06-2024 09:13-0400 Diastolic blood pressure 69 mm[Hg] Dr. Chaim Golden MD Work Phone: [facility] 08-06-2024 09:13-0400 Systolic blood pressure 110 mm[Hg] Dr. Chaim Golden MD Work Phone: 3(906)840-074693 [place] [address] 07-18-2024 08:49-0400 Body height 167.[address] Chaim Golden MD Work Phone: 2(285)358-626233 [address] 07-18-2024 08:47-0400 Body mass index (BMI) [Ratio] 18.8 kg/m2 Dr. Chaim Golden MD Work Phone: 5(386)611-707493 [place] [address] 07-18-2024 08:47-0400 Body weight 52.[address] Chaim Golden MD Work Phone: [facility] 07-18-2024 08:47-0400 Diastolic blood pressure 69 mm[Hg] Dr. Chaim Golden MD Work Phone: [facility] 07-18-2024 08:47-0400 Systolic blood pressure 107 mm[Hg] Dr. Chaim Golden MD Work Phone: [facility] 08-24-2022 15:42-0400 Body height 167.[address] Jorge Golden Work Phone: [facility] 08-24-2022 15:38-0400 Body mass index (BMI) [Ratio] 18.9 kg/m2 Dr. Jorge Golden Work Phone: [facility] 08-24-2022 15:38-0400 Body weight 53.[address] Jorge Golden Work Phone: [facility] 08-24-2022 15:38-0400 Diastolic blood pressure 71 mm[Hg] Dr. Jorge Golden Work Phone: [facility] 08-24-2022 15:38-0400 Systolic blood pressure 114 mm[Hg] Dr. Jorge Golden Work Phone: [facility] 05-31-2022 09:32-0500 Body mass index (BMI) [Ratio] 18.6 kg/m2 Dr. Jorge Golden Work Phone: [facility] 05-31-2022 09:32-0500 Body weight 52.[address] Jorge Golden Work Phone: [facility] 05-31-2022 09:32-0500 Diastolic blood pressure 62 mm[Hg] Dr. Jorge Golden Work Phone: [facility] 05-31-2022 09:32-0500 Systolic blood pressure 96 mm[Hg] Dr. Jorge Golden Work Phone: [facility] Encounters Encounter Date Encounter Type Care Provider Facility Start: 01-29-2025 ambulatory Moon Cardozoty:[facility] Start: 01-23-2025 ambulatory Chrissy Lucas Facility :[facility] Start: 01-23-2025 End: 01-23-2025 ambulatory Chrissy Lucas [place] Start: 01-16-2025 End: 01-16-[address] Tricia Euceda MD -[facility] Work Phone: Start: 01-16-2025 End: 01-16-[address] Chaim Golden MD Work Phone: [facility] Start: 12-31-2024 End: 12-31-[address] Moon Reddy DO -[facility] Work Phone: Start: 12-31-2024 End: 12-31-[address] Chaim Golden MD Work Phone: [facility] Start: 12-16-2024 End: 12-16-2024 Patient encounter procedure Chrissy Lucas CNM -[facility] Work Phone: Start: 12-16-2024 End: 12-16-[address] Chaim Golden MD Work Phone: -[facility] Start: 12-02-2024 End: 12-02-2024 Patient encounter procedure Carmelina Morin DATA ENTRY REPRESENTATIVE-C -[facility] Work Phone: Start: 12-02-2024 End: 12-02-[address] Chaim Golden MD Work Phone: -[facility] Start: 12-02-2024 End: 12-02-2024 ambulatory Carmelina Morin Facility:[facility] Start: 10-29-2024 End: 10-29-[address] Moon Reddy DO -[facility] Work Phone: Start: 10-29-2024 End: 10-29-[address] Chaim Golden MD Work Phone: [facility] Work Phone: Start: 10-03-2024 End: 10-03-[address] Tricia Euceda MD -[facility] Work Phone: Start: 10-03-2024 End: 10-03-[address] Chaim Goledn MD Work Phone: [facility] Work Phone: Start: 10-02-2024 End: 10-03-2024 ambulatory [facility]NY [facility] Start: 09-11-2024 End: 09-11-[address] Tricia Euceda MD -[facility] Work Phone: Start: 09-11-2024 End: 09-11-[address] Chaim Golden MD Work Phone: [facility] Work Phone: Start: 09-05-2024 End: 09-05-2024 Patient encounter procedure Chrissy STEPHENSON -[facility] Work Phone: Start: 09-05-2024 End: 09-05-2024 ambulatory Chrissy Lucas Facility:[facility] Start: 09-02-2024 End: 09-02-[address] Tricia Euceda MD -[facility] Work Phone: Start: 09-02-2024 End: 09-02-[address] Chaim Golden MD Work Phone: [facility] Work Phone: Start: 08-26-2024 End: 08-26-2024 Emergency department patient visit Dr. Clarence Wolff DO -Emergency Department Work Phone: Start: 08-06-2024 End: 08-06-[address] Tricia Euceda MD -[facility] Work Phone: Start: 08-06-2024 End: 08-06-2024 ambulatory Tricia Euceda Facility[place] Start: 07-18-2024 End: 07-18-[address] Moon Reddy DO -[facility] Work Phone: Start: 07-18-2024 End: 07-18-[address] Chaim Golden MD Work Phone: [facility] Work Phone: Start: 07-18-2024 End: 07-18-2024 ambulatory Moon Reddy Facility:[facility] Start: 04-21-2024 End: 06-18-2024 ambulatory SANIA SOUSA PA-C Facility:[facility] Start: 04-21-2024 End: 06-18-2024 Physical therapy management SANIA SOUSA PA-C [facility] Start: 03-09-2023 End: 03-09-2023 ambulatory [facility] Work Phone: Start: 03-09-2023 End: 03-09-2023 Patient encounter procedure [facility] Start: 09-01-2022 End: 09-01-[address] Jorge Golden Work Phone: [facility] Work Phone: Start: 09-01-2022 End: 09-01-[address] Jorge Golden Work Phone: [facility]Physical Therapy Start: 08-24-2022 End: 08-24-[address] Jorge Golden Work Phone: [facility], Specimen Start: 08-24-2022 End: 08-24-[address] Jorge Golden Work Phone: [facility] Start: 05-31-2022 End: 05-31-[address] Jorge Golden Work Phone: [facility] Procedures Date Procedure Procedure Detail Performing [...] HCV Quant by PCR testing - HCVPCR #[id number] Non Reactive: < 0.8 Equivocal: >/= 0.8 [...] CBC W Auto Differential panel - Blood [facility] Start: 12-02-2024 Measurement of glucose 2 hours after glucose challenge for glucose tolerance test [facility] Start: 12-02-2024 Serologic test for syphilis [facility] Start: 12-02-2024 [facility] Start: 10-03-2024 CBC W Auto Differential panel - Blood [facility] Start: 10-03-2024 [facility] Start: 09-11-2024 Iv infusion hydration initial 31 min-1 hour HYDRATION IV INFUSION [facility] Start: 09-02-2024 Iv infusion hydration initial 31 min-1 hour HYDRATION IV INFUSION [facility] Start: 08-26-2024 [facility] Start: 08-24-2022 Liquid based cervical cytology screening [facility] Start: 04-04-2017 End: 04-04-2017 Appointment Appointment [facility] CBC W Auto Different ial panel - Blood [facility] Erythrocyte mean corpuscular volume determination [facility] Erythrocyte mean corpuscular volume determination [facility] Hematocrit [Volume Fraction] of Blood [facility] Hematocrit [Volume Fraction] of Blood [facility] Hemoglobin [Mass/vol ume] in Blood [facility] Hemoglobin [Mass/vol ume] in Blood [facility] Leukocytes [#/volume ] in Blood [facility] Leukocytes [#/volume ] in Blood [facility] Mean corpuscular hemoglobin concentration determination [facility] Mean corpuscular hemoglobin concentration determination [facility] Mean corpuscular hemoglobin determination [facility] Mean corpuscular hemoglobin determination [facility] Measurement of gluco se 2 hours after glucose challenge for glucose tolerance test [facility] Neutrophil count [facility] Neutrophil count [facility] Neutrophil percent differential count [facility] Neutrophil percent differential count [facility] Path report.final Dx Spec [facility] Patient Education ED Hyperemesis Gravidarum ED ED Vomiting (Adult) [facility] Work Phone: Patient referral [facility] Work Phone: Platelets [#/volume] in Blood [facility] Platelets [#/volume] in Blood [facility] Red blood cell count [facility] Red blood cell count [facility] Red cell distributio n width determination [facility] Red cell distributio n width determination [facility] Serologic test for syphilis [facility] Payers Date Payer Category Payer Self-pay [id number] 2023 Unknown [id number] 2023 Unknown [id number] 1994 Unknown [id number] 2.16.8 [id number] 1994 Unknown [id number] 2.16. [id number] Unknown ANTHEM [id number] Unknown [employer]ENN [employer] [facility] [id number] Unknown [id number] 2.16.8 [id number] Unknown [id number] 2.16.8 40.1.226017.3.579.2.462 Unknown [id number] 2.16.8 40.1.651911.3.579.2.462 Unknown [id number] 2.16.8 40.1.075785.3.579.2.462 Unknown [id number] 2.16.8 40.1.365752.3.579.2.462 Unknown [id number] 2.16.8 40.1.043471.3.579.2.462 Unknown [id number] 2.16.8 40.1.033777.3.579.2.462 Unknown [id number] 2.16.8 40.1.380642.3.579.2.462 Unknown [id number] 2.16.8 40.1.276911.3.579.2.462 Unknown [id number] 2.16.8 40.1.638945.3.579.2.462 Unknown [id number] 2.16.8 40.1.245634.3.579.2.462 Unknown [id number] 2.16.8 40.1.067396.3.579.2.462 Unknown [id number] 2.16.8 40.1.778080.3.579.2.462 Unknown [id number] 2.16.8 40.1.261405.3.579.2.462 Unknown [id number] 2.16.8 40.1.932293.3.579.2.462 Unknown [id number] 2.16.8 40.1.113344.3.579.2.462 Unknown [id number] 2.16.8 40.1.630048.3.579.2.462 Unknown [id number] 2.16.8 40.1.885051.3.579.2.462 Social History Date Type Detail Facility Start: 08-24-2022 End: 08-24-2022 Tobacco smoking status NHIS Unknown if ever smoked [facility] Start: 05-21-2018 None [facility] Start: 1995 Sex Assigned At Female [facility] Tobacco smoking status [facility] Start: 04-18-2024 End: 04-30-2025 Sex Female (finding) [facility] Start: 06-24-2024 End: 08-26-2024 Tobacco smoking status NHIS Never smoked tobacco (finding) [facility] Functional Status Date Assessment Result Facility [...] present Foot: Pes planus, pes cavus, hallux [id number], pronation/supination Functional Strength: ASLR: 7, Squat pattern : part range: tends to hip hinge with limited load on the quadriceps. [facility] Mental Status Date Assessment Result Facility 09-11-2024 Cognitive function Voice/Name [facility] Work Phone: 09-02-2024 Cognitive function Awake;Alert;A ppropriate;Fol lows Commands [facility] Work Phone: Clinical Notes 09-01-2022 to 01-16-2025 Note Date & Type Note Facility 01-16-2025 Progress note [facility] 12-31-2024 Progress note [facility] 12-16-2024 Progress note [facility] 10-29-2024 Progress note [facility] 10-03-2024 Evaluation note Diagnosis Onset Date Resolution acute October 03, 2024 9:11am Supervision of normal acute October 03, 2024 9 :11am acute October 29 11:29am Supervision of normal acute October 29, 2024 11:29am acute December 02 12:44pm Supervision of normal acute December 02, 2024 12:44pm acute December 16 11:00am Supervision of normal acute December 16 11:00am acute December 31 11:47am Supervision of normal acute December 31 11:47am acute January 10:04am Supervision of normal acute January 16, 2025 10:04am [facility] Work Phone: 1(666) 868-525805-30-2025 Progress [facility] [address] [place] [address], [address] [place] [address] OFFICE VISIT Date of Service: 10/03/24 MR#: [id number] Acct: [id number] Name: FRANCINE MANTILLA Rep #: [id number] : 1995 Provider: Dr. 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 Operator Required: No Is patient in pain?: No Feel stressed/tense/nervous/anxious/difficulty sleeping: not at all Allergies penicillin G Allergy (Mild, Verified 10/03/24 09:15) Other nitrous oxide Allergy (Verified 10/03/24 09:15) Other acetaminophen (From Tylenol) Adverse Reaction (Severe, Verified 10/03/24 09:15) Vomiting Medications ?Medication ?Instructions ?Recorded ?Confirmed ?Type OSP26-OK 400 mcg-om3 35 mg-dha 25 1 tab [...] Vaginal delivery Surgical History H/O knee surgery [place] teeth extracted Family History Grandfather Cancer Paternal Social History adopted: No household members: spouse and children housing: house number of children: 2 current occupational status: unemployed current occupation: [employer] pets and animals: No history of recent [...] 3-4 times per week duration: 45-60 minutes/day romeor/synagogue: Church seatbelt use: always do you feel safe [...] 7lbs 0oz Male 8 hours e pidural [facility] BELA Mcintyre 04/13/21December 37 live - full term 6#4oz Male epidu ral [facility] Dr. Ok Mcintyre Delivery Date: 05/20/18 [...] fluids. nausea is improving. US scheduled with [facility] 10/03/24 -?-?-?-?-?-?-?-?-?-?-?-?- 19w 6d 125 lb [...] preference, Signs and Symptoms of Preeclampsia and [employer] Results POC Urinalysis 2 Dip (Clinic) [...] PRR , KIRK 02/21/25, [facility], [place], [place] Javier (2) : Status: Acute Qualifiers: Weeks of gestation: 19 weeks Qualified Code(s): Z3A.19 - 19 weeks gestation of Comment: declined NIPT & Carrier testing Orders: Orders POC Urinalysis 2 Dip (Clinic) Today 10/03/24 0944 mallory COSBY> Date _ Tricia Euceda MD Cosigner Signature: Date (if applicable) CC: ~ [facility]05-02-2025 Evaluation note* Diagnosis Onset Date [...] normal acut e December 16, 2024 11:00am [facility] Work Phone: [phone]) [phone] Evaluation note* Diagnosis Onset Date Resolution Status [...] December 16, 2024 11:00am acute December 31 025 11:47am Supervision of normal acut e December 31, 2024 11:47am [facility] Work Phone: [phone] Evaluation note* Diagnosis Onset Date Resolution Status [...] normal acut e December 02, 2024 12:44pm [facility] Work Phone: [phone] Evaluation note* Diagnosis Onset Date Resolution Status Admit Date Cervical ectropion acute July 18, 2024 8:43am acute July 18 8:43am Supervision of normal acut e July 18, 2024 8:43am Tilted uterus acute July 18, 2024 8:43am Underweight (BMI < 18.5) acute July 18, 2024 8:43am [facility] Work Phone: 1(515) 339-357903-14-2025 Evaluation note* Diagnosis Onset Date Resolution Status Admit Date acute July 18 8:43am Supervision of normal acute July 18, 2024 8:43am Cervical ectropion resolved July 18, 2024 8:43am Tilted uterus resolved July 18, 2024 8:43am Underweight (BMI < 18.5) resolved July 18, 2024 8:43am acute August 06 9:02am Supervision of normal acute August 06, 2024 9:02am [facility] Work Phone: 1(435) 251-384303-14-2025 Evaluation note* Diagnosis Onset Date Resolution Status [...] normal acute September 05, 2024 9: 46am [facility] Work Phone: [phone]) 456-792203-14-2025 Evaluation note* Diagnosis Onset Date Resolution Status [...] normal acute October 03, 2024 9 :11am [facility] Work Phone: 1([phone]) 139-477403-14-2025 Evaluation note* Diagnosis Onset Date Resolution Status [...] of normal acute October 29, 2024 11:29am [facility] [employer] Work Phone: 1([phone]) 561-303004-28-2023 Discharge summary Author Keara Waller [facility] September 01, 2022 10:43am Note Date/Time September 01, 2022 10: 43am [facility] Physical Therapy [facility] [address] [place] [address] / REHABILITATION SERVICES DISCHARGE SUMMARY MR#: [id number] Acct: [id number] Name: FRANCINE MANTILLA Rep #: [id number] [...] please feel free to call me at [phone]. Thank you for the referral of thispatient. Sincerely, Keara Waller, PT, Cert MDT Balance/Gait/Functional tests - Balance/Special Test Scores Lower Extremity Functional Score: 71 <Electronically signed by Keara Waller PT, Cert. MDT> 09/01/22 1043 CC: Dr. Jorge Golden MD; Dr. Clif Mendieta MD ~ IVA Signed [facility] Work Phone: Evaluation + Plan note No data available for this section [facility] Evaluation note* Diagnosis Onset Date Resolution Status Cervicitis resolved Encounter for routine gynecological examination noneactive Cervical ectropion acute [facility] Work Phone: Evaluation noteNo assessment information available [facility] Work Phone: Hospital Discharge instructions No data available for this section [facility] Progress note No data available for this section [facility] Progress note Author Tricia Euceda [facility] Note Date/Time October 03, 2024 9:44a m [facility] [address], [address] [place] [address] OFFICE VISIT Date of Service: 10/03/24 MR#: [id number] Acct: [id number] Name: FRANCINE MANTILLA RAJIV Rep #: [id number] : 1995 Provider: Dr. 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 Operator Required: No Is patient in pain?: No Feel stressed/tense/nervous/anxious/difficulty sleeping: not at all Allergies penicillin G Allergy (Mild, Verified 10/03/24 09:15) Other nitrous oxide Allergy (Verified 10/03/24 09:15) Other acetaminophen (From Tylenol) Adverse Reaction (Severe, Verified 10/03/24 09:15) Vomiting Medications ?Medication ?Instructions ?Recorded ?Confirmed ?Type [id number]-RT 400 mcg-om3 35 mg-dha 25 1 tab [...] Vaginal delivery Surgical History H/O knee surgery [place] teeth extracted Family History Grandfather Cancer Paternal Social History adopted: No household members: spouse and children housing: house number of children: 2 current occupational status: unemployed current occupation: [employer] pets and animals: No history of recent [...] 3-4 times per week duration: 45-60 minutes/day romero/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 Date Name GA/Weeks Outcome Route Bth Weight Gen Labor Lgth Anesthesia Del Locatn Provider FOChantelle 05/20/18 37 live - full term 7lbs 0oz Male 8 hours e pidural [facility] BELA Francisco Javier 04/13/21December live - full term 6#4oz Male epidu ral [facility] Dr. Ok Mcintyre Delivery Date: 05/20/18 [...] preference, Signs and Symptoms of Preeclampsia and [employer] Results POC Urinalysis 2 Dip (Clinic) [...] POC Urinalysis 2 Dip (Clinic) Today 10/03/24 4723 <Electronically signed by Tricia tejada MD> Date _ Tricia Euceda MD Cosigner Signature: Date (if applicable) CC: ~ [facility] Work Phone: Progress note Author Moon Rosales [facility] Note Date/Time October 29, 2024 11:5 4am [facility] [address], [address] [place] [address] OFFICE VISIT Date of Service: 10/29/24 MR#: [id number] Acct: [id number] Name: FRANCINE MANTILLA Rep #: [id number] : 1995 Provider: Dr. 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 Is patient in pain?: No Allergies penicillin G Allergy (Mild, Verified 10/29/24 11:30) Other nitrous oxide Allergy (Verified 10/29/24 11:30) Other acetaminophen (From Tylenol) Adverse Reaction (Severe, Verified 10/29/24 11:30) Vomiting Medications ?Medication ?Instructions ?Recorded ?Confirmed ?Type UFW07-NP 400 mcg-om3 35 mg-dha 25 1 tab [...] Vaginal delivery Surgical History H/O knee surgery [place] teeth extracted Family History Grandfather Cancer Paternal Social History adopted: No household members: spouse and children housing: house number of children: 2 current occupational status: unemployed current occupation: [employer] pets and animals: No history of recent [...] 3-4 times per week duration: 45-60 minutes/day romero/synagogue: Church seatbelt use: always do you feel safe [...] 7lbs 0oz Male 8 hours e pidural [facility] BELA Mcintyre 04/13/21December 37 live - full term 6#4oz Male epidu ral [facility] Dr. Ok Mcintyre Delivery Date: 05/20/18 [...] fluids. nausea is improving. US scheduled with [facility] 10/03/24 -?-?-?-?-?-?-?-?-?-?-?-?- 19w 6d 125 lb [...] preference, Signs and Symptoms of Preeclampsia and [employer] Results POC Urinalysis 2 Dip (Clinic) [...] PRR , KIRK 02/21/25, [facility], [place], [place] Javier (2) : Status: Acute Qualifiers: [...] Cosigner Signature: Date (if applicable) CC: ~ [facility] Work Phone: Progress note Author Chrissy Lucas [facility] Note Date/Time December 16, 2024 11 :22am [facility] [address] [place] [address], [address] [place] [address] OFFICE VISIT Date of Service: 12/16/24 MR#: [id number] Acct: [id number] Name: FRANCINE MANTILLA Rep #: [id number] : 1995 Provider: MONSE Lucas Age/Sex: 29/F [place] [facility] Status: Signed Intake Vital Signs 10/03/24 09:19 12/02/24 13:04 12/16/24 11:03 Height 5 ft 6 in 5 ft 6 in 5 ft 6 in Weight: 135 lb 8 oz BMI 21.9 BP 102/68 Intake Visit Reasons: 31 wk ob Chief Complaint: 31wk ob 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 Operator Required: No Is patient in pain?: No Allergies penicillin G Allergy (Mild, Verified 12/16/24 11:01) Other nitrous oxide Allergy (Verified 12/16/24 11:01) Other acetaminophen (From Tylenol) Adverse Reaction (Severe, Verified 12/16/24 11:01) Vomiting Medications ?Medication ?Instructions ?Recorded ?Confirmed ?Type BLT03-LW 400 mcg-om3 35 mg-dha 25 1 tab [...] Vaginal delivery Surgical History H/O knee surgery [place] teeth extracted Family History Grandfather Cancer Paternal Social History adopted: No household members: spouse and children housing: house number of children: 2 current occupational status: unemployed current occupation: [employer] pets and animals: No history of recent [...] 3-4 times per week duration: 45-60 minutes/day romero/synagogue: Church seatbelt use: always do you feel safe [...] 7lbs 0oz Male 8 hours e pidural [facility] BELA Francisco Javier 04/13/21December live - full term 6#4oz Male epidu ral [facility] Dr. Ok Mcintyre Delivery Date: 05/20/18 [...] and Symptoms of Preeclampsia, Feeding No , [employer] and Family Medical Leave or Disability [...] glucola, , KIRK 02/21/25, [facility], [place], [place] Javier (2) : Status: Acute Qualifiers: [...] Cosigner Signature: Date (if applicable) CC: ~ [facility] Work Phone: Progress note Author Moon Rosales [facility] Note Date/Time December 31, 2024 12 :19pm [facility] [address] [place] [address], [address] [place] [address] OFFICE VISIT Date of Service: 12/31/24 MR#: [id number] Acct: [id number] Name: FRANCINE MANTILLA RAJIV Rep #: [id number] : 1995 Provider: Dr. 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 Operator Required: No Is patient in pain?: No Allergies penicillin G Allergy (Mild, Verified 12/31/24 11:49) Other nitrous oxide Allergy (Verified 12/31/24 11:49) Other acetaminophen (From Tylenol) Adverse Reaction (Severe, Verified 12/31/24 11:49) Vomiting Medications ?Medication ?Instructions ?Recorded ?Confirmed ?Type OSL69-TP 400 mcg-om3 35 mg-dha 25 1 tab [...] Vaginal delivery Surgical History H/O knee surgery [place] teeth extracted Family History Grandfather Cancer Paternal Social History adopted: No household members: spouse and children housing: house number of children: 2 current occupational status: unemployed current occupation: [employer] pets and animals: No history of recent [...] 3-4 times per week duration: 45-60 minutes/day romero/synagogue: Church seatbelt use: always do you feel safe [...] 7lbs 0oz Male 8 hours e pidural [facility] BELA Francisco Javier 04/13/21December 37 live - full term 6#4oz Male epidu ral [facility] Dr. Ok Mcintyre Delivery Date: 05/20/18 [...] and Symptoms of Preeclampsia, Feeding No , [place] [employer] and Family Medical Leave or Disability [...] glucola, , KIRK 02/21/25, surprise [facility] [place], [place], Francisco Javier (2) : Status: Acute Qualifiers: Weeks of gestation: 32 weeks Qualified Code(s): Z3A.32 - 32 weeks gestation of Comment: declined NIPT & Carrier testing, normal anatomy Orders: Orders POC Urinalysis 2 Dip (Clinic) Today 12/31/24 1219 <Electronically signed by Moon Hernandez DO> Date _ Moon Reddy DO Abrams Signature: Date (if applicable) CC: ~ [facility] Work Phone: Progress note Author Tricia Euceda [facility] Note Date/Time January 16, 2025 10:30am [facility] [address] [place] [address], [address] [place] [address] OFFICE VISIT Date of Service: 01/16/25 MR#: [id number] Acct: [id number] Name: FRANCINE MANTILLA Rep #: [id number] : 1995 Provider: Dr. 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 Operator Required: No Is patient in pain?: No Allergies penicillin G Allergy (Mild, Verified 01/16/25 10:18) Other nitrous oxide Allergy (Verified 01/16/25 10:18) Other acetaminophen (From Tylenol) Adverse Reaction (Severe, Verified 01/16/25 10:18) Vomiting Medications ?Medication ?Instructions ?Recorded ?Confirmed ?Type [id number] 400 mcg-om3 35 mg-dha 25 1 tab [...] Vaginal delivery Surgical History H/O knee surgery [place] teeth extracted Family History Grandfather Cancer Paternal Social History adopted: No household members: spouse and children housing: house number of children: 2 current occupational status: unemployed current occupation: [employer] pets and animals: No history of recent [...] 3-4 times per week duration: 45-60 minutes/day romero/synagogue: Church seatbelt use: always do you feel safe [...] 7lbs 0oz Male 8 hours e pidural [facility] BELA Mcintyre 04/13/21December 37 live - full term 6#4oz Male epidu ral [facility] Dr. Ok Mcintyre Delivery Date: 05/20/18 [...] fluids. nausea is improving. US scheduled with [facility] 10/03/24 -?-?-?-?-?-?-?-?-?-?-?-?- 19w 6d 125 lb [...] tejada MD> Date _ Tricia Euceda MD Cosign Signature: Date (if applicable) CC: ~ [facility] Work Phone: Reason for referral (narrative)No reason for referral information [facility] Work Phone: Summary Purpose Family History No Family History Records Found Relationship Condition Age at Onset Recorded Date/T tammy grandfather Malignant neoplasm Unknown Advance Directives No Advanced Directives Records Found Advance Directive Response Recorded Date/ Time Living Will Yes April 13 3:42am Power of Supervisor Volunteer Services Yes April 13, 2021 3:42am Advance Directive Response Recorded Date/ Time Living Will Yes April 13 2:42am Power of Supervisor Volunteer Services Yes April 13, 2021 2:42am Advance Directive Response Recorded Date/ Time Do you have a Healthcare Power of Supervisor Volunteer Services? 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 intercourse bleeding LT KNEE PAIN/RX HERE [...] 2024 9:02 am Supervision of normal August d2024 9:02am September 05, 2024 9:46am Supervision of [...] section and content) DATE CREATED AUTHOR 04/05/2020 [facility] DATE CREATED AUTHOR AUTHOR'S ORGANIZ ATION 05/14/2020 [facility] DATE CREATED AUTHOR AUTHOR'S ORGANIZ ATION 06/20/2024 [facility] DATE CREATED AUTHOR AUTHOR'S ORGANIZ ATION 10/04/2024 [facility] DATE CREATED AUTHOR AUTHOR'S ORGANIZ ATION 01/28/2025 [facility] Care Teams (unrecognized sec tion and content) Team Status: Active Member Role Status Dates No Primary Care Physician Family Provider Active Dr. Jorge Golden MD Primary Care Provider Activ e Team Status: Inactive Member Role Status Dates Dr. Jorge Golden MD Primary Care Provider, Refe rring Provider Active Carmelina Morin DATA ENTRY REPRESENTATIVE, DATA ENTRY REPRESENTATIVE-C Attending Provider Active Team Status: Inactive Member [...] 2024 End: December 02, 2024 Carmelina Morin DATA ENTRY REPRESENTATIVE, DATA ENTRY REPRESENTATIVE-C Attending Provider Active Start: December 02, 2024 End: December 02, 2024 Team Status: Active Member Role/Relationship Status Dates Dr. Chaim Golden MD Primary Care Provider Acti ve Start: December 02, 2024 Carmelina Morin DATA ENTRY REPRESENTATIVE, DATA ENTRY REPRESENTATIVE-C Attending Provider Active Start: December 02, 2024 [...] 2024 End: December 02, 2024 Carmelina Morin DATA ENTRY REPRESENTATIVE, DATA ENTRY REPRESENTATIVE-C Attending Provider Active Start: December 02, 2024 End: December 02, 2024 Team Status: Active Member Role/Relationship Status Dates Dr. Chaim Golden MD Primary Care Provider Acti ve Start: December 02, 2024 Carmelina Morin DATA ENTRY REPRESENTATIVE, DATA ENTRY REPRESENTATIVE-C Attending Provider Active Start: December 02, 2024 [...] 2024 End: December 02, 2024 Carmelina Morin DATA ENTRY REPRESENTATIVE, DATA ENTRY REPRESENTATIVE-C Attending Provider Active Start: December 02, 2024 [...] 2024 End: December 02, 2024 Carmelina Morin DATA ENTRY REPRESENTATIVE, DATA ENTRY REPRESENTATIVE-C Attending Provider Active Start: December 02, 2024 End: December 02, 2024 Team Status: Inactive Member Role/Relationship Status Dates Dr. Chaim Golden MD Primary Care Provider Acti ve Start: December 02, 2024 End: December 02, 2024 Carmelina Morin DATA ENTRY REPRESENTATIVE, DATA ENTRY REPRESENTATIVE-C Attending Provider Active Start: December 02, 2024 [...] Inactive Member Role/Relationship Status Dates Dr. Chaim Goledn MD Primary Care Provider Acti ve Start: [...] 2024 End: December 02, 2024 Carmelina Morin DATA ENTRY REPRESENTATIVE, DATA ENTRY REPRESENTATIVE-C Attending Provider Active Start: December 02, 2024 End: December 02, 2024 Team Status: Inactive Member Role/Relationship Status Dates Dr. Chaim Golden MD Primary Care Provider Acti ve Start: December 02, 2024 End: December 02, 2024 Carmelina Morin DATA ENTRY REPRESENTATIVE, DATA ENTRY REPRESENTATIVE-C Attending Provider Active Start: December 02, 2024 [...] BE BASED ON THE PRIMARY CLINICAL RECORDS. [employer] [facility]. provides no warranty or guarantee of the accuracy or completeness of information in this document.
[2025-01-30] MEDS: Lactated Ringers 1,000 ML 999 ML IV (05:45)
[2025-01-30 06:00] LABS: Hematocrit 33.8 % (37-47); Hemoglobin 11.6 g/dL (12.0-15.0); Immature Granulocytes Count 0.040 X10^3/uL (0.0-0.0); Mean Corp Hgb Conc 34.3 g/dL (32-36); Mean Corpuscular Volume 91.6 fL (81-99); Mean Platelet Vol. 11.4 fl (6.2-12.0); NRBC Flagged by Analyzer 0 % (0-5); Platelet Count 169 K/mm3 (150-450); RBC Distribution Width CV 12.1 % (11.6-14.6); RBC Distribution Width SD 40.1 fl (35.1-43.9); Red Blood Count 3.69 M/mm3 (4.2-5.4); White Blood Count 6.5 K/mm3 (4.4-11.0)
[2025-01-30 06:41] LABS: Syphilis Antibodies Nonreactive (Nonreactive)
[2025-01-30] MEDS: fentaNYL-bupivacaine (epidural) 100 ML BAG EPIDURAL (07:10)
[2025-01-30] MEDS: Lactated Ringers 1,000 ML 200 ML IV (07:15)
--- NOTE | 2025-01-30 07:26 | HP.PCM.OB_ITS ---
HPI - General General Date of Admission: 01/30/25 HPI Narrative LADI MANTILLA, is a 29 y/o @ 36 weeks 6 days who presents to L&D at 5 cm dilated and tearful with contractions. She is asking for an epidural brice. tracing is reassuring. She was 4 cm in the office yesterday. Maternal Data Information KIRK Calculator Estimated Delivery Date Method Current WG Current Estimate 02/21/25 LMP (Certain) 36w 6d Other Estimates 02/20/25 Ultrasound #1 37w 0d PFSH PFSH Medical History Anxiety Vaginal delivery Home Medications ?Medication ?Instructions ?Recorded ?Last Taken ?Type BHL81-MG 400 mcg-om3 35 mg-dha 25 1 tab PO DAILY PREGN PRUDENCE 04/12/21 01/28/25 History mg-epa 5 mg-fish oil chewable tablet doxylamine succinate 25 mg tablet 25 mg PO QHS PRN see provid 10/03/24 01/29/25 21:00 History (Unisom (doxylamine)) Allergy/AdvReac Type Severity Reaction Status Date / Time penicillin G Allergy Mild Other Verified 01/30/25 03:55 nitrous oxide Allergy Other Verified 01/30/25 03:55 acetaminophen (From Tylenol) AdvReac Severe Vomiting Verified 01/30/25 03:55 Family History Grandfather Cancer Paternal Surgical History H/O knee surgery [place] teeth extracted Social History adopted: No household members: spouse and children housing: house number of children: 2 current occupational status: unemployed current occupation: [employer] pets and animals: No history of recent travel: No sexually active: Yes Smoking Status: Never smoker alcohol intake: current alcohol intake frequency: holidays/special occasions only details: not while substance use type: does not use well-balanced diet: daily or most days caffeine: No eating out: rarely or never during the past year weight has: remained stable what type of physical activity do you participate in: walking and weight training frequency: 3-4 times per week duration: 45-60 minutes/day romero/gnosticist: Sabianism seatbelt use: always do you feel safe at home: Yes 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 Date Name GA/Weeks Outcome Route Bth Weight Infant Gen Labor Lgth Anesthesia Del Locatn Provider FOB 05/20/18 37 live - full term 7lbs 0oz Male 8 hours e pidural [facility] BELA Francisco Javier 04/13/21December live - full term 6#4oz Male epidu ral [facility] Dr. Ok Mcintyre Delivery Date: 05/20/18 Last Updated by: Shyla Hurley MD 34 wk PTL: fluids and stopped. steroids. Thinks related to noravirus. Pushed for 20 min. 2nd degree with abscess of suture Delivery Date: 04/13/21 Last Updated by: Radha Espinoza COVID + at , IAL Visit Details Expected Delivery Route/Plan Labor Preferences- CB/BF classes: no labor support person: Francisco Javier labor intervention preferences: [] pain management options preferred: ok for epidural cut cord/dad catch: cord : yes PP control planned: discussed discussed possible routes of delivery and associated risks: [] special requests: [] Plans Covid status: [] Flu vaccine: [] Tdap vaccine: declines Rhogam: NA LARC form signed: yes movement and labor precautions reviewed. Problem list reviewed and updated with the most current plan of care details and appropriate orders placed. Relevant counseling for the gestational age provided. Continue routine care and follow up unless otherwise noted in visit notes/problem list details OB Flowsheet Initial Weight: 116 lb Date -?-?-?-?-?-?-?-?-?-?-?-?- EGA Weight BP Urine Prot -?-?-?-?-?-?-?-?-?-?-?-?- Glucose FHR FuHt Pres Dilation -?-?-?-?-?-?-?-?-?-?-?-?- Effaced St Visit Note 07/18/24 -?-?-?-?-?-?-?-?-?-?-?-?- 8w 6d 116 lb 8 oz (+8 oz) 107/69 -?-?-?-?-?-?-?-?-?-?-?-?- 178 -?-?-?-?-?-?-?-?-?-?-?-?- JV- CRL consiste nt with LMP. declines nipt. david to pharmacy. new ob labs today 08/06/24 -?-?-?-?-?-?-?-?-?-?-?-?- 11w 4d 116 lb (+0 oz) 110/69 Negative -?-?-?-?-?-?-?-?-?-?-?-?- Negative 160 -?-?-?-?-?-?-?-?-?-?-?-?- SM- trying to de termine if HIV has resulted- discuss with lab. if didn't reuslt will draw at 26 weeks. no vb cramping still has nausea 09/05/24 -?-?-?-?-?-?-?-?-?-?-?-?- 15w 6d 119 lb 2 oz (+3 lb 2 oz) 101/64 Negative -?-?-?-?-?-?-?-?-?-?-?-?- Negative 150 -?-?-?-?-?-?-?-?-?-?-?-?- KW- no vb/crampi ng. no concerns today. thinking about stopping the IV fluids. nausea is improving. US scheduled with MFM 10/03/24 -?-?-?-?-?-?-?-?-?-?-?-?- 19w 6d 125 lb 2 oz (+9 lb 2 oz) 105/70 Negative -?-?-?-?-?-?-?-?--?-?-?-?- Negative 145 20 -?-?-?-?-?-?-?-?-?-?-?-?- SM- no vb lof go od fm feeling tired 10/29/24 -?-?-?-?-?-?-?-?-?-?-?-?- 23w 4d 128 lb 4 oz (+12 lb 4 oz) 101/67 Negative -?-?-?-?-?-?-?-?-?-?-?-?- Negative 151 24 -?-?-?-?-?-?-?-?-?-?-?-?- JV- no lof, vagi nal bleeding, or dec fm. no complaints. 12/02/24 -?-?-?-?-?-?-?-?-?-?-?-?- 28w 3d 131 lb 8 oz (+15 lb 8 oz) 98/62 Negative -?-?-?-?-?-?-?-?-?-?-?--?- Negative 155 27 -?-?-?-?-?-?-?-?-?-?-?-?- MH-No VB, LOF. G ood FM. Larc. 28 wk labs pending. Declines tdap 12/16/24 -?-?-?-?-?-?-?-?-?-?-?-?- 30w 3d 135 lb 8 oz (+19 lb 8 oz) 102/68 Negative -?-?-?-?-?-?-?-?-?-?-?-?- Negative 145 30 -?-?-?-?-?-?-?-?-?-?-?-?- KW- no vb/lof/ct x. good fm. would like a tub room for labor. 12/31/24 -?-?-?-?-?-?-?-?-?-?-?-?- 32w 4d 137 lb 7 oz (+21 lb 7 oz) 112/72 Negative -?-?-?-?-?-?-?-?-?-?-?-?- Negative 143 31.5 -?-?-?-?-?-?-?-?-?-?-?-?- JV- no lof, vagi nal bleeding, or dec fm. no complaints. 01/16/25 -?-?-?-?-?-?-?-?-?-?-?-?- 34w 6d 136 lb 3 oz (+20 lb 3 oz) 106/69 Negative -?-?-?-?-?-?-?-?-?-?-?-?- Negative 145 33 Cephalic -?-?-?-?-?-?-?-?-?-?-?-?- Sm- no vb lof go od fm no regular ctx 01/23/25 -?-?-?-?-?-?-?-?-?-?-?-?- 35w 6d 139 lb 8 oz (+23 lb 8 oz) 112/74 -?-?-?-?-?-?-?-?-?-?-?-?- 145 35 Cephalic 3 -?-?-?-?-?-?-?-?-?-?-?-?- 70 -1 KW- no vb/ lof/ctx. good fm gbs today 01/29/25 -?-?-?-?-?-?--?-?-?-?-?-?- 36w 5d 140 lb 1 oz (+24 lb 1 oz) 115/74 Negative -?-?-?-?-?-?-?-?-?-?-?-?- Negative 132 33 Cephalic 4 -?-?-?-?--?-?-?-?-?-?-?-?- 70 -1 JV- BORIS is 9.5, AC is 38 weeks size. suspect low FH due to low position. patient reassured. labor precautions discussed. ROS Constitutional Constitutional: Denies change in weight, fatigue, fever(s), headache(s), poor appetite or weakness Eyes Eyes: Denies blurry vision, change in vision, seeing flashes or spots in vision ENT HEENT: Denies dizziness, headache(s), loss taste/smell or sore throat Cardiovascular Cardiovascular: Denies chest pain, dizziness, dyspnea, irregular heart rhythm, leg edema, palpitations, rapid heart rate or vomiting Respiratory/Chest Respiratory/Chest: Denies chest tightness, cough, dyspnea or breast pain Gastrointestinal Gastrointestinal: Denies abdominal pain, anorexia, constipation, cramping, diarrhea, hemorrhoids, vomiting or weight changes Genitourinary Genitourinary: Denies dysuria, flank pain, genital lesions, genital pain, urinary frequency or urinary urgency Musculoskeletal Musculoskeletal: Denies back pain, difficulty walking, joint pain, limited range of motion, muscle cramps or numbness Integumentary Integumentary: Denies lesions or unusual bruising Neurologic Neurologic: Denies abnormal movements, abnormal speech, dizziness, numbness, seizure-like activity or syncope Psychiatric Psychiatric: Denies anxiety, behavioral changes, change in appetite, change in libido, cognitive impairment, confusion, depression, difficulty concentrating, hallucinations or suicidal thoughts Endocrine Endocrinology: Denies excessive sweating, polydipsia or polyuria Hematologic/Lymphatic Hematologic/Lymphatic: Denies easy bleeding, easy bruising or lymphadenopathy Allergic/Immunologic Allergic/Immunologic: Denies itchy eyes, lip swelling, seasonal rhinorrhea, rhinitis, throat swelling, tongue swelling, eczemia, wheezing or asthma Vital Signs Vital Signs Vital Signs: 01/30/25 04:00 01/30/25 04:00 01/30/25 04:00 Temperature Temperature Source Pulse Rate 98 Respiratory Rate Blood Pressure 118/69 BP Systolic 118 BP Diastolic 69 Pulse Ox 97 01/30/25 04:00 01/30/25 04:00 01/30/25 04:00 Temperature 98.1 F Temperature Source Temporal Pulse Rate Respiratory Rate 16 Blood Pressure BP Systolic BP Diastolic Pulse Ox 01/30/25 04:00 01/30/25 04:00 01/30/25 06:52 Temperature 98.1 F Temperature Source Pulse Rate 90 Respiratory Rate Blood Pressure BP Systolic BP Diastolic Pulse Ox 97 01/30/25 06:52 01/30/25 06:53 01/30/25 06:53 Temperature Temperature Source Pulse Rate 93 Respiratory Rate Blood Pressure 112/92 H BP Systolic 112 BP Diastolic 92 Pulse Ox 100 01/30/25 06:53 01/30/25 06:53 01/30/25 06:53 Temperature 97.3 F L Temperature Source Temporal Pulse Rate Respiratory Rate 16 Blood Pressure BP Systolic BP Diastolic Pulse Ox 01/30/25 06:57 01/30/25 06:57 01/30/25 06:59 Temperature Temperature Source Pulse Rate 93 Respiratory Rate Blood Pressure 127/63 H BP Systolic 127 BP Diastolic 63 Pulse Ox 100 01/30/25 06:59 01/30/25 06:59 01/30/25 07:02 Temperature Temperature Source Pulse Rate 97 93 Respiratory Rate 18 Blood Pressure BP Systolic BP Diastolic Pulse Ox 01/30/25 07:02 01/30/25 07:03 01/30/25 07:03 Temperature Temperature Source Pulse Rate 85 Respiratory Rate Blood Pressure 118/69 BP Systolic 118 BP Diastolic 69 Pulse Ox 100 01/30/25 07:04 01/30/25 07:08 01/30/25 07:08 Temperature Temperature Source Pulse Rate 88 Respiratory Rate 18 Blood Pressure 122/67 H BP Systolic 122 BP Diastolic 67 Pulse Ox 01/30/25 07:08 01/30/25 07:09 01/30/25 07:09 Temperature Temperature Source Pulse Rate 90 Respiratory Rate Blood Pressure 119/69 BP Systolic 119 BP Diastolic 69 Pulse Ox 100 01/30/25 07:09 01/30/25 07:13 01/30/25 07:13 Temperature Temperature Source Pulse Rate 91 Respiratory Rate 18 Blood Pressure 111/65 BP Systolic 111 BP Diastolic 65 Pulse Ox 01/30/25 07:13 01/30/25 07:13 01/30/25 07:15 Temperature Temperature Source Pulse Rate Respiratory Rate 18 Blood Pressure 110/74 BP Systolic 110 BP Diastolic 74 Pulse Ox 100 01/30/25 07:15 01/30/25 07:15 01/30/25 07:18 Temperature Temperature Source Pulse Rate 89 Respiratory Rate 17 Blood Pressure 112/66 BP Systolic 112 BP Diastolic 66 Pulse Ox 01/30/25 07:18 01/30/25 07:18 01/30/25 07:21 Temperature Temperature Source Pulse Rate 81 Respiratory Rate 16 Blood Pressure BP Systolic BP Diastolic Pulse Ox 100 01/30/25 07:21 01/30/25 07:23 01/30/25 07:23 Temperature 98.8 F Temperature Source Pulse Rate 89 Respiratory Rate Blood Pressure BP Systolic BP Diastolic Pulse Ox 99 01/30/25 07:24 01/30/25 07:24 Temperature Temperature Source Pulse Rate 89 Respiratory Rate Blood Pressure 113/69 BP Systolic 113 BP Diastolic 69 Pulse Ox Weight Weight: 139 lb 15.896 oz Body Mass Index (BMI) 22.6 Physical Exam Const alert, oriented x3, no apparent distress and healthy appearing General Appearance: cooperative; Negative for anxious HEENT normocephalic Face and Sinus: normal facial exam Eyes EOMs intact bilaterally and no scleral icterus General Eye: normal appearance of both eyes Neck full ROM and supple Lymph Lymphatic: no lymphadenopathy noted Resp normal respiratory effort Effort and Inspection: able to speak in complete sentences Cardio regular rate GI soft to palpation and non-tender Inspection: gravid Palpation: soft; Negative for tender external exam normal Back/Spine no CVA tenderness Extremity normal to inspection, full ROM and no clubbing, cyanosis or edema General Extremity: Negative for calf tenderness or edema Skin Lesions: no lesions Rashes: no rashes Psych mental status grossly normal Labs Labs Labs: Blood Type A POSITIVE Antibody Screen NEGATIVE Hct, (37-47) 33.8 % L Hgb, (12.0-15.0) 11.6 g/dL L Obstetrics Ultrasound Syphilis Total Ab, (Nonreactive) Nonreactive Rubella IgG Antibody, (Nonreactive) REAC Hep Bs Antigen, (Nonreactive) Nonreactive Hepatitis C Antibody, (Nonreactive) Nonreactive Chlamydia DNA (VICKI), (Negative) Negative N.gonorrhoeae DNA (VICKI), (Negative) Negative HIV 1&2 Antibody, (Nonreactive) Nonreactive Glucose 1 Hr 50 gm, (70-140) 96 mg/dL Rhogam given: No Assessment & Plan (1) Supervision of normal : QUALIFIERS: Normal : other normal Trimester: third trimester Qualified Code(s): Z34.83 - Encounter for supervision of other normal , third trimester COMMENT: PRR, , KIRK 02/21/25, surprise PC Emmett Harp, Francisco Javier (2) : QUALIFIERS: Weeks of gestation: 36 weeks Qualified Code(s): Z3A.36 - 36 weeks gestation of COMMENT: GBS neg, declined NIPT & Carrier testing, normal anatomy PLAN: Plan Patient presents IAL, plan expectant management for , pitocin/AROM PRN if needed. Pain management: plans epidural. GBS negative . Management of any complications: none I have reviewed the [facility] and made any clinically relevant updates.
--- NOTE | 2025-01-30 08:10 | PN_ITS ---
Progress Note patient is comfortable with her epidural.She consents to arom current tracing: FHT: Moderate variability reactive no decelerations category I tracing [place]: irregular Contractions, toco needs adjusted A/P: @ 36 weeks 6 days, active labor membranes ruptured with clear fluid and moderate bloody show expect soon
[2025-01-30] MEDS: Oxytocin 15 Units/NS 250ml 15 UNITS/250 ML IV.SOLN 2 UNITS IV (09:10)
[2025-01-30] MEDS: Oxytocin 15 Units/NS 250ml 15 UNITS/250 ML IV.SOLN 83 UNITS IV (12:09)
--- NOTE | 2025-01-30 12:31 | OB.VAGDELI_ITS ---
Assessment & Plan (1) Vaginal delivery: COMMENT: IAL JOS MILLER [place] (2) Supervision of normal : QUALIFIERS: Normal : other normal Trimester: third trimester Qualified Code(s): Z34.83 - Encounter for supervision of other normal , third trimester COMMENT: PRR, , KIRK 02/21/25, surprise PC [place], Emmett, Francisco Javier (3) : QUALIFIERS: Weeks of gestation: 36 weeks Qualified Code(s): Z3A.36 - 36 weeks gestation of COMMENT: GBS neg, declined NIPT & Carrier testing, normal anatomy Maternal Data Information KIRK Calculator Estimated Delivery Date Method Current WG Current Estimate 02/21/25 LMP (Certain) 36w 6d Other Estimates 02/20/25 Ultrasound #1 37w 0d Final KIRK: 02/21/25 Final KIRK Source: US >20 weeks Gestational age: 36.6 Vaginal Delivery Maternal Presentation Maternal Presentation: Active Labor Maternal Presentation: Presented to unit for active labor. Vaginal Delivery Information Procedure Performed: Spontaneous Vaginal Delivery Surgeon/Practitioner: Chrissy Lucas Date of Procedure: 01/30/25 Pre-Procedure Diagnosis: see problem list Post-Procedure Diagnosis: same Type of anesthesia: Epidural Estimated Blood Loss: 150 Time of Delivery: 11:26 Findings Description of procedure: Progressed well to 10cm dilated and made steady progress with effective maternal pushing. Delivered the head in CHANTEL presentation. The head was delivered atraumatically and a loose nuchal cord was identified and was easily reduced over the 's head. The anterior and posterior shoulders delivered without complication followed by the rest of the infant and the infant was placed on the maternal abdomen. Delayed cord clamping was employed for approximately 3 minutes. Cord was clamped and cut and gentle traction was applied to the cord and the placenta delivered spontaneously. Immediately following, it was noted to be intact with a 3 vessel cord. Uterine bleeding stable. The perineum and vagina were inspected and noted to have a first degree laceration which was repaired with 3-0 Vicryl in the usual fashion. EBL was 150cc. Patient and tolerated delivery well. Apgars 8/9. Dr Tran notified of vaginal delivery and orders reviewed. Physician agrees with current plan of care. Presentation: Vertex Amniotic Fluid Description: Clear Placental Delivery Description: Spontaneous Placenta Disposition: [facility] Specimen collected: No Cord Vessel Description: 3 Vessels Cord Entanglement: Around neck x 1, loose Infant A Gender: Male (1 minute): 8 (5 minute): 9 Delayed Cord Clamping: Yes Travel Assistant college instructor: No Post Vaginal Deli Medications given after delivery: IV Pitocin Episiotomy Description: None Laceration: 1st degree Complication Complications: No Multi Select Codes Urinary/Genital Urinary/Genital CPT Codes: 02756 Vaginal Delivery [facility]
--- NOTE | 2025-01-30 12:35 | DCINST_ITS ---
Discharge Instructions DC O2, CPAP, BIPAP needs Home O2 Discharge instructions: No Dressing / Incision Discharge Activity: Return to Normal Activity May resume sexual activity in: 6-8 weeks Dressing / Incision Call your doctor if you observe: Fever of 101 or Higher, Coldness, Increased Pain, Numbness or Tingling, Change in Color, Inability to urinate, Inability to have a bowel movement, Using more than 1 pad per hour, Shortness of breath, Dizziness, Fainting spells, Swelling in the ankles, Chest pain, Increased palpitations (irregular heartbeat), Calf discomfort and Uncontrolled pain Follow Up Care Please Follow Up With: Chrissy Lucas CNM When: Please call the office to schedule your follow up appointment in 6 weeks. If you had high blood pressure please call to schedule an appointment in 2 weeks. Test Results: Test results from this visit will be discussed in further detail at your follow- up appointment, if applicable. Discharge Plan Admission Admit Date/Time: 01/30/25 05:35 Attending Provider: Chrissy Lucas Primary Care Provider: Fred Golden Discharge Orders/Prescriptions Prescriptions: No Action Unisom (doxylamine) 25 mg tablet 25 mg PO QHS PRN (Reason: see provid) [id number] oil 400 mcg-35 mg -25 mg-5 mg Tablet,Chewable 1 tab PO DAILY Referrals / Follow Up: Fred Golden MD [Primary Care Provider, Family Practice]
--- NOTE | 2025-01-30 20:57 | NURSING ---
report received from maria d SIM. this RN to assume care of couplet at this time.
[2025-01-31] VITALS (7 sets, daily range): BP systolic 105–115; BP diastolic 56–65; PULSE 64–75; RESP 16–18; TEMP 36.4–37.2; O2SAT 96–98
--- NOTE | 2025-01-31 10:40 | PCM.PN.OB ---
Subjective Subjective Patient without complaints. Doing well on day #1 status post routine spontaneous vaginal delivery Objective Data Objective Data Vital Signs: Vital Signs Afebrile, vital signs stable Temp Pulse Resp BP Pulse Ox O2 Del Method 98.8 F 74 18 114/58 L 96 Room Air 01/31/25 09:00 01/31/25 09:00 01/31/25 09:00 01/31/25 09:00 01/31/25 09:00 01/31/25 09:00 Oxygen Delivery Method Room Air Weight: 139 lb 15.896 oz Body Mass Index (BMI) 22.6 Intake & Output: Intake and Output for Last 24 Hours 01/29/25 01/30/25 01/31/25 23:59 23:59 23:59 Intake Total 2307.50 / 2307.50 Output Total 1751 / 1751 Balance 556.50 / 556.50 -1 / -1 Lab / Micro Data 01/30/25 05:45 Assessment & Plan (1) Vaginal delivery: COMMENT: DONNIE Monte PLAN: Doing well day #1 status post routine spontaneous vaginal delivery. Will discharge to home with routine instructions.
--- NOTE | 2025-01-31 10:41 | PCM.DC.SUM ---
Providers Date of Admission: 01/30/25 Primary Care Physician: Dr. Fred Golden MD Reason For Visit: VAGINAL DELIVERY Diagnosis Discharge Diagnosis (1) Vaginal delivery: Status: Acute Code(s): O80 - Encounter for full-term uncomplicated delivery Plan: Doing well day #1 status post routine spontaneous vaginal delivery. Will discharge to home with routine instructions. Medications at Discharge Home Medications [id number] 400 mcg-om3 35 mg-dha 25 mg-epa 5 mg-fish oil chewable tablet 1 tab PO DAILY 04/12/21 doxylamine succinate 25 mg tablet (Unisom (doxylamine)) 25 mg PO QHS PRN see provid 10/03/24 Hospital Course Summary of Care Provided Hospital Course: Patient was admitted and progressed and had a spontaneous vaginal delivery. the patient did well and was felt that she was ready for discharge on day #1. Weight / BMI Weight Weight: 139 lb 15.896 oz Body Mass Index (BMI) 22.6 ABG / Lab / Microbiology Data 01/30/25 05:45 D/C Instructions May resume sexual activity in: 6-8 weeks Call your doctor if you observe: Fever of 101 or Higher, Coldness, Increased Pain, Numbness or Tingling, Change in Color, Inability to urinate, Inability to have a bowel movement, Using more than 1 pad per hour, Shortness of breath, Dizziness, Fainting spells, Swelling in the ankles, Chest pain, Increased palpitations (irregular heartbeat), Calf discomfort and Uncontrolled pain DC O2, CPAP, BIPAP Needs Home O2 Discharge instructions: No Please Follow Up With: Chrissy Lucas CNM When: Please call the office to schedule your follow up appointment in 6 weeks. If you had high blood pressure please call to schedule an appointment in 2 weeks. Meaningful Use Info Meaningful Use Meaningful Use Diagnoses (Choose all that apply): None applicable Discharge Plan Admission Admit Date/Time: 01/30/25 05:35 Attending Provider: Chrissy Lucas Primary Care Provider: Fred Golden Discharge Orders/Prescriptions Prescriptions: No Action Unisom (doxylamine) 25 mg tablet 25 mg PO QHS PRN (Reason: see provid) [id number]-[id number] oil 400 mcg-35 mg -25 mg-5 mg Tablet,Chewable 1 tab PO DAILY Referrals / Follow Up: Fred Golden MD [Primary Care Provider, Family Practice] Disposition Disposition (needs filled in before D/C Order can be placed): Home, Self Care
--- NOTE | 2025-01-31 10:55 | CASEMGMT ---
Social Work Assessment Labor and Delivery Unit Patient Address: [address] [place] [id number] Phone number: [phone] Date of Referral: 01/30/25 Time of Referral: 15:24 Referred By: Chrissy Lucas Date of Intervention: 01/31/25 Time of Intervention: 15:24 Reason for Referral: Other/Anxiety History obtained from:? Mother of baby (MOB), father of baby (EKTA/Francisco Javier, age 34) and medical record review. ? Household composition: MOB, FOB and their children, 6-year-old son Loyd, 3-year-old son Emmett and son Mell, born on 01/30/25. Patient's parent/guardian status: ???MOB denied any previous or current issues of domestic violence and described a positive relationship with the FOB. Medical History: : 3, Para, now 3. MOB received PNC through [facility] beginning at 8 weeks and 6 days. Visits were observed to be routine. Apgars: 8 and 9. Weight: 3185 grams, Food Sanitarian: Richard. Educational Status: MOB and FOB denied any issues with reading, writing or learning comprehension. MOB completed some college, and the FOB earned his bachelors. Financial Status: MOB and FOB reported that their income is sufficient to meet the needs of their family at this time. 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 Infant Supplies: MOB and FOB reported they have the supplies they need for baby at this time including but not limited to: Car seat, bassinet, crib, pack-n-play, diapers, bottles, and clothing. BANG is in the process of getting a new breast pump through her insurance. Childcare/Caregiver(s): MOB reported that as a SAHM, she will be the primary caregiver. The FOB will also help provide care during the times he is home. Transportation: Both MOB and FOB are licensed drivers and have a reliable vehicle to get baby to and from all medical appointments. MOB and FOB denied any issues/barriers to transportation at this time. Programs/Agencies Involved: Denied any current program/agency involvement. MOB used to be involved in counseling about 5 years ago for 1 year due to anxiety. FOB stated one of their good friends at that time during childbirth. Children Services/Legal Issues: MOB and FOB denied any previous or current legal involvement. Behavioral Health Issues: None reported. ? Mental Health History: BANG has anxiety and is not on any medication at this time, nor has she ever been. MOB described her symptoms as managed at this time. MOB denied any previous PPD with any of her other children. FOB denied any mental health history. ? Substance Use History:?? MOB and FOB denied any previous or current drug and/or alcohol abuse. ? Family History:?? Denied. FOChantelle reported that his brother used to abuse alcohol but doesn?t any longer. Drug Screens: None obtained for the MOB or baby during this admission. Family/Social Stressors:?? Denied. Support Systems: BANG identified her biggest support as the FOB, family as well as her parents and two sisters. MOB and FOB reported that have a ?huge and amazing family?, all who will help anytime needed. Depression/Shaken Baby/Safe Sleeping: Hogshead Builder provided verbal and written education on PPD, increased risk factors for PPD, Safe Sleeping and Shaken Baby.? MOB and FOB both verbalized an understanding.??? ASSESSMENT: MOB and FOB provided consent to social work visit. Upon arrival, the MOB was sitting on a chair and the FOB was sitting on the couch holding . Both MOB and FOB were verbally engaged and interactive. Hogshead Builder observed positive interaction between the MOB and FOB as well as with the MOB and FOB towards . Both were very gentle and attentive towards . At the end of the assessment, Hogshead Builder requested to speak with the MOB alone, which she and the FOB were both agreeable to. FOB handed to the MOB. MOB reported feeling safe in her home and denied any previous or current domestic violence, unmanaged mental health issues either with herself or with the FOB, and also denied any concerns with any drug or alcohol abuse either with herself or with the FOB as well as any unmanaged mental health concerns. Safe Plan of Care for infant related to substance use: N/A PLAN: For MOB and baby to be discharged when medically ready. No other services requested or indicated. Moon Eastman, CHUCKING LATHE OPERATOR, PICKLING DRUM OPERATOR
--- NOTE | 2025-01-31 17:54 | NURSING ---
discharge instr reviewed with patient, instr also given in written form.
== END 2025-01-31 18:30 | disposition home or self-care (01) | DRG 807 ==
LOC: WPOUT 05:42 → WP 05:42
PROVIDERS: Obstetrics & Gynecology; Admitting Provider Advanced Practice Midwife; PCP Family Medicine; Referring Provider Advanced Practice Midwife; Visit Provider Advanced Practice Midwife
DX: O69.81X0 Labor and delivery complicated by cord around neck, without compression, not applicable or unspecified (principal); Z37.0 Single live birth; O70.0 First degree perineal laceration during delivery; Z3A.36 36 weeks gestation of pregnancy
CPT/HCPCS: 59025; 59050; 81002; 85025; 86780; 86850; 86900; 86901; 99221; G0378